=== PATIENT | female | born 1975 | race Caucasian/White ===

== ENCOUNTER 2017-08-07 09:35 | Observation (INO) | payer OTHER ==
[2017-08-07 09:42] VITALS: BP 164/111; PULSE 86; TEMP 98.9; BMI 31.3
--- NOTE | 2017-08-07 10:11 | PDOC ---
History of Present Illness - General History Source: Patient Exam Limitations: No Limitations <Michele Sigala - Last Filed: 08/07/17 11:16> - General History Source: Patient Exam Limitations: No Limitations <Micky Gastelum - Last Filed: 08/07/17 16:56> - General Chief Complaint: Chest Pain Stated Complaint: CHEST PAIN Time Seen by Provider: 08/07/17 09:51 - History of Present Illness Initial Comments: 08/07/17 11:16 The patient is a 41 year old female, with a significant past medical history of DM, HL and HTN, who presents to the emergency department with chest pain and right sided facial/arm/leg numbness. The patient notes she had some intermittent chest pain that was sharp lasting a few minutes since last night, she had anothe repisode morning. She also notes that this morning she woke up feeling 'funny' alittle lightheaded with tingling in her r face, arms/legs with some weakness, she came to the ED and the symptoms have largely improved but she still feels alittle numbness in her arm/face. She denies any recent trauma to her arm, face, or chest. She denies any recent travel. She denies recent fevers, chills, headache or dizziness. She denies recent nausea, vomit, diarrhea or constipation. She denies recent dysuria, frequency, urgency or hematuria. She denies radiation of her chest pain or back pain. No neck pain, palpitations, lighthededness, BERRIOS or worsening of pain with exertion. Allergies: NKA Past surgical history: None reported. Social history: Nonsmoker. Denies EtOH use and recreational drug use. Family hx of ACS (uncle) (JovonMichele) Past History <Michele Sigala - Last Filed: 08/07/17 11:16> - Past Medical History Diabetes: Yes (IDDM) HTN: Yes - Immunization History Immunization Up to Date: Yes - Suicide/Smoking/Psychosocial Hx Smoking History: Never smoked Have you smoked in the past 12 months: No Information on smoking cessation initiated: No Hx Alcohol Use: No Drug/Substance Use Hx: No Substance Use Type: None <iMcky Gastelum - Last Filed: 08/07/17 16:56> - Past Medical History Allergies/Adverse Reactions: Allergies Allergy/AdvReac Type Severity Reaction Status Date / Time Penicillins Allergy Verified 09/16/15 17:46 Home Medications: Ambulatory Orders Insulin Glargine,Hum.rec.anlog [Basaglar Kwikpen U-100] 25 unit SQ BID 08/07/17 Lisinopril [Prinivil] 10 mg PO DAILY 08/07/17 Metformin HCl [Glucophage -] 500 mg PO BID 08/07/17 Review of Systems - Review of Systems Able to Perform ROS?: Yes <Michele Sigala - Last Filed: 08/07/17 11:16> <Micky Gastelum - Last Filed: 08/07/17 16:56> - Review of Systems Comments:: 08/07/17 11:16 CONSTITUTIONAL: No reported: Fever, Chills, Diaphoresis, Generalized Weakness, Malaise, Loss of Appetite HEENT: No reported: Rhinorrhea, Nasal Congestion, Throat Pain, Throat Swelling, Difficulty Swallowing, Mouth Swelling, Ear Pain, Eye Pain, Visual Changes CARDIOVASCULAR: +chest pain. No reported: Syncope, Palpitations, Irregular Heart Rate, Lightheadedness, Peripheral Edema RESPIRATORY: No reported: Cough, Shortness of Breath, SOB with Exertion, Orthopnea, Wheezing , Stridor, Hemoptysis GASTROINTESTINAL: No reported: Abdominal pain, Abdominal Distension, Nausea, Vomiting, Diarrhea, Constipation, Melena, Hematochezia GENITOURINARY: No reported: Dysuria, Frequency, Urgency, Hesitancy, Flank Pain, Genital Pain MUSCULOSKELETAL: No reported: Myalgia, Arthralgia, Joint Swelling, Back pain, Neck Pain SKIN: No reported: Rash, Itching, Pallor HEMATOLOGIC/IMMUNOLOGIC: No reported: Easy Bleeding, Easy Bruising, Lymphadenopathy, Frequent infections ENDOCRINE: No reported: Unexplained Weight Gain, Unexplained Weight Loss, Heat Intolerance , Cold Intolerance NEUROLOGIC: +Facial/arm numbness. No reported: Headache, Lightheadedness, Unsteady Gait, Seizure, Mental Status Changes, Incontinence PSYCHIATRIC: No reported: Anxiety, Depression (Michele Sigala) *Physical Exam <Michele Sigala - Last Filed: 08/07/17 11:16> <Micky Gastelum - Last Filed: 08/07/17 16:56> - Vital Signs Last Vital Signs Temp Pulse Resp BP Pulse Ox 98.9 F 86 14 164/111 100 08/07/17 09:39 08/07/17 09:39 08/07/17 09:39 08/07/17 09:39 08/07/17 09:39 - Physical Exam Comments: 08/07/17 11:17 GENERAL: The patient is awake, alert, and fully oriented, Nontoxic - in no acute distress. HEAD: Normocephalic, atraumatic. EYES: extraocular movements intact, sclera anicteric, conjunctiva clear. ENT: Normal voice, Moist mucous membranes. NECK: Normal range of motion, supple LUNGS: Breath sounds equal, clear to auscultation bilaterally. No wheezes, no rhonchi, no rales. HEART: Regular rate and rhythm, normal S1 and S2 without murmur, rub or gallop. ABDOMEN: Soft, nontender, normoactive bowel sounds. No guarding, no rebound. . No CVA tenderness EXTREMITIES: Normal range of motion, no edema. No clubbing or cyanosis. No cords, erythema, or tenderness. NEUROLOGICAL: No facial assymetry, Normal speech, decreased senation in the face and arms, normal gait, normal finger to nose, rapid alternating movements, no drift. PSYCH: Normal mood, normal affect. SKIN: Warm, Dry, normal turgor, (Michele Sigala) Heart Score/ECG Review <Michele Sigala - Last Filed: 08/07/17 11:16> - History History: Slightly suspicious - Electrocardiogram EKG: Non specific repolarization disturbance - Age Age: </= 45 - Risk Factors Risk Factors Heart Score: Yes Hx Hypercholesterolemia, Yes Hx Diabetes, Yes Positive family hx of cardiac disease Based on the list above the patient has:: >/=3 risk factors or Hx atherosclerotic disease - Troponin Troponin: </= normal limit - Score Heart Score - Total: 3 <Micky Gastelum - Last Filed: 08/07/17 16:56> - ECG Impressions Comment:: Twelve-lead EKG was performed and reviewed by me. There is normal sinus rhythm with a normal rate. The axis is normal. The intervals are normal. There is normal R wave progression Q waves in lead [address] or T wave abnormalities. (Micky Gastelum) ED Treatment Course - LABORATORY CBC & Chemistry Diagram: 10/12/17 12:11 08/07/17 12:11 <Micky Gastelum - Last Filed: 08/07/17 16:56> - ADDITIONAL ORDERS Additional order review: Laboratory Results 08/07/17 08/07/17 08/07/17 16:25 12:11 11:50 Sodium 136 Potassium 4.5 Chloride 103 Carbon Dioxide 24 Anion Gap 9 BUN 25 H D Creatinine 1.1 H D Creat Clearance w eGFR 55.01 Random Glucose 172 H Calcium 9.0 Total Bilirubin 0.3 D AST 14 L D ALT 19 Alkaline Phosphatase 80 D Creatine Kinase 59 Troponin I 0.06 H Total Protein 6.5 Albumin 2.8 L Urine Color Straw Urine Appearance Clear Urine pH 5.0 Urine Protein 2+ H Urine Glucose (UA) 2+ H Urine Ketones Negative Urine Blood 1+ H Urine Nitrite Negative Urine Bilirubin Negative Urine Urobilinogen Negative Urine RBC 2 Urine WBC 3 Ur Epithelial Cells Rare Urine HCG, Qual Negative 08/07/17 12:11 RBC 4.29 MCV 79.8 L MCHC 34.1 RDW 14.2 MPV 9.2 Neutrophils % 63.2 Lymphocytes % 26.7 Monocytes % 6.9 Eosinophils % 2.5 D Basophils % 0.7 - RADIOLOGY Radiology Studies Ordered: Category Date Time Status HEAD CT WITHOUT CONTRAST [CT] Stat CT Scan 08/07/17 10:28 Taken CHEST PA & LAT [RAD] Stat Radiology 08/07/17 10:09 Completed Medical Decision Making <Michele Sigala - Last Filed: 08/07/17 11:16> <Micky Gastelum - Last Filed: 08/07/17 16:56> - Medical Decision Making 08/07/17 10:30 41y F hx of htn, dm, hl presents with complain of R sided chest pain last night that is intermittent, lasting for a few minutes at a time, this morning she felt tingling in her face, arms, legs and mild weakness when she woke up which has singificantly improved. on exam the pts neuro status was essentially negative beside mild subjective tingling. pt had no lateralizing neurollgic findings. differential for the pts sypmtoms include possible acs, consider cva/tia, metabolid dernagements, anemia - will obtain ekg, trops, will obtain ct head will give ASA if ct head negative not tpa candidate as sypmtoms started last night NIHSS is +1 for tingling/sensory changes anticipate observation, consider neuro consultation A portion of this note was documented by scribe services under my direction. I have reviewed the details of the note, within reason, and agree with the documentation with the following case summary and management plan written by me 08/07/17 16:09 pts labs negative neuro symptoms resolved will observe for r/o acs trop 0.06 - will trend pt given asa 08/07/17 16:26 case dw Juanita Mendoza agreed with observation Case discussed in detail with admitting physician including history, physical exam and ancillary studies. Admitting physician has assumed care for the patient, will follow all pending diagnostics and will complete the evaluation and treatment. (Micky Gastelum) *DC/Admit/Observation/Transfer <Michele Sigala - Last Filed: 08/07/17 11:16> - Discharge Dispostion Admit: Yes <Micky Gastelum - Last Filed: 08/07/17 16:56> Diagnosis at time of Disposition: Chest pain Qualifiers: Chest pain type: unspecified Qualified Code(s): R07.9 - Chest pain, unspecified - Discharge Dispostion Decision to Admit order Date/Time: Decision to Admit Order Category Date Time Status Decision to Admit to Hospital Routine Admission 08/07/17 16:27 Active - Attestations Scribe Attestion: 08/07/17 10:39 Documentation prepared by Michele Sigala, acting as medical physics professor for Micky Gastelum MD. (Michele Sigala) NIH Stroke Scale - Last Known Well Date/Time & Onset Date Last Known Well: 08/06/17 Time Last Known Well: 22:00 - Initial Evaluation Level of consciousness: Alert Ask patient the month and their age: Answers both correctly Ask patient to open & close eyes; make fist and let go: Obeys both correctly Best gaze (horizontal eye movement): Normal Visual field testing: No visual field loss Facial paresis (Show teeth/raise eyebrows/close eyes tight): Normal symmetrical movement Motor Function: Left Arm: Normal Motor Function: Right Arm: Normal (extends arm 90 (or 45) degrees for 10 seconds without drift Motor Function: Left Leg: Normal (extends leg 30 degrees for 5 seconds without drift) Motor Function: Right Leg: Normal (extends leg 30 degrees for 5 seconds without drift) Limb Ataxia: No ataxia Sensory(Use pinprick test arms,legs,trunk,face/side to side): Mild to moderate decrease in sensation Best language (Describe picture, name items, read sentences): No Aphasia Dysarthria (read several words): Normal articulation Extinction and Inattention: No abnormality - Total Score NIH Stroke Scale Score: 1 <Micky Gastelum - Last Filed: 08/07/17 16:56> tPA Exclusion Checklist 0-3hr - Time Elapsed Date last known well: 08/06/17 Time last known well: 22:00 Elaspsed time: Day(s) and 18 Hour(s) and 55 Minutes - Thrombolytic Therapy Candidate Is the patient eligible for Thrombolytic Therapy?: No - Ineligibility reason(s) Reasons No tPA given: Outside of window - delayed arrival <Micky Gastelum - Last Filed: 08/07/17 16:56>
--- NOTE | 2017-08-07 11:52 | EKG ---
Test Reason : Blood Pressure : / mmHG Vent. Rate : 082 BPM Atrial Rate : 082 BPM P-R Int : 150 ms QRS Dur : 092 ms QT Int : 376 ms P-R-T Axes : 015 033 058 degrees QTc Int : 439 ms NORMAL SINUS RHYTHM NORMAL ECG WHEN COMPARED WITH ECG OF 16-SEP-2015 18:43, NO SIGNIFICANT CHANGE WAS FOUND Confirmed by RD BERNABE MD ([id number]) on 08/07/2017 11:52:07 AM Referred By: Confirmed By:RD BERNABE MD
[2017-08-07 12:17] LABS: URINE APPEARANCE CLEAR; URINE BILIRUBIN NEGATIVE (NEGATIVE); URINE BLOOD 1+ (NEGATIVE); URINE COLOR STRAW; URINE GLUCOSE (UA) 2+ (NEGATIVE); URINE KETONE NEGATIVE (NEGATIVE); URINE NITRITE NEGATIVE (NEGATIVE); URINE UROBILINOGEN NEGATIVE mg/dL (0.2-1.0)
[2017-08-07 12:19] LABS: BASOPHIL 0.7 % (0-2.0); EOSINOPHIL 2.5 % (0-4.5); MCH 27.2 pg (25.7-33.7); MCHC 34.1 g/dl (32.0-36.0); MEAN CELL VOLUME 79.8 fl (80-96); MEAN PLT VOLUME 9.2 fl (7.5-11.1); NEUTROPHILS 63.2 % (42.8-82.8); PLATELET COUNT 194 K/MM3 (134-434); RDW 14.2 % (11.6-15.6); WHITE BLOOD COUNT 10.4 K/mm3 (4.0-10.0)
[2017-08-07 12:20] LABS: URINE PROTEIN 2+ (NEGATIVE)
[2017-08-07 12:27] LABS: URINE RBC 2 /hpf (0-3); URINE WBC 3 /hpf (3-5)
[2017-08-07 12:54] LABS: ALBUMIN 2.8 g/dl (3.4-5.0); ALK PHOS 80 U/L (45-117); ANION GAP 9 (8-16); BILIRUBIN,TOTAL 0.3 mg/dL (0.2-1.0); CO2 24 mmol/L (21-32); CREATININE 1.1 mg/dL (0.55-1.02); GLUCOSE,RANDOM 172 mg/dL (74-106); SGOT/AST 14 U/L (15-37); SGPT/ALT 19 U/L (12-78); TOT PROT 6.5 g/dl (6.4-8.2)
[2017-08-07] MEDS ORDERED: ASPIRIN 81 MG CHEWABLE TABLETS PO ONE (16:07)
[2017-08-07] MEDS ORDERED: ASPIRIN 81 MG CHEWABLE TABLETS ONE (16:34)
[2017-08-07 16:43] LABS: TROPONIN I 0.06 ng/ml (0.00-0.05)
[2017-08-07 16:58] LABS: URINE LEUK ESTERASE Negative (NEGATIVE)
--- NOTE | 2017-08-07 18:02 | HP ---
Patient advised ED staff she wished to sign out AMA. Met with patient. She stated she had to go home to take care of her 3 year-old. She has no family, friends, or neighbors who can care for the child. Advised the patient of our concern for her having a heart attack. I explained the concept of cardiac enzymes and told her that her first troponin was slightly elevated. I explained that we wanted her to stay for two more enzyme levels, telemetry monitoring, serial ECG exams, echocardiagram, and consultation by a drawing machine operator. I explained to her that she is at risk for a stroke. I also explained to her that her history of diabetes puts her at greater risk of a cardiac/cerebrovascular event. I used the terms "heart attack", "stroke" and "risk of " if she left the hospital. Patient was calm and expressed concern but stated she had to leave. Advised patient to call 911 immediately for any return of symptoms. I did not conduct a physical examination of the patient. Visit type - Emergency Visit Emergency Visit: Yes ED Registration Date: 08/07/17 Care time: The patient presented to the Emergency Department on the above date and was hospitalized for further evaluation of their emergent condition. - New Patient This patient is new to me today: Yes Date on this admission: 08/07/17 - Critical Care Critical Care patient: No
[2017-08-07] MEDS ORDERED: LISINOPRIL 10 MG TABLET (FP) PO ONE (18:28)
[2017-08-07] MEDS ORDERED: METOPROLOL TARTRATE 25 MG TABLET (FP) PO STA (18:51)
--- NOTE | 2017-08-07 19:52 | DS ---
Physical Exam: Patient advised ED staff she wished to sign out AMA. Met with patient. She stated she had to go home to take care of her 3 year-old. She has no family, friends, or neighbors who can care for the child. Advised the patient of our concern for her having a heart attack. I explained the concept of cardiac enzymes and told her that her first troponin was slightly elevated. I explained that we wanted her to stay for two more enzyme levels, telemetry monitoring, serial ECG exams, echocardiagram, and consultation by a ore washer. I explained to her that she is at risk for a stroke. I also explained to her that her history of diabetes puts her at greater risk of a cardiac/cerebrovascular event. I used the terms "heart attack", "stroke" and "risk of " if she left the hospital. Patient was calm and expressed concern but stated she had to leave. Advised patient to call 911 immediately for any return of symptoms. I did not conduct a physical examination of the patient. Minutes to complete discharge: 35 Discharge Summary Reason For Visit: CHEST PAIN Current Active Problems Chest pain (Acute) Condition: Guarded - Instructions Disposition: AGAINST MEDICAL ADVICE - Home Medications Comprehensive Discharge Medication List: Ambulatory Orders Insulin Glargine,Hum.rec.anlog [Basaglar Kwikpen U-100] 25 unit SQ BID 08/07/17 Lisinopril [Prinivil] 10 mg PO DAILY 08/07/17 Metformin HCl [Glucophage -] 500 mg PO BID 08/07/17 This patient is new to me today: Yes Date on this admission: 08/07/17 Emergency Visit: Yes ED Registration Date: 08/07/17 Care time: The patient presented to the Emergency Department on the above date and was hospitalized for further evaluation of their emergent condition. Critical Care patient: No - Discharge Referral Referred to [facility] No
[2017-08-07] MEDS ORDERED: ATORVASTATIN CA 40 MG TABLET (FP) PO SCH (22:00)
[2017-08-08] MEDS ORDERED: LISINOPRIL 10 MG TABLET (FP) PO SCH (10:00)
== END 2017-08-07 19:48 | disposition left against medical advice (07) ==
LOC: JER 09:35 → JERBED 16:27
PROVIDERS: ADMIT Internal Medicine; ATTEND Nurse Practitioner Acute Care
DX: R07.9 Chest pain, unspecified (principal); I10 Essential (primary) hypertension; E78.5 Hyperlipidemia, unspecified; E11.9 Type 2 diabetes mellitus without complications; Z88.0 Allergy status to penicillin; Z79.4 Long term (current) use of insulin; Z79.84 Long term (current) use of oral hypoglycemic drugs
CPT/HCPCS: 36415; 70450-TC; 71020-TC; 80053; 81003; 81015; 82550; 84484; 84703; 85025; 93005; 93010; 99284-25; G0378

== ENCOUNTER 2017-11-22 12:00 | Emergency (ER) | payer OTHER ==
[2017-11-22 12:14] VITALS: TEMP 98.8; BMI 29.7
--- NOTE | 2017-11-22 12:37 | PDOC ---
History of Present Illness - General History Source: Patient Exam Limitations: No Limitations - History of Present Illness Initial Comments: 11/22/17 13:10 The patient is a 42 year old female with a significant PMH of diabetes, HTN, and hyperlipidemia who presents to the emergency department with nausea beginning yesterday morning and left sided abdominal pain and fever beginning last night. The patient notes her last meal was at about 8AM yesterday morning as she has been nauseous and had decreased appetite since then. She reports developing her left sided abdominal pain at about 8PM last night with radiation to her left back and left leg, which she states is 10/10 in severity. She also reports a fever with T. max 101F last night. She notes taking an Advil at about 10PM to some relief. She denies any recent sick contacts. The patient reports no chance of as she has a tubal ligation. The patient denies chest pain, shortness of breath, headache and dizziness. Denies chills, vomit, diarrhea and constipation. Denies dysuria, frequency, urgency and hematuria. Allergies: NKA Past surgical history: Tubal ligation. Toe amputation. Social history: No reported cigarette, alcohol, or drug use. PCP: None reported. <Bret Luo - Last Filed: 11/22/17 13:55> <Joyce Gar - Last Filed: 11/22/17 17:24> - General Chief Complaint: Back Pain Stated Complaint: ABD/ BACK PAIN Time Seen by Provider: 11/22/17 12:37 Past History <Bret Luo - Last Filed: 11/22/17 13:55> - Past Medical History COPD: No Diabetes: Yes HTN: Yes Hypercholesterolemia: Yes - Immunization History Immunization Up to Date: Yes - Suicide/Smoking/Psychosocial Hx Smoking History: Never smoked Have you smoked in the past 12 months: No Hx Alcohol Use: No Drug/Substance Use Hx: No Substance Use Type: None <Joyce Gar - Last Filed: 11/22/17 17:24> - Past Medical History Allergies/Adverse Reactions: Allergies Allergy/AdvReac Type Severity Reaction Status Date / Time Penicillins Allergy Verified 11/22/17 12:14 Home Medications: Ambulatory Orders Insulin Glargine,Hum.rec.anlog [Eran White U-100] 25 unit SQ BID 08/07/17 Lisinopril [Prinivil] 10 mg PO DAILY 08/07/17 Metformin HCl [Glucophage -] 500 mg PO BID 08/07/17 Methocarbamol [Robaxin -] 500 mg PO TID #21 tablet 11/22/17 Methocarbamol [Robaxin -] 500 mg PO TID PRN #21 tablet 11/22/17 Naproxen [Naprosyn -] 500 mg PO BID PRN #14 tablet 11/22/17 Naproxen [Naprosyn -] 500 mg PO BID PRN #14 tablet 11/22/17 Review of Systems - Review of Systems Able to Perform ROS?: Yes Comments:: 11/22/17 13:10 Constitutional - (+) Fever (T. max 101F). (+) Decreased appetite. Pt denies Chills, weakness, HEENT: denies vision changes, sore throat Respiratory: Denies cough, sob, hemoptysis Cardiac: denies chest pain, palpitations, lightheadedness, leg swelling Abd/GI: (+) Nausea. (+) Left side abdominal pain with radiation to left back and left leg. denies vomiting, blood per rectum, melena, diarrhea : denies dysuria, frequency, discharge Musculoskeletal - denies back pain, joint swelling Skin - denies bruising, erythema, rash Neurological: denies headache, numbness, focal weakness, tingling, ataxia, weakness Hematologic: denies anemia, easy bruising, easy bleeding <Bret Luo - Last Filed: 11/22/17 13:55> *Physical Exam - Vital Signs Last Vital Signs Temp Pulse Resp BP Pulse Ox 98.8 F 95 H 18 147/85 98 11/22/17 12:10 11/22/17 12:10 11/22/17 12:10 11/22/17 12:10 11/22/17 12:10 - Physical Exam Comments: 11/22/17 13:10 GENERAL: The patient is awake, alert, and fully oriented, Nontoxic - in no acute distress. HEAD: Normocephalic, atraumatic. EYES: extraocular movements intact, sclera anicteric, conjunctiva clear. ENT: (+) Dry mucosa. Normal voice. NECK: Normal range of motion, supple without lymphadenopathy, JVD, or masses. LUNGS: Breath sounds equal, clear to auscultation bilaterally. No wheezes, no crackles, no rales. HEART: Regular rate and rhythm, normal S1 and S2 without murmur, rub or gallop. ABDOMEN: Soft, nontender, normoactive bowel sounds. No guarding, no rebound. No masses. EXTREMITIES: Normal range of motion, no edema. No clubbing or cyanosis. No cords , erythema, or tenderness. NEUROLOGICAL: Fully Oriented, Alert, Normal Mood/Affect, Motor Strength 5/5. No facial asymmetry, Normal speech SKIN: Warm, Dry, normal turgor, no rashes or lesions noted. <Bret Luo - Last Filed: 11/22/17 13:55> - Vital Signs Last Vital Signs Temp Pulse Resp BP Pulse Ox 98.8 F 95 H 18 147/85 98 11/22/17 12:10 11/22/17 12:10 11/22/17 12:10 11/22/17 12:10 11/22/17 12:10 <Joyce Gar - Last Filed: 11/22/17 17:24> ED Treatment Course - LABORATORY CBC & Chemistry Diagram: 11/22/17 12:45 11/22/17 12:45 - Medications Given in the ED: ED Medications Discontinued Medications Generic Name Dose Route Start Last Admin Trade Name Rachael PRN Reason Stop Dose Admin Ketorolac Tromethamine 30 mg 11/22/17 12:47 11/22/17 13:00 Toradol Injection - IVPUSH 11/22/17 12:48 30 mg ONCE ONE Administration Ondansetron HCl 4 mg 11/22/17 12:40 11/22/17 12:58 Zofran Injection IVPUSH 11/22/17 12:41 4 mg ONCE ONE Administration <Bret Luo - Last Filed: 11/22/17 13:55> - LABORATORY CBC & Chemistry Diagram: 11/22/17 12:45 11/22/17 12:45 <Joyce Gar - Last Filed: 11/22/17 17:24> Medical Decision Making - Medical Decision Making 11/22/17 17:09 I, Dr. Joyce Gar, attest that the scribes documentation that appears above has been prepared under my direction and personally reviewed by me. I confirmed that the note above accurately reflects all work, treatment, procedures, and medical decision-making performed by me. PT seen and examined at bedside with no flank pain, no nausea and vomiting here in ED, Pt's labs and urine noted, pt feeling better after fluid and toradol, Ct done to evaluate for any kidney stones, no stones noted, pt symptoms suggestive of sciatica. Will dc home with naprosyn and robaxin, pt to f/u with pcp in next 48-72 hrs. PT to return to ed for fever, inc back pain, nausea and vomiting,or as needed. PT was given opportunity to ask and have all questions answered before dc home. 11/22/17 17:23 <Joyce Gar - Last Filed: 11/22/17 17:24> *DC/Admit/Observation/Transfer - Attestations Scribe Attestion: 11/22/17 13:10 Documentation prepared by Bret Luo, acting as medical device assembler for Joyce Gar MD. <Bret Luo - Last Filed: 11/22/17 13:55> - Discharge Dispostion Admit: No <Joyce Gar - Last Filed: 11/22/17 17:24> Diagnosis at time of Disposition: Sciatica, Back pain - Discharge Dispostion Disposition: HOME Condition at time of disposition: Stable - Prescriptions Prescriptions: Methocarbamol [Robaxin -] 500 mg PO TID PRN #21 tablet PRN Reason: Back Pain Methocarbamol [Robaxin -] 500 mg PO TID #21 tablet Naproxen [Naprosyn -] 500 mg PO BID PRN #14 tablet PRN Reason: Pain Naproxen [Naprosyn -] 500 mg PO BID PRN #14 tablet PRN Reason: Pain - Patient Instructions Printed Discharge Instructions: DI for Back Pain With Sciatica Additional Instructions: return to ed for increased pain in back, nausea and vomiting,abdominal pain or as needed. Pt to f/u with pcp in next 48-72hrs
[2017-11-22] MEDS ORDERED: ONDANSETRON 4 MG/2 ML VIAL IVPUSH ONE (12:40)
[2017-11-22] MEDS ORDERED: SODIUM CHLORIDE 1,000 ML IV SCH (12:45)
[2017-11-22] MEDS ORDERED: KETOROLAC TROMETHAMINE 30 MG/1 ML VIAL IVPUSH ONE (12:47)
[2017-11-22] MEDS ORDERED: ONDANSETRON 4 MG/2 ML VIAL ONE (12:49)
[2017-11-22] MEDS ORDERED: KETOROLAC TROMETHAMINE 30 MG/1 ML VIAL ONE (12:58)
[2017-11-22 13:05] LABS: BASO % 0.7 % (0-2.0); EOS % 2.4 % (0-4.5); HEMATOCRIT 36.1 % (32.4-45.2); MCH 26.4 pg (25.7-33.7); MCHC 33.3 g/dl (32.0-36.0); MEAN CELL VOLUME 79.1 fl (80-96); MONO % 6.9 % (3.8-10.2); PLATELET COUNT 207 K/MM3 (134-434); RBC 4.57 M/mm3 (3.60-5.2); WHITE BLOOD COUNT 10.6 K/mm3 (4.0-10.0)
[2017-11-22 13:16] LABS: URINE APPEARANCE CLEAR; URINE BILIRUBIN NEGATIVE (NEGATIVE); URINE BLOOD 1+ (NEGATIVE); URINE COLOR LTYELLOW; URINE GLUCOSE (UA) 1+ (NEGATIVE); URINE KETONE NEGATIVE (NEGATIVE); URINE LEUK ESTERASE NEGATIVE (NEGATIVE); URINE NITRITE NEGATIVE (NEGATIVE); URINE UROBILINOGEN NEGATIVE mg/dL (0.2-1.0)
[2017-11-22 13:25] LABS: URINE PROTEIN 3+ (NEGATIVE)
[2017-11-22 13:26] LABS: EPI CELLS RARE /HPF (FEW); URINE HYALINE CAST 2 /lpf; URINE MUCUS RARE
[2017-11-22 13:46] LABS: ALBUMIN 2.8 g/dl (3.4-5.0); ANION GAP 7 (8-16); BILIRUBIN,TOTAL 0.4 mg/dL (0.2-1.0); BLOOD UREA NITROGEN 13 mg/dL (7-18); CALCIUM 8.8 mg/dL (8.5-10.1); CHLORIDE 102 mmol/L (98-107); CO2 27 mmol/L (21-32); CREATININE 1.2 mg/dL (0.55-1.02); GLUCOSE,RANDOM 173 mg/dL (74-106); POTASSIUM 4.5 mmol/L (3.5-5.1); SGOT/AST 16 U/L (15-37); SGPT/ALT 21 U/L (12-78); SODIUM 136 mmol/L (136-145); TOT PROT 6.8 g/dl (6.4-8.2)
[2017-11-22 13:47] LABS: ALK PHOS 86 U/L (45-117)
[2017-11-22 16:41] VITALS: BP 144/84; PULSE 80
== END 2017-11-22 17:13 | disposition home or self-care (01) ==
LOC: JER 12:00
PROC: 3E0337Z Introduction of Electrolytic and Water Balance Substance into Peripheral Vein, Percutaneous Approach (ICD-10-PCS; principal; 2017-11-22)
PROC: 3E0333Z Introduction of Anti-inflammatory into Peripheral Vein, Percutaneous Approach (ICD-10-PCS; 2017-11-22)
PROC: 3E033GC Introduction of Other Therapeutic Substance into Peripheral Vein, Percutaneous Approach (ICD-10-PCS; 2017-11-22)
DX: M54.42 Lumbago with sciatica, left side (principal); I10 Essential (primary) hypertension; E11.9 Type 2 diabetes mellitus without complications; Z79.4 Long term (current) use of insulin; Z79.84 Long term (current) use of oral hypoglycemic drugs; E78.00 Pure hypercholesterolemia, unspecified
CPT/HCPCS: 36415; 74176; 80053; 81003; 81015; 84703; 85025; 96361; 96374; 96375; 99282-25

== ENCOUNTER 2018-07-29 09:24 | Day surgery (SDC) | payer OTHER ==
[2018-07-28 12:04] VITALS: BMI 34.4
[~2018-07-29 09:24] MED LIST: ACETAMINOPHEN 325 MG TABLET (FP) PO PRN
[2018-07-29] MEDS ORDERED: TROPICAMIDE 1% OPHTH SOLN 15 ML BOTTLE ONE (09:55)
[2018-07-29] MEDS ORDERED: PHENYLEPHRINE 2.5% OPHTH SOLN 15 ML BOTTLE ONE (09:55)
[2018-07-29] MEDS ORDERED: CYCLOPENTOLATE HCL 1% OPHTH SOLN 2 ML BOTTLE ONE (09:55)
[2018-07-29] MEDS ORDERED: OFLOXACIN 0.3% OPHTHALMIC SOLUTION 5 ML BOTTLE ONE (09:55)
[2018-07-29] MEDS: CYCLOPENTOLATE HCL 1% OPHTH SOLN 2 ML BOTTLE OP SCH ×3 (10:25→10:40)
[2018-07-29] MEDS: PHENYLEPHRINE 2.5% OPHTH SOLN 15 ML BOTTLE OP SCH ×3 (10:25→10:40)
[2018-07-29] MEDS: TROPICAMIDE 1% OPHTH SOLN 15 ML BOTTLE OP SCH ×3 (10:25→10:40)
[2018-07-29] MEDS: OFLOXACIN 0.3% OPHTHALMIC SOLUTION 5 ML BOTTLE OP SCH ×3 (10:25→10:40)
[2018-07-29] MEDS: KETOROLAC TROMETHAMINE 0.5% EYE DROP 1 DROP DROPS OP SCH ×3 (10:25→10:40)
[2018-07-29] MEDS ORDERED: PROPOFOL 20 ML ONE (11:15)
[2018-07-29] MEDS ORDERED: MIDAZOLAM HCL 2 MG/2 ML SINGLE DOSE VIAL ONE (11:15)
[2018-07-29] MEDS ORDERED: BUPIVACAINE HCL/PF 0.75% 10 ML VIAL NR ONE (11:54)
[2018-07-29] MEDS ORDERED: LIDOCAINE HCL/PF 2% SDV 5ML VIAL INF ONE (11:54)
[2018-07-29] MEDS ORDERED: POVIDONE-IODINE 5% OPHTHALMIC PREP 30 ML SOLUTION OD ONE (11:55)
[2018-07-29] MEDS ORDERED: LIDOCAINE HCL 1% PRESERVATIVE FREE - 30ML VIAL IO ONE (12:03)
[2018-07-29] MEDS ORDERED: CHONDROITIN SU A/HYALUR SOD 1 KIT IO ONE (12:03)
[2018-07-29] MEDS ORDERED: BSS (NA/CA/MG/K) BALANCED SALT SOLUTION OPHTH SOLN 15 ML BOTTLE OD ONE (12:03)
[2018-07-29] MEDS ORDERED: HYALURONATE SODIUM 14 MG/ML DISP.SYRIN IO ONE (12:03)
[2018-07-29] MEDS ORDERED: TRYPAN BLUE 0.5 ML DISP.SYRIN IO ONE (12:03)
[2018-07-29] MEDS ORDERED: EPINEPHrine/PF 1 MG/1 ML (1:1,000) AMPULE SQ ONE (12:12)
[2018-07-29 13:04] VITALS: PULSE 80
--- NOTE | 2018-07-29 14:33 | SPEC ---
DATE OF OPERATION: DATE OF DICTATION: 07/29/2018 PREOPERATIVE DIAGNOSIS: Cataract, right eye. ASSOCIATED DIAGNOSIS: Posterior synechiae. PROCEDURE: Phacoemulsification of right cataract with capsule staining with Trypan blue, posterior synechiolysis and posterior chamber intraocular lens implantation, the lens used [id number], 20.5-diopter power, serial number [id number]. ANESTHESIA: Peribulbar/modified Van Lint/MAC. COMPLICATIONS: None. PROCEDURE: The patient was brought into the operating room and correctly identified along with the operative site and a correct intraocular lens hillman. She was then given a peribulbar block under sedation with 5 mL of a 1:1 mixture of 2% lidocaine and 0.75% bupivacaine. Two mL of the same mixture was given as a modified Van Lint block. The eye was then prepped and draped in the usual sterile fashion including 5% Betadine solution in the conjunctival sac and an eyelid drape. An eyelid speculum was then placed into the right eye. The eye was inspected and a small area of posterior synechiae was noted. A paracentesis port was created. Preservative-free lidocaine 1% was injected intracamerally, approximately 0.5 mL. An air bubble in the capsule was then stained with Trypan blue and viscoelastic was then injected to inflate the anterior chamber. The viscoelastic cannula was used to break the synechiae which was not noted to be very significant. A temporal clear corneal wound was created. A continuous circular capsulorrhexis was performed. The nucleus was then gently hydrodissected but largely hydrodelineated given the history of having a posterior polar cataract. The cataract was then removed using phacoemulsification energy. Care was made to keep the bottle height low and to avoid excessive manipulation. The central nuclear sclerosis cataract was first removed and the remaining epinuclear material was then gently irrigated and aspirated. Upon withdrawing the phacoemulsification tip Provisc was placed to prevent the capsular bag from collapsing. A 2nd paracentesis port was created and bimanual irrigation and aspiration was then performed of the remaining cortical material. Care was made to address the posterior polar cataract last. The peripheral cortical material was fully removed, but the central posterior polar cataract remained. Once again prior to removing the irrigation Provisc was injected to inflate the capsular bag to prevent the anterior chamber and capsular bag from collapsing. The lens was then injected into the capsular bag. Viscoelastic was then removed with bimanual irrigation and aspiration. At the end of the procedure the intraocular lens was noted to be well centered and the optioc completely covered the anterior capsular border. The posterior polar cataract was still noted to be present; however, there was no posterior capsular rupture. All wounds were checked and found to be watertight. No suture was placed. Topical vancomycin placed, the eye patched and shielded and the patient discharged from the operating room in a stable condition. MAXX HYATT M.D. [id number] MTDD
[2018-07-29 14:39] VITALS: BP 136/70; TEMP 98.6
== END 2018-07-29 13:45 | disposition home or self-care (01) ==
LOC: JASU-SURG 09:24
PROVIDERS: ATTEND Ophthalmology
PROC: 08RJ3JZ Replacement of Right Lens with Synthetic Substitute, Percutaneous Approach (ICD-10-PCS; principal; 2018-07-29 11:00)
DX: H26.9 Unspecified cataract (principal); H21.541 Posterior synechiae (iris), right eye
CPT/HCPCS: 82962; 84703

== ENCOUNTER 2018-08-04 20:23 | Inpatient (IN) | payer OTHER ==
--- NOTE | 2018-08-04 21:16 | PDOC ---
Rapid Medical Evaluation Time Seen by Provider: 08/04/18 21:15 Medical Evaluation: Allergies Allergy/AdvReac Type Severity Reaction Status Date / Time Penicillins Allergy Severe Difficulty Verified 07/28/18 12:07 Breathing 08/04/18 21:16 The patient presents with a chief complaint of: abscess abdomen I have performed a brief in-person evaluation of this patient. Pertinent physical exam findings: vss, I have ordered the following: labs, sepsis screening The patient will proceed to the ED for further evaluation.
[2018-08-04] MEDS ORDERED: IBUPROFEN 600 MG TABLET (FP) PO ONE ×2 (21:19→22:02)
[2018-08-04 22:05] LABS: VENOUS PC02 42.2 mmHg (38-52); VENOUS PH 7.36 (7.32-7.42); VENOUS PO2 27.4 mmHg (28-48)
[2018-08-04 22:17] LABS: URINE APPEARANCE TURBID; URINE BILIRUBIN NEGATIVE (<2.0 mg/dL); URINE COLOR YELLOW; URINE GLUCOSE (UA) 3+ (NEGATIVE); URINE KETONE NEGATIVE (NEGATIVE); URINE LEUK ESTERASE 3+ (NEGATIVE); URINE NITRITE NEGATIVE (NEGATIVE); URINE PROTEIN 3+ (NEGATIVE); URINE UROBILINOGEN NEGATIVE mg/dL (0.2-1.0)
[2018-08-04 22:19] LABS: BASO % 0.6 % (0-2.0); EOS % 1.8 % (0-4.5); HEMATOCRIT 29.4 % (32.4-45.2); HEMOGLOBIN 9.9 GM/dL (10.7-15.3); LYMPH % 16.4 % (8-40); MCH 26.1 pg (25.7-33.7); MCHC 33.6 g/dl (32.0-36.0); MEAN CELL VOLUME 77.7 fl (80-96); MEAN PLT VOLUME 9.7 fl (7.5-11.1); MONO % 7.2 % (3.8-10.2); PLATELET COUNT 265 K/MM3 (134-434); RBC 3.78 M/mm3 (3.60-5.2); RDW 14.6 % (11.6-15.6); WHITE BLOOD COUNT 14.2 K/mm3 (4.0-10.0)
[2018-08-04 22:22] LABS: EPI CELLS RARE /HPF (FEW); URINE BACTERIA RARE /hpf (NONE SEEN)
[2018-08-04 22:25] LABS: ALBUMIN 2.9 g/dl (3.4-5.0); ALK PHOS 97 U/L (45-117); ANION GAP 8 MMOL/L (8-16); BILIRUBIN,TOTAL 0.3 mg/dL (0.2-1); BLOOD UREA NITROGEN 23 mg/dL (7-18); CALCIUM 8.4 mg/dL (8.5-10.1); CHLORIDE 103 mmol/L (98-107); CO2 22 mmol/L (21-32); CREATININE 1.9 mg/dL (0.55-1.3); GLUCOSE,RANDOM 238 mg/dL (74-106); POTASSIUM 4.5 mmol/L (3.5-5.1); SGOT/AST 12 U/L (15-37); SGPT/ALT 21 U/L (13-61); SODIUM 133 mmol/L (136-145); TOT PROT 6.9 g/dl (6.4-8.2)
[2018-08-04 22:26] LABS: INR 1.05 (0.83-1.09); PROTHROMBIN TIME (PATIENT) 12.4 SEC (9.7-13.0)
[2018-08-04 22:28] LABS: ACTIVATED PTT 26.1 SECONDS (25.2-36.5)
[2018-08-04] MEDS ORDERED: SODIUM CHLORIDE 1,000 ML IV STA (22:41)
--- NOTE | 2018-08-04 22:47 | PDOC ---
History of Present Illness - General Chief Complaint: Wound Stated Complaint: ABCESS Time Seen by Provider: 08/04/18 21:15 History Source: Patient - History of Present Illness Initial Comments: 08/05/18 00:21 42 year old IDDM with lower abdominal pain with cellulitis and abscess with pus drainage x 2 days. reports that she has a pustule to pannus which started to spread with increased redness and tenderness, patient reports that she was started on an antibiotics starting with a "C" and does not recall the name of it. patient is reporting fever/ chills. Past History - Past Medical History Allergies/Adverse Reactions: Allergies Allergy/AdvReac Type Severity Reaction Status Date / Time Penicillins Allergy Severe Difficulty Verified 08/04/18 22:09 Breathing Home Medications: Ambulatory Orders Insulin Glargine,Hum.rec.anlog [Basaglar Kwikpen U-100] 40 unit SQ HS 08/07/17 metFORMIN HCL [Glucophage -] 1,000 mg PO BID 08/07/17 Aspirin [Aspirin EC] 81 mg PO DAILY 06/09/18 Atorvastatin Ca [Lipitor] 40 mg PO HS 06/09/18 Gabapentin 600 mg PO BID 06/09/18 Glipizide [Glipizide ER] 10 mg PO DAILY 06/09/18 Losartan Potassium 25 mg PO DAILY 06/09/18 Montelukast Sodium [Singulair] 10 mg PO DAILY 06/09/18 Walker [Ultra-Light Rollator] 1 each MC DAILY #1 each 08/07/18 Doxycycline Hyclate 100 mg PO BID #20 capsule 08/10/18 Anemia: No Asthma: Yes Cancer: No Cardiac Disorders: No CVA: No COPD: No CHF: No Dementia: No Diabetes: Yes GI Disorders: No Disorders: No HTN: Yes Hypercholesterolemia: Yes Liver Disease: No Seizures: No Thyroid Disease: No - Immunization History Immunization Up to Date: Yes - Suicide/Smoking/Psychosocial Hx Smoking History: Never smoked Have you smoked in the past 12 months: No Information on smoking cessation initiated: No Hx Alcohol Use: No Drug/Substance Use Hx: No Substance Use Type: None Review of Systems - Review of Systems Able to Perform ROS?: Yes Is the patient limited Romansh proficient: No Constitutional: Yes: Chills, Fever Integumentary: Yes: Erythema *Physical Exam - Vital Signs Last Vital Signs Temp Pulse Resp BP Pulse Ox 100.2 F H 102 H 18 154/82 98 08/04/18 21:17 08/04/18 21:17 08/04/18 21:17 08/04/18 21:17 08/04/18 21:17 ED Treatment Course - LABORATORY CBC & Chemistry Diagram: 08/07/18 06:23 08/10/18 06:00 - ADDITIONAL ORDERS Additional order review: Laboratory Results 08/04/18 08/04/18 08/04/18 21:49 21:43 21:43 PT with INR INR PTT (Actin FS) Sodium 133 L Potassium 4.5 Chloride 103 Carbon Dioxide 22 Anion Gap 8 BUN 23 H Creatinine 1.9 H Creat Clearance w eGFR 29.13 Random Glucose 238 H Lactic Acid 1.6 Calcium 8.4 L Total Bilirubin 0.3 AST 12 L ALT 21 Alkaline Phosphatase 97 Total Protein 6.9 Albumin 2.9 L Urine Color Yellow Urine Appearance Turbid Urine pH 5.0 Ur Specific [place] 1.008 L Urine Protein 3+ H Urine Glucose (UA) 3+ H D Urine Ketones Negative Urine Blood 2+ H Urine Nitrite Negative Urine Bilirubin Negative Urine Urobilinogen Negative Ur Leukocyte Esterase 3+ H Urine WBC (Auto) 1016 Urine RBC (Auto) 3 Ur Epithelial Cells Rare Urine Bacteria Rare 08/04/18 21:43 PT with INR 12.40 INR 1.05 PTT (Actin FS) 26.1 Sodium Potassium Chloride Carbon Dioxide Anion Gap BUN Creatinine Creat Clearance w eGFR Random Glucose Lactic Acid Calcium Total Bilirubin AST ALT Alkaline Phosphatase Total Protein Albumin Urine Color Urine Appearance Urine pH Ur Specific [place] Urine Protein Urine Glucose (UA) Urine Ketones Urine Blood Urine Nitrite Urine Bilirubin Urine Urobilinogen Ur Leukocyte Esterase Urine WBC (Auto) Urine RBC (Auto) Ur Epithelial Cells Urine Bacteria 08/04/18 21:43 RBC 3.78 MCV 77.7 L MCHC 33.6 RDW 14.6 MPV 9.7 Neutrophils % 74.0 Lymphocytes % 16.4 D Monocytes % 7.2 Eosinophils % 1.8 Basophils % 0.6 - Medications Given in the ED: ED Medications Discontinued Medications Generic Name Dose Route Start Last Admin Trade Name Freq PRN Reason Stop Dose Admin Ibuprofen 600 mg 08/04/18 21:19 08/04/18 22:05 Motrin - PO 08/04/18 21:20 600 mg ONCE ONE Administration Progress Note - Progress Note Progress Note: A: cellulitis and abscess P: labs blood culture urine culture wound culture IV antibiotics and admit Medical Decision Making - Medical Decision Making Patient signed out to Dr. Vitale and for further management of care. *DC/Admit/Observation/Transfer Diagnosis at time of Disposition: Cellulitis of abdominal wall - Discharge Dispostion Disposition: HOME Condition at time of disposition: Stable Decision to Admit order: Yes - Prescriptions - Referrals - Patient Instructions - Post Discharge Activity
[2018-08-04] MEDS ORDERED: DOXYCYCLINE INJECTION 100 MG in DEXTROSE 5%-WATER - 100 ML IVPB ONE (22:50)
[2018-08-04] MEDS ORDERED: DOXYCYCLINE HYCLATE 100 MG VIAL ONE (23:07)
--- NOTE | 2018-08-05 01:09 | PN ---
Teaching Attending Note Name of Resident: Celina Stephenson ATTENDING PHYSICIAN STATEMENT I saw and evaluated the patient. I reviewed the resident's note and discussed the case with the resident. I agree with the resident's findings and plan as documented. SUBJECTIVE: Patient is a 42 year old woman with PMH of insulin-treated DM, left retinal surgery, asthma, penicillin-allergy, HLD and HTN with lower abdominal pain with cellulitis and abscess with pus drainage for 2 days. She had a pustule to pannus which started to spread with increased redness and tenderness. Patient reports that she was started on Clindamycin. She reports fever/ chills. Also has right leg pain with ambulation. OBJECTIVE: Alert Vital Signs Period Temp Pulse Resp BP Sys/Cohen Pulse Ox Last 24 Hr 100.2 F 102 18 154/82 98 HEENT: No Jaundice, eye redness or discharge, PERRLA, EOMI. Normocephalic, atraumatic. External ears are normal and hearing is grossly intact. No nasal discharge. Neck: Supple, nontender. No palpable adenopathy or thyromegaly. No JVD Chest: Good effort. Clear to auscultation and percussion. Heart: Regular. No S3, rub or murmur Abdomen: Abdominal wall abscess with surrounding erythema which is warm and tender; abdomen not distended, soft and no HSM. No rebound or guarding. Normoactive bowel sounds. Ext: Peripheral pulses intact. No leg edema. 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 Skin: Warm and dry. No petechiae, rash or ecchymosis. Neuro: Alert. Oriented x3. CN 2-12 grossly intact. Sensation grossly intact in all four extremities and DTR are symmetric. Home Medications Medication Instructions Recorded Insulin Glargine,Hum.rec.anlog 40 unit SQ HS 08/07/17 [Basaglar Kwikpen U-100] metFORMIN HCL [Glucophage -] 1,000 mg PO BID 08/07/17 Aspirin [Aspirin EC] 81 mg PO DAILY 06/09/18 Atorvastatin Ca [Lipitor] 40 mg PO HS 06/09/18 Gabapentin 600 mg PO BID 06/09/18 Glipizide [Glipizide ER] 10 mg PO DAILY 06/09/18 Losartan Potassium 25 mg PO DAILY 06/09/18 Montelukast Sodium [Singulair] 10 mg PO DAILY 06/09/18 Abnormal Lab Results 08/04/18 08/04/18 08/04/18 21:43 21:43 21:43 WBC 14.2 H Hgb 9.9 L Hct 29.4 L D MCV 77.7 L Absolute Neuts (auto) 10.5 H POC VBG pO2 27.4 L Sodium 133 L BUN 23 H Creatinine 1.9 H Random Glucose 238 H Calcium 8.4 L AST 12 L Albumin 2.9 L Ur Specific [place] Urine Protein Urine Glucose (UA) Urine Blood Ur Leukocyte Esterase 08/04/18 21:49 WBC Hgb Hct MCV Absolute Neuts (auto) POC VBG pO2 Sodium BUN Creatinine Random Glucose Calcium AST Albumin Ur Specific [place] 1.008 L Urine Protein 3+ H Urine Glucose (UA) 3+ H D Urine Blood 2+ H Ur Leukocyte Esterase 3+ H ASSESSMENT AND PLAN: 1. Sepsis due to abdominal wall abscess/UTI - Will get abdominal CT to ascertain the extent of the abscess to prepare for possible I&D. Get culture. Treat with IV Vancomycin and Cipro pending abscess and urine culture reports. Restart home BP medications. Get arterial duplex of right leg, consult General surgery, vascular surgery and ID. Refer to clinical field specialist to search for other risk factors for recurrent abscesses besides DM. 2. Hypoalbuminemia - Possibly due to combined effects of proteinuria, malnutrition and inflammation associated with comorbid chronic conditions. Will ensure adequate dietary protein intake and also consult arranging funeral director. 3. DM - For now, we will hold the home diabetes drugs and implement sliding scale insulin regimen. Provide comprehensive diabetes care with patient teaching and counseling about the importance of euglycemia, eye care and foot care. Will benefit from VNS referral upon discharge as well as guidance from a diabetes nurse specialist. 4. CKD - Has risk factors for CKD and has proteinuria. Likely also dehydrated. Will get kidney sonogram and hydrate her. Avoid nephrotoxic agents such as NSAIDS, aminoglycosides, contrast dyes and certain Alternative medicine products. Consult nephrology. 5. Low MCV Anemia - Likely partly due to CKD. Will do basic anemia work up including serial stool guaiacs, reticulocyte count and iron studies. Would benefit from Procrit therapy once iron replete. 6. Obesity - Will provide patient all the necessary assistance, counseling and positive reinforcement to facilitate weight loss. Consult arranging funeral director. 7. DVT prophylaxis - Heparin 5000u sq tid. 8. Advance directives - Full code
[2018-08-05] MEDS ORDERED: VANCOMYCIN 1,500 MG in DEXTROSE 5%-WATER - 500 ML IVPB ONE (02:18)
[2018-08-05] MEDS ORDERED: CIPROFLOXACIN 400 MG/D5W 400 MG/200 ML IVPB IVPB ONE ×2 (02:23→15:00)
--- NOTE | 2018-08-05 02:42 | HP ---
CHIEF COMPLAINT: abdominal abscess PCP: Dr. Cannon HISTORY OF PRESENT ILLNESS: 42F w/ pmhx of DM, HTN, HLD, PAD presented to the ED w/ a non-healing abscess on her abdomen that worsened over the past few days. She admits to fever/chills , nausea, decreased appetite. Additionally she admits to tenderness in her RLQ of her abdomen that is "deep inside." Of note, she has had 4 episodes of cellulitis over the past month where she was treated at [facility]. These lesions were located on the buttocks and bilateral thighs, all of which she states have been resolving. She does not remember the name of the antibiotic she was given, but she admits to using leftover antibiotic for her current abdominal abscess. Additionally, she states she started to have difficulty walking 3-4 years ago due to pain in her R leg behind her calf. She denies trauma to the area, urinary/bowel symptoms, blood in urine or stool. Pt reports she follows up with her eye doctor regularly; also last saw a hyperion essbase developer 4 months ago. 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 Bypass graft in L leg Retinal surgery in L eye Cataract surgery in R eye Social History: Smoking: Denies Alcohol: Denies Drugs: Denies Family History: Mother: DM, Lung cancer Father: [place], at age 58 Allergies Penicillins Allergy (Severe, Verified 08/04/18 22:09) Difficulty Breathing TURNED BLUE HOME MEDICATIONS: Home Medications Medication Instructions Recorded Insulin Glargine,Hum.rec.anlog 40 unit SQ HS 08/07/17 [Basaglar Kwikpen U-100] metFORMIN HCL [Glucophage -] 1,000 mg PO BID 08/07/17 Aspirin [Aspirin EC] 81 mg PO DAILY 06/09/18 Atorvastatin Ca [Lipitor] 40 mg PO HS 06/09/18 Gabapentin 600 mg PO BID 06/09/18 Glipizide [Glipizide ER] 10 mg PO DAILY 06/09/18 Losartan Potassium 25 mg PO DAILY 06/09/18 Montelukast Sodium [Singulair] 10 mg PO DAILY 06/09/18 REVIEW OF SYSTEMS CONSTITUTIONAL: fever, chills Absent: diaphoresis, malaise, loss of appetite HEENT: Absent: rhinorrhea, nasal congestion, eye pain, visual changes CARDIOVASCULAR: Absent: chest pain, syncope, palpitations, irregular heart rate, peripheral edema RESPIRATORY: Absent: cough, shortness of breath, wheezing GASTROINTESTINAL: nausea Absent: abdominal pain, abdominal distension, vomiting, diarrhea, constipation GENITOURINARY: Absent: dysuria, frequency, urgency, hesitancy, hematuria MUSCULOSKELETAL: bilateral leg weakness Absent: myalgia, arthralgia, joint swelling, back pain, neck pain SKIN: Absent: rash, itching, pallor HEMATOLOGIC/IMMUNOLOGIC: Absent: easy bleeding, easy bruising, lymphadenopathy, frequent infections ENDOCRINE: Absent: unexplained weight gain, heat intolerance, cold intolerance NEUROLOGIC: Absent: headache, focal weakness or paresthesias, dizziness, seizure, bladder or bowel incontinence PSYCHIATRIC: Absent: anxiety, depression, suicidal or homicidal ideation, hallucinations. PHYSICAL EXAMINATION Vital Signs - 24 hr 08/04/18 08/05/18 21:17 01:22 Temperature 100.2 F H Pulse Rate 102 H Pulse Rate [ 86 Right Radial] Respiratory 18 18 Rate Blood Pressure 154/82 Blood Pressure 147/82 [Right Arm] O2 Sat by Pulse 98 Oximetry (%) GENERAL: AAOx3. NAD. Resting comfortably. HEENT: AT/NC. EOMI. SAIGE. Moist mucus membranes. Black spot noted in R eye during fundoscopic exam. NECK: Supple, no LAD/JVD. LUNGS: CTA B/L. No w/r/r noted. Symmetric chest rise. No accessory muscle use. HEART: RRR. Normal S1, S2. No murmurs noted. ABDOMEN: Obese. Soft, ND. 10 cm lesion on lower abdomen, red, indurated, but not fluctuant surrounded by erythema; extremely tender to palpation. +BS in all 4 Q's. No masses or bruits noted. MUSCULOSKELETAL: No pedal edema. 5/5 muscle strength in b/l u/l extremities. No CVA tenderness. NEUROLOGICAL: Normal speech. CN II-XII intact. PSYCHIATRIC: Cooperative. Good eye contact. Appropriate mood and affect. SKIN: Warm, dry, normal turgor. Sluggish capillary refill on R big toe, normal on L foot. Laboratory Results - last 24 hr 08/04/18 08/04/18 08/04/18 21:43 21:43 21:43 WBC 14.2 H RBC 3.78 Hgb 9.9 L Hct 29.4 L D MCV 77.7 L MCH 26.1 MCHC 33.6 RDW 14.6 Plt Count 265 D MPV 9.7 Absolute Neuts (auto) 10.5 H Neutrophils % 74.0 Lymphocytes % 16.4 D Monocytes % 7.2 Eosinophils % 1.8 Basophils % 0.6 Nucleated RBC % 0 PT with INR 12.40 INR 1.05 PTT (Actin FS) 26.1 VBG pH 7.36 POC VBG pCO2 42.2 POC VBG pO2 27.4 L Mixed VBG HCO3 23.4 Sodium Potassium Chloride Carbon Dioxide Anion Gap BUN Creatinine Creat Clearance w eGFR Random Glucose Lactic Acid Calcium Total Bilirubin AST ALT Alkaline Phosphatase Total Protein Albumin Urine Color Urine Appearance Urine pH Ur Specific [place] Urine Protein Urine Glucose (UA) Urine Ketones Urine Blood Urine Nitrite Urine Bilirubin Urine Urobilinogen Ur Leukocyte Esterase Urine WBC (Auto) Urine RBC (Auto) Ur Epithelial Cells Urine Bacteria HIV 1&2 Antibody Screen HIV P24 Antigen 08/04/18 08/04/18 08/04/18 21:43 21:43 21:49 WBC RBC Hgb Hct MCV MCH MCHC RDW Plt Count MPV Absolute Neuts (auto) Neutrophils % Lymphocytes % Monocytes % Eosinophils % Basophils % Nucleated RBC % PT with INR INR PTT (Actin FS) VBG pH POC VBG pCO2 POC VBG pO2 Mixed VBG HCO3 Sodium 133 L Potassium 4.5 Chloride 103 Carbon Dioxide 22 Anion Gap 8 BUN 23 H Creatinine 1.9 H Creat Clearance w eGFR 29.13 Random Glucose 238 H Lactic Acid 1.6 Calcium 8.4 L Total Bilirubin 0.3 AST 12 L ALT 21 Alkaline Phosphatase 97 Total Protein 6.9 Albumin 2.9 L Urine Color Yellow Urine Appearance Turbid Urine pH 5.0 Ur Specific [place] 1.008 L Urine Protein 3+ H Urine Glucose (UA) 3+ H D Urine Ketones Negative Urine Blood 2+ H Urine Nitrite Negative Urine Bilirubin Negative Urine Urobilinogen Negative Ur Leukocyte Esterase 3+ H Urine WBC (Auto) 1016 Urine RBC (Auto) 3 Ur Epithelial Cells Rare Urine Bacteria Rare HIV 1&2 Antibody Screen HIV P24 Antigen 08/04/18 21:52 WBC RBC Hgb Hct MCV MCH MCHC RDW Plt Count MPV Absolute Neuts (auto) Neutrophils % Lymphocytes % Monocytes % Eosinophils % Basophils % Nucleated RBC % PT with INR INR PTT (Actin FS) VBG pH POC VBG pCO2 POC VBG pO2 Mixed VBG HCO3 Sodium Potassium Chloride Carbon Dioxide Anion Gap BUN Creatinine Creat Clearance w eGFR Random Glucose Lactic Acid Calcium Total Bilirubin AST ALT Alkaline Phosphatase Total Protein Albumin Urine Color Urine Appearance Urine pH Ur Specific [place] Urine Protein Urine Glucose (UA) Urine Ketones Urine Blood Urine Nitrite Urine Bilirubin Urine Urobilinogen Ur Leukocyte Esterase Urine WBC (Auto) Urine RBC (Auto) Ur Epithelial Cells Urine Bacteria HIV 1&2 Antibody Screen Negative HIV P24 Antigen Negative ASSESSMENT/PLAN: 42F w/ pmhx of DM, HTN, HLD, PAD admitted to the hospital for sepsis 2/2 abdominal abscess. #Sepsis 2/2 abdominal abscess -Vancomycin 1,250 mg IVPB QDm, renally dosed -Ciprofloxacin 400 mg IVPB Q12H -ID consult ordered (Dr. Reddy) -Abd CT w/o contrast ordered -blood/urine/wound cultures ordered #UTI; U/A showed 3+ LE, WBC 1016; likely indication for UTI, although patient is asymptomatic. -Antibiotic coverage for abdominal abscess will likely cover UTI organisms. #Anemia; Pt is currently menstruating. She admits to menstrual bleeding every 2 weeks regularly, and denies heavy menses each time. -Iron studies -Retic count -FOBT #PVD; Pt reports a hx of bypass graft in R leg. She complains of L leg symptoms , also concerning for PVD. -RLE Arterial doppler ordered -Vascular consult ordered -PT consult #CKD -NS @ 100cc -encourage PO fluid intake -Kidney U/S ordered -Consider nephro consult #DM -Hold home meds -BGMs ACHS -ISS Resume home med: -Gabapentin 600 mg PO BID for diabetic peripheral neuropathy #HTN; BP now 131/68 -Pt states she is currently taking Lisinopril for HTN, but does not remember dose. Needs med rec. #HLD Resume home med: -Atorvastatin 40 mg PO HS #Obesity; BMI 32.9. -Solar Tech consult ordered #DVT Ppx -Heparin 5000U SQ TID #FEN -NS @ 100cc -recheck lytes in AM -Diabetic diet dispo -admit to med-surg Visit type - Emergency Visit Emergency Visit: Yes ED Registration Date: 08/05/18 Care time: The patient presented to the Emergency Department on the above date and was hospitalized for further evaluation of their emergent condition. - New Patient This patient is new to me today: Yes Date on this admission: 08/05/18 - Critical Care Critical Care patient: No
[2018-08-05] MEDS ORDERED: VANCOMYCIN 1,250 MG in DEXTROSE 5%-WATER - 500 ML IVPB ONE (04:13)
[2018-08-05] MEDS: SODIUM CHLORIDE 1,000 ML IV SCH ×2 (05:00→22:05)
[2018-08-05] MEDS: VANCOMYCIN 1,250 MG in DEXTROSE 5%-WATER - 250 ML IVPB ONE (05:15)
[2018-08-05] MEDS ORDERED: HEPARIN NA (PORCINE) 5,000 UNITS/ML 1ML VIAL ONE (06:43)
[2018-08-05] MEDS: HEPARIN NA (PORCINE) 5,000 UNITS/ML 1ML VIAL SQ SCH ×3 (06:54→22:01)
[2018-08-05] MEDS ORDERED: INSULIN (NOVOLOG) ASPART 100 UNITS/ML 10ML VIAL ONE ×4 (07:10→21:51)
[2018-08-05] MEDS: INSULIN SLIDING SCALE (NOVOLOG) 1 VIAL SQ SCH ×4 (07:14→22:09)
[2018-08-05 07:43] LABS: BASO % 0.4 % (0-2.0); EOS % 2.5 % (0-4.5); HEMATOCRIT 27.8 % (32.4-45.2); HEMOGLOBIN 9.3 GM/dL (10.7-15.3); LYMPH % 13.6 % (8-40); MCH 26.1 pg (25.7-33.7); MCHC 33.3 g/dl (32.0-36.0); MEAN CELL VOLUME 78.2 fl (80-96); MEAN PLT VOLUME 9.4 fl (7.5-11.1); MONO % 8.5 % (3.8-10.2); PLATELET COUNT 228 K/MM3 (134-434); RBC 3.56 M/mm3 (3.60-5.2); RDW 14.6 % (11.6-15.6); WHITE BLOOD COUNT 12.5 K/mm3 (4.0-10.0)
[2018-08-05 08:19] LABS: ALBUMIN 2.4 g/dl (3.4-5.0); ALK PHOS 89 U/L (45-117); ANION GAP 8 MMOL/L (8-16); BILIRUBIN,TOTAL 0.4 mg/dL (0.2-1); BLOOD UREA NITROGEN 27 mg/dL (7-18); CHLORIDE 103 mmol/L (98-107); CO2 23 mmol/L (21-32); CREATININE 2.3 mg/dL (0.55-1.3); GLUCOSE,RANDOM 299 mg/dL (74-106); POTASSIUM 4.6 mmol/L (3.5-5.1); SGOT/AST 14 U/L (15-37); SGPT/ALT 19 U/L (13-61); SODIUM 134 mmol/L (136-145); TOT PROT 6.4 g/dl (6.4-8.2)
[2018-08-05] MEDS ORDERED: CLINDAMYCIN 600MG PREMIX IVPB 600 MG/50 ML BAG IVPB SCH (10:00)
[2018-08-05] MEDS ORDERED: AMPICILLIN NA/SULBACTAM NA 3 GM in SODIUM CHLORIDE 100 ML IVPB SCH (10:00)
[2018-08-05] MEDS ORDERED: LOSARTAN POTASSIUM 25 MG TABLET PO SCH (10:00)
--- NOTE | 2018-08-05 10:06 | CONSULT ---
- Consultation REQUESTING PROVIDER: CONSULT REQUEST: We have been asked to surgically evaluate this patient for B/L leg pain in the setting of PAD history. PCP:Magali Mendoza HISTORY OF PRESENT ILLNESS: 42 year old woman with PMH of IDDM, left retinal surgery, asthma, penicillin-allergy, HLD and HTN admitted for Abdominal abscess fever and chills that began 3 days. She states she has a history of DM neuoropathy, with intermittent claudication and states she experiences pain and is forced to stop after walking 1/2 mile. She denies any injury to the area or recent travel outside of the country. PMHx: IDDM, Asthma, Penicillin-allergy, HLD HTN PVD DM neuropathy PSHx: left retinal surgery aortogram, sfa atherectomy, with left sfa DCB angioplasty 09/2015 Tubal ligation Home Medications Medication Instructions Recorded Insulin Glargine,Hum.rec.anlog 40 unit SQ HS 08/07/17 [Basaglar Kwikpen U-100] metFORMIN HCL [Glucophage -] 1,000 mg PO BID 08/07/17 Aspirin [Aspirin EC] 81 mg PO DAILY 06/09/18 Atorvastatin Ca [Lipitor] 40 mg PO HS 06/09/18 Gabapentin 600 mg PO BID 06/09/18 Glipizide [Glipizide ER] 10 mg PO DAILY 06/09/18 Losartan Potassium 25 mg PO DAILY 06/09/18 Montelukast Sodium [Singulair] 10 mg PO DAILY 06/09/18 Allergies Allergy/AdvReac Type Severity Reaction Status Date / Time Penicillins Allergy Severe Difficulty Verified 08/04/18 22:09 Breathing REVIEW OF SYSTEMS: CONSTITUTIONAL: fever, chills Absent: diaphoresis, malaise, loss of appetite HEENT: Absent: rhinorrhea, nasal congestion, eye pain, visual changes CARDIOVASCULAR: Absent: chest pain, syncope, peripheral edema RESPIRATORY: Absent: cough, shortness of breath, wheezing Absent: abdominal pain, abdominal distension, vomiting, diarrhea, constipation GENITOURINARY: Absent: dysuria, frequency, urgency, hesitancy, MUSCULOSKELETAL: bilateral leg weakness Absent: myalgia, arthralgia, joint swelling, SKIN: Absent: rash, itching, pallor HEMATOLOGIC/IMMUNOLOGIC: Absent: easy bleeding, easy bruising, ENDOCRINE: Absent: unexplained weight gain, heat intolerance, cold intolerance NEUROLOGIC: Absent: headache, focal weakness or paresthesias, dizziness, seizure, bladder or bowel incontinence PSYCHIATRIC: Absent: anxiety, depression, suicidal or homicidal ideation, hallucinations. PHYSICAL EXAM: GENERAL: Awake, alert, and fully oriented, in no acute distress. HEAD: Normal with no signs of trauma. EYES: sclera anicteric, conjunctiva clear. LUNGS: Unlabored resp on RA. No audible wheezes, No accessory muscle use. UPPER EXTREMITIES: warm, well-perfused. No cyanosis. LOWER EXTREMITIES: Compartments soft, supple and non-tender to palpation, no evidence of chronic skin changes or lesions. 2+ palpable DP pulse and dopplerable PT pulse, feet warm, well-perfused. Left foot with 2nd toe amp well healed. No peripheral edema. NEUROLOGICAL: Normal speech, gait not observed. PSYCH: Cooperative. Good eye contact. Appropriate mood and affect. SKIN: Warm, dry, normal turgor, no rashes or lesions noted. Vital Signs Temperature 99.5 F 08/05/18 08:21 Pulse Rate 87 08/05/18 08:21 Respiratory Rate 18 08/05/18 08:21 Blood Pressure 134/73 08/05/18 08:21 O2 Sat by Pulse Oximetry (%) 99 08/05/18 08:21 Lab Results WBC 12.5 K/mm3 (4.0-10.0) H 08/05/18 06:30 RBC 3.56 M/mm3 (3.60-5.2) L 08/05/18 06:30 Hgb 9.3 GM/dL (10.7-15.3) L 08/05/18 06:30 Hct 27.8 % (32.4-45.2) L 08/05/18 06:30 MCV 78.2 fl (80-96) L 08/05/18 06:30 MCHC 33.3 g/dl (32.0-36.0) 08/05/18 06:30 RDW 14.6 % (11.6-15.6) 08/05/18 06:30 Plt Count 228 K/MM3 (134-434) 08/05/18 06:30 Sodium 134 mmol/L (136-145) L 08/05/18 06:30 Potassium 4.6 mmol/L (3.5-5.1) 08/05/18 06:30 Chloride 103 mmol/L (98-107) 08/05/18 06:30 Carbon Dioxide 23 mmol/L (21-32) 08/05/18 06:30 Anion Gap 8 MMOL/L (8-16) 08/05/18 06:30 BUN 27 mg/dL (7-18) H 08/05/18 06:30 Creatinine 2.3 mg/dL (0.55-1.3) H 08/05/18 06:30 Random Glucose 299 mg/dL (74-106) H 08/05/18 06:30 Calcium 8.0 mg/dL (8.5-10.1) L 08/05/18 06:30 INR 1.05 (0.83-1.09) 08/04/18 21:43 Problem List - Problems (1) PAD (peripheral artery disease) Assessment/Plan: 42 yo female with history of PAD and likely intermittent claudication. No indication for vascular intervention on this admission. 1) Plan for outpatient work up for claudicaiton 2) OOB as tolerated 3) Re-consult vascular surgery PRN Evaluation and plan discussed with Dr Hui. Code(s): I73.9 - PERIPHERAL VASCULAR DISEASE, UNSPECIFIED
[2018-08-05] MEDS ORDERED: ASPIRIN COATED 81 MG TABLET.EC ONE (10:17)
[2018-08-05] MEDS: ASPIRIN COATED 81 MG TABLET.EC PO SCH (10:19)
[2018-08-05] MEDS: GABAPENTIN 300 MG CAPSULE (FP) PO SCH ×2 (10:19→22:01)
--- NOTE | 2018-08-05 12:09 | PN ---
Physical Exam: SUBJECTIVE: Patient seen and examined, reports pain to abdomen, denies any tactile fevers. OBJECTIVE: Patient is a 42 y/o obese female with a pmh of DM, HTN, HLD, PAD. Patient was admitted from the emergency department for a non-healing abscess on her abdomen and recurrent cellulites. Vital Signs Period Temp Pulse Resp BP Sys/Cohen Pulse Ox Last 24 Hr 99.5 F-100.2 F 82-102 18-18 132-154/73-82 98-99 GENERAL: The patient is awake, alert, and fully oriented, in no acute distress. HEAD: Normal with no signs of trauma. EYES: PERRL, extraocular movements intact, sclera anicteric, conjunctiva clear. No ptosis. ENT: Ears normal, nares patent, oropharynx clear without exudates, moist mucous membranes. NECK: Trachea midline, full range of motion, supple. LUNGS: Breath sounds equal, clear to auscultation bilaterally, no wheezes, no crackles, no accessory muscle use. HEART: Regular rate and rhythm, S1, S2 without murmur, rub or gallop. ABDOMEN: obese, abdominal wall abscess approximate 5x 5cm induration with dry drainage in center with surronding erythema, with significant tenderness upon palpation, nondistended, normoactive bowel sounds, no guarding, no rebound, no hepatosplenomegaly, no masses. EXTREMITIES: 2+ pulses, warm, well-perfused, no edema. NEUROLOGICAL: Cranial nerves II through XII grossly intact. Normal speech, gait not observed. PSYCH: Normal mood, normal affect. SKIN: Warm, dry, normal turgor, no rashes or lesions noted Laboratory Results - last 24 hr 08/04/18 08/04/18 08/05/18 21:49 21:52 06:30 WBC 12.5 H RBC 3.56 L Hgb 9.3 L Hct 27.8 L MCV 78.2 L MCH 26.1 MCHC 33.3 RDW 14.6 Plt Count 228 MPV 9.4 Absolute Neuts (auto) 9.4 H Neutrophils % 75.0 Lymphocytes % 13.6 Monocytes % 8.5 Eosinophils % 2.5 Basophils % 0.4 Nucleated RBC % 0 Retic Count PT with INR INR PTT (Actin FS) VBG pH POC VBG pCO2 POC VBG pO2 Mixed VBG HCO3 Sodium Potassium Chloride Carbon Dioxide Anion Gap BUN Creatinine Creat Clearance w eGFR POC Glucometer Random Glucose Hemoglobin A1c % Lactic Acid Calcium Ferritin Total Bilirubin AST ALT Alkaline Phosphatase Total Protein Albumin Serum , Qual Urine Color Yellow Urine Appearance Turbid Urine pH 5.0 Ur Specific [place] 1.008 L Urine Protein 3+ H Urine Glucose (UA) 3+ H D Urine Ketones Negative Urine Blood 2+ H Urine Nitrite Negative Urine Bilirubin Negative Urine Urobilinogen Negative Ur Leukocyte Esterase 3+ H Urine WBC (Auto) 1016 Urine RBC (Auto) 3 Ur Epithelial Cells Rare Urine Bacteria Rare HIV 1&2 Antibody Screen Negative HIV P24 Antigen Negative 08/05/18 08/05/18 08/05/18 06:30 06:30 06:30 WBC RBC Hgb Hct MCV MCH MCHC RDW Plt Count MPV Absolute Neuts (auto) Neutrophils % Lymphocytes % Monocytes % Eosinophils % Basophils % Nucleated RBC % Retic Count 1.84 H PT with INR INR PTT (Actin FS) VBG pH POC VBG pCO2 POC VBG pO2 Mixed VBG HCO3 Sodium 134 L Potassium 4.6 Chloride 103 Carbon Dioxide 23 Anion Gap 8 BUN 27 H Creatinine 2.3 H Creat Clearance w eGFR 23.37 POC Glucometer Random Glucose 299 H Hemoglobin A1c % 9.6 H Lactic Acid Calcium 8.0 L Ferritin Total Bilirubin 0.4 AST 14 L ALT 19 Alkaline Phosphatase 89 Total Protein 6.4 Albumin 2.4 L Serum , Qual Urine Color Urine Appearance Urine pH Ur Specific [place] Urine Protein Urine Glucose (UA) Urine Ketones Urine Blood Urine Nitrite Urine Bilirubin Urine Urobilinogen Ur Leukocyte Esterase Urine WBC (Auto) Urine RBC (Auto) Ur Epithelial Cells Urine Bacteria HIV 1&2 Antibody Screen HIV P24 Antigen 08/05/18 08/05/18 06:30 07:05 WBC RBC Hgb Hct MCV MCH MCHC RDW Plt Count MPV Absolute Neuts (auto) Neutrophils % Lymphocytes % Monocytes % Eosinophils % Basophils % Nucleated RBC % Retic Count PT with INR INR PTT (Actin FS) VBG pH POC VBG pCO2 POC VBG pO2 Mixed VBG HCO3 Sodium Potassium Chloride Carbon Dioxide Anion Gap BUN Creatinine Creat Clearance w eGFR POC Glucometer [phone] Random Glucose Hemoglobin A1c % Lactic Acid Calcium Ferritin 80.8 Total Bilirubin AST ALT Alkaline Phosphatase Total Protein Albumin Serum , Qual Urine Color Urine Appearance Urine pH Ur Specific [place] Urine Protein Urine Glucose (UA) Urine Ketones Urine Blood Urine Nitrite Urine Bilirubin Urine Urobilinogen Ur Leukocyte Esterase Urine WBC (Auto) Urine RBC (Auto) Ur Epithelial Cells Urine Bacteria HIV 1&2 Antibody Screen HIV P24 Antigen Active Medications Generic Name Dose Route Start Last Admin Trade Name Rachael PRN Reason Stop Dose Admin Aspirin 81 mg 08/05/18 10:00 08/05/18 10:19 Ecotrin - PO 81 mg DAILY ÁLVARO Administration Atorvastatin Calcium 40 mg 08/05/18 22:00 Lipitor - PO HS [facility] Gabapentin 600 mg 08/05/18 10:00 08/05/18 10:19 Neurontin - PO 600 mg BID ÁLVARO Administration Heparin Sodium (Porcine) 5,000 unit 08/05/18 06:00 08/05/18 06:54 Heparin - SQ 5,000 unit TID ÁLVARO Administration Sodium Chloride 1,000 mls @ 100 mls/hr 08/05/18 04:15 08/05/18 05:00 Normal Saline - IV 100 mls/hr ASDIR ÁLVARO Administration Ciprofloxacin/Dextrose 400 mg in 200 mls @ 200 mls/hr 08/06/18 03:00 Cipro 400 Mg Premix Ivpb (Restricted To Id) IVPB Q12H ÁLVARO Ciprofloxacin/Dextrose 400 mg in 200 mls @ 200 mls/hr 08/05/18 15:00 Cipro 400 Mg Premix Ivpb (Restricted To Id) IVPB 08/05/18 15:59 ONCE ONE Insulin Aspart 1 vial 08/05/18 07:00 08/05/18 07:14 Novolog Vial Sliding Scale - SQ 8 unit ACHS ÁLVARO Administration Protocol Insulin Detemir 40 units 08/05/18 22:00 Levemir Vial SQ HS [facility] Losartan Potassium 25 mg 08/05/18 10:00 08/05/18 09:49 Cozaar - PO 25 mg DAILY ÁLVARO Administration Montelukast Sodium 10 mg 08/05/18 22:00 Singulair - PO HS [facility] IMAGING us duplex arterial bilateral: mild atherosclerotic disease us kidney/renal: morphology normal kidneys ASSESSMENT/PLAN: 1) Sepsis - secondary to abdominal abscess and UTI, will continue vanc (renal dose) and cipro, pending urine, blood and wound cultures - wbc trending downward, monitor fever curve - appreciate ID input for abx clearance 2) endo DM (uncontrolled) - hgb a1c 9.6, continue levermir 40u (home dose) and fingerstick achs with regular insulin sliding scale 3) cardiovascular PAD hx r LE bypass graft - ultrasound reviewed, vascular consulted, pt will require outpatient follow up hypertension - will hold cozar secondary to YOHAN, strict b/p monitoring HLD -Atorvastatin 40 mg PO HS 4) nephrology YOHAN - ultrasound of renal/pelvis reviewed, creatine 2.3 baseline 1.1 - repeat creatine in AM, appreciate nephrology input 5) UTI - +3 leukocytes, continue cipro until urine culture is resulted #FEN -NS @ 100cc -recheck lytes in AM -Diabetic diet dispo -admit to med-surg Visit type - Emergency Visit Emergency Visit: Yes ED Registration Date: 08/05/18 Care time: The patient presented to the Emergency Department on the above date and was hospitalized for further evaluation of their emergent condition. - New Patient This patient is new to me today: Yes Date on this admission: 08/05/18 - Critical Care Critical Care patient: No - Discharge Referral Referred to [facility] Med P.C.: No
[2018-08-05] MEDS ORDERED: ACETAMINOPHEN 1000 MG/100 ML VIAL (NON FORMULARY) IVPB ONE (12:20)
--- NOTE | 2018-08-05 14:24 | CONSULT ---
Consult Consult Specialty:: General Surgery Reason for Consultation:: cellulitis - History of Present Illness Chief Complaint: abdominal pain History of Present Illness: 42 yo female PMH DM, HTN, HLD, PAD presented to the ED w/ a non-healing abscess on her abdomen that worsened over the past few days. She admits to fever/chills , nausea, decreased appetite. Additionally she admits to tenderness in her RLQ of her abdomen that is "deep inside." Of note, she has had 4 episodes of cellulitis over the past month where she was treated at [facility]. These lesions were located on the buttocks and bilateral thighs, all of which she states have been resolving. She does not remember the name of the antibiotic she was given, but she admits to using leftover antibiotic for her current abdominal abscess. Additionally, she states she started to have difficulty walking 3-4 years ago due to pain in her R leg behind her calf. we were asked to assess. - History Source History Provided By: Patient, Medical Record Limitations to Obtaining History: No Limitations - Past Medical History Cardio/Vascular: Yes: HTN ...LMP: 07/27/18 Endocrine: Yes: Diabetes Mellitus - Past Surgical History Past Surgical History: Yes: None - Alcohol/Substance Use Hx Alcohol Use: No - Smoking History Smoking history: Never smoked Have you smoked in the past 12 months: No - Social History Occupation: unemployed Home Medications - Allergies Allergies/Adverse Reactions: Allergies Allergy/AdvReac Type Severity Reaction Status Date / Time Penicillins Allergy Severe Difficulty Verified 08/04/18 22:09 Breathing - Home Medications Home Medications: Ambulatory Orders Insulin Glargine,Hum.rec.anlog [Luis Fernandoagllala White U-100] 40 unit SQ HS 08/07/17 metFORMIN HCL [Glucophage -] 1,000 mg PO BID 08/07/17 Aspirin [Aspirin EC] 81 mg PO DAILY 06/09/18 Atorvastatin Ca [Lipitor] 40 mg PO HS 06/09/18 Gabapentin 600 mg PO BID 06/09/18 Glipizide [Glipizide ER] 10 mg PO DAILY 06/09/18 Losartan Potassium 25 mg PO DAILY 06/09/18 Montelukast Sodium [Singulair] 10 mg PO DAILY 06/09/18 Family Disease History - Family Disease History Family Disease History: Diabetes: Mother (lung cancer), Heart Disease: Father ( , [place] at 58), CA: Mother, Other: Brother (healthy and living), Sister ( healthy and living) Review of Systems - Review of Systems Constitutional: denies: Chills, Fever, Loss of Appetite Eyes: denies: Recent Change in Vision HENT: denies: Difficult Swallowing, Throat Pain Neck: denies: Lumps, Pain on Movement, Swollen Glands, Tenderness Cardiovascular: denies: Chest Pain, Palpitations Respiratory: denies: Cough, SOB Gastrointestinal: denies: Abdominal Pain, Constipation, Diarrhea Genitourinary: denies: Burning, Incontinence Breasts: reports: No Symptoms Reported. denies: Pain Musculoskeletal: denies: Back Pain, Muscle Weakness Integumentary: reports: Erythema, Rash. denies: Lesions Neurological: denies: Confusion, Seizure, Syncope Endocrine: denies: Unexplained Weight Gain, Unexplained Weight Loss Hematology/Lymphatic: denies: Easily Bruised, Excessive Bleeding Psychiatric: denies: Anxiety, Depression Physical Exam Vital Signs: Vital Signs Temperature 99.5 F 08/05/18 08:21 Pulse Rate 87 08/05/18 08:21 Respiratory Rate 18 08/05/18 08:21 Blood Pressure 134/73 08/05/18 08:21 O2 Sat by Pulse Oximetry (%) 99 08/05/18 08:21 Constitutional: Yes: Well Nourished, No Distress, Calm Eyes: Yes: Conjunctiva Clear, EOM Intact HENT: Yes: Atraumatic, Normocephalic Neck: Yes: Supple, Trachea Midline Cardiovascular: Yes: Regular Rate and Rhythm, S1, S2 Respiratory: Yes: Regular, CTA Bilaterally Gastrointestinal: Yes: Normal Bowel Sounds, Soft, Abdomen, Obese, Tenderness ( infraumbilical 6cm round carbuncle draining pus.). No: Distention ...Rectal Exam: Yes: Deferred Renal/: No: CVA Tenderness - Left, CVA Tenderness - Right Musculoskeletal: No: Muscle Pain, Muscle Weakness Extremities: No: Cool, Cyanosis Edema: No Peripheral Pulses WNL: Yes Integumentary: No: Erythema, Rash Wound/Incision: Yes: Draining, Reddened, Unapproximated Neurological: Yes: Alert, Oriented Psychiatric: Yes: Alert, Oriented Labs: CBC, BMP 08/05/18 06:30 08/05/18 06:30 Imaging - Results Cat Scan: Report Reviewed, Image Reviewed Problem List - Problems (1) Carbuncle and furuncle of trunk Assessment/Plan: 42yo female MMP type 2 DM with Abdominal Carbuncle NPO and IVF hydration IV antibiotics Treat UTI ID evaluation Discussed with patient risks, benefits and alternatives of surgical debridemnt of abdominal carbuncle, including but not limited to bleeding, infection, disfiguring scar, need for further procedures, ; alternatives include antibiotics, delayed or no surgery - risks of this include failure of nonoperative therapy, sepsis, recurrence, . Patient desires to proceed with operation - will take to OR for above. Informed consent signed for same. Thank you for the opportunity to participate in the care of this patient. Code(s): L02.229 - FURUNCLE OF TRUNK, UNSPECIFIED (2) Cellulitis of abdominal wall Code(s): L03.311 - CELLULITIS OF ABDOMINAL WALL (3) HTN (hypertension) Code(s): I10 - ESSENTIAL (PRIMARY) HYPERTENSION (4) PAD (peripheral artery disease) Code(s): I73.9 - PERIPHERAL VASCULAR DISEASE, UNSPECIFIED (5) Sciatica Code(s): M54.30 - SCIATICA, UNSPECIFIED SIDE (6) UTI (urinary tract infection) Code(s): N39.0 - URINARY TRACT INFECTION, SITE NOT SPECIFIED Qualifiers: Encounter type: initial encounter (7) Uncontrolled diabetes mellitus Code(s): E11.65 - TYPE 2 DIABETES MELLITUS WITH HYPERGLYCEMIA Qualifiers: Diabetes mellitus type: type 2 Glycemic state: with hyperglycemia Qualified Code(s): E11.65 - Type 2 diabetes mellitus with hyperglycemia
[2018-08-05] MEDS ORDERED: ACETAMINOPHEN INJECTION 100 ML IVPB ONE (14:49)
--- NOTE | 2018-08-05 15:16 | CONSULT ---
Consult - text type - Consultation Consultation Note: Renal consult for YOHAN This is a 42 year old woman with history of DM, Hypertension, PVD s/p toe amputation who presented with abd boil that turned cellulilitic that did not improve with oral antibiotics and YOHAN. Home Medications Medication Instructions Recorded Insulin Glargine,Hum.rec.anlog 40 unit SQ HS 08/07/17 [Basaglar Kwikpen U-100] metFORMIN HCL [Glucophage -] 1,000 mg PO BID 08/07/17 Aspirin [Aspirin EC] 81 mg PO DAILY 06/09/18 Atorvastatin Ca [Lipitor] 40 mg PO HS 06/09/18 Gabapentin 600 mg PO BID 06/09/18 Glipizide [Glipizide ER] 10 mg PO DAILY 06/09/18 Losartan Potassium 25 mg PO DAILY 06/09/18 Montelukast Sodium [Singulair] 10 mg PO DAILY 06/09/18 Vital Signs Temperature 99.5 F 08/05/18 08:21 Pulse Rate 87 08/05/18 08:21 Respiratory Rate 18 08/05/18 08:21 Blood Pressure 134/73 08/05/18 08:21 O2 Sat by Pulse Oximetry (%) 99 08/05/18 08:21 Intake & Output 08/02/18 08/03/18 08/04/18 08/05/18 23:59 23:59 23:59 23:59 Weight 95.254 kg CBC, BMP 08/05/18 06:30 08/05/18 06:30 Current Medications Aspirin (Ecotrin -) 81 mg PO DAILY [facility] Last Admin: 08/05/18 10:19 Dose: 81 mg Atorvastatin Calcium (Lipitor -) 40 mg PO HS [facility] Gabapentin (Neurontin -) 600 mg PO BID [facility] Last Admin: 08/05/18 10:19 Dose: 600 mg Heparin Sodium (Porcine) (Heparin -) 5,000 unit SQ TID [facility] Last Admin: 08/05/18 14:32 Dose: 5,000 unit Sodium Chloride (Normal Saline -) 1,000 mls @ 100 mls/hr IV ASDIR [facility] Last Admin: 08/05/18 05:00 Dose: 100 mls/hr Ciprofloxacin/Dextrose (Cipro 400 Mg Premix Ivpb (Restricted To Id)) 400 mg in 200 mls @ 200 mls/hr IVPB Q12H [facility] Ciprofloxacin/Dextrose (Cipro 400 Mg Premix Ivpb (Restricted To Id)) 400 mg in 200 mls @ 200 mls/hr IVPB ONCE ONE Stop: 08/05/18 15:59 Insulin Aspart (Novolog Vial Sliding Scale -) 1 vial SQ ACHS ÁLVARO; Protocol Last Admin: 08/05/18 14:31 Dose: 6 unit Insulin Detemir (Levemir Vial) 40 units SQ HS ÁLVARO Montelukast Sodium (Singulair -) 10 mg PO HS ÁLVARO #YOHAN likely secondary to intravascular volume depletion in setting of sepsis/ infection + ARB but need to r/o obstruction and GN and AIN (given Abx use) # cellulitis of Abd wall #Hypertension #DM Type 2 Would check urine for FeNa and UPCR many WBC seen in urine, likely UTI f/u cultures but need to check urine eosinophils to r/o AIN Check US of the kidney to access for obstruction Continue Abx as per ID pain control w/o NSIADs trend renal function and electrolytes keep map > 65 hold ARB for now insulin sliding scale Thank you, full consult to follow Will follow Victor M Kinsey DO
--- NOTE | 2018-08-05 16:17 | CON.ID ---
Consult Consult Specialty:: infectious diseases Reason for Consultation:: abd abscess,bacteremia - History of Present Illness Chief Complaint: abd pain History of Present Illness: 42F w/ pmhx of DM, HTN, HLD, PAD presented to the ED w/ a non-healing abscess on her abdomen that worsened over the past few days. She admits to fever/chills , nausea, decreased appetite. Additionally she admits to tenderness in her RLQ of her abdomen that is "deep inside." Of note, she has had 4 episodes of cellulitis over the past month where she was treated at [facility]. These lesions were located on the buttocks and bilateral thighs, all of which she states have been resolving. She does not remember the name of the antibiotic she was given, but she admits to using leftover antibiotic for her current abdominal abscess. Additionally, she states she started to have difficulty walking 3-4 years ago due to pain in her R leg behind her calf. - Past Medical History Cardio/Vascular: Yes: HTN ...LMP: 07/27/18 Endocrine: Yes: Diabetes Mellitus - Past Surgical History Past Surgical History: Yes: None - Alcohol/Substance Use Hx Alcohol Use: No - Smoking History Smoking history: Never smoked Have you smoked in the past 12 months: No - Social History Occupation: unemployed Home Medications - Allergies Allergies/Adverse Reactions: Allergies Allergy/AdvReac Type Severity Reaction Status Date / Time Penicillins Allergy Severe Difficulty Verified 08/04/18 22:09 Breathing - Home Medications Home Medications: Ambulatory Orders Insulin Glargine,Hum.rec.anlog [Basaglar Kwikpen U-100] 40 unit SQ HS 08/07/17 metFORMIN HCL [Glucophage -] 1,000 mg PO BID 08/07/17 Aspirin [Aspirin EC] 81 mg PO DAILY 06/09/18 Atorvastatin Ca [Lipitor] 40 mg PO HS 06/09/18 Gabapentin 600 mg PO BID 06/09/18 Glipizide [Glipizide ER] 10 mg PO DAILY 06/09/18 Losartan Potassium 25 mg PO DAILY 06/09/18 Montelukast Sodium [Singulair] 10 mg PO DAILY 06/09/18 Walker [Ultra-Light Rollator] 1 each [facility] DAILY #1 each 08/07/18 Family Disease History - Family Disease History Family Disease History: Diabetes: Mother (lung cancer), Heart Disease: Father ( , [place] at 58), CA: Mother, Other: Brother (healthy and living), Sister ( healthy and living) Physical Exam Vital Signs: Vital Signs Temperature 97.8 F 08/05/18 14:59 Pulse Rate 92 H 08/05/18 14:59 Respiratory Rate 17 08/05/18 14:59 Blood Pressure 142/76 08/05/18 14:59 O2 Sat by Pulse Oximetry (%) 98 08/05/18 14:59 Labs: CBC, BMP 08/05/18 06:30 08/05/18 06:30
[2018-08-05] MEDS: VANCOMYCIN 1,250 MG in DEXTROSE 5%-WATER - 250 ML IVPB SCH (18:00)
[2018-08-05] MEDS ORDERED: MONTELUKAST NA 10 MG TABLET PO SCH (22:00)
[2018-08-05] MEDS ORDERED: ATORVASTATIN CA 40 MG TABLET (FP) PO SCH (22:00)
[2018-08-05] MEDS ORDERED: INSULIN (LEVEMIR) 100 UNITS/ML UNITS SQ SCH (22:00)
[2018-08-05] MEDS: ACETAMINOPHEN 500 MG TABLET (FP) PO PRN (22:00)
[2018-08-06] MEDS ORDERED: CIPROFLOXACIN 400 MG/D5W 400 MG/200 ML IVPB IVPB SCH (03:00)
[2018-08-06] MEDS ORDERED: PT OWN MED DRAWER 7, Y5N ONE ×2 (03:54→06:20)
[2018-08-06] MEDS: VANCOMYCIN 1,250 MG in DEXTROSE 5%-WATER - 250 ML IVPB SCH (04:02)
[2018-08-06 06:06] LABS: SERUM IRON SATURATION 7 % (15-55); TOTAL IRON BINDING CAPACITY 205 ug/dL (250-450); UIBC 191 ug/dL (131-425)
[2018-08-06] MEDS: INSULIN SLIDING SCALE (NOVOLOG) 1 VIAL SQ SCH ×4 (06:13→21:53)
[2018-08-06] MEDS: HEPARIN NA (PORCINE) 5,000 UNITS/ML 1ML VIAL SQ SCH ×3 (06:13→21:54)
[2018-08-06] MEDS: ACETAMINOPHEN 500 MG TABLET (FP) PO PRN ×2 (06:30→12:35)
[2018-08-06 06:56] LABS: BASO % 0.6 % (0-2.0); EOS % 2.5 % (0-4.5); HEMATOCRIT 26.2 % (32.4-45.2); HEMOGLOBIN 8.7 GM/dL (10.7-15.3); LYMPH % 17.8 % (8-40); MCH 25.8 pg (25.7-33.7); MCHC 33.3 g/dl (32.0-36.0); MEAN CELL VOLUME 77.5 fl (80-96); MONO % 8.8 % (3.8-10.2); NEUT % 70.3 % (42.8-82.8); PLATELET COUNT 215 K/MM3 (134-434); RBC 3.38 M/mm3 (3.60-5.2); RDW 14.2 % (11.6-15.6); WHITE BLOOD COUNT 11.8 K/mm3 (4.0-10.0)
[2018-08-06 07:27] LABS: ALBUMIN 2.2 g/dl (3.4-5.0); ALK PHOS 81 U/L (45-117); ANION GAP 5 MMOL/L (8-16); BILIRUBIN,TOTAL 0.4 mg/dL (0.2-1); BLOOD UREA NITROGEN 25 mg/dL (7-18); CALCIUM 8.3 mg/dL (8.5-10.1); CHLORIDE 111 mmol/L (98-107); CO2 23 mmol/L (21-32); CREATININE 1.9 mg/dL (0.55-1.3); GLUCOSE,RANDOM 277 mg/dL (74-106); MAGNESIUM 1.6 mg/dL (1.8-2.4); PHOSPHOROUS 2.6 mg/dL (2.5-4.9); POTASSIUM 4.4 mmol/L (3.5-5.1); SGOT/AST 8 U/L (15-37); SGPT/ALT 15 U/L (13-61); SODIUM 140 mmol/L (136-145); TOT PROT 5.8 g/dl (6.4-8.2)
[2018-08-06] MEDS: ASPIRIN COATED 81 MG TABLET.EC PO SCH (10:04)
[2018-08-06] MEDS: GABAPENTIN 300 MG CAPSULE (FP) PO SCH ×2 (10:04→21:54)
[2018-08-06] MEDS ORDERED: MAGNESIUM SULF 50% (8.12 MEQ/2 ML-1 GM VIAL) IVPB ONE (10:30)
[2018-08-06] MEDS ORDERED: INSULIN (NOVOLOG) ASPART 100 UNITS/ML 10ML VIAL ONE ×2 (11:17→16:38)
[2018-08-06] MEDS: SODIUM CHLORIDE 1,000 ML IV SCH ×2 (12:36→19:59)
--- NOTE | 2018-08-06 15:20 | PN ---
Progress Note, Physician History of Present Illness: patint starting to feel better cx results noted - Current Medication List Current Medications: Active Medications Acetaminophen (Tylenol -) 1,000 mg PO Q6H PRN PRN Reason: PAIN Last Admin: 08/06/18 12:35 Dose: 1,000 mg Aspirin (Ecotrin -) 81 mg PO DAILY [facility] Last Admin: 08/06/18 10:04 Dose: 81 mg Atorvastatin Calcium (Lipitor -) 40 mg PO HS [facility] Last Admin: 08/05/18 22:00 Dose: 40 mg Gabapentin (Neurontin -) 600 mg PO BID [facility] Last Admin: 08/06/18 10:04 Dose: 600 mg Heparin Sodium (Porcine) (Heparin -) 5,000 unit SQ TID [facility] Last Admin: 08/06/18 06:13 Dose: 5,000 unit Sodium Chloride (Normal Saline -) 1,000 mls @ 100 mls/hr IV ASDIR [facility] Last Admin: 08/06/18 12:36 Dose: 100 mls/hr Cefazolin Sodium (Ancef 1 Gm Premixed Ivpb -) 1 gm in 50 mls @ 100 mls/hr IVPB Q8H-IV ÁLVARO Insulin Aspart (Novolog Vial Sliding Scale -) 1 vial SQ [facility]; Protocol Last Admin: 08/06/18 11:19 Dose: 8 unit Insulin Detemir (Levemir Vial) 40 units SQ [facility] Last Admin: 08/05/18 22:08 Dose: 40 units Montelukast Sodium (Singulair -) 10 mg PO [facility] Last Admin: 08/05/18 22:01 Dose: 10 mg - Objective Vital Signs: Vital Signs Temperature 99.0 F 08/06/18 14:24 Pulse Rate 93 H 08/06/18 14:24 Respiratory Rate 20 08/06/18 05:40 Blood Pressure 145/75 08/06/18 14:24 O2 Sat by Pulse Oximetry (%) 99 08/05/18 21:00 Constitutional: Yes: No Distress, Calm, Obese Cardiovascular: Yes: Regular Rate and Rhythm Respiratory: Yes: Regular, CTA Bilaterally Gastrointestinal: Yes: Normal Bowel Sounds, Soft Musculoskeletal: Yes: WNL Extremities: Yes: WNL Wound/Incision: Yes: Clean/Dry, Open to air Neurological: Yes: Alert, Oriented Labs: CBC, BMP 08/06/18 06:30 08/06/18 06:30 INR, PTT INR 1.05 (0.83-1.09) 08/04/18 21:43 Assessment/Plan - Problems (1) Cellulitis of abdominal wall Thank you for the opportunity to participate in the care of this patient. Code(s): L03.311 - CELLULITIS OF ABDOMINAL WALL (2) HTN (hypertension) Code(s): I10 - ESSENTIAL (PRIMARY) HYPERTENSION (3) PAD (peripheral artery disease) Code(s): I73.9 - PERIPHERAL VASCULAR DISEASE, UNSPECIFIED (4) Sciatica Code(s): M54.30 - SCIATICA, UNSPECIFIED SIDE (5) UTI (urinary tract infection) Code(s): N39.0 - URINARY TRACT INFECTION, SITE NOT SPECIFIED Qualifiers: Encounter type: initial encounter (6) Uncontrolled diabetes mellitus Code(s): E11.65 - TYPE 2 DIABETES MELLITUS WITH HYPERGLYCEMIA Qualifiers: Diabetes mellitus type: type 2 Glycemic state: with hyperglycemia Qualified Code(s): E11.65 - Type 2 diabetes mellitus with hyperglycemia all cx reports noted await for urine cx report plan will switch abx to anceff await for urine cx await for sensitivities once we ahve all will switch to oral will repeat blood cx as i think the cx in blood is false positive
--- NOTE | 2018-08-06 17:02 | PN ---
Progress Note (short form) - Note Progress Note: Renal follow up for YOHAN Pt seen and examined at the [facility] no acute complaints no sob, cp, abd pain, fever, chills Vital Signs Temperature 99.0 F 08/06/18 14:24 Pulse Rate 93 H 08/06/18 14:24 Respiratory Rate 20 08/06/18 05:40 Blood Pressure 145/75 08/06/18 14:24 O2 Sat by Pulse Oximetry (%) 100 08/06/18 09:00 Intake & Output 08/03/18 08/04/18 08/05/18 08/06/18 23:59 23:59 23:59 23:59 Intake Total 750 2200 Output Total 650 Balance 750 1550 Weight 95.254 kg 103.447 kg NAD RRR CTA No LE edema CBC, BMP 08/06/18 06:30 08/06/18 06:30 Current Medications Acetaminophen (Tylenol -) 1,000 mg PO Q6H PRN PRN Reason: PAIN Last Admin: 08/06/18 12:35 Dose: 1,000 mg Aspirin (Ecotrin -) 81 mg PO DAILY [facility] Last Admin: 08/06/18 10:04 Dose: 81 mg Atorvastatin Calcium (Lipitor -) 40 mg PO HS [facility] Last Admin: 08/05/18 22:00 Dose: 40 mg Gabapentin (Neurontin -) 600 mg PO BID [facility] Last Admin: 08/06/18 10:04 Dose: 600 mg Heparin Sodium (Porcine) (Heparin -) 5,000 unit SQ TID [facility] Last Admin: 08/06/18 15:39 Dose: 5,000 unit Sodium Chloride (Normal Saline -) 1,000 mls @ 100 mls/hr IV ASDIR [facility] Last Admin: 08/06/18 12:36 Dose: 100 mls/hr Insulin Aspart (Novolog Vial Sliding Scale -) 1 vial SQ ACHS [facility]; Protocol Last Admin: 08/06/18 16:41 Dose: 8 unit Insulin Detemir (Levemir Vial) 40 units SQ HS [facility] Last Admin: 08/05/18 22:08 Dose: 40 units Montelukast Sodium (Singulair -) 10 mg PO HS [facility] Last Admin: 08/05/18 22:01 Dose: 10 mg #YOHAN likely secondary to intravascular volume depletion in setting of sepsis/ infection + ARB but need to r/o obstruction and GN and AIN (given Abx use) # cellulitis of Abd wall #Hypertension #DM Type 2 Renal function with mild improvement US of kidney w/o any pathology Continue IVF Abx as per ID repeat blood cultures Victor M Kinsey DO
--- NOTE | 2018-08-06 17:42 | OP ---
Operative Note - Note: Operative Date: 08/06/18 Pre-Operative Diagnosis: Abdominal carbuncle Operation: sharp surgical debridement of infraumbilcal abdominal wall carbuncle Findings: 8cm carbuncle infraumbilcal position, culture sent. Post-Operative Diagnosis: Same as Pre-op Surgeon: Pato Mcnair Anesthesiologist/[employer]: Thomas Matos Anesthesia: General, Local Specimens Removed: abdominal wall carbuncle Estimated Blood Loss (mls): 15 Instrument used (Debridements only): cautery, scalpel Fluid Volume Replaced (mls): 200 Operative Report Dictated: Yes
[2018-08-06] MEDS ORDERED: ONDANSETRON 4 MG/2 ML VIAL IVPUSH PRN (17:44)
[2018-08-06] MEDS ORDERED: LACTATED RINGERS SOLUTION 1,000 ML IV SCH (17:45)
--- NOTE | 2018-08-06 17:45 | PN ---
Physical Exam: SUBJECTIVE: Patient seen and examined at bedside. OBJECTIVE: Vital Signs Period Temp Pulse Resp BP Sys/Cohen Pulse Ox Last 24 Hr 99 F-100.3 F 88-98 19-20 121-145/58-75 99-100 GENERAL: The patient is awake, alert, and fully oriented, in no acute distress. LUNGS: Breath sounds equal, clear to auscultation bilaterally, no wheezes, no crackles, no accessory muscle use. HEART: Regular rate and rhythm, S1, S2 ABDOMEN: Soft, nondistended; 10cm lesion lower abdomen, dressing removed, no pus , no exudate, no fistula, ++tender EXTREMITIES: 2+ pulses, warm, well-perfused, no edema. NEUROLOGICAL: Cranial nerves II through XII grossly intact. Normal speech, gait not observed. Laboratory Results - last 24 hr 08/05/18 08/05/18 08/06/18 06:30 22:08 06:12 WBC RBC Hgb Hct MCV MCH MCHC RDW Plt Count MPV Absolute Neuts (auto) Neutrophils % Lymphocytes % Monocytes % Eosinophils % Basophils % Nucleated RBC % Sodium Potassium Chloride Carbon Dioxide Anion Gap BUN Creatinine Creat Clearance w eGFR POC Glucometer 291 295 Random Glucose Calcium Phosphorus Magnesium Iron 14 L TIBC 205 L Iron Saturation 7 L Transferrin 165 L Total Bilirubin AST ALT Alkaline Phosphatase Total Protein Albumin 08/06/18 08/06/18 08/06/18 06:30 06:30 11:14 WBC 11.8 H RBC 3.38 L Hgb 8.7 L Hct 26.2 L MCV 77.5 L MCH 25.8 MCHC 33.3 RDW 14.2 Plt Count 215 MPV 9.0 Absolute Neuts (auto) 8.3 H Neutrophils % 70.3 Lymphocytes % 17.8 D Monocytes % 8.8 Eosinophils % 2.5 Basophils % 0.6 Nucleated RBC % 0 Sodium 140 Potassium 4.4 Chloride 111 H Carbon Dioxide 23 Anion Gap 5 L BUN 25 H Creatinine 1.9 H Creat Clearance w eGFR 29.13 POC Glucometer 355 Random Glucose 277 H Calcium 8.3 L Phosphorus 2.6 Magnesium 1.6 L Iron TIBC Iron Saturation Transferrin Total Bilirubin 0.4 AST 8 L ALT 15 Alkaline Phosphatase 81 Total Protein 5.8 L Albumin 2.2 L 08/06/18 16:35 WBC RBC Hgb Hct MCV MCH MCHC RDW Plt Count MPV Absolute Neuts (auto) Neutrophils % Lymphocytes % Monocytes % Eosinophils % Basophils % Nucleated RBC % Sodium Potassium Chloride Carbon Dioxide Anion Gap BUN Creatinine Creat Clearance w eGFR POC Glucometer 308 Random Glucose Calcium Phosphorus Magnesium Iron TIBC Iron Saturation Transferrin Total Bilirubin AST ALT Alkaline Phosphatase Total Protein Albumin Current Medications Generic Name Dose Route Start Last Admin Trade Name Freq PRN Reason Stop Dose Admin Acetaminophen 1,000 mg 08/05/18 20:25 08/06/18 12:35 Tylenol - PO 1,000 mg Q6H PRN Administration PAIN Aspirin 81 mg 08/05/18 10:00 08/06/18 10:04 Ecotrin - PO 81 mg DAILY Á[facility]O Administration Atorvastatin Calcium 40 mg 08/05/18 22:00 08/05/18 22:00 Lipitor - PO 40 mg HS ÁLVARO Administration Fentanyl 50 mcg 08/06/18 17:44 Sublimaze Injection - IVPUSH [id number] PRN PAIN-PACU ORDER X 4 DOSES ONLY Gabapentin 600 mg 08/05/18 10:00 08/06/18 10:04 Neurontin - PO 600 mg BID ÁLVARO Administration Heparin Sodium (Porcine) 5,000 unit 08/05/18 06:00 08/06/18 15:39 Heparin - SQ 5,000 unit TID ÁLVARO Administration Sodium Chloride 1,000 mls @ 100 mls/hr 08/05/18 04:15 08/06/18 12:36 Normal Saline - IV 100 mls/hr ASDIR ÁLVARO Administration Lactated Ringer's 1,000 mls @ 75 mls/hr 08/06/18 17:45 Lactated Ringers Solution IV ASDIR ÁLVARO Cefazolin Sodium 1 gm/ 50 mls @ 100 mls/hr 08/07/18 02:00 Dextrose IVPB Q8H-IV ÁLVARO Insulin Aspart 1 vial 08/05/18 07:00 08/06/18 16:41 Novolog Vial Sliding Scale - SQ 8 unit ACHS ÁLVARO Administration Protocol Insulin Detemir 40 units 08/05/18 22:00 08/05/18 22:08 Levemir Vial SQ 40 units HS ÁLVARO Administration Montelukast Sodium 10 mg 08/05/18 22:00 08/05/18 22:01 Singulair - PO 10 mg HS ÁLVARO Administration Ondansetron HCl 4 mg 08/06/18 17:44 Zofran Injection IVPUSH Q6H PRN NAUSEA AND/OR VOMITING ASSESSMENT/PLAN 42 year-old female with a PMH significant for HTN, HLD, IDDM, PAD s/p multiple left toe amputations, left leg bypass, and recurrent abscesses (axilla) and lower extremity cellulitis. MSSA abdominal carbuncle/cellulitis --pen allergic, continue vanc, discuss with ID; vanc trough in am --surgery plan to I&D later today Pyuria --WBC 1016 --culture pending Hypertension --BP stable --not on anti-hypertensives Hyperlipidemia --continue Lipitor IDDM --Levemir 40U --Novolog sliding scale --continue Gabapentin PAD --continue ASA FEN Fluids: PO intake adequate Electrolytes: replete as indicated Nutrition: diabetic/low sodium DVT prophylaxis: subq heparin Dispo: continues to require inpatient care. Full code. Visit type - Emergency Visit Emergency Visit: Yes ED Registration Date: 08/05/18 Care time: The patient presented to the Emergency Department on the above date and was hospitalized for further evaluation of their emergent condition. - New Patient This patient is new to me today: Yes Date on this admission: 08/06/18 - Critical Care Critical Care patient: No
[2018-08-06] MEDS ORDERED: MIDAZOLAM HCL 2 MG/2 ML SINGLE DOSE VIAL ONE (17:57)
[2018-08-06] MEDS ORDERED: SUCCINYLCHOLINE CHLORIDE 200 MG/10 ML VIAL ONE (17:59)
[2018-08-06] MEDS ORDERED: PROPOFOL 20 ML ONE ×2 (18:00→18:32)
[2018-08-06] MEDS ORDERED: LIDOCAINE HCL/PF 2% SDV 5ML VIAL ONE (18:00)
[2018-08-06] MEDS ORDERED: CEFAZOLIN 1 GM/D5W 1 GM/50 ML BAG IVPB SCH (18:00)
[2018-08-06] MEDS ORDERED: BUPIVACAINE HCL/PF 0.5% (5MG/ML) 10 ML VIAL ONE (18:11)
[2018-08-06] MEDS ORDERED: ceFAZolin SODIUM 1 GM VIAL IVPB ONE (18:24)
[2018-08-06] MEDS ORDERED: ceFAZolin SODIUM 1 GM VIAL ONE (18:29)
[2018-08-06] MEDS ORDERED: SODIUM CHLORIDE 0.9% P/F 10 ML VIAL IJ ONE (18:29)
[2018-08-06] MEDS ORDERED: KETOROLAC TROMETHAMINE 30 MG/1 ML VIAL ONE (18:36)
[2018-08-06] MEDS ORDERED: BUPIVACAINE HCL/PF 0.5% (5MG/ML) 10 ML VIAL IJ ONE (18:40)
--- NOTE | 2018-08-06 19:42 | OP ---
DATE OF OPERATION: 08/06/2018 PREOPERATIVE DIAGNOSIS: Abdominal wall carbuncle. POSTOPERATIVE DIAGNOSIS: Abdominal wall carbuncle. PROCEDURE: Sharp surgical debridement abdominal wound. ATTENDING SURGEON: Pato Mcnair MD [employer] ENGRAVER HAND: No one ANESTHESIA: Thomas Matos MD ANESTHESIA TYPE: Local and MAC. Local consisted of 0.5% Marcaine a total of 20 mL given in area block fashion. ESTIMATED BLOOD LOSS: 50 mL. IV FLUID: 200 mL crystalloid. SPECIMEN: Abdominal wall carbuncle. Cultures sent for sensitivity and Gram stain. INDICATION: The patient is a 42-year-old female presenting with a history of an abdominal wall carbuncle over 4 days. She is diabetic. She was counseled regarding the risks, benefits, and alternatives of sharp surgical debridement. She signed informed consent and was taken to the procedure. DESCRIPTION OF PROCEDURE: The patient was brought to the operating room and was placed in supine position with the arms extended at 90 degrees perpendicular to the body's midline axis. The anterior abdominal wall was prepped and draped in a standard surgical field. The patient had SCDs placed to compression. The patient was given supplemental oxygen induced with MAC deep sedation at which time I proceeded with a formal time-out identifying the operative site and procedure. After all parties were in agreement, a circumferential rose was scribed around the abdominal wall carbuncle into normal tissue. A cutting current of the cautery was used to incise the skin, and it was deepened and widened through the blood fat pannus at the infraumbilical position. A margin of 1/2 cm of normal tissue was left. This was then debrided with cauterizing current and scalpel to its deepest aspect. Hemostasis was then obtained using Bovie cautery. The specimen was sent for final pathologic diagnosis, and the culture was sent from the wound. There was approximately 4-5 mL of cheesy, white discharge pus resembling MRSA. This was cleaned from the wound. The wound was then irrigated, and the base was controlled with Surgicel and packed with iodoform packing 1 inch absorptive. Dressing was applied. The patient was awoken from anesthesia having tolerated procedure well. We will plan for VAC placement tomorrow. MD ELVA Paige/[id number]
[2018-08-06] MEDS ORDERED: ACETAMINOPHEN 500 MG TABLET (FP) PO PRN (19:52)
[2018-08-06] MEDS: INSULIN (LEVEMIR) 100 UNITS/ML UNITS SQ SCH (21:53)
[2018-08-06] MEDS: MONTELUKAST NA 10 MG TABLET PO SCH (21:54)
[2018-08-06] MEDS: ATORVASTATIN CA 40 MG TABLET (FP) PO SCH (21:54)
[2018-08-06] MEDS ORDERED: VANCOMYCIN 1,500 MG in DEXTROSE 5%-WATER - 250 ML IVPB ONE (22:00)
[2018-08-06] MEDS ORDERED: VANCOMYCIN 1,500 MG in DEXTROSE 5%-WATER - 250 ML IVPB SCH (22:00)
[2018-08-07] MEDS ORDERED: CEFAZOLIN 1 GM in DEXTROSE 5%-WATER - 50 ML IVPB SCH (02:00)
[2018-08-07] MEDS: HEPARIN NA (PORCINE) 5,000 UNITS/ML 1ML VIAL SQ SCH ×3 (06:05→21:56)
[2018-08-07] MEDS: INSULIN SLIDING SCALE (NOVOLOG) 1 VIAL SQ SCH ×4 (06:05→21:55)
[2018-08-07 07:05] LABS: BASO % 0.8 % (0-2.0); EOS % 4.7 % (0-4.5); HEMATOCRIT 24.3 % (32.4-45.2); HEMOGLOBIN 8.3 GM/dL (10.7-15.3); LYMPH % 23.9 % (8-40); MCH 26.1 pg (25.7-33.7); MEAN CELL VOLUME 76.9 fl (80-96); MONO % 8.1 % (3.8-10.2); NEUT % 62.5 % (42.8-82.8); PLATELET COUNT 209 K/MM3 (134-434); RBC 3.17 M/mm3 (3.60-5.2); RDW 14.1 % (11.6-15.6); WHITE BLOOD COUNT 8.6 K/mm3 (4.0-10.0)
[2018-08-07] MEDS ORDERED: PT OWN MED DRAWER 7, Y5N ONE ×3 (07:33→21:24)
[2018-08-07 07:46] LABS: ALBUMIN 2.1 g/dl (3.4-5.0); ALK PHOS 76 U/L (45-117); ANION GAP 8 MMOL/L (8-16); BILIRUBIN,TOTAL 0.3 mg/dL (0.2-1); BLOOD UREA NITROGEN 23 mg/dL (7-18); CALCIUM 7.9 mg/dL (8.5-10.1); CHLORIDE 106 mmol/L (98-107); CO2 23 mmol/L (21-32); CREATININE 1.7 mg/dL (0.55-1.3); GLUCOSE,RANDOM 182 mg/dL (74-106); MAGNESIUM 2.1 mg/dL (1.8-2.4); PHOSPHOROUS 3.2 mg/dL (2.5-4.9); SGOT/AST 10 U/L (15-37); SGPT/ALT 14 U/L (13-61); SODIUM 137 mmol/L (136-145); TOT PROT 5.6 g/dl (6.4-8.2)
--- NOTE | 2018-08-07 10:14 | PN ---
Physical Exam: SUBJECTIVE: Patient seen and examined at bedside. OBJECTIVE: Vital Signs Period Temp Pulse Resp BP Sys/Cohen Pulse Ox Last 24 Hr 97.9 F-99.0 F 77-93 16-18 112-148/61-93 95-100 GENERAL: The patient is awake, alert, and fully oriented, in no acute distress. LUNGS: Breath sounds equal, clear to auscultation bilaterally, no wheezes, no crackles, no accessory muscle use. HEART: Regular rate and rhythm, S1, S2 ABDOMEN: Dressing c/d/i; surrounding area without erythema, fluctuance EXTREMITIES: 2+ pulses, warm, well-perfused, no edema. NEUROLOGICAL: Cranial nerves II through XII grossly intact. Normal speech, gait not observed. Laboratory Results - last 24 hr 08/06/18 08/06/18 08/06/18 11:14 16:35 21:52 WBC RBC Hgb Hct MCV MCH MCHC RDW Plt Count MPV Absolute Neuts (auto) Neutrophils % Lymphocytes % Monocytes % Eosinophils % Basophils % Nucleated RBC % Sodium Potassium Chloride Carbon Dioxide Anion Gap BUN Creatinine Creat Clearance w eGFR POC Glucometer 355 308 305 Random Glucose Calcium Phosphorus Magnesium Total Bilirubin AST ALT Alkaline Phosphatase Total Protein Albumin 08/07/18 08/07/18 08/07/18 06:04 06:23 06:23 WBC 8.6 RBC 3.17 L Hgb 8.3 L Hct 24.3 L MCV 76.9 L MCH 26.1 MCHC 34.0 RDW 14.1 Plt Count 209 MPV 9.0 Absolute Neuts (auto) 5.4 Neutrophils % 62.5 Lymphocytes % 23.9 D Monocytes % 8.1 Eosinophils % 4.7 H D Basophils % 0.8 Nucleated RBC % 0 Sodium 137 Potassium 4.0 Chloride 106 Carbon Dioxide 23 Anion Gap 8 BUN 23 H Creatinine 1.7 H Creat Clearance w eGFR 33.12 POC Glucometer 231 Random Glucose 182 H Calcium 7.9 L Phosphorus 3.2 Magnesium 2.1 Total Bilirubin 0.3 AST 10 L ALT 14 Alkaline Phosphatase 76 Total Protein 5.6 L Albumin 2.1 L Active Medications Generic Name Dose Route Start Last Admin Trade Name Freq PRN Reason Stop Dose Admin Acetaminophen 1,000 mg 08/06/18 19:52 08/06/18 22:21 Tylenol - PO 1,000 mg Q6H PRN Administration PAIN Aspirin 81 mg 08/07/18 10:00 Ecotrin - PO DAILY ÁLVARO Atorvastatin Calcium 40 mg 08/06/18 22:00 08/06/18 21:54 Lipitor - PO 40 mg HS ÁLVARO Administration Gabapentin 600 mg 08/06/18 22:00 08/06/18 21:54 Neurontin - PO 600 mg BID ÁLVARO Administration Heparin Sodium (Porcine) 5,000 unit 08/06/18 22:00 08/07/18 06:05 Heparin - SQ 5,000 unit TID ÁLVARO Administration Sodium Chloride 1,000 mls @ 100 mls/hr 08/06/18 19:52 08/06/18 19:59 Normal Saline - IV 0 mls ASDIR ÁLVARO Administration Vancomycin HCl 1,500 mg/ 250 mls @ 166.667 mls/hr 08/06/18 22:00 Dextrose IVPB Q12H ÁLVARO Protocol Insulin Aspart 1 vial 08/06/18 22:00 08/07/18 06:05 Novolog Vial Sliding Scale - SQ 4 units ACHS ÁLVARO Administration Protocol Insulin Detemir 40 units 08/06/18 22:00 08/06/18 21:53 Levemir Vial SQ 40 units HS ÁLVARO Administration Montelukast Sodium 10 mg 08/06/18 22:00 08/06/18 21:54 Singulair - PO 10 mg HS ÁLVARO Administration ASSESSMENT/PLAN: 42 year-old female with a PMH significant for HTN, HLD, IDDM, PAD s/p multiple left toe amputations, left leg bypass, and recurrent abscesses (axilla) and lower extremity cellulitis. MSSA abdominal carbuncle/cellulitis s/p surgical debridement on 08/06/18 --continue Vanc, per ID add aztreonam --surgery following --ID following Pyuria --WBC 1016 --culture pending YOHAN --Cr 1.9 on admission, baseline 1.1 --improving --continue IV fluids --renal following Hypertension --BP stable --not on anti-hypertensives Hyperlipidemia --continue Lipitor IDDM --Levemir 40U --Novolog sliding scale --continue Gabapentin for neuropathy PAD --continue ASA FEN Fluids: PO intake adequate Electrolytes: replete as indicated Nutrition: diabetic/low sodium DVT prophylaxis: subq heparin Dispo: continues to require inpatient care. Full code. Visit type - Emergency Visit Emergency Visit: Yes ED Registration Date: 08/05/18 Care time: The patient presented to the Emergency Department on the above date and was hospitalized for further evaluation of their emergent condition. - New Patient This patient is new to me today: No - Critical Care Critical Care patient: No
[2018-08-07] MEDS ORDERED: oxyCODONE HCL 5 MG TABLET PO PRN (11:11)
[2018-08-07] MEDS: ASPIRIN COATED 81 MG TABLET.EC PO SCH (11:13)
[2018-08-07] MEDS: GABAPENTIN 300 MG CAPSULE (FP) PO SCH ×2 (11:14→21:56)
[2018-08-07] MEDS: oxyCODONE HCL 5 MG TABLET PO PRN ×2 (11:24→21:55)
[2018-08-07] MEDS ORDERED: ONDANSETRON 4 MG/2 ML VIAL IVPUSH STA (13:06)
--- NOTE | 2018-08-07 13:06 | PN ---
Progress Note, Physician Chief Complaint: s/p I&D of abdominal wound under MAC anesthesia History of Present Illness: post op day one - Current Medication List Current Medications: Active Medications Acetaminophen (Tylenol -) 1,000 mg PO Q6H PRN PRN Reason: PAIN Last Admin: 08/06/18 22:21 Dose: 1,000 mg Aspirin (Ecotrin -) 81 mg PO DAILY [facility] Last Admin: 08/07/18 11:13 Dose: 81 mg Atorvastatin Calcium (Lipitor -) 40 mg PO HS [facility] Last Admin: 08/06/18 21:54 Dose: 40 mg Gabapentin (Neurontin -) 600 mg PO BID [facility] Last Admin: 08/07/18 11:14 Dose: 600 mg Heparin Sodium (Porcine) (Heparin -) 5,000 unit SQ TID [facility] Last Admin: 08/07/18 06:05 Dose: 5,000 unit Sodium Chloride (Normal Saline -) 1,000 mls @ 100 mls/hr IV ASDIR [facility] Last Admin: 08/06/18 19:59 Dose: 0 mls Vancomycin HCl 1,500 mg/ (Dextrose) 250 mls @ 166.667 mls/hr IVPB Q12H [facility]; Protocol Insulin Aspart (Novolog Vial Sliding Scale -) [address] [facility]; Protocol Last Admin: 08/07/18 11:35 Dose: 4 units Insulin Detemir (Levemir Vial) 40 units SQ [facility] Last Admin: 08/06/18 21:53 Dose: 40 units Montelukast Sodium (Singulair -) 10 mg PO [facility] Last Admin: 08/06/18 21:54 Dose: 10 mg Oxycodone HCl (Roxicodone -) 5 mg PO Q4H PRN PRN Reason: PAIN LEVEL 1-5 Oxycodone HCl (Roxicodone -) 10 mg PO Q4H PRN PRN Reason: PAIN LEVEL 6-10 Last Admin: 08/07/18 11:24 Dose: 10 mg - Objective Vital Signs: Vital Signs Temperature 98.7 F 08/07/18 06:00 Pulse Rate 78 08/07/18 06:00 Respiratory Rate 18 08/07/18 06:00 Blood Pressure 124/64 08/07/18 06:00 O2 Sat by Pulse Oximetry (%) 95 08/06/18 21:00 Constitutional: Yes: Well Nourished Cardiovascular: Yes: WNL Respiratory: Yes: WNL Gastrointestinal: Yes: WNL Labs: CBC, BMP 08/07/18 06:23 08/07/18 06:23 INR, PTT INR 1.05 (0.83-1.09) 08/04/18 21:43 Assessment/Plan No anesthetic complications, patient in pain this AM, ordered oxycodone for pain , no nausea or vomiting. dept of anesthesia will sign off care at this time
--- NOTE | 2018-08-07 13:53 | PN ---
Progress Note, Physician History of Present Illness: patient stable i and d one pain better uti present - Current Medication List Current Medications: Active Medications Acetaminophen (Tylenol -) 1,000 mg PO Q6H PRN PRN Reason: PAIN Last Admin: 08/06/18 22:21 Dose: 1,000 mg Aspirin (Ecotrin -) 81 mg PO DAILY [facility] Last Admin: 08/07/18 11:13 Dose: 81 mg Atorvastatin Calcium (Lipitor -) 40 mg PO HS [facility] Last Admin: 08/06/18 21:54 Dose: 40 mg Gabapentin (Neurontin -) 600 mg PO BID [facility] Last Admin: 08/07/18 11:14 Dose: 600 mg Heparin Sodium (Porcine) (Heparin -) 5,000 unit SQ TID [facility] Last Admin: 08/07/18 06:05 Dose: 5,000 unit Sodium Chloride (Normal Saline -) 1,000 mls @ 100 mls/hr IV ASDIR [facility] Last Admin: 08/06/18 19:59 Dose: 0 mls Vancomycin HCl 1,500 mg/ (Dextrose) 250 mls @ 166.667 mls/hr IVPB Q12H [facility]; Protocol Vancomycin HCl 1,500 mg/ (Dextrose) 500 mls @ 250 mls/hr IVPB Q24H [facility]; Protocol Insulin Aspart (Novolog Vial Sliding Scale -) 1 vial SQ [facility]; Protocol Last Admin: 08/07/18 11:35 Dose: 4 units Insulin Detemir (Levemir Vial) 40 units SQ [facility] Last Admin: 08/06/18 21:53 Dose: 40 units Montelukast Sodium (Singulair -) 10 mg PO HS [facility] Last Admin: 08/06/18 21:54 Dose: 10 mg Oxycodone HCl (Roxicodone -) 5 mg PO Q4H PRN PRN Reason: PAIN LEVEL 1-5 Oxycodone HCl (Roxicodone -) 10 mg PO Q4H PRN PRN Reason: PAIN LEVEL 6-10 Last Admin: 08/07/18 11:24 Dose: 10 mg - Objective Vital Signs: Vital Signs Temperature 98.7 F 08/07/18 06:00 Pulse Rate 78 08/07/18 06:00 Respiratory Rate 18 08/07/18 06:00 Blood Pressure 124/64 08/07/18 06:00 O2 Sat by Pulse Oximetry (%) 95 08/06/18 21:00 Constitutional: Yes: Calm, Mild Distress Cardiovascular: Yes: Regular Rate and Rhythm Respiratory: Yes: Regular, CTA Bilaterally Gastrointestinal: Yes: Soft, Other Musculoskeletal: Yes: WNL Extremities: Yes: WNL Neurological: Yes: Alert, Oriented Psychiatric: Yes: Alert, Oriented Labs: CBC, BMP 08/07/18 06:23 08/07/18 06:23 INR, PTT INR 1.05 (0.83-1.09) 08/04/18 21:43 Assessment/Plan - Problems (1) Cellulitis of abdominal wall Thank you for the opportunity to participate in the care of this patient. Code(s): L03.311 - CELLULITIS OF ABDOMINAL WALL (2) HTN (hypertension) Code(s): I10 - ESSENTIAL (PRIMARY) HYPERTENSION (3) PAD (peripheral artery disease) Code(s): I73.9 - PERIPHERAL VASCULAR DISEASE, UNSPECIFIED (4) Sciatica Code(s): M54.30 - SCIATICA, UNSPECIFIED SIDE (5) UTI (urinary tract infection) Code(s): N39.0 - URINARY TRACT INFECTION, SITE NOT SPECIFIED Qualifiers: Encounter type: initial encounter (6) Uncontrolled diabetes mellitus Code(s): E11.65 - TYPE 2 DIABETES MELLITUS WITH HYPERGLYCEMIA Qualifiers: Diabetes mellitus type: type 2 Glycemic state: with hyperglycemia Qualified Code(s): E11.65 - Type 2 diabetes mellitus with hyperglycemia all cx reports noted plan will continue vanco will add aztreonam rest as per the team wound care
[2018-08-07] MEDS: AZTREONAM 1 GM in DEXTROSE 5%-WATER - 50 ML IVPB SCH ×2 (14:00→16:42)
--- NOTE | 2018-08-07 14:41 | PN ---
Progress Note, Physician Chief Complaint: abdominal panus infection History of Present Illness: 42 yo female PMH DM, HTN, HLD, PAD presented to the ED w/ a non-healing abscess on her abdomen that worsened over the past few days. stable since surgery, no complaints. - Current Medication List Current Medications: Active Medications Acetaminophen (Tylenol -) 1,000 mg PO Q6H PRN PRN Reason: PAIN Last Admin: 08/06/18 22:21 Dose: 1,000 mg Aspirin (Ecotrin -) 81 mg PO DAILY [facility] Last Admin: 08/07/18 11:13 Dose: 81 mg Atorvastatin Calcium (Lipitor -) 40 mg PO HS [facility] Last Admin: 08/06/18 21:54 Dose: 40 mg Gabapentin (Neurontin -) 600 mg PO BID [facility] Last Admin: 08/07/18 11:14 Dose: 600 mg Heparin Sodium (Porcine) (Heparin -) 5,000 unit SQ TID [facility] Last Admin: 08/07/18 06:05 Dose: 5,000 unit Sodium Chloride (Normal Saline -) 1,000 mls @ 100 mls/hr IV ASDIR [facility] Last Admin: 08/06/18 19:59 Dose: 0 mls Vancomycin HCl 1,500 mg/ (Dextrose) 500 mls @ 250 mls/hr IVPB Q24H [facility]; Protocol Aztreonam 1 gm/ Dextrose 50 mls @ 100 mls/hr IVPB Q8H-IV [facility]; Protocol Insulin Aspart (Novolog Vial Sliding Scale -) 1 vial SQ ACHS [facility]; Protocol Last Admin: 08/07/18 11:35 Dose: 4 units Insulin Detemir (Levemir Vial) 40 units SQ [facility] Last Admin: 08/06/18 21:53 Dose: 40 units Montelukast Sodium (Singulair -) 10 mg PO HS [facility] Last Admin: 08/06/18 21:54 Dose: 10 mg Oxycodone HCl (Roxicodone -) 5 mg PO Q4H PRN PRN Reason: PAIN LEVEL 1-5 Oxycodone HCl (Roxicodone -) 10 mg PO Q4H PRN PRN Reason: PAIN LEVEL 6-10 Last Admin: 08/07/18 11:24 Dose: 10 mg - Objective Vital Signs: Vital Signs Temperature 98.7 F 08/07/18 06:00 Pulse Rate 78 08/07/18 06:00 Respiratory Rate 18 08/07/18 06:00 Blood Pressure 124/64 08/07/18 06:00 O2 Sat by Pulse Oximetry (%) 95 08/06/18 21:00 Vital Signs Period Temp Pulse Resp BP Sys/Cohen Pulse Ox Last 24 Hr 97.9 F-98.7 F 77-88 16-18 112-148/61-93 95-100 Constitutional: Yes: Well Nourished, No Distress, Calm, Obese Eyes: Yes: Conjunctiva Clear, EOM Intact HENT: Yes: Atraumatic, Normocephalic Neck: Yes: Supple, Trachea Midline Cardiovascular: Yes: Regular Rate and Rhythm, S1, S2 Respiratory: Yes: Regular, CTA Bilaterally Gastrointestinal: Yes: Normal Bowel Sounds, Soft. No: Tenderness, Tenderness, Epigastrium, Tenderness, Rebound ...Rectal Exam: Yes: Deferred Genitourinary: No: CVA Tenderness - Left, CVA Tenderness - Right Musculoskeletal: No: Muscle Pain, Muscle Weakness Extremities: No: Cool, Cyanosis Edema: No Peripheral Pulses WNL: Yes Peripheral Pulses: Left Radial: 2+, Right Radial: 2+, Left Doralis Pedis: 2+, Right Dorsalis Pedis: 2+ Wound/Incision: Yes: Clean/Dry, Dressing Dry and Intact, Dressing Removed, Reddened, Unapproximated ([id number] infraumbilical wound, clean base.) Neurological: Yes: Alert, Oriented Psychiatric: Yes: Alert, Oriented Labs: CBC, BMP 08/07/18 06:23 08/07/18 06:23 INR, PTT INR 1.05 (0.83-1.09) 08/04/18 21:43 Problem List - Problems (1) Carbuncle and furuncle of trunk Assessment/Plan: 42yo female MMP type 2 DM with Abdominal Carbuncle, POD#1 s/p sharp surgical debridement. Abdominal wound, [id number] infraumbilical wound, clean base, afebrile now. May be discharged +/-VNS Antibiotics per ID Wet to dry dressing daily f/u 2 weeks after discharge Code(s): L02.229 - FURUNCLE OF TRUNK, UNSPECIFIED (2) Cellulitis of abdominal wall Code(s): L03.311 - CELLULITIS OF ABDOMINAL WALL (3) HTN (hypertension) Code(s): I10 - ESSENTIAL (PRIMARY) HYPERTENSION Qualifiers: Hypertension type: essential hypertension Qualified Code(s): I10 - Essential (primary) hypertension (4) PAD (peripheral artery disease) Code(s): I73.9 - PERIPHERAL VASCULAR DISEASE, UNSPECIFIED (5) Sciatica Code(s): M54.30 - SCIATICA, UNSPECIFIED SIDE (6) UTI (urinary tract infection) Code(s): N39.0 - URINARY TRACT INFECTION, SITE NOT SPECIFIED Qualifiers: Encounter type: initial encounter (7) Uncontrolled diabetes mellitus Code(s): E11.65 - TYPE 2 DIABETES MELLITUS WITH HYPERGLYCEMIA Qualifiers: Diabetes mellitus type: type 2 Glycemic state: with hyperglycemia Qualified Code(s): E11.65 - Type 2 diabetes mellitus with hyperglycemia
--- NOTE | 2018-08-07 16:11 | PN ---
Progress Note (short form) - Note Progress Note: Renal follow up for YOHAN Pt seen and examined at the bedside s/p surgical debridement of abd infection denies any sob, cp, abd pain tolerating oral diet no sob, cp, abd pain, fever or chills Vital Signs Temperature 98.7 F 08/07/18 15:13 Pulse Rate 84 08/07/18 15:13 Respiratory Rate 18 08/07/18 15:13 Blood Pressure 148/69 08/07/18 15:13 O2 Sat by Pulse Oximetry (%) 95 08/06/18 21:00 Intake & Output 08/04/18 08/05/18 08/06/18 08/07/18 23:59 23:59 23:59 23:59 Intake Total 750 2600 4650 Output Total 665 1300 Balance 750 1935 3350 Weight 95.254 kg 103.447 kg NAD RRR CTA No LE edema CBC, BMP 08/07/18 06:23 08/07/18 06:23 Current Medications Acetaminophen (Tylenol -) 1,000 mg PO Q6H PRN PRN Reason: PAIN Last Admin: 08/06/18 22:21 Dose: 1,000 mg Aspirin (Ecotrin -) 81 mg PO DAILY [facility] Last Admin: 08/07/18 11:13 Dose: 81 mg Atorvastatin Calcium (Lipitor -) 40 mg PO HS [facility] Last Admin: 08/06/18 21:54 Dose: 40 mg Gabapentin (Neurontin -) 600 mg PO BID [facility] Last Admin: 08/07/18 11:14 Dose: 600 mg Heparin Sodium (Porcine) (Heparin -) 5,000 unit SQ TID [facility] Last Admin: 08/07/18 14:40 Dose: 5,000 unit Sodium Chloride (Normal Saline -) 1,000 mls @ 100 mls/hr IV ASDIR [facility] Last Admin: 08/06/18 19:59 Dose: 0 mls Vancomycin HCl 1,500 mg/ (Dextrose) 500 mls @ 250 mls/hr IVPB Q24H [facility]; Protocol Aztreonam 1 gm/ Dextrose 50 mls @ 100 mls/hr IVPB Q8H-IV [facility]; Protocol Last Admin: 08/07/18 14:00 Dose: Not Given Insulin Aspart (Novolog Vial Sliding Scale -) 1 vial SQ ACHS [facility]; Protocol Last Admin: 08/07/18 11:35 Dose: 4 units Insulin Detemir (Levemir Vial) 40 units SQ HS [facility] Last Admin: 08/06/18 21:53 Dose: 40 units Montelukast Sodium (Singulair -) 10 mg PO HS [facility] Last Admin: 08/06/18 21:54 Dose: 10 mg Oxycodone HCl (Roxicodone -) 5 mg PO Q4H PRN PRN Reason: PAIN LEVEL 1-5 Oxycodone HCl (Roxicodone -) 10 mg PO Q4H PRN PRN Reason: PAIN LEVEL 6-10 Last Admin: 08/07/18 11:24 Dose: 10 mg #YOHAN likely secondary to intravascular volume depletion in setting of sepsis/ infection + ARB but need to r/o obstruction and GN and AIN (given Abx use) # cellulitis of Abd wall #Hypertension #DM Type 2 Renal function with mild improvement, not yet at baseline continue IVF but will decrease rate oral intake as tolerated pain management Abx as per JAIRON Kinsey DO
[2018-08-07 17:44] VITALS: BMI 35.6
[2018-08-07] MEDS ORDERED: INSULIN (NOVOLOG) ASPART 100 UNITS/ML 10ML VIAL ONE (21:25)
[2018-08-07] MEDS: INSULIN (LEVEMIR) 100 UNITS/ML UNITS SQ SCH (21:55)
[2018-08-07] MEDS: VANCOMYCIN 1,500 MG in DEXTROSE 5%-WATER - 500 ML IVPB SCH (21:56)
[2018-08-07] MEDS: ATORVASTATIN CA 40 MG TABLET (FP) PO SCH (21:56)
[2018-08-07] MEDS: MONTELUKAST NA 10 MG TABLET PO SCH (21:56)
[2018-08-08] MEDS ORDERED: PT OWN MED DRAWER 7, Y5N ONE ×4 (01:41→21:17)
[2018-08-08] MEDS: AZTREONAM 1 GM in DEXTROSE 5%-WATER - 50 ML IVPB SCH ×3 (02:20→17:27)
[2018-08-08] MEDS: HEPARIN NA (PORCINE) 5,000 UNITS/ML 1ML VIAL SQ SCH ×3 (06:25→22:42)
[2018-08-08] MEDS: oxyCODONE HCL 5 MG TABLET PO PRN ×2 (06:26→22:43)
[2018-08-08] MEDS: INSULIN SLIDING SCALE (NOVOLOG) 1 VIAL SQ SCH ×4 (06:26→22:42)
[2018-08-08] MEDS: SODIUM CHLORIDE 1,000 ML IV SCH ×3 (06:30→18:34)
[2018-08-08 08:50] LABS: ANION GAP 6 MMOL/L (8-16); BLOOD UREA NITROGEN 24 mg/dL (7-18); CALCIUM 7.8 mg/dL (8.5-10.1); CHLORIDE 102 mmol/L (98-107); CO2 26 mmol/L (21-32); CREATININE 1.9 mg/dL (0.55-1.3); MAGNESIUM 1.7 mg/dL (1.8-2.4); PHOSPHOROUS 2.8 mg/dL (2.5-4.9); POTASSIUM 4.7 mmol/L (3.5-5.1); SODIUM 135 mmol/L (136-145)
[2018-08-08] MEDS ORDERED: ONDANSETRON 4 MG/2 ML VIAL IVPUSH PRN (08:51)
[2018-08-08 09:23] LABS: GLUCOSE,RANDOM 324 mg/dL (74-106)
[2018-08-08] MEDS: ASPIRIN COATED 81 MG TABLET.EC PO SCH (09:28)
[2018-08-08] MEDS: GABAPENTIN 300 MG CAPSULE (FP) PO SCH ×2 (09:28→22:41)
--- NOTE | 2018-08-08 11:31 | PN ---
Progress Note (short form) - Note Progress Note: Renal follow up for YOHAN Pt seen and examined at the bedside has mild abd pain has been off IVF making urine no sob, cp, abd pain, N/V/D Vital Signs Temperature 98.6 F 08/08/18 08:27 Pulse Rate 86 08/08/18 08:27 Respiratory Rate 18 08/08/18 08:27 Blood Pressure 150/90 08/08/18 08:27 O2 Sat by Pulse Oximetry (%) 97 08/07/18 21:00 Intake & Output 08/05/18 08/06/18 08/07/18 08/08/18 23:59 23:59 23:59 23:59 Intake Total 750 2600 5200 600 Output Total 665 1300 Balance 750 1935 3900 600 Weight 103.447 kg 103.419 kg NAD RRR CTA No LE edema CBC, BMP 08/07/18 06:23 08/08/18 07:20 Current Medications Acetaminophen (Tylenol -) 1,000 mg PO Q6H PRN PRN Reason: PAIN Last Admin: 08/06/18 22:21 Dose: 1,000 mg Aspirin (Ecotrin -) 81 mg PO DAILY [facility] Last Admin: 08/08/18 09:28 Dose: 81 mg Atorvastatin Calcium (Lipitor -) 40 mg PO HS [facility] Last Admin: 08/07/18 21:56 Dose: 40 mg Gabapentin (Neurontin -) 600 mg PO BID [facility] Last Admin: 08/08/18 09:28 Dose: 600 mg Heparin Sodium (Porcine) (Heparin -) 5,000 unit SQ TID [facility] Last Admin: 08/08/18 06:25 Dose: 5,000 unit Sodium Chloride (Normal Saline -) 1,000 mls @ 100 mls/hr IV ASDIR [facility] Last Admin: 08/08/18 10:26 Dose: 100 mls/hr Vancomycin HCl 1,500 mg/ (Dextrose) 500 mls @ 250 mls/hr IVPB Q24H [facility]; Protocol Last Admin: 08/07/18 21:56 Dose: 250 mls/hr Aztreonam 1 gm/ Dextrose 50 mls @ 100 mls/hr IVPB Q8H-IV [facility]; Protocol Last Admin: 08/08/18 09:28 Dose: 100 mls/hr Insulin Aspart (Novolog Vial Sliding Scale -) 1 vial SQ ACHS [facility]; Protocol Last Admin: 08/08/18 06:26 Dose: 10 units Insulin Detemir (Levemir Vial) 40 units SQ HS [facility] Last Admin: 08/07/18 21:55 Dose: 40 units Montelukast Sodium (Singulair -) 10 mg PO HS [facility] Last Admin: 08/07/18 21:56 Dose: 10 mg Ondansetron HCl (Zofran Injection) 4 mg IVPUSH Q6H PRN PRN Reason: NAUSEA Last Admin: 08/08/18 09:28 Dose: 4 mg Oxycodone HCl (Roxicodone -) 5 mg PO Q4H PRN PRN Reason: PAIN LEVEL 1-5 Oxycodone HCl (Roxicodone -) 10 mg PO Q4H PRN PRN Reason: PAIN LEVEL 6-10 Last Admin: 08/08/18 06:26 Dose: 10 mg #YOHAN likely secondary to intravascular volume depletion in setting of sepsis/ infection + ARB but need to r/o obstruction and GN and AIN (given Abx use) # cellulitis of Abd wall #Hypertension #DM Type 2 Renal function overall improved but Cr rachid in the last 24 hours resume NS at 100cc per hour avoid nephrotoxinsand IV contrast no conchis/arb for now Trend renal function and electrolytes daily Victor M Kinsey DO
[2018-08-08] MEDS: POLYETHYLENE GLYCOL 3350 255 GM BTL PO PRN (16:29)
--- NOTE | 2018-08-08 17:12 | PN ---
Progress Note, Physician History of Present Illness: Pt is alert, without distress. Has minimal pain. No new complaints. - Current Medication List Current Medications: Active Medications Acetaminophen (Tylenol -) 1,000 mg PO Q6H PRN PRN Reason: PAIN Last Admin: 08/06/18 22:21 Dose: 1,000 mg Aspirin (Ecotrin -) 81 mg PO DAILY [facility] Last Admin: 08/08/18 09:28 Dose: 81 mg Atorvastatin Calcium (Lipitor -) 40 mg PO HS [facility] Last Admin: 08/07/18 21:56 Dose: 40 mg Docusate Sodium (Colace -) 300 mg PO HS [facility] Gabapentin (Neurontin -) 600 mg PO BID [facility] Last Admin: 08/08/18 09:28 Dose: 600 mg Heparin Sodium (Porcine) (Heparin -) 5,000 unit SQ TID [facility] Last Admin: 08/08/18 14:05 Dose: 5,000 unit Sodium Chloride (Normal Saline -) 1,000 mls @ 100 mls/hr IV ASDIR [facility] Last Admin: 08/08/18 10:26 Dose: 100 mls/hr Vancomycin HCl 1,500 mg/ (Dextrose) 500 mls @ 250 mls/hr IVPB Q24H [facility]; Protocol Last Admin: 08/07/18 21:56 Dose: 250 mls/hr Aztreonam 1 gm/ Dextrose 50 mls @ 100 mls/hr IVPB Q8H-IV [facility]; Protocol Last Admin: 08/08/18 09:28 Dose: 100 mls/hr Insulin Aspart (Novolog Vial Sliding Scale -) 1 vial SQ ACHS [facility]; Protocol Last Admin: 08/08/18 16:24 Dose: 12 units Insulin Detemir (Levemir Vial) 40 units SQ HS [facility] Last Admin: 08/07/18 21:55 Dose: 40 units Montelukast Sodium (Singulair -) 10 mg PO HS [facility] Last Admin: 08/07/18 21:56 Dose: 10 mg Ondansetron HCl (Zofran Injection) 4 mg IVPUSH Q6H PRN PRN Reason: NAUSEA Last Admin: 08/08/18 09:28 Dose: 4 mg Oxycodone HCl (Roxicodone -) 5 mg PO Q4H PRN PRN Reason: PAIN LEVEL 1-5 Oxycodone HCl (Roxicodone -) 10 mg PO Q4H PRN PRN Reason: PAIN LEVEL 6-10 Last Admin: 08/08/18 06:26 Dose: 10 mg Polyethylene Glycol (Miralax (For Bowel Prep) -) 17 gm PO BID PRN PRN Reason: CONSTIPATION Last Admin: 08/08/18 16:29 Dose: 17 gm - Objective Vital Signs: Vital Signs Temperature 98.6 F 08/08/18 08:27 Pulse Rate 86 08/08/18 08:27 Respiratory Rate 18 08/08/18 08:27 Blood Pressure 150/90 08/08/18 08:27 O2 Sat by Pulse Oximetry (%) 98 08/08/18 09:00 Constitutional: Yes: No Distress Cardiovascular: Yes: Regular Rate and Rhythm Respiratory: Yes: Regular Gastrointestinal: Yes: Normal Bowel Sounds, Soft, Abdomen, Obese, Tenderness ( minimal lower abd with palpation) Wound/Incision: Yes: Other (dressing intact) Labs: CBC, BMP 08/07/18 06:23 08/08/18 07:20 INR, PTT INR 1.05 (0.83-1.09) 08/04/18 21:43 Microbiology 08/06/18 19:00 Abdomen Gram Stain - Final 08/06/18 19:00 Abdomen Wound Culture - Preliminary Staphylococcus Latex Coag Pos 08/04/18 21:45 Blood - Peripheral Venous Blood Culture - Final Staphylococcus Warneri 08/04/18 21:43 Blood - Peripheral Venous Blood Culture - Preliminary NO GROWTH OBTAINED AFTER 72 HOURS, INCUBATION TO CONTINUE FOR 2 DAYS. 08/06/18 17:20 Blood - Peripheral Venous Blood Culture - Preliminary NO GROWTH OBTAINED AFTER 24 HOURS, INCUBATION TO CONTINUE FOR 4 DAYS. 08/06/18 17:00 Blood - Peripheral Venous Blood Culture - Preliminary NO GROWTH OBTAINED AFTER 24 HOURS, INCUBATION TO CONTINUE FOR 4 DAYS. 08/04/18 23:01 Abscess Gram Stain - Final 08/04/18 23:01 Abscess Wound Culture - Final Staphylococcus Aureus 08/04/18 21:49 Urine - Urine Clean Catch Urine Culture - Final Escherichia Coli Problem List - Problems (1) Cellulitis of abdominal wall Code(s): L03.311 - CELLULITIS OF ABDOMINAL WALL (2) HTN (hypertension) Code(s): I10 - ESSENTIAL (PRIMARY) HYPERTENSION Qualifiers: Hypertension type: essential hypertension Qualified Code(s): I10 - Essential (primary) hypertension (3) UTI (urinary tract infection) Code(s): N39.0 - URINARY TRACT INFECTION, SITE NOT SPECIFIED Qualifiers: Encounter type: initial encounter (4) Uncontrolled diabetes mellitus Code(s): E11.65 - TYPE 2 DIABETES MELLITUS WITH HYPERGLYCEMIA Qualifiers: Diabetes mellitus type: type 2 Glycemic state: with hyperglycemia Qualified Code(s): E11.65 - Type 2 diabetes mellitus with hyperglycemia Assessment/Plan E. coli UTI Abdominal wall abscess s/p I+D Staphylococcus bacteremia Uncontrolled DM -- culture results noted, final OR culture results pending - preliminary +staph -- cont. aztreonam, vancomycin --latest Blood cultures no growth 24h monitor renal function
--- NOTE | 2018-08-08 22:03 | PN ---
Physical Exam: SUBJECTIVE: Patient seen and examined OBJECTIVE: Vital Signs Period Temp Pulse Resp BP Sys/Cohen Pulse Ox Last 24 Hr 98.4 F-98.6 F 84-86 18-20 140-152/66-90 98 GENERAL: The patient is awake, alert, and fully oriented, in no acute distress. LUNGS: Breath sounds equal, clear to auscultation bilaterally, no wheezes, no crackles, no accessory muscle use. HEART: Regular rate and rhythm, S1, S2 ABDOMEN: Bulky dressing c/d/i; surrounding area without erythema, fluctuance EXTREMITIES: 2+ pulses, warm, well-perfused, no edema. NEUROLOGICAL: Cranial nerves II through XII grossly intact. Normal speech, gait not observed. Laboratory Results - last 24 hr 08/07/18 08/08/18 08/08/18 21:54 06:24 07:20 Sodium 135 L Potassium 4.7 Chloride 102 Carbon Dioxide 26 Anion Gap 6 L BUN 24 H Creatinine 1.9 H Creat Clearance w eGFR 29.13 POC Glucometer 393 381 Random Glucose 324 H* Calcium 7.8 L Phosphorus 2.8 Magnesium 1.7 L 08/08/18 08/08/18 11:32 16:45 Sodium Potassium Chloride Carbon Dioxide Anion Gap BUN Creatinine Creat Clearance w eGFR POC Glucometer 280 Random Glucose 395 H* Calcium Phosphorus Magnesium Active Medications Generic Name Dose Route Start Last Admin Trade Name Freq PRN Reason Stop Dose Admin Acetaminophen 1,000 mg 08/06/18 19:52 08/06/18 22:21 Tylenol - PO 1,000 mg Q6H PRN Administration PAIN Aspirin 81 mg 08/07/18 10:00 08/08/18 09:28 Ecotrin - PO 81 mg DAILY [facility] Administration Atorvastatin Calcium 40 mg 08/06/18 22:00 08/07/18 21:56 Lipitor - PO 40 mg HS [facility] Administration Docusate Sodium 300 mg 08/08/18 22:00 Colace - PO HS [facility] Gabapentin 600 mg 08/06/18 22:00 08/08/18 09:28 Neurontin - PO 600 mg BID [facility] Administration Heparin Sodium (Porcine) 5,000 unit 08/06/18 22:00 08/08/18 14:05 Heparin - SQ 5,000 unit TID [facility] Administration Vancomycin HCl 1,500 mg/ 500 mls @ 250 mls/hr 08/07/18 22:00 08/07/18 21:56 Dextrose IVPB 250 mls/hr Q24H [facility] Administration Protocol Aztreonam 1 gm/ Dextrose 50 mls @ 100 mls/hr 08/07/18 14:00 08/08/18 17:27 IVPB 100 mls/hr Q8H-IV [facility] Administration Protocol Sodium Chloride 1,000 mls @ 100 mls/hr 08/08/18 18:30 08/08/18 18:34 Normal Saline - IV Not Given ASDIR [facility] Insulin Aspart 1 vial 08/06/18 22:00 08/08/18 16:24 Novolog Vial Sliding Scale - SQ 12 units ACHS [facility] Administration Protocol Insulin Detemir 40 units 08/06/18 22:00 08/07/18 21:55 Levemir Vial SQ 40 units HS [facility] Administration Montelukast Sodium 10 mg 08/06/18 22:00 08/07/18 21:56 Singulair - PO 10 mg HS [facility] Administration Ondansetron HCl 4 mg 08/08/18 08:51 08/08/18 09:28 Zofran Injection IVPUSH 4 mg Q6H PRN Administration NAUSEA Oxycodone HCl 5 mg 08/07/18 11:11 Roxicodone - PO Q4H PRN PAIN LEVEL 1-5 Oxycodone HCl 10 mg 08/07/18 11:11 08/08/18 06:26 Roxicodone - PO 10 mg Q4H PRN Administration PAIN LEVEL 6-10 Polyethylene Glycol 17 gm 08/08/18 14:47 08/08/18 16:29 Miralax (For Bowel Prep) - PO 17 gm BID PRN Administration CONSTIPATION ASSESSMENT/PLAN: 42 year-old female with a PMH significant for HTN, HLD, IDDM, PAD s/p multiple left toe amputations, left leg bypass, and recurrent abscesses (axilla) and lower extremity cellulitis. MSSA abdominal carbuncle/cellulitis s/p surgical debridement on 08/06/18 --continue Vanc, aztreonam E. coli UTI --antibiotics as above YOHAN --Cr 1.9 on admission, 1.9 again today, baseline 1.1 --continue IV fluids --renal following Hypertension --BP stable --not on anti-hypertensives Hyperlipidemia --continue Lipitor IDDM --Levemir 40U --Novolog sliding scale --continue Gabapentin for neuropathy PAD --continue ASA FEN Fluids: PO intake adequate Electrolytes: replete as indicated Nutrition: diabetic/low sodium DVT prophylaxis: subq heparin Dispo: continues to require inpatient care. Full code. Visit type - Emergency Visit Emergency Visit: Yes ED Registration Date: 08/05/18 Care time: The patient presented to the Emergency Department on the above date and was hospitalized for further evaluation of their emergent condition. - New Patient This patient is new to me today: No - Critical Care Critical Care patient: No
[2018-08-08] MEDS: ATORVASTATIN CA 40 MG TABLET (FP) PO SCH (22:41)
[2018-08-08] MEDS: MONTELUKAST NA 10 MG TABLET PO SCH (22:41)
[2018-08-08] MEDS: VANCOMYCIN 1,500 MG in DEXTROSE 5%-WATER - 500 ML IVPB SCH (22:42)
[2018-08-08] MEDS: INSULIN (LEVEMIR) 100 UNITS/ML UNITS SQ SCH (22:43)
[2018-08-08] MEDS: DOCUSATE SODIUM 100 MG CAPSULE (FP) PO SCH (22:43)
[2018-08-09] MEDS: AZTREONAM 1 GM in DEXTROSE 5%-WATER - 50 ML IVPB SCH ×3 (02:24→16:59)
[2018-08-09] MEDS: HEPARIN NA (PORCINE) 5,000 UNITS/ML 1ML VIAL SQ SCH ×3 (06:21→21:11)
[2018-08-09] MEDS: INSULIN SLIDING SCALE (NOVOLOG) 1 VIAL SQ SCH ×4 (06:23→21:10)
[2018-08-09] MEDS ORDERED: PT OWN MED DRAWER 7, Y5N ONE ×2 (10:25→16:00)
[2018-08-09] MEDS: ASPIRIN COATED 81 MG TABLET.EC PO SCH (10:27)
[2018-08-09] MEDS: GABAPENTIN 300 MG CAPSULE (FP) PO SCH ×2 (10:27→21:11)
[2018-08-09 11:12] LABS: ANION GAP 7 MMOL/L (8-16); BLOOD UREA NITROGEN 22 mg/dL (7-18); CALCIUM 7.8 mg/dL (8.5-10.1); CHLORIDE 105 mmol/L (98-107); CO2 25 mmol/L (21-32); CREATININE 1.4 mg/dL (0.55-1.3); GLUCOSE,RANDOM 287 mg/dL (74-106); POTASSIUM 4.8 mmol/L (3.5-5.1); SODIUM 136 mmol/L (136-145)
[2018-08-09] MEDS: SODIUM CHLORIDE 1,000 ML IV SCH (11:22)
[2018-08-09] MEDS: POLYETHYLENE GLYCOL 3350 255 GM BTL PO PRN (11:57)
[2018-08-09] MEDS: oxyCODONE HCL 5 MG TABLET PO PRN ×2 (13:21→22:49)
--- NOTE | 2018-08-09 17:19 | PN ---
Progress Note, Physician History of Present Illness: Pt feels well. Tolerating diet. Currently afebrile, having BMs. Pain controlled. - Current Medication List Current Medications: Active Medications Acetaminophen (Tylenol -) 1,000 mg PO Q6H PRN PRN Reason: PAIN Last Admin: 08/06/18 22:21 Dose: 1,000 mg Aspirin (Ecotrin -) 81 mg PO DAILY [facility] Last Admin: 08/09/18 10:27 Dose: 81 mg Atorvastatin Calcium (Lipitor -) 40 mg PO HS [facility] Last Admin: 08/08/18 22:41 Dose: 40 mg Docusate Sodium (Colace -) 300 mg PO HS [facility] Last Admin: 08/08/18 22:43 Dose: 300 mg Gabapentin (Neurontin -) 600 mg PO BID [facility] Last Admin: 08/09/18 10:27 Dose: 600 mg Heparin Sodium (Porcine) (Heparin -) 5,000 unit SQ TID [facility] Last Admin: 08/09/18 13:08 Dose: 5,000 unit Vancomycin HCl 1,500 mg/ (Dextrose) 500 mls @ 250 mls/hr IVPB Q24H [facility]; Protocol Last Admin: 08/08/18 22:42 Dose: 250 mls/hr Aztreonam 1 gm/ Dextrose 50 mls @ 100 mls/hr IVPB Q8H-IV [facility]; Protocol Last Admin: 08/09/18 16:59 Dose: 100 mls/hr Sodium Chloride (Normal Saline -) 1,000 mls @ 100 mls/hr IV ASDIR [facility] Last Admin: 08/09/18 11:22 Dose: 100 mls/hr Insulin Aspart (Novolog Vial Sliding Scale -) 1 vial SQ ACHS [facility]; Protocol Last Admin: 08/09/18 16:18 Dose: 10 units Insulin Detemir (Levemir Vial) 40 units SQ HS [facility] Last Admin: 08/08/18 22:43 Dose: 40 units Montelukast Sodium (Singulair -) 10 mg PO HS [facility] Last Admin: 08/08/18 22:41 Dose: 10 mg Ondansetron HCl (Zofran Injection) 4 mg IVPUSH Q6H PRN PRN Reason: NAUSEA Last Admin: 08/08/18 09:28 Dose: 4 mg Oxycodone HCl (Roxicodone -) 5 mg PO Q4H PRN PRN Reason: PAIN LEVEL 1-5 Oxycodone HCl (Roxicodone -) 10 mg PO Q4H PRN PRN Reason: PAIN LEVEL 6-10 Last Admin: 08/09/18 13:21 Dose: 10 mg Polyethylene Glycol (Miralax (For Bowel Prep) -) 17 gm PO BID PRN PRN Reason: CONSTIPATION Last Admin: 08/09/18 11:57 Dose: 17 gm - Objective Vital Signs: Vital Signs Temperature 98.7 F 08/09/18 14:44 Pulse Rate 88 08/09/18 14:44 Respiratory Rate 18 08/09/18 14:44 Blood Pressure 149/78 08/09/18 14:44 O2 Sat by Pulse Oximetry (%) 98 08/09/18 09:00 Constitutional: Yes: No Distress, Calm Cardiovascular: Yes: Regular Rate and Rhythm Respiratory: Yes: Regular Gastrointestinal: Yes: Normal Bowel Sounds, Soft, Tenderness (around surgical site/lower abd) Genitourinary: Yes: WNL Extremities: Yes: WNL Wound/Incision: Yes: Dressing Dry and Intact Labs: CBC, BMP 08/07/18 06:23 08/09/18 09:50 INR, PTT INR 1.05 (0.83-1.09) 08/04/18 21:43 Microbiology 08/06/18 19:00 Abdomen Gram Stain - Final 08/06/18 19:00 Abdomen Wound Culture - Final Staphylococcus Aureus 08/04/18 21:43 Blood - Peripheral Venous Blood Culture - Preliminary NO GROWTH OBTAINED AFTER 96 HOURS, INCUBATION TO CONTINUE FOR 1 DAYS. 08/06/18 17:20 Blood - Peripheral Venous Blood Culture - Preliminary NO GROWTH OBTAINED AFTER 48 HOURS, INCUBATION TO CONTINUE FOR 3 DAYS. 08/06/18 17:00 Blood - Peripheral Venous Blood Culture - Preliminary NO GROWTH OBTAINED AFTER 48 HOURS, INCUBATION TO CONTINUE FOR 3 DAYS. 08/04/18 21:45 Blood - Peripheral Venous Blood Culture - Final Staphylococcus Warneri 08/04/18 23:01 Abscess Gram Stain - Final 08/04/18 23:01 Abscess Wound Culture - Final Staphylococcus Aureus 08/04/18 21:49 Urine - Urine Clean Catch Urine Culture - Final Escherichia Coli Problem List - Problems (1) Cellulitis of abdominal wall Code(s): L03.311 - CELLULITIS OF ABDOMINAL WALL (2) HTN (hypertension) Code(s): I10 - ESSENTIAL (PRIMARY) HYPERTENSION Qualifiers: Hypertension type: essential hypertension Qualified Code(s): I10 - Essential (primary) hypertension (3) UTI (urinary tract infection) Code(s): N39.0 - URINARY TRACT INFECTION, SITE NOT SPECIFIED Qualifiers: Encounter type: initial encounter (4) Uncontrolled diabetes mellitus Code(s): E11.65 - TYPE 2 DIABETES MELLITUS WITH HYPERGLYCEMIA Qualifiers: Diabetes mellitus type: type 2 Glycemic state: with hyperglycemia Qualified Code(s): E11.65 - Type 2 diabetes mellitus with hyperglycemia Assessment/Plan E. coli UTI Abdominal wall abscess s/p I+D Staphylococcus bacteremia Uncontrolled DM Penicillin allergic -- cont. aztreonam, vancomycin, repeat Vancomycin trough, monitor renal function --latest Blood cultures no growth thus far, OR wound Cx +MSSA -- needs glycemic control
[2018-08-09] MEDS ORDERED: INSULIN (NOVOLOG) ASPART 100 UNITS/ML 10ML VIAL ONE (21:02)
--- NOTE | 2018-08-09 21:09 | PN ---
Physical Exam: SUBJECTIVE: Patient seen and examined at bedside. Voices no complaints. OBJECTIVE: Vital Signs Period Temp Pulse Resp BP Sys/Cohen Pulse Ox Last 24 Hr 98.4 F-99.5 F 20-88 17-20 145-152/70-87 98 GENERAL: The patient is awake, alert, and fully oriented, in no acute distress. LUNGS: Breath sounds equal, clear to auscultation bilaterally, no wheezes, no crackles, no accessory muscle use. HEART: Regular rate and rhythm, S1, S2 ABDOMEN: Bulky dressing c/d/i; surrounding area without erythema, fluctuance EXTREMITIES: 2+ pulses, warm, well-perfused, no edema. NEUROLOGICAL: Cranial nerves II through XII grossly intact. Normal speech, gait not observed. Laboratory Results - last 24 hr 08/08/18 08/09/18 08/09/18 22:38 06:22 09:50 Sodium 136 Potassium 4.8 Chloride 105 Carbon Dioxide 25 Anion Gap 7 L BUN 22 H Creatinine 1.4 H Creat Clearance w eGFR 41.44 POC Glucometer 379 299 Random Glucose 287 H Calcium 7.8 L 08/09/18 08/09/18 11:25 16:18 Sodium Potassium Chloride Carbon Dioxide Anion Gap BUN Creatinine Creat Clearance w eGFR POC Glucometer 347 363 Random Glucose Calcium Active Medications Generic Name Dose Route Start Last Admin Trade Name Freq PRN Reason Stop Dose Admin Acetaminophen 1,000 mg 08/06/18 19:52 08/06/18 22:21 Tylenol - PO 1,000 mg Q6H PRN Administration PAIN Aspirin 81 mg 08/07/18 10:00 08/09/18 10:27 Ecotrin - PO 81 mg DAILY ÁLVARO Administration Atorvastatin Calcium 40 mg 08/06/18 22:00 08/08/18 22:41 Lipitor - PO 40 mg HS ÁLVARO Administration Docusate Sodium 300 mg 08/08/18 22:00 08/08/18 22:43 Colace - PO 300 mg HS ÁLVARO Administration Gabapentin 600 mg 08/06/18 22:00 08/09/18 10:27 Neurontin - PO 600 mg BID ÁLVARO Administration Heparin Sodium (Porcine) 5,000 unit 08/06/18 22:00 08/09/18 13:08 Heparin - SQ 5,000 unit TID ÁLVARO Administration Vancomycin HCl 1,500 mg/ 500 mls @ 250 mls/hr 08/07/18 22:00 08/08/18 22:42 Dextrose IVPB 250 mls/hr Q24H ÁLVARO Administration Protocol Aztreonam 1 gm/ Dextrose 50 mls @ 100 mls/hr 08/07/18 14:00 08/09/18 16:59 IVPB 100 mls/hr Q8H-IV ÁLVARO Administration Protocol Sodium Chloride 1,000 mls @ 100 mls/hr 08/08/18 18:30 08/09/18 11:22 Normal Saline - IV 100 mls/hr ASDIR ÁLVARO Administration Insulin Aspart 1 vial 08/06/18 22:00 08/09/18 16:18 Novolog Vial Sliding Scale - SQ 10 units ACHS ÁLVARO Administration Protocol Insulin Detemir 40 units 08/06/18 22:00 08/08/18 22:43 Levemir Vial SQ 40 units HS ÁLVARO Administration Montelukast Sodium 10 mg 08/06/18 22:00 08/08/18 22:41 Singulair - PO 10 mg HS ÁLVARO Administration Ondansetron HCl 4 mg 08/08/18 08:51 08/08/18 09:28 Zofran Injection IVPUSH 4 mg Q6H PRN Administration NAUSEA Oxycodone HCl 5 mg 08/07/18 11:11 Roxicodone - PO Q4H PRN PAIN LEVEL 1-5 Oxycodone HCl 10 mg 08/07/18 11:11 08/09/18 13:21 Roxicodone - PO 10 mg Q4H PRN Administration PAIN LEVEL 6-10 Polyethylene Glycol 17 gm 08/08/18 14:47 08/09/18 11:57 Miralax (For Bowel Prep) - PO 17 gm BID PRN Administration CONSTIPATION ASSESSMENT/PLAN: 42 year-old female with a PMH significant for HTN, HLD, IDDM, PAD s/p multiple left toe amputations, left leg bypass, and recurrent abscesses (axilla) and lower extremity cellulitis. MSSA abdominal carbuncle/cellulitis s/p surgical debridement on 08/06/18 --continue Vanc, aztreonam E. coli UTI --antibiotics as above YOHAN --Cr 1.9 on admission, 1.4 today, baseline 1.1 --continue IV fluids --renal following Hypertension --BP stable --not on anti-hypertensives Hyperlipidemia --continue Lipitor IDDM --Levemir 40U --Novolog sliding scale --continue Gabapentin for neuropathy PAD --continue ASA FEN Fluids: PO intake adequate Electrolytes: replete as indicated Nutrition: diabetic/low sodium DVT prophylaxis: subq heparin Dispo: continues to require inpatient care. Full code. Visit type - Emergency Visit Emergency Visit: Yes ED Registration Date: 08/05/18 Care time: The patient presented to the Emergency Department on the above date and was hospitalized for further evaluation of their emergent condition. - New Patient This patient is new to me today: No - Critical Care Critical Care patient: No
[2018-08-09] MEDS: DOCUSATE SODIUM 100 MG CAPSULE (FP) PO SCH (21:10)
[2018-08-09] MEDS: INSULIN (LEVEMIR) 100 UNITS/ML UNITS SQ SCH (21:10)
[2018-08-09] MEDS: ATORVASTATIN CA 40 MG TABLET (FP) PO SCH (21:10)
[2018-08-09] MEDS: MONTELUKAST NA 10 MG TABLET PO SCH (21:11)
[2018-08-09] MEDS: VANCOMYCIN 1,500 MG in DEXTROSE 5%-WATER - 500 ML IVPB SCH (21:14)
[2018-08-10] MEDS: AZTREONAM 1 GM in DEXTROSE 5%-WATER - 50 ML IVPB SCH ×2 (02:40→10:00)
[2018-08-10] MEDS: HEPARIN NA (PORCINE) 5,000 UNITS/ML 1ML VIAL SQ SCH ×2 (06:03→14:38)
[2018-08-10] MEDS: INSULIN SLIDING SCALE (NOVOLOG) 1 VIAL SQ SCH ×3 (06:03→17:02)
[2018-08-10] MEDS ORDERED: INSULIN (NOVOLOG) ASPART 100 UNITS/ML 10ML VIAL ONE ×2 (06:53→11:52)
[2018-08-10 07:53] LABS: ANION GAP 7 MMOL/L (8-16); BLOOD UREA NITROGEN 23 mg/dL (7-18); CALCIUM 8.1 mg/dL (8.5-10.1); CHLORIDE 105 mmol/L (98-107); CO2 22 mmol/L (21-32); CREATININE 1.4 mg/dL (0.55-1.3); POTASSIUM 4.4 mmol/L (3.5-5.1); SODIUM 134 mmol/L (136-145)
[2018-08-10 07:56] LABS: GLUCOSE,RANDOM 326 mg/dL (74-106)
[2018-08-10] MEDS ORDERED: PT OWN MED DRAWER 7, Y5N ONE (09:57)
[2018-08-10] MEDS: ASPIRIN COATED 81 MG TABLET.EC PO SCH (10:00)
[2018-08-10] MEDS: GABAPENTIN 300 MG CAPSULE (FP) PO SCH (10:00)
[2018-08-10] MEDS: SODIUM CHLORIDE 1,000 ML IV SCH (10:01)
--- NOTE | 2018-08-10 11:20 | PN ---
Progress Note, Physician Chief Complaint: abdominal panus infection History of Present Illness: 42 yo female PMH DM, HTN, HLD, PAD presented to the ED w/ a non-healing abscess on her abdomen that worsened over the past few days. stable since surgery, no complaints. - Current Medication List Current Medications: Active Medications Acetaminophen (Tylenol -) 1,000 mg PO Q6H PRN PRN Reason: PAIN Last Admin: 08/06/18 22:21 Dose: 1,000 mg Aspirin (Ecotrin -) 81 mg PO DAILY [facility] Last Admin: 08/10/18 10:00 Dose: 81 mg Atorvastatin Calcium (Lipitor -) 40 mg PO HS ÁLVARO Last Admin: 08/09/18 21:10 Dose: 40 mg Docusate Sodium (Colace -) 300 mg PO HS [facility] Last Admin: 08/09/18 21:10 Dose: 300 mg Gabapentin (Neurontin -) 600 mg PO BID ÁLVARO Last Admin: 08/10/18 10:00 Dose: 600 mg Heparin Sodium (Porcine) (Heparin -) 5,000 unit SQ TID [facility] Last Admin: 08/10/18 06:03 Dose: 5,000 unit Vancomycin HCl 1,500 mg/ (Dextrose) 500 mls @ 250 mls/hr IVPB Q24H ÁLVARO; Protocol Last Admin: 08/09/18 21:14 Dose: 250 mls/hr Aztreonam 1 gm/ Dextrose 50 mls @ 100 mls/hr IVPB Q8H-IV ÁLVARO; Protocol Last Admin: 08/10/18 10:00 Dose: 100 mls/hr Sodium Chloride (Normal Saline -) 1,000 mls @ 100 mls/hr IV ASDIR [facility] Last Admin: 08/10/18 10:01 Dose: 100 mls/hr Insulin Aspart (Novolog Vial Sliding Scale -) 1 vial SQ ACHS [facility]; Protocol Last Admin: 08/10/18 06:03 Dose: 10 units Insulin Detemir (Levemir Vial) 40 units SQ HS [facility] Last Admin: 08/09/18 21:10 Dose: 40 units Montelukast Sodium (Singulair -) 10 mg PO HS [facility] Last Admin: 08/09/18 21:11 Dose: 10 mg Ondansetron HCl (Zofran Injection) 4 mg IVPUSH Q6H PRN PRN Reason: NAUSEA Last Admin: 08/08/18 09:28 Dose: 4 mg Polyethylene Glycol (Miralax (For Bowel Prep) -) 17 gm PO BID PRN PRN Reason: CONSTIPATION Last Admin: 08/09/18 11:57 Dose: 17 gm - Objective Vital Signs: Vital Signs Temperature 98.8 F 08/10/18 10:00 Pulse Rate 88 08/10/18 10:00 Respiratory Rate 18 08/10/18 10:00 Blood Pressure 155/86 08/10/18 10:00 O2 Sat by Pulse Oximetry (%) 98 08/09/18 21:00 Constitutional: Yes: No Distress, Calm, Obese Eyes: Yes: Conjunctiva Clear, EOM Intact HENT: Yes: Atraumatic, Normocephalic Neck: Yes: Supple, Trachea Midline Cardiovascular: Yes: Regular Rate and Rhythm, S1, S2 Respiratory: Yes: Regular, CTA Bilaterally Gastrointestinal: Yes: Normal Bowel Sounds, Soft, Abdomen, Obese. No: Tenderness ...Rectal Exam: Yes: Deferred Genitourinary: No: CVA Tenderness - Left, CVA Tenderness - Right Musculoskeletal: No: Muscle Pain, Muscle Weakness Extremities: No: Cool, Cyanosis Edema: No Peripheral Pulses WNL: Yes Peripheral Pulses: Left Radial: 2+, Right Radial: 2+, Left Doralis Pedis: 2+, Right Dorsalis Pedis: 2+ Integumentary: No: Jaundice, Pressure Ulcer, Rash Wound/Incision: Yes: Clean/Dry, Unapproximated. No: Reddened, Bleeding, Excoriated Neurological: Yes: Alert, Oriented Psychiatric: Yes: Alert, Oriented Labs: CBC, BMP 08/07/18 06:23 08/10/18 06:00 INR, PTT INR 1.05 (0.83-1.09) 08/04/18 21:43 Microbiology 08/04/18 21:43 Blood - Peripheral Venous Blood Culture - Final NO GROWTH AFTER 5 DAYS INCUBATION 08/06/18 17:20 Blood - Peripheral Venous Blood Culture - Preliminary NO GROWTH OBTAINED AFTER 72 HOURS, INCUBATION TO CONTINUE FOR 2 DAYS. 08/06/18 17:00 Blood - Peripheral Venous Blood Culture - Preliminary NO GROWTH OBTAINED AFTER 72 HOURS, INCUBATION TO CONTINUE FOR 2 DAYS. 08/06/18 19:00 Abdomen Gram Stain - Final 08/06/18 19:00 Abdomen Wound Culture - Final Staphylococcus Aureus 08/04/18 21:45 Blood - Peripheral Venous Blood Culture - Final Staphylococcus Warneri 08/04/18 23:01 Abscess Gram Stain - Final 08/04/18 23:01 Abscess Wound Culture - Final Staphylococcus Aureus 08/04/18 21:49 Urine - Urine Clean Catch Urine Culture - Final Escherichia Coli Problem List - Problems (1) Carbuncle and furuncle of trunk Assessment/Plan: 42yo female MMP type 2 DM with Abdominal Carbuncle, POD#4 s/p sharp surgical debridement. Abdominal wound, [id number] infraumbilical wound, clean base, afebrile now. May be discharged +/-VNS Antibiotics per ID Wet to dry dressing daily f/u 2 weeks after discharge Code(s): L02.229 - FURUNCLE OF TRUNK, UNSPECIFIED (2) Cellulitis of abdominal wall Code(s): L03.311 - CELLULITIS OF ABDOMINAL WALL (3) HTN (hypertension) Code(s): I10 - ESSENTIAL (PRIMARY) HYPERTENSION Qualifiers: Hypertension type: essential hypertension Qualified Code(s): I10 - Essential (primary) hypertension (4) PAD (peripheral artery disease) Code(s): I73.9 - PERIPHERAL VASCULAR DISEASE, UNSPECIFIED (5) Sciatica Code(s): M54.30 - SCIATICA, UNSPECIFIED SIDE (6) UTI (urinary tract infection) Code(s): N39.0 - URINARY TRACT INFECTION, SITE NOT SPECIFIED Qualifiers: Encounter type: initial encounter (7) Uncontrolled diabetes mellitus Code(s): E11.65 - TYPE 2 DIABETES MELLITUS WITH HYPERGLYCEMIA Qualifiers: Diabetes mellitus type: type 2 Glycemic state: with hyperglycemia Qualified Code(s): E11.65 - Type 2 diabetes mellitus with hyperglycemia
--- NOTE | 2018-08-10 11:33 | PN ---
Physical Exam: SUBJECTIVE: Patient seen and examined OBJECTIVE: Vital Signs Period Temp Pulse Resp BP Sys/Cohen Pulse Ox Last 24 Hr 98.0 F-98.8 F 80-88 18-20 126-155/63-86 98 GENERAL: The patient is awake, alert, and fully oriented, in no acute distress. HEAD: Normal with no signs of trauma. EYES: PERRL, extraocular movements intact, sclera anicteric, conjunctiva clear. No ptosis. ENT: Ears normal, nares patent, oropharynx clear without exudates, moist mucous membranes. NECK: Trachea midline, full range of motion, supple. LUNGS: Breath sounds equal, clear to auscultation bilaterally, no wheezes, no crackles, no accessory muscle use. HEART: Regular rate and rhythm, S1, S2 without murmur, rub or gallop. ABDOMEN: Soft, nontender, nondistended, normoactive bowel sounds, no guarding, no rebound, no hepatosplenomegaly, no masses. EXTREMITIES: 2+ pulses, warm, well-perfused, no edema. NEUROLOGICAL: Cranial nerves II through XII grossly intact. Normal speech, gait not observed. PSYCH: Normal mood, normal affect. SKIN: Warm, dry, normal turgor, no rashes or lesions noted Laboratory Results - last 24 hr 08/08/18 08/09/18 08/09/18 16:23 11:25 16:18 Sodium Potassium Chloride Carbon Dioxide Anion Gap BUN Creatinine Creat Clearance w eGFR POC Glucometer 421 347 363 Random Glucose Calcium 08/09/18 08/10/18 08/10/18 21:09 06:00 06:02 Sodium 134 L Potassium 4.4 Chloride 105 Carbon Dioxide 22 Anion Gap 7 L BUN 23 H Creatinine 1.4 H Creat Clearance w eGFR 41.44 POC Glucometer 367 350 Random Glucose 326 H* Calcium 8.1 L Active Medications Generic Name Dose Route Start Last Admin Trade Name Freq PRN Reason Stop Dose Admin Acetaminophen 1,000 mg 08/06/18 19:52 08/06/18 22:21 Tylenol - PO 1,000 mg Q6H PRN Administration PAIN Aspirin 81 mg 08/07/18 10:00 08/10/18 10:00 Ecotrin - PO 81 mg DAILY ÁLVARO Administration Atorvastatin Calcium 40 mg 08/06/18 22:00 08/09/18 21:10 Lipitor - PO 40 mg HS ÁLVARO Administration Docusate Sodium 300 mg 08/08/18 22:00 08/09/18 21:10 Colace - PO 300 mg HS ÁLVARO Administration Gabapentin 600 mg 08/06/18 22:00 08/10/18 10:00 Neurontin - PO 600 mg BID ÁLVARO Administration Heparin Sodium (Porcine) 5,000 unit 08/06/18 22:00 08/10/18 06:03 Heparin - SQ 5,000 unit TID ÁLVARO Administration Vancomycin HCl 1,500 mg/ 500 mls @ 250 mls/hr 08/07/18 22:00 08/09/18 21:14 Dextrose IVPB 250 mls/hr Q24H ÁLVARO Administration Protocol Aztreonam 1 gm/ Dextrose 50 mls @ 100 mls/hr 08/07/18 14:00 08/10/18 10:00 IVPB 100 mls/hr Q8H-IV ÁLVARO Administration Protocol Sodium Chloride 1,000 mls @ 100 mls/hr 08/08/18 18:30 08/10/18 10:01 Normal Saline - IV 100 mls/hr ASDIR ÁLVARO Administration Insulin Aspart 1 vial 08/06/18 22:00 08/10/18 06:03 Novolog Vial Sliding Scale - SQ 10 units ACHS ÁLVARO Administration Protocol Insulin Detemir 40 units 08/06/18 22:00 08/09/18 21:10 Levemir Vial SQ 40 units HS ÁLVARO Administration Montelukast Sodium 10 mg 08/06/18 22:00 08/09/18 21:11 Singulair - PO 10 mg HS ÁLVARO Administration Ondansetron HCl 4 mg 08/08/18 08:51 08/08/18 09:28 Zofran Injection IVPUSH 4 mg Q6H PRN Administration NAUSEA Polyethylene Glycol 17 gm 08/08/18 14:47 08/09/18 11:57 Miralax (For Bowel Prep) - PO 17 gm BID PRN Administration CONSTIPATION ASSESSMENT/PLAN:
[2018-08-10] MEDS ORDERED: PANTOPRAZOLE 40 MG TABLET (FP) PO SCH (12:45)
[2018-08-10 14:13] VITALS: BP 159/93; PULSE 90; TEMP 98.3
--- NOTE | 2018-08-10 14:34 | PN ---
Progress Note, Physician History of Present Illness: patient stable doing well no complaints - Current Medication List Current Medications: Active Medications Acetaminophen (Tylenol -) 1,000 mg PO Q6H PRN PRN Reason: PAIN Last Admin: 08/06/18 22:21 Dose: 1,000 mg Aspirin (Ecotrin -) 81 mg PO DAILY [facility] Last Admin: 08/10/18 10:00 Dose: 81 mg Atorvastatin Calcium (Lipitor -) 40 mg PO HS [facility] Last Admin: 08/09/18 21:10 Dose: 40 mg Docusate Sodium (Colace -) 300 mg PO [facility] Last Admin: 08/09/18 21:10 Dose: 300 mg Gabapentin (Neurontin -) 600 mg PO BID [facility] Last Admin: 08/10/18 10:00 Dose: 600 mg Heparin Sodium (Porcine) (Heparin -) 5,000 unit SQ TID [facility] Last Admin: 08/10/18 06:03 Dose: 5,000 unit Vancomycin HCl 1,500 mg/ (Dextrose) 500 mls @ 250 mls/hr IVPB Q24H [facility]; Protocol Last Admin: 08/09/18 21:14 Dose: 250 mls/hr Aztreonam 1 gm/ Dextrose 50 mls @ 100 mls/hr IVPB Q8H-IV Á[facility]O; Protocol Last Admin: 08/10/18 10:00 Dose: 100 mls/hr Sodium Chloride (Normal Saline -) 1,000 mls @ 100 mls/hr IV ASDIR [facility] Last Admin: 08/10/18 10:01 Dose: 100 mls/hr Insulin Aspart (Novolog Vial Sliding Scale -) 1 vial SQ [facility]; Protocol Last Admin: 08/10/18 11:56 Dose: 10 units Insulin Detemir (Levemir Vial) 40 units SQ [facility] Last Admin: 08/09/18 21:10 Dose: 40 units Montelukast Sodium (Singulair -) 10 mg PO [facility] Last Admin: 08/09/18 21:11 Dose: 10 mg Ondansetron HCl (Zofran Injection) 4 mg IVPUSH Q6H PRN PRN Reason: NAUSEA Last Admin: 08/08/18 09:28 Dose: 4 mg Pantoprazole Sodium (Protonix -) 40 mg PO DAILY [facility] Polyethylene Glycol (Miralax (For Bowel Prep) -) 17 gm PO BID PRN PRN Reason: CONSTIPATION Last Admin: 08/09/18 11:57 Dose: 17 gm - Objective Vital Signs: Vital Signs Temperature 98.3 F 08/10/18 14:00 Pulse Rate 90 08/10/18 14:00 Respiratory Rate 20 08/10/18 14:00 Blood Pressure 159/93 08/10/18 14:00 O2 Sat by Pulse Oximetry (%) 98 08/09/18 21:00 Constitutional: Yes: No Distress, Calm, Obese Cardiovascular: Yes: Regular Rate and Rhythm Respiratory: Yes: Regular, CTA Bilaterally Gastrointestinal: Yes: Normal Bowel Sounds, Soft Musculoskeletal: Yes: WNL Extremities: Yes: WNL Wound/Incision: Yes: Other Neurological: Yes: Alert, Oriented Psychiatric: Yes: Alert, Oriented Labs: CBC, BMP 08/07/18 06:23 08/10/18 06:00 INR, PTT INR 1.05 (0.83-1.09) 08/04/18 21:43 Assessment/Plan - Problems (1) Cellulitis of abdominal wall Thank you for the opportunity to participate in the care of this patient. Code(s): L03.311 - CELLULITIS OF ABDOMINAL WALL (2) HTN (hypertension) Code(s): I10 - ESSENTIAL (PRIMARY) HYPERTENSION (3) PAD (peripheral artery disease) Code(s): I73.9 - PERIPHERAL VASCULAR DISEASE, UNSPECIFIED (4) Sciatica Code(s): M54.30 - SCIATICA, UNSPECIFIED SIDE (5) UTI (urinary tract infection) Code(s): N39.0 - URINARY TRACT INFECTION, SITE NOT SPECIFIED Qualifiers: Encounter type: initial encounter (6) Uncontrolled diabetes mellitus Code(s): E11.65 - TYPE 2 DIABETES MELLITUS WITH HYPERGLYCEMIA Qualifiers: Diabetes mellitus type: type 2 Glycemic state: with hyperglycemia Qualified Code(s): E11.65 - Type 2 diabetes mellitus with hyperglycemia all cx reports noted plan can change abx to doxy 100 mg bid we can give it for 10 days more wound care rest as per the team
--- NOTE | 2018-08-10 15:03 | DS ---
Physical Exam: SUBJECTIVE: Patient seen and examined. Has been given instructions on how to self-change packing and she is comfortable with doing it. Will have VNS 2-3 times per week at home to assist with dressing changes. OBJECTIVE: Vital Signs Period Temp Pulse Resp BP Sys/Cohen Pulse Ox Last 24 Hr 98.0 F-98.8 F 80-90 18-20 126-159/63-93 98 PHYSICAL EXAM GENERAL: The patient is awake, alert, and fully oriented, in no acute distress. LUNGS: Breath sounds equal, clear to auscultation bilaterally, no wheezes, no crackles, no accessory muscle use. HEART: Regular rate and rhythm, S1, S2 ABDOMEN: Bulky dressing c/d/i; surrounding area without erythema, fluctuance EXTREMITIES: 2+ pulses, warm, well-perfused, no edema. NEUROLOGICAL: Cranial nerves II through XII grossly intact. Normal speech, gait not observed. LABS Laboratory Results - last 24 hr 08/08/18 08/09/18 08/09/18 16:23 16:18 21:09 Sodium Potassium Chloride Carbon Dioxide Anion Gap BUN Creatinine Creat Clearance w eGFR POC Glucometer 421 363 367 Random Glucose Calcium 08/10/18 08/10/18 08/10/18 06:00 06:02 11:48 Sodium 134 L Potassium 4.4 Chloride 105 Carbon Dioxide 22 Anion Gap 7 L BUN 23 H Creatinine 1.4 H Creat Clearance w eGFR 41.44 POC Glucometer 350 389 Random Glucose 326 H* Calcium 8.1 L HOSPITAL COURSE: Date of Admission:08/05/18 Date of Discharge: 08/10/18 42 year-old female with a PMH significant for HTN, HLD, IDDM, PAD s/p multiple left toe amputations, left leg bypass, and recurrent abscesses (axilla) and lower extremity cellulitis. MSSA abdominal carbuncle/cellulitis s/p surgical debridement on 08/06/18 --treated with Vanc and aztreonam --discharged with prescription for an additional 10 days of treatment with doxycycline BID E. coli UTI --antibiotics as above YOHAN --Cr 1.9 on admission, 1.4 at time of discharge --improved with IV fluids Hypertension --BP stable --not on anti-hypertensives Hyperlipidemia --continued Lipitor IDDM --Levemir 40U --Novolog sliding scale --continued Gabapentin for neuropathy PAD --continued ASA FEN Fluids: PO intake adequate Electrolytes: replete as indicated Nutrition: diabetic/low sodium DVT prophylaxis: subq heparin Dispo: continues to require inpatient care. Full code. Minutes to complete discharge: 35 Discharge Summary Reason For Visit: CELLULITIS OF ABDOMINAL WALL,SEPSIS Current Active Problems Carbuncle and furuncle of trunk (Acute) Cellulitis of abdominal wall (Acute) HTN (hypertension) (Acute) PAD (peripheral artery disease) (Acute) UTI (urinary tract infection) (Acute) Condition: Stable - Instructions Diet, Activity, Other Instructions: Postoperative instructions: You had a debridement of abdominal carbuncle on 08/[address] Pato Mcnair of [facility]. Activity: Resume your usual activities gradually, but no heavy exertion or lifting more than 10-15 pounds for 4-6 weeks. Remove dressings 48 hours after surgery, if they are not already off. You may shower daily starting then, just pat the incision areas dry. No bath or swimming until skin incisions have healed. Marcos should not need to be recovered with any dressings, unless you have been told otherwise. Eat lightly at first, but advance to your usual diet as tolerated. Pain: For pain, you may use and alternate Tylenol (acetaminophen) 1-2 pills and/ or ibuprofen 200 mg (1-3 pills) every 6 hours each as needed; this means that you can take one OR the other at 3-hour intervals. If you are prescribed a Tylenol/narcotic combination for severe pain, use it instead of plain Tylenol as needed and switch back when your pain starts decreasing. Do not take more than 4000 mg of acetaminophen in a day. Take medications as prescribed or indicated on the labeling. Follow-up: Call Dr. Mcnair office at [phone] to make your postop appointment (Friday in approximately 2 weeks after surgery as advised). Clinic is held in the [facility] on the first floor of [facility]. Call the office if you have: * increasing pain not responsive to pain medication * fever of 101F or higher * vomiting * unusual or increasing bleeding or drainage from wounds * increasing redness or swelling at wound sites * inability to urinate Also, see your primary medical doctor within 1-2 weeks. [facility] will come to your home 2-3 times per week for wound dressing changes. You have been instructed how to change the dressing yourself on the days visiting nurse is not there. Be sure to make your appointment to see Dr. Gonzalez in 2 weeks. Referrals: Mehreen Cannon MD [Primary Care Provider] - Disposition: HOME - Home Medications Comprehensive Discharge Medication List: Ambulatory Orders Insulin Glargine,Hum.[email or web address].anlog [Basaglar Kwikpen U-100] 40 unit SQ HS 08/07/17 metFORMIN HCL [Glucophage -] 1,000 mg PO BID 08/07/17 Aspirin [Aspirin EC] 81 mg PO DAILY 06/09/18 Atorvastatin Ca [Lipitor] 40 mg PO HS 06/09/18 Gabapentin 600 mg PO BID 06/09/18 Glipizide [Glipizide ER] 10 mg PO DAILY 06/09/18 Losartan Potassium 25 mg PO DAILY 06/09/18 Montelukast Sodium [Singulair] 10 mg PO DAILY 06/09/18 Walker [Ultra-Light Rollator] 1 each [facility] DAILY #1 each 08/07/18 This patient is new to me today: No Emergency Visit: Yes ED Registration Date: 08/05/18 Care time: The patient presented to the Emergency Department on the above date and was hospitalized for further evaluation of their emergent condition. Critical Care patient: No - Discharge Referral Referred to [facility] Med [facility] No
--- NOTE | 2018-08-10 17:27 | PN ---
Progress Note (short form) - Note Progress Note: Renal follow up for YOHAN Pt seen and examined at the bedside no acute complaints no sob, cp, abd pain, fever or chills has been on IVF making urine Vital Signs Temperature 98.3 F 08/10/18 14:00 Pulse Rate 90 08/10/18 14:00 Respiratory Rate 20 08/10/18 14:00 Blood Pressure 159/93 08/10/18 14:00 O2 Sat by Pulse Oximetry (%) 96 08/10/18 09:00 NAD RRR CTA No LE edema CBC, BMP 08/07/18 06:23 08/10/18 06:00 Current Medications Acetaminophen (Tylenol -) 1,000 mg PO Q6H PRN PRN Reason: PAIN Last Admin: 08/06/18 22:21 Dose: 1,000 mg Aspirin (Ecotrin -) 81 mg PO DAILY [facility] Last Admin: 08/10/18 10:00 Dose: 81 mg Atorvastatin Calcium (Lipitor -) 40 mg PO HS [facility] Last Admin: 08/09/18 21:10 Dose: 40 mg Docusate Sodium (Colace -) 300 mg PO HS [facility] Last Admin: 08/09/18 21:10 Dose: 300 mg Gabapentin (Neurontin -) 600 mg PO BID [facility] Last Admin: 08/10/18 10:00 Dose: 600 mg Heparin Sodium (Porcine) (Heparin -) 5,000 unit SQ TID [facility] Last Admin: 08/10/18 14:38 Dose: 5,000 unit Vancomycin HCl 1,500 mg/ (Dextrose) 500 mls @ 250 mls/hr IVPB Q24H [facility]; Protocol Last Admin: 08/09/18 21:14 Dose: 250 mls/hr Aztreonam 1 gm/ Dextrose 50 mls @ 100 mls/hr IVPB Q8H-IV [facility]; Protocol Last Admin: 08/10/18 10:00 Dose: 100 mls/hr Sodium Chloride (Normal Saline -) 1,000 mls @ 100 mls/hr IV ASDIR [facility] Last Admin: 08/10/18 10:01 Dose: 100 mls/hr Insulin Aspart (Novolog Vial Sliding Scale -) 1 vial SQ ACHS [facility]; Protocol Last Admin: 08/10/18 17:02 Dose: 8 units Insulin Detemir (Levemir Vial) 40 units SQ HS [facility] Last Admin: 08/09/18 21:10 Dose: 40 units Montelukast Sodium (Singulair -) 10 mg PO HS [facility] Last Admin: 08/09/18 21:11 Dose: 10 mg Ondansetron HCl (Zofran Injection) 4 mg IVPUSH Q6H PRN PRN Reason: NAUSEA Last Admin: 08/08/18 09:28 Dose: 4 mg Pantoprazole Sodium (Protonix -) 40 mg PO DAILY [facility] Last Admin: 08/10/18 14:38 Dose: 40 mg Polyethylene Glycol (Miralax (For Bowel Prep) -) 17 gm PO BID PRN PRN Reason: CONSTIPATION Last Admin: 08/09/18 11:57 Dose: 17 gm #YOHAN likely secondary to intravascular volume depletion in setting of sepsis/ infection + ARB but need to r/o obstruction and GN and AIN (given Abx use) # cellulitis of Abd wall #Hypertension #DM Type 2 Renal function improving can d/c IVF advised to maintain good oral inake avoid nsaids contact information provide to schedule office follow up d/c planning as per primary Victor M Kinsey DO
--- NOTE | 2018-08-11 09:18 | PATH ---
Surgical Pathology Report Patient Name: CL PALACIO Med. Rec. #: [id number] /Age/Gender: 1975 (Age: 42) / F Account: [id number] Location: [address] [place] [address] Taken: 08/06/2018 Received: 08/07/2018 Reported: 08/11/2018 Physicians: Mary Paige ACNP Specimen(s) Received ABDOMINAL WALL Clinical History Abdominal wound abscess Final Diagnosis ABDOMINAL WALL CARBUNCLE, EXCISION: SEGMENT OF SKIN AND SUBCUTANEOUS TISSUE SHOWING ULCERATION, NECROSIS, SEVERE ACUTE AND CHRONIC INFLAMMATION WITH ABSCESS FORMATION. Electronically Signed Urban Michaud M.D. Gross Description Received in formalin labeled "abdominal wall carbuncle," is a 4.7 x 4.0 cm medina, unoriented, ovoid portion of skin excised to depth of 3.8 cm. The epidermal surface displays a 3.0 x 3.0 cm ulcerated, necrotic lesion. Sectioning reveals necrotic underlying soft tissue. A call center representative section is submitted in one cassette. /08/07/2018 located within [facility]08/07/2018
== END 2018-08-10 18:32 | disposition home or self-care (01) | DRG 383 ==
LOC: JER 20:23 → JERBED 08-05 00:32 → J6S 08-05 15:46
PROVIDERS: ADMIT Internal Medicine; ATTEND Nurse Practitioner Acute Care
PROC: 0JB80ZZ Excision of Abdomen Subcutaneous Tissue and Fascia, Open Approach (ICD-10-PCS; principal; 2018-08-06 18:30)
DX: L02.231 Carbuncle of abdominal wall (principal); E11.51 Type 2 diabetes mellitus with diabetic peripheral angiopathy without gangrene; L03.311 Cellulitis of abdominal wall; N17.9 Acute kidney failure, unspecified; E11.22 Type 2 diabetes mellitus with diabetic chronic kidney disease; E11.65 Type 2 diabetes mellitus with hyperglycemia; E11.40 Type 2 diabetes mellitus with diabetic neuropathy, unspecified; Z79.4 Long term (current) use of insulin; N39.0 Urinary tract infection, site not specified; J45.909 Unspecified asthma, uncomplicated; I12.9 Hypertensive chronic kidney disease with stage 1 through stage 4 chronic kidney disease, or unspecified chronic kidney disease; Z88.0 Allergy status to penicillin; N18.9 Chronic kidney disease, unspecified; E66.9 Obesity, unspecified; Z68.35 Body mass index [BMI] 35.0-35.9, adult; D64.9 Anemia, unspecified; E78.5 Hyperlipidemia, unspecified; M54.30 Sciatica, unspecified side; Z89.422 Acquired absence of other left toe(s); B95.61 Methicillin susceptible Staphylococcus aureus infection as the cause of diseases classified elsewhere; B96.20 Unspecified Escherichia coli [E. coli] as the cause of diseases classified elsewhere; R78.81 Bacteremia
CPT/HCPCS: 36415; 74150-TC; 76775-TC; 80048; 80053; 81003; 81015; 82728; 82803; 82947; 82962; 83036; 83540; 83550; 83605; 83735; 84100; 84466; 84703; 85025; 85044; 85610; 85730; 87040; 87070; 87086; 87186; 87205; 87389; 88304-TC; 93926-TC; 94760; 97116-GP; 97161-GP; 99283-25; G0480; J0131; J1644; J7030

== ENCOUNTER 2019-02-19 10:46 | Inpatient (IN) | payer OTHER ==
[2019-02-19] MEDS ORDERED: SODIUM CHLORIDE 1,000 ML IV SCH (11:00)
--- NOTE | 2019-02-19 11:07 | PDOC ---
History of Present Illness - History of Present Illness Initial Comments: 43yo F with PMH of DM, HTN, HLD, PAD presenting with stroke. Patient was in [facility] and was found to have a slurred speech and right-sided weakness. She was evaluated by physicians there. Family members were not satisfied with her care, signed out AMA, and came straight to the hospital upon landing in the [facility]. Patient presents with right-sided weakness, facial droop, and dysarthria vs. aphasia. Patient able to follow commands but unable to contribute to history. <Octavia Brunson - Last Filed: 02/19/19 14:16> <Hannah Hernandez - Last Filed: 02/19/19 16:41> - General Chief Complaint: CVA/TIA Stated Complaint: RULE OUT STROKE Time Seen by Provider: 02/19/19 11:07 Past History - Past Medical History Anemia: No Asthma: Yes Cancer: No Cardiac Disorders: No CVA: Yes COPD: No CHF: No Dementia: No Diabetes: Yes GI Disorders: No Disorders: No HTN: Yes Hypercholesterolemia: Yes Liver Disease: No Seizures: No Thyroid Disease: No - Immunization History Immunization Up to Date: Yes - Suicide/Smoking/Psychosocial Hx Smoking History: Never smoked Have you smoked in the past 12 months: No Information on smoking cessation initiated: No Hx Alcohol Use: No Drug/Substance Use Hx: No Substance Use Type: None <Octavia Brunson - Last Filed: 02/19/19 14:16> <Hannah Hernandez - Last Filed: 02/19/19 16:41> - Past Medical History Allergies/Adverse Reactions: Allergies Allergy/AdvReac Type Severity Reaction Status Date / Time Penicillins Allergy Severe Difficulty Verified 02/19/19 10:58 Breathing Home Medications: Ambulatory Orders Insulin Glargine,Hum.rec.anlog [Basaglar Kwikpen U-100] 40 unit SQ HS 08/07/17 metFORMIN HCL [Glucophage -] 1,000 mg PO BID 08/07/17 Aspirin [Aspirin EC] 81 mg PO DAILY 06/09/18 Gabapentin 600 mg PO BID 06/09/18 Glipizide [Glipizide ER] 10 mg PO DAILY 06/09/18 Montelukast Sodium [Singulair] 10 mg PO DAILY 06/09/18 Amlodipine Besylate [Norvasc -] 10 mg PO DAILY 02/19/19 Clopidogrel Bisulfate [Plavix] 75 mg PO DAILY 02/19/19 Hydrochlorothiazide [Hctz -] 25 mg PO DAILY 02/19/19 Simvastatin [Zocor] 10 mg PO HS 02/19/19 Review of Systems - Review of Systems Able to Perform ROS?: No (aphasia/dysarthria) <Octavia Brunson - Last Filed: 02/19/19 14:16> *Physical Exam - Vital Signs Last Vital Signs Temp Pulse Resp BP Pulse Ox 98.2 F 86 18 157/85 100 02/19/19 10:58 02/19/19 10:58 02/19/19 10:58 02/19/19 10:58 02/19/19 10:58 <Octavia Brunson - Last Filed: 02/19/19 14:16> - Vital Signs Last Vital Signs Temp Pulse Resp BP Pulse Ox 98.2 F 86 18 157/85 100 02/19/19 10:58 02/19/19 10:58 02/19/19 10:58 02/19/19 10:58 02/19/19 10:58 <Hannah Hernandez - Last Filed: 02/19/19 16:41> ED Treatment Course - LABORATORY CBC & Chemistry Diagram: 02/19/19 11:45 02/19/19 11:45 <Octavia Brunson - Last Filed: 02/19/19 14:16> - LABORATORY CBC & Chemistry Diagram: 02/19/19 11:45 02/19/19 11:45 - ADDITIONAL ORDERS Additional order review: Laboratory Results 02/19/19 11:45 PT with INR 12.30 INR 1.04 PTT (Actin FS) 31.2 - RADIOLOGY Radiology Studies Ordered: Category Date Time Status HEAD CT (STROKE) [CT] Stat CT Scan 02/19/19 11:45 Completed <Hannah Hernandez - Last Filed: 02/19/19 16:41> Medical Decision Making - Medical Decision Making Hyperglycemic Insulin novalog ordered 02/19/19 12:[address] Nation, neurologist, who recommends stroke workup for patient. Inpatient team messaged for admission 02/19/19 13:12 Dr. Corti accepted patient for admission under Dr. Collier 02/19/19 14:16 <Octavia Brunson - Last Filed: 02/19/19 14:16> *DC/Admit/Observation/Transfer - Discharge Dispostion Decision to Admit order: Yes <Octavia Brunson - Last Filed: 02/19/19 14:16> - Discharge Dispostion Decision to Admit order: Yes <Hannah Hernandez - Last Filed: 02/19/19 16:41> Diagnosis at time of Disposition: Acute ischemic left MCA stroke Cerebrovascular accident (CVA) Qualifiers: CVA mechanism: unspecified Qualified Code(s): I63.9 - Cerebral infarction, unspecified - Discharge Dispostion Condition at time of disposition: Guarded
[2019-02-19 11:12] VITALS: BMI 29.8
--- NOTE | 2019-02-19 11:48 | PDOC ---
Attending Attestation - Resident Resident Name: NannetteOctavia - ED Attending Attestation I have performed the following: I have examined & evaluated the patient, The case was reviewed & discussed with the resident, I agree w/resident's findings & plan - HPI HPI: 02/19/19 11:35 43 year-old female with a PMH significant for CVA x2, HTN, HLD, IDDM, PAD s/p multiple left toe amputations, left leg bypass, and recurrent abscesses (axilla ) and lower extremity cellulitis presenting with right sided weakness, facial droop and aphasia, which has been present x 10 days since diagnosis of stroke at outside facility. She was dxd and treated for ischemic CVA ~10 days ago at the [facility] , left AMAd and took the next flight out to return to the [facility]. Family felt she was not getting the proper care there, imaging and reports came with the patient and reviewed. ROS limited 2/2 severe aphasia and CVA sx. PMD Mehreen Cannon MD - Physicial Exam PE: 02/19/19 11:35 Agree with the resident's HPI and PE as documented in the electronic medical record. NAD, well appearing, PERRL, EOMI, nl conjunctiva, anicteric; neck supple. lungs clear, RRR, abdomen soft nontender. No peripheral edema. normal color for ethnicity, WWP. Alert, +aphasic. No carotid bruit, +right facial droop, CNVII palsy. 5/5 masseters, V1-3 intact. Sensation grossly intact to light touch. CHAVEZ x4. No cerebellar signs, no dysmetria, able to perform finger to nose on left . RUE flaccid, 0/5 RLE drift, 3/5 02/19/19 11:48 - Medical Decision Making 02/19/19 11:36 See HPI for details Vital signs reviewed, wnl. NOT TPA candidate, out of stroke window, with neuro sx as documented ~10 days Prior notes reviewed, including admissions, discharges and consultations. laboratory results and imaging reviewed, basic labs and lytes wnl, notable for + hyperglycemia of 443, poor control of DM, pseudo hyponatremia - given novolog fast acting insulin to correct, goal euglycemia Cardiac panel_neg lipid panel abnormal EKG normal sinus rhythm at 80 bpm, no interval abnormalities, narrow QRS, ST and T wave segments and morphology normal. inferior Q waves, similar to prior ED course - NPO, needs dysphagia screen - CTH with large subacute to acute MCA infarct on left, no e/o hemorrhage. - neuro cs with Dr Nation service - NIHSS 11, not tpa candidate, out of window > 6h as documented; not thrombectomy candidate with subacute course. Admit telemetry for CVA. Discussed results and management plan with pt and family member at bedside, agree with impression and plan admitting to hospitalist service, Dr Collier 02/19/19 13:00 02/19/19 13:59 Heart Score/ECG Review #1 ECG reviewed & interpreted by me at: 11:10 General ECG Interpretation: Sinus Rhythm, Normal Rate Compared to previous ECG there are: No significant change 02/19/19 12:14 EKG normal sinus rhythm at 80 bpm, no interval abnormalities, narrow QRS, ST and T wave segments and morphology normal. inferior Q waves, similar to prior NIH Stroke Scale - Last Known Well Date/Time & Onset Date Last Known Well: 02/09/19 Time Last Known Well: 00:00 - Initial Evaluation Level of consciousness: Alert Ask patient the month and their age: Answers both correctly Ask patient to open & close eyes; make fist and let go: Obeys both correctly Best gaze (horizontal eye movement): Normal Visual field testing: No visual field loss Facial paresis (Show teeth/raise eyebrows/close eyes tight): Partial paralysis ( total or near paralysis of lower face) Motor Function: Left Arm: Normal Motor Function: Right Arm: No movement Motor Function: Left Leg: Normal (extends leg 30 degrees for 5 seconds without drift) Motor Function: Right Leg: Some effort against gravity Limb Ataxia: No ataxia Sensory(Use pinprick test arms,legs,trunk,face/side to side): Normal Best language (Describe picture, name items, read sentences): Severe aphasia Dysarthria (read several words): Mild to moderate slurring of words (not tpa candidate, out of benefit window) Extinction and Inattention: No abnormality - Total Score NIH Stroke Scale Score: 11
[2019-02-19 11:56] LABS: EOS % 1.6 % (0-4.5); HEMATOCRIT 34.2 % (32.4-45.2); HEMOGLOBIN 11.6 GM/dL (10.7-15.3); LYMPH % 19.1 % (8-40); MCH 27.8 pg (25.7-33.7); MCHC 34.1 g/dl (32.0-36.0); MEAN CELL VOLUME 81.6 fl (80-96); MONO % 9.8 % (3.8-10.2); NEUT % 68.5 % (42.8-82.8); PLATELET COUNT 229 K/MM3 (134-434); RBC 4.19 M/mm3 (3.60-5.2); RDW 13.7 % (11.6-15.6); WHITE BLOOD COUNT 9.4 K/mm3 (4.0-10.0)
[2019-02-19 12:07] LABS: INR 1.04 (0.83-1.09); PROTHROMBIN TIME (PATIENT) 12.3 SEC (9.7-13.0)
[2019-02-19 12:10] LABS: ACTIVATED PTT 31.2 SECONDS (25.2-36.5)
[2019-02-19 12:25] LABS: ALBUMIN 2.5 g/dl (3.4-5.0); ALK PHOS 97 U/L (45-117); ANION GAP 9 MMOL/L (8-16); BILIRUBIN,TOTAL 0.7 mg/dL (0.2-1); BLOOD UREA NITROGEN 16 mg/dL (7-18); CALCIUM 8.4 mg/dL (8.5-10.1); CHLORIDE 94 mmol/L (98-107); CHOLESTEROL 197 mg/dL (50-200); CO2 24 mmol/L (21-32); CREATININE 2.3 mg/dL (0.55-1.3); HDL CHOLESTEROL 33 mg/dL (40-60); POTASSIUM 4.9 mmol/L (3.5-5.1); SGOT/AST 19 U/L (15-37); SGPT/ALT 20 U/L (13-61); SODIUM 128 mmol/L (136-145); TOT PROT 6.3 g/dl (6.4-8.2); TRIGLYCERIDES 417 mg/dL (0-150)
[2019-02-19 12:27] LABS: GLUCOSE,RANDOM 443 mg/dL (74-106)
[2019-02-19] MEDS ORDERED: INSULIN (NOVOLOG) ASPART 100 UNITS/ML 10ML VIAL SQ ONE (12:55)
--- NOTE | 2019-02-19 14:19 | CONSULT ---
Admitting History and Physical - Primary Care Physician PCP: Tai Collier - Admission History of Present Illness: 43 year-old female with a PMH significant for CVA x2, HTN, HLD, IDDM, PAD s/p multiple left toe amputations, left leg bypass, and recurrent abscesses (axilla ) and lower extremity cellulitis presenting with right sided weakness, facial droop and aphasia, which has been present x 10 days since diagnosis of stroke in the [place]. History Source: Medical Record Limitations to Obtaining History: Clinical Condition (Moderate to Severe Aphasia ) - Past Medical History Cardiovascular: Yes: HTN ...LMP: 07/27/18 Endocrine: Yes: Diabetes Mellitus - Past Surgical History Past Surgical History: Yes: None - Smoking History Smoking history: Never smoked Have you smoked in the past 12 months: No - Alcohol/Substance Use Hx Alcohol Use: No - Social History Occupation: unemployed History - Admission Reason For Visit: CVA - Diagnostics CT Scan: Report Reviewed (large subacute/acute Left MCA infarct) - General Mental Status: Awake and Alert Attention: Intact Ability to Follow Directions: Fair (simple 1 step, intermittent) Head/Neck Control: Fair - Hearing Hearing: Functional Speech Evaluation - Communication Primary Language: LITHUANIAN Communication: Yes: Dysarthria, Aphasia Oral Expression Ability: Yes: Moderate Impairment, Severe Impairment - Speech Production Apraxia: Yes Able to Make Needs Known: Yes: Moderately Impaired, Severely Impaired Intelligibility: Yes: Moderately Impaired, Severely Impaired - Speech Characteristics Voice Loudness: Normal Voice Pitch: Yes: Normal Voice Phonatory-based Quality: Yes: Normal Speech Pattern: Impaired Speech Clarity: < 25% Nasal Resonance: Normal Articulation: Yes: Imprecise - Language/Auditory Comprehension Follows: Yes: 1 Stage Simple Commands (simple, whole body) Observation: Able to respond to yes/no queries: Yes (intermittent,unreliable, Yes for most questions), Yes/No Confusion: Yes, Comprehends Conversational Speech: Yes (suspect she understand more than demonstrates on simple level.), Benefits from Slow Speech: Yes, Benefits from Repetiton: Yes, Benefits from Increased Volume of Speech: No - Language/Verbal Expression Aphasia: Yes: Nonfluent, Anomia, Impaired Repetition, Paraphrasic Errors, Neologisms, Apraxia, Sound Errors Able to Respond to Simple Queries: Yes: Moderately Impaired, Severely Impaired Able to Communicate Wants and Needs: Yes: Moderately Impaired, Severely Impaired Functional Communication Status: Yes: Moderately Impaired, Severely Impaired - Swallow Evaluation/Bedside Assessment Current Nutritional Intake: NPO Dentition: Yes: Adequate Facial Symmetry at Rest: Facial Droop Right Facial Symmetry on Retraction: Facial Droop Right Sensation: Reduced Right Jaw Position: Closed at Rest Pucker Lips: Droops Right Smile: Droops Right Lingual Movement: Symmetric Lingual Speed of Movement: Reduced Lingual Movement Strgth Against Opposition: Reduced Velopharyngeal Movement: Normal Laryngeal Movement: Labored,delay initiation Chewing: Impaired (Reduced rate but fair efficiency) Oral Prep Time: Increased A-P Transit: WFL Timing of Swallow: Delayed Coughing/Throat Clear: No Change in Voice: No Recommendations - Speech Evaluation, Impression/Plan Impression: Unfortunate 43 yo with large left MCA infarct with Mod to Severe Expressive/Receptive Aphasia. Perseverative, intermittently aware with inability to correct. Unable to repeat. Poor rercitation of automatic series ( eg numbers, in unison/upon repetition). Provided first name, Water, but perseverated on additional questions. Dysarthria with right facial. Mastication slow but fairly efficient. Overtly tolerated sips of water. - Disposition Discharge to: Rehabilitation Center - Dysphagia Impressions/Plan Swallowing Skills: Impaired Dysphagia Impressions: Mild Impairment, Risk of Aspiration *Silent aspiration: cannot be R/O at bedside Dysphagia Treatment Plan: Small Bites, Chin Tuck/Down, Trial Feedings, Safe Rate , 1/2 tsp. at a time, Elevate HOB during feed, Other (assist/supervision with meals) Recommendations: Modified Barium Swallow (if cough,congestion, fever) - Recommendations Diet Consistency: Dysphagia Whole (with ground meat) Medication Administration: Whole with water Liquids: Thin Liquids (single sips. If cough,congestion, fever, downgrade to [place] and order MBS.)
[2019-02-19] MEDS ORDERED: INSULIN (LEVEMIR) 100 UNITS/ML UNITS SQ ONE ×2 (14:27→19:23)
--- NOTE | 2019-02-19 14:28 | HP ---
CHIEF COMPLAINT: Facial droop, hemiparesis PCP: Dr. Cannon HISTORY OF PRESENT ILLNESS: 43yo F with h/o metabolic syndrome, PAD, and prior CVA's according to EMR who presents today with facial droop and R sided hemiparesis. Pt's history is slightly limited due to her clinical condition and questionable expressive aphasia. Most of history collected from ER interview of family members and previous records. 10 days prior pt was in when she started to experience a slight facial droop. Her symptoms progressed to severe facial droop, complete hemiparesis, and severe dysarthria. Pt was seen at a hospital in [facility] and was worked up. Unfortunately, her family believed she was not receiving the best care so they left the hospital AMA and returned [place] the [place] via plane to be seen here. Paperwork brought with her only reports on a hypertensive emergency crisis which evolved into an ischemic CVA picture. Currently pt remains with severe symptoms of facial droop and R-sided hemiparesis. Recent Travel: Recently returned from [facility] PAST MEDICAL HISTORY: DM HTN HLD PAD PAST SURGICAL HISTORY: tubal ligation (taken from previous records) 2nd and 3rd toe amputation of L foot Bypass graft in L leg Retinal surgery in L eye Cataract surgery in R eye Social History: Smoking: Denies Alcohol: Denies Drugs: Denies Family History: Mother: DM, Lung cancer Father: ND, at age 58 Allergies Penicillins Allergy (Severe, Verified 02/19/19 10:58) --Anaphylaxis; cyanosis HOME MEDICATIONS: Home Medications Medication Instructions Recorded Insulin Glargine,Hum.rec.anlog 40 unit SQ HS 08/07/17 [Eran White U-100] metFORMIN HCL [Glucophage -] 1,000 mg PO BID 08/07/17 Aspirin [Aspirin EC] 81 mg PO DAILY 06/09/18 Atorvastatin Ca [Lipitor] 40 mg PO HS 06/09/18 Gabapentin 600 mg PO BID 06/09/18 Glipizide [Glipizide ER] 10 mg PO DAILY 06/09/18 Losartan Potassium 25 mg PO DAILY 06/09/18 Montelukast Sodium [Singulair] 10 mg PO DAILY 06/09/18 Walker [Ultra-Light Rollator] 1 each MC DAILY #1 each 08/07/18 Doxycycline Hyclate 100 mg PO BID #20 capsule 08/10/18 REVIEW OF SYSTEMS As per HPI PHYSICAL EXAMINATION Vital Signs - 24 hr 02/19/19 10:58 Temperature 98.2 F Pulse Rate 86 Respiratory 18 Rate Blood Pressure 157/85 O2 Sat by Pulse 100 Oximetry (%) GENERAL: NAD, awake, alert, and fully oriented HEENT: NC/AT, EOMI, SABA, peripheral vision intact, resting R nasolabial fold softening, MMM NECK: No JVD, no carotid bruits LUNGS: CTA bilaterally. No wheezes, and no crackles. No accessory muscle use. HEART: RRR, normal S1 and S2 without murmur ABDOMEN: Soft, nondistended, nontender, normoactive bowel sounds, no guarding EXTREMITIES: 2+ distal pulses, warm, well-perfused. No calf tenderness. No peripheral edema. L 2nd and 3rd toe amputations NEUROLOGICAL: EOMI, SABA, no gaze palsy, Dysarthric, ? expressive aphasia however understands and listens to commands R facial droop and softening of nasolabial fold community assistant otherwise intact Strength 0/5 RUE, 5/5 LUE in all alves Strength 1/5 RLE, 5/5 in LLE in all field Sensation questionably intact Patellar and bicep reflexes 3/4 on R, 2/4 on L No dysdiadocokinesia, no dysmetria Babinski upgoing on R; downgoing on L Gait not assessed PSYCHIATRIC: Cooperative. Good eye contact. Appropriate mood and affect. SKIN: Warm, dry, no rashes or lesions noted Laboratory Results 02/19/19 02/19/19 02/19/19 11:31 11:45 11:45 WBC 9.4 RBC 4.19 Hgb 11.6 Hct 34.2 D MCV 81.6 MCH 27.8 MCHC 34.1 RDW 13.7 Plt Count 229 MPV 10.0 D Absolute Neuts (auto) 6.5 Neutrophils % 68.5 Lymphocytes % 19.1 D Monocytes % 9.8 Eosinophils % 1.6 Basophils % 1.0 Nucleated RBC % 0 PT with INR 12.30 INR 1.04 PTT (Actin FS) 31.2 Sodium Potassium Chloride Carbon Dioxide Anion Gap BUN Creatinine Creat Clearance w eGFR Random Glucose Calcium Total Bilirubin AST ALT Alkaline Phosphatase Creatine Kinase Troponin I Total Protein Albumin Triglycerides Cholesterol Total LDL Cholesterol HDL Cholesterol Serum , Qual Negative Blood Type Antibody Screen 02/19/19 02/19/19 11:45 11:45 WBC RBC Hgb Hct MCV MCH MCHC RDW Plt Count MPV Absolute Neuts (auto) Neutrophils % Lymphocytes % Monocytes % Eosinophils % Basophils % Nucleated RBC % PT with INR INR PTT (Actin FS) Sodium 128 L Potassium 4.9 Chloride 94 L Carbon Dioxide 24 Anion Gap 9 BUN 16 Creatinine 2.3 H Creat Clearance w eGFR 23.25 Random Glucose 443 H* Calcium 8.4 L Total Bilirubin 0.7 AST 19 ALT 20 Alkaline Phosphatase 97 Creatine Kinase 55 Troponin I < 0.02 Total Protein 6.3 L Albumin 2.5 L Triglycerides 417 H Cholesterol 197 Total LDL Cholesterol 110 H HDL Cholesterol 33 L Serum , Qual Blood Type A NEGATIVE Antibody Screen Negative ASSESSMENT/PLAN: Acute/Subacute L MCA CVA Hyperglycemia Acute on chronic kidney insufficiency HTN HLD IDDM PAD --NIHSS 11 --Dr. Nation spoken to in the ER; no acute interventions but will further optimize (outside of optimal window timing) --Echocardiogram ordered --Speech and swallow evaluation --Physical therapy ordered --Continue ASA 81mg qDaily --Continue Plavix 75mg qdaily due to prior CVA while on ASA --Crestor 20mg HS ordered for optimization of lipid profile in setting of CVA --Insulin 10U given in ED; f/u POC glucometer reading --ISS q6h ordered --Will start Levemir 10U now due to pt NPO and unknown response --A1c ordered for add-on --Continue fluid hydration NS@100cc/hr --Kidney/renal/bladder US for r/o post-obstructive reasons --Likely pre-renal due to hyperosmolar state, decreased PO intake in addition to ARB usage --Hold ARB --Hold HCTZ --Continue Norvasc 10mg qdaily --Added Lopressor 12.5mg BID PO FEN: Fluids: NS@100cc/hr Electrolyte abnormalities: Correct Na WNL Nutrition: NPO until S&S evaluation PPX: DVT - Heparin BID due to immobility POC: Brother (unknown name; left number with ED): [phone]. Dispo: Telemetry Case discussed with Dr. Amira Doshi, DO - IM PGY-2 Visit type - Emergency Visit Emergency Visit: Yes ED Registration Date: 02/19/19 Care time: The patient presented to the Emergency Department on the above date and was hospitalized for further evaluation of their emergent condition. - New Patient This patient is new to me today: Yes Date on this admission: 02/19/19 - Critical Care Critical Care patient: No
[2019-02-19] MEDS: amLODIPine BESYLATE 10 MG TABLET (FP) PO SCH (15:00)
--- NOTE | 2019-02-19 15:29 | PN ---
Teaching Attending Note Name of Resident: Arthur Doshi ATTENDING PHYSICIAN STATEMENT I saw and evaluated the patient. I reviewed the resident's note and discussed the case with the resident. I agree with the resident's findings and plan as documented with exceptions below. SUBJECTIVE: Patient with expressive aphasia, history obtained from ED and records. 43 yof with PMHx of HTN, HLD, IDDM, PAD s/p left 2nd/3rd toe amputations, LLE bypass, Prior abscesses (axiallary, Lower extremity, abdominal wall) was reported to have slurred speech and right sided weakness 10 days ago when was taken to a hospital in . Per records, family signed her out AMA there, and brought her to [facility] today right after getting off the flight. Currrently patient with expressive Aphasia, keeps saying "yes" to most questions. Looks comfortable but unable to assess for further ROS. OBJECTIVE: Vital Signs Period Temp Pulse Resp BP Sys/Cohen Pulse Ox Last 24 Hr 98.2 F 86 18 157/85 100 Intake & Output 02/16/19 02/17/19 02/18/19 02/19/19 23:59 23:59 23:59 23:59 Weight 185 lb GENERAL: Awake, responsive, no acute distress HEAD: Normal with no signs of trauma. EYES: Right eyelid droop, right cataract surgery, left with retinal surgery, limiting exam, EOMI EARS, NOSE, THROAT: Ears normal, nares patent, oropharynx clear without exudates. Moist mucous membranes. NECK:soft, supple, no JVD visualized LUNGS: Breath sounds equal, clear to auscultation bilaterally. No wheezes, and no crackles. No accessory muscle use. HEART: Regular rate and rhythm, normal S1 and S2 ABDOMEN: Soft, nontender, not distended, normoactive bowel sounds, no guarding, no rebound, no masses. no suprapubic or CVA tenderness MUSCULOSKELETAL: right hemiplegia limiting exam, no spinal tenderness, full ROM LUE/LLE UPPER EXTREMITIES: 2+ pulses, warm, well-perfused. No cyanosis. No clubbing. No peripheral edema. LOWER EXTREMITIES: palpable DP pulses RLE, faint palpable DP pulse LLE, well perfused with good refill, left 2nd/3rd toe amputations NEUROLOGICAL: AA, responds to name, follows simple commands, expressive aphasia , keeps repeating 'yes' to most questions, RUE 0/5, RLE 1/5, right facial droop , right eyelid droop, unable to do a sensory exam as keeps saying 'yes' as mentioned above, Gait not checked PSYCHIATRIC: Cooperative. Good eye contact. Appropriate mood and affect. SKIN: Warm, dry, normal turgor, no rashes or lesions noted, normal capillary refill. Home Medications Medication Instructions Recorded Insulin Glargine,Hum.rec.anlog 40 unit SQ HS 08/07/17 [Basaglar Kwikpen U-100] metFORMIN HCL [Glucophage -] 1,000 mg PO BID 08/07/17 Aspirin [Aspirin EC] 81 mg PO DAILY 06/09/18 Gabapentin 600 mg PO BID 06/09/18 Glipizide [Glipizide ER] 10 mg PO DAILY 06/09/18 Montelukast Sodium [Singulair] 10 mg PO DAILY 06/09/18 Amlodipine Besylate [Norvasc -] 10 mg PO DAILY 02/19/19 Clopidogrel Bisulfate [Plavix] 75 mg PO DAILY 02/19/19 Hydrochlorothiazide [Hctz -] 25 mg PO DAILY 02/19/19 Simvastatin [Zocor] 10 mg PO HS 02/19/19 Active Medications Amlodipine Besylate (Norvasc -) 10 mg PO DAILY [facility] Aspirin (Ecotrin -) 81 mg PO DAILY [facility] Clopidogrel Bisulfate (Plavix -) 75 mg PO DAILY [facility] Heparin Sodium (Porcine) (Heparin -) 5,000 unit SQ BID [facility] Sodium Chloride (Normal Saline -) 1,000 mls @ 100 mls/hr IV ASDIR [facility] Insulin Aspart (Novolog Vial Sliding Scale -) 1 vial SQ Q6HPO [facility]; Protocol Metoprolol Tartrate (Lopressor -) 12.5 mg PO BID [facility] Montelukast Sodium (Singulair -) 10 mg PO HS [facility] Rosuvastatin Calcium (Crestor -) 20 mg PO HS [facility] Laboratory Results - last 24 hr 02/19/19 02/19/19 02/19/19 11:31 11:45 11:45 WBC 9.4 RBC 4.19 Hgb 11.6 Hct 34.2 D MCV 81.6 MCH 27.8 MCHC 34.1 RDW 13.7 Plt Count 229 MPV 10.0 D Absolute Neuts (auto) 6.5 Neutrophils % 68.5 Lymphocytes % 19.1 D Monocytes % 9.8 Eosinophils % 1.6 Basophils % 1.0 Nucleated RBC % 0 PT with INR 12.30 INR 1.04 PTT (Actin FS) 31.2 Sodium Potassium Chloride Carbon Dioxide Anion Gap BUN Creatinine Creat Clearance w eGFR Random Glucose Calcium Total Bilirubin AST ALT Alkaline Phosphatase Creatine Kinase Troponin I Total Protein Albumin Triglycerides Cholesterol Total LDL Cholesterol HDL Cholesterol Serum , Qual Negative Blood Type Antibody Screen 02/19/19 02/19/19 11:45 11:45 WBC RBC Hgb Hct MCV MCH MCHC RDW Plt Count MPV Absolute Neuts (auto) Neutrophils % Lymphocytes % Monocytes % Eosinophils % Basophils % Nucleated RBC % PT with INR INR PTT (Actin FS) Sodium 128 L Potassium 4.9 Chloride 94 L Carbon Dioxide 24 Anion Gap 9 BUN 16 Creatinine 2.3 H Creat Clearance w eGFR 23.25 Random Glucose 443 H* Calcium 8.4 L Total Bilirubin 0.7 AST 19 ALT 20 Alkaline Phosphatase 97 Creatine Kinase 55 Troponin I < 0.02 Total Protein 6.3 L Albumin 2.5 L Triglycerides 417 H Cholesterol 197 Total LDL Cholesterol 110 H HDL Cholesterol 33 L Serum , Qual Blood Type A NEGATIVE Antibody Screen Negative CT brain results reviewed EKG: NSR, Q waves inferior leads ASSESSMENT AND PLAN: 43 yof with PMHx of HTN, HLD, IDDM, PAD s/p left 2nd/3rd toe amputations, LLE bypass, Prior abscesses (axiallary, Lower extremity, abdominal wall) admitted with acute/subacte R MCA CVA -Acute/subacute Right MCA CVA -YOHAN, suspect from hypovolumia from poor oral intake/osmotic diuresis from hyperglycemia/ARB, r/o obstruction/retention -Hyponatremia, suspect from hypovolumia/hyperglycemia -IDDM -HTN -PAD s/p LLE bypass/Left 2nd/3rd toe amputation -HLD -Prior abscessses (axillary/LE, abdominal wall) Plan: Out of tpa or intervention window Neurology consult. 2D echo/Carotid/MRI/MRA ASA/plavix/statin BP control. Continue amlodipine, hold ARB/HCTZ. Start metoprolol and titrate as tolerated. NS at 100, monitor renal function, bladder scan x 1. Renal/bladder US. Renal dosing of meds lantus 20 units daily, titrate up as tolerated, ISS SPeech/swallow input noted. chopped, aspiration precautions. DVTPPX heparin PT eval Anticipate acute rehab. CM consult. Admit to stroke tele. Plan discussed with Patient, care co-ordinated with ED total admit time spent 65 min.
--- NOTE | 2019-02-19 15:51 | ECHO ---
Name: CL PALACIO Exam:Adult Echocardiogram Study Date: 02/19/2019 03:13 PM Age: 43 yrs Reason For Study: Stroke Height: 66 in Weight: 185 lb BSA: 1.9 m2 MMode/2D Measurements & Calculations IVSd: 0.89 cm Ao root diam: 2.7 cm LVIDd: 4.7 cm LA dimension: 3.0 cm LVIDs: 2.9 cm LVPWd: 0.91 cm EDV(Teich): 103.6 ml LVOT diam: 2.0 cm ESV(Teich): 32.7 ml Doppler Measurements & Calculations MV E max kings: 72.1 cm/sec Ao V2 max: 157.1 cm/sec MV A max kings: 79.0 cm/sec Ao max P.9 mmHg MV E/A: 0.91 Ao V2 mean: 108.2 cm/sec Ao mean P.4 mmHg Ao V2 VTI: 27.8 cm Med Peak E' Kings: 3.8 cm/sec Med E/e': 18.8 Lat Peak E' Kings: 7.1 cm/sec Lat E/e': 10.1 Left Ventricle There is borderline concentric left ventricular hypertrophy. Left ventricular systolic function is no rmal. Ejection Fraction = 55-60%. Right Ventricle The right ventricle is normal in size and function. Atria Normal left and right atrial size and function. The interatrial septum is not well seen. Mitral Valve The mitral valve is normal in structure and function. There is no mitral valve stenosis. There is tra ce to mild mitral regurgitation. Tricuspid Valve The tricuspid valve is normal in structure and function. Aortic Valve The aortic valve opens well. No hemodynamically significant valvular aortic stenosis. No aortic regur gitation is present. Pulmonic Valve The pulmonic valve is not well seen, but is grossly normal. Great Vessels The aortic root is normal size. Pericardium/Pleura There is no pericardial effusion. Interpretation Summary There is borderline concentric left ventricular hypertrophy. Left ventricular systolic function is normal. Ejection Fraction = 55-60%. The right ventricle is normal in size and function. There is trace to mild mitral regurgitation. The interatrial septum is not well seen. There is no pericardial effusion. MD Guzman *Ronnie 02/19/2019 03:51 PM
[2019-02-19] MEDS: SODIUM CHLORIDE 1,000 ML IV SCH (17:45)
[2019-02-19] MEDS ORDERED: INSULIN SLIDING SCALE (NOVOLOG) 1 VIAL SQ SCH (18:00)
--- NOTE | 2019-02-19 18:30 | CON.NEURO ---
Consult Consult Specialty:: NEUROLOGY-[facility] Reason for Consultation:: right hemiparesis, aphasia - History of Present Illness History of Present Illness: Patient with expressive aphasia, history obtained from ED and records. 43 yof with PMHx of HTN, HLD, IDDM, PAD s/p left 2nd/3rd toe amputations, LLE bypass, Prior abscesses (axiallary, Lower extremity, abdominal wall) was reported to have slurred speech and right sided weakness 10 days ago when was taken to a hospital [place] Per records, family signed her out AMA there, and brought her to [facility] today right after getting off the flight. Currrently patient with expressive Aphasia, keeps saying "yes" to most questions. Looks comfortable but unable to assess for further ROS. As per ER staff she has had a prior stroke, was d/ivet from hosp.in on Plavix , not known what w/u she had there. - Past Medical History Cardio/Vascular: Yes: HTN ...LMP: 07/27/18 Endocrine: Yes: Diabetes Mellitus - Past Surgical History Past Surgical History: Yes: None - Alcohol/Substance Use Hx Alcohol Use: No - Smoking History Smoking history: Never smoked Have you smoked in the past 12 months: No - Social History Occupation: unemployed Home Medications - Allergies Allergies/Adverse Reactions: Allergies Allergy/AdvReac Type Severity Reaction Status Date / Time Penicillins Allergy Severe Difficulty Verified 02/19/19 10:58 Breathing - Home Medications Home Medications: Ambulatory Orders Insulin Glargine,Hum.rec.anlog [Basaglar Kwikpen U-100] 40 unit SQ HS 08/07/17 metFORMIN HCL [Glucophage -] 1,000 mg PO BID 08/07/17 Aspirin [Aspirin EC] 81 mg PO DAILY 06/09/18 Gabapentin 600 mg PO BID 06/09/18 Glipizide [Glipizide ER] 10 mg PO DAILY 06/09/18 Montelukast Sodium [Singulair] 10 mg PO DAILY 06/09/18 Amlodipine Besylate [Norvasc -] 10 mg PO DAILY 02/19/19 Clopidogrel Bisulfate [Plavix] 75 mg PO DAILY 02/19/19 Hydrochlorothiazide [Hctz -] 25 mg PO DAILY 02/19/19 Simvastatin [Zocor] 10 mg PO HS 02/19/19 Family Disease History - Family Disease History Family Disease History: Diabetes: Mother (lung cancer), Heart Disease: Father ( , [place] at 58), CA: Mother, Other: Brother (healthy and living), Sister ( healthy and living) Physical Exam-Neuro Vital Signs: Vital Signs Temperature 98.2 F 02/19/19 10:58 Pulse Rate 86 02/19/19 10:58 Respiratory Rate 18 02/19/19 10:58 Blood Pressure 157/85 02/19/19 10:58 O2 Sat by Pulse Oximetry (%) 100 02/19/19 10:58 Labs: CBC, BMP 02/19/19 11:45 02/19/19 11:45 INR, PTT INR 1.04 (0.83-1.09) 02/19/19 11:45 - Neuro Exam Level Of Consciousness: Yes: Alert Eyes: Yes: Right Hemianopsia Speech: Broca's Aphasia (Comprehensionj is intact.) Mini Mental Exam: Unable to test formaly, able to follow simple commands. Cranial Nerves II-XII Intact: No (right cent.facial) DTR's: 1+ Left Achilles, 1+ Right Achilles, 2+ Left Tricep, 2+ Right Tricep, 2+ Left Brachioradialis, 2+ Right Brachioradialis, 3+ Left Bicep, 3+ Right Bicep Babinski: Present (right) Response to light touch: Abnormal (diminished touch/pin sensation right face/arm /leg) Motor Strength: 2/5: Right Arm, Left Leg, 5/5: Left Arm, Left Leg Gait: Other (unable to stand) Imaging - Results Cat Scan: Report Reviewed (large left MCA territory infarct.) Assessment/Plan Pt. with subacute left MCA territorty infarct presenting with right hemiparesis , homonymous hemianopsia, motor aphasia, ?/ etiology embolic vs thrombotic. Not known what w/u she has had in [place].Suggest: MRA brain/neck, Echocardiogram, Prot C/s, antiphosopholipid abx, cont. Plavix 75 mg daily, cardiology consultation. Will follow. Thank you, Raz Nation MD
[2019-02-19] MEDS ORDERED: amLODIPine BESYLATE 5 MG TABLET (FP) ONE (19:01)
[2019-02-19] MEDS: INSULIN SLIDING SCALE (NOVOLOG) 1 VIAL SQ SCH ×2 (19:51→22:54)
[2019-02-19] MEDS ORDERED: METOPROLOL TARTRATE 25 MG TABLET (FP) ONE (22:28)
[2019-02-19] MEDS ORDERED: HEPARIN NA (PORCINE) 5,000 UNITS/ML 1ML VIAL ONE (22:29)
[2019-02-19] MEDS: HEPARIN NA (PORCINE) 5,000 UNITS/ML 1ML VIAL SQ SCH (22:40)
[2019-02-19] MEDS: METOPROLOL TARTRATE 25 MG TABLET (FP) PO SCH (22:40)
[2019-02-19] MEDS ORDERED: INSULIN (NOVOLOG) ASPART 100 UNITS/ML 10ML VIAL ONE (22:50)
[2019-02-19] MEDS: ROSUVASTATIN CA 20 MG TABLET (FP) PO SCH (22:54)
[2019-02-20] MEDS: INSULIN SLIDING SCALE (NOVOLOG) 1 VIAL SQ SCH ×4 (06:27→23:05)
[2019-02-20 08:10] LABS: ANION GAP 8 MMOL/L (8-16); BLOOD UREA NITROGEN 20 mg/dL (7-18); CALCIUM 8.4 mg/dL (8.5-10.1); CHLORIDE 101 mmol/L (98-107); CO2 25 mmol/L (21-32); CREATININE 1.9 mg/dL (0.55-1.3); GLUCOSE,RANDOM 165 mg/dL (74-106); POTASSIUM 3.9 mmol/L (3.5-5.1); SODIUM 134 mmol/L (136-145)
--- NOTE | 2019-02-20 10:27 | CON.CARD ---
Consult Consult Specialty:: Cardiology Referred by:: Dr. Collier Reason for Consultation:: Left MCA CVA - History of Present Illness Chief Complaint: Right sided weakness History of Present Illness: Patient cannot provide hx due to her acute CVA. The hx was obtained by review of ER and Neuro HPI: "43 yof with PMHx of HTN, HLD, IDDM, PAD s/p left 2nd/3rd toe amputations, LLE bypass, Prior abscesses (axiallary, Lower extremity, abdominal wall) was reported to have slurred speech and right sided weakness 10 days ago when was taken to a hospital in [place] Per records, family signed her out AMA there, and brought her to [facility] today right after getting off the flight. Currrently patient with expressive Aphasia, keeps saying "yes" to most questions. Looks comfortable but unable to assess for further ROS. As per ER staff she has had a prior stroke, was d[place]ivet [place] hosp[place] Plav[place] , not known what w/u she had there." CT here showed large acute/subacute LCMA infarct, MRI/A brain results pending. Carotid US moderate plaque without sig stenosis. Tele thus far unremarkable. - History Source History Provided By: Medical Record - Past Medical History Cardio/Vascular: Yes: HTN, Hyperlipdemia ...LMP: 07/27/18 Endocrine: Yes: Diabetes Mellitus - Alcohol/Substance Use Hx Alcohol Use: No - Smoking History Smoking history: Never smoked Have you smoked in the past 12 months: No - Social History Occupation: unemployed History of Recent Travel: Yes (From [facility]) Home Medications - Allergies Allergies/Adverse Reactions: Allergies Allergy/AdvReac Type Severity Reaction Status Date / Time Penicillins Allergy Severe Difficulty Verified 02/19/19 10:58 Breathing - Home Medications Home Medications: Ambulatory Orders Insulin Glargine,Hum.rec.anlog [Basaglar Kwikpen U-100] 40 unit SQ HS 08/07/17 metFORMIN HCL [Glucophage -] 1,000 mg PO BID 08/07/17 Aspirin [Aspirin EC] 81 mg PO DAILY 06/09/18 Gabapentin 600 mg PO BID 06/09/18 Glipizide [Glipizide ER] 10 mg PO DAILY 06/09/18 Montelukast Sodium [Singulair] 10 mg PO DAILY 06/09/18 Amlodipine Besylate [Norvasc -] 10 mg PO DAILY 02/19/19 Clopidogrel Bisulfate [Plavix] 75 mg PO DAILY 02/19/19 Hydrochlorothiazide [Hctz -] 25 mg PO DAILY 02/19/19 Simvastatin [Zocor] 10 mg PO HS 02/19/19 Family Disease History - Family Disease History Family Disease History: Diabetes: Mother (lung cancer), Heart Disease: Father ( , [place] at 58), CA: Mother, Other: Brother (healthy and living), Sister ( healthy and living) Review of Systems Unable to obtain ROS, reason: see HPI - Review of Systems Cardiovascular: denies: No Symptoms, Chest Pain, Edema, Palpitations, Shortness of Breath, Other Respiratory: denies: No Symptoms, Cough, Exercise Intolerance, Hemoptysis, Orthopnea, PND, Snoring, SOB, SOB on Exertion, Wheezing, Other Gastrointestinal: denies: No Symptoms, Abdominal Pain, Bloating, Constipation, Diarrhea, Dysphagia, Indigestion, Melena, Nausea, Rectal Bleeding, Vomiting, Vomiting Blood, Other Genitourinary: denies: No Symptoms, Burning, Discharge, Dysuria, Flank Pain, Frequency, Hematuria, Incontinence, Lesions, Menses, Pain, Testicular Mass, Testicular Pain, Testicular Swelling, Urgency, Vaginal Bleeding, Other Breasts: denies: No Symptoms Reported, See HPI, Breast Implants, Discharge from Nipple, Lumps, Pain, Skin Changes, Other Neurological: reports: Weakness Endocrine: denies: No Symptoms, Excessive Sweating, Flushing, Increased Hunger, Increased Thirst, Intolerance to Cold, Intolerance to Heat, Unexplained Weight Gain, Unexplained Weight Loss, Other Hematology/Lymphatic: denies: No Symptoms, Easily Bruised, Excessive Bleeding, Swollen Glands, Other Psychiatric: denies: No Symptoms, Altered Sleep Pattern, Anxiety, Depression, Hallucinations, Panic, Paranoia, Suicidal, Other - Risk Factors Known Risk Factors: Yes: Diabetes Mellitus, Hypertension Vital Signs: Vital Signs Temperature 98.8 F 02/20/19 10:00 Pulse Rate 86 02/20/19 10:00 Respiratory Rate 18 02/20/19 10:00 Blood Pressure 114/70 02/20/19 10:00 O2 Sat by Pulse Oximetry (%) 99 02/20/19 05:00 Constitutional: Yes: No Distress Eyes: Yes: Conjunctiva Clear Respiratory: Yes: Regular, CTA Bilaterally Gastrointestinal: Yes: Soft JVD: No Carotid Bruit: No PMI: Non-Displaced Heart Sounds: Yes: S1, S2 Murmur: Yes: Systolic Murmur Edema: No Peripheral Pulses WNL: Yes Neurological: Yes: Other (Aphasia; RUE paralysis; limited mobilty RLE) - Other Data Labs, Other Data: CBC, BMP 02/19/19 11:45 02/20/19 05:30 INR, PTT INR 1.04 (0.83-1.09) 02/19/19 11:45 Troponin, BNP 02/19/19 11:45 Troponin I < 0.02 Troponin, BNP 02/19/19 11:45 Troponin I < 0.02 Echo: Report Reviewed Ejection Fraction %: LVEF > or = 40 % Imaging - Results Cat Scan: Report Reviewed MRI: Pending EKG: Image Reviewed Problem List - Problems (1) Acute ischemic left MCA stroke Code(s): I63.512 - CEREB INFRC D/T UNSP OCCLS OR STENOS OF LEFT MID CEREB ART (2) Diabetes Code(s): E11.9 - TYPE 2 DIABETES MELLITUS WITHOUT COMPLICATIONS Qualifiers: Diabetes mellitus type: type 2 Diabetes mellitus 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 Acute/subacute L. MCA CVA 2. Chronic HTN 3. IDDM 4. Reported PAD 5. Renal insuffiency REC: 1. Continue tele to r/o occult AF 2. F/u MRI/A brain 3. Hypercoag w/u as per Neuro 4. If no clear source identified, NICANOR recommended. 5. Cont ASA/Plavix (defer to Neuro re. DAPT) 6. Continue statin for LDL goal 70mg /dl 7. BP parameters as per Neuro Thank you. Will follow.
[2019-02-20] MEDS: INSULIN (LEVEMIR) 100 UNITS/ML UNITS SQ SCH (10:34)
[2019-02-20] MEDS: HEPARIN NA (PORCINE) 5,000 UNITS/ML 1ML VIAL SQ SCH ×2 (10:35→23:05)
[2019-02-20] MEDS: ASPIRIN COATED 81 MG TABLET.EC PO SCH (10:35)
[2019-02-20] MEDS: amLODIPine BESYLATE 10 MG TABLET (FP) PO SCH (10:39)
[2019-02-20] MEDS: METOPROLOL TARTRATE 25 MG TABLET (FP) PO SCH ×2 (10:39→22:59)
[2019-02-20] MEDS: CLOPIDOGREL BISULFATE 75 MG TABLET (FP) PO SCH (10:40)
--- NOTE | 2019-02-20 10:50 | PN ---
Physical Exam: SUBJECTIVE: Patient seen and examined, no complaints. OBJECTIVE: Vital Signs Period Temp Pulse Resp BP Sys/Cohen Pulse Ox Last 24 Hr 98.0 F-99.2 F 78-86 18-18 114-157/65-85 97-100 Intake & Output 02/17/19 02/18/19 02/19/19 02/20/19 23:59 23:59 23:59 23:59 Intake Total 400 Balance 400 Weight 185 lb 185 lb General: sitting in bed, no acute distress Chest: poor effort, no rales or wheezing Abdomen;Soft, obese, NT, no CVA or suprapubic tenderness Extremities: no edema NEUROLOGICAL: AA, responds to name, follows simple commands, expressive aphasia ,RUE 0/5, RLE 1/5, right facial droop, right eyelid droop, unable to do a sensory exam as keeps saying 'yes' as mentioned above, Gait not checked Laboratory Results - last 24 hr 02/19/19 02/19/19 02/19/19 11:31 11:45 11:45 WBC 9.4 RBC 4.19 Hgb 11.6 Hct 34.2 D MCV 81.6 MCH 27.8 MCHC 34.1 RDW 13.7 Plt Count 229 MPV 10.0 D Absolute Neuts (auto) 6.5 Neutrophils % 68.5 Lymphocytes % 19.1 D Monocytes % 9.8 Eosinophils % 1.6 Basophils % 1.0 Nucleated RBC % 0 PT with INR 12.30 INR 1.04 PTT (Actin FS) 31.2 Sodium Potassium Chloride Carbon Dioxide Anion Gap BUN Creatinine Creat Clearance w eGFR POC Glucometer Random Glucose Calcium Total Bilirubin AST ALT Alkaline Phosphatase Creatine Kinase Troponin I Total Protein Albumin Triglycerides Cholesterol Total LDL Cholesterol HDL Cholesterol Serum , Qual Negative Blood Type Antibody Screen 02/19/19 02/19/19 02/19/19 11:45 11:45 19:07 WBC RBC Hgb Hct MCV MCH MCHC RDW Plt Count MPV Absolute Neuts (auto) Neutrophils % Lymphocytes % Monocytes % Eosinophils % Basophils % Nucleated RBC % PT with INR INR PTT (Actin FS) Sodium 128 L Potassium 4.9 Chloride 94 L Carbon Dioxide 24 Anion Gap 9 BUN 16 Creatinine 2.3 H Creat Clearance w eGFR 23.25 POC Glucometer 377 Random Glucose 443 H* Calcium 8.4 L Total Bilirubin 0.7 AST 19 ALT 20 Alkaline Phosphatase 97 Creatine Kinase 55 Troponin I < 0.02 Total Protein 6.3 L Albumin 2.5 L Triglycerides 417 H Cholesterol 197 Total LDL Cholesterol 110 H HDL Cholesterol 33 L Serum , Qual Blood Type A NEGATIVE Antibody Screen Negative 02/19/19 02/20/19 02/20/19 22:37 05:30 06:12 WBC RBC Hgb Hct MCV MCH MCHC RDW Plt Count MPV Absolute Neuts (auto) Neutrophils % Lymphocytes % Monocytes % Eosinophils % Basophils % Nucleated RBC % PT with INR INR PTT (Actin FS) Sodium 134 L Potassium 3.9 Chloride 101 Carbon Dioxide 25 Anion Gap 8 BUN 20 H Creatinine 1.9 H Creat Clearance w eGFR 28.99 POC Glucometer 298 165 Random Glucose 165 H Calcium 8.4 L Total Bilirubin AST ALT Alkaline Phosphatase Creatine Kinase Troponin I Total Protein Albumin Triglycerides Cholesterol Total LDL Cholesterol HDL Cholesterol Serum , Qual Blood Type Antibody Screen Active Medications Generic Name Dose Route Start Last Admin Trade Name Freq PRN Reason Stop Dose Admin Amlodipine Besylate 10 mg 02/19/19 15:15 02/20/19 10:39 Norvasc - PO 10 mg DAILY ÁLVARO Administration Aspirin 81 mg 02/20/19 10:00 02/20/19 10:35 Ecotrin - PO 81 mg DAILY ÁLVARO Administration Clopidogrel Bisulfate 75 mg 02/20/19 10:00 02/20/19 10:40 Plavix - PO 75 mg DAILY ÁLVARO Administration Heparin Sodium (Porcine) 5,000 unit 02/19/19 22:00 02/20/19 10:35 Heparin - SQ 5,000 unit BID ÁLVARO Administration Sodium Chloride 1,000 mls @ 100 mls/hr 02/19/19 14:30 02/19/19 17:45 Normal Saline - IV 100 mls/hr ASDIR ÁLVARO Administration Insulin Aspart 1 vial 02/19/19 16:30 02/20/19 06:27 Novolog Vial Sliding Scale - SQ 2 unit ACHS ÁLVARO Administration Protocol Insulin Detemir 20 units 02/20/19 07:00 02/20/19 10:34 Levemir Vial SQ 20 units DAILY@0700 ÁLVARO Administration Metoprolol Tartrate 12.5 mg 02/19/19 22:00 02/20/19 10:39 Lopressor - PO 12.5 mg BID ÁLVARO Administration Montelukast Sodium 10 mg 02/20/19 22:00 Singulair - PO HS ÁLVARO Rosuvastatin Calcium 20 mg 02/19/19 22:00 02/19/19 22:54 Crestor - PO 20 mg HS ÁLVARO Administration Carotid Duplex/2D echo results reviewed MRI/MRA results pending Telemetry: NSR with PACs Renal/bladder US results noted ASSESSMENT/PLAN: 43 yof with PMHx of HTN, HLD, IDDM, PAD s/p left 2nd/3rd toe amputations, LLE bypass, Prior abscesses (axiallary, Lower extremity, abdominal wall) admitted with acute/subacte R MCA CVA -Acute/subacute Right MCA CVA -YOHAN, suspect from hypovolumia from poor oral intake/osmotic diuresis from hyperglycemia/ARB, r/o obstruction/retention -Hyponatremia, suspect from hypovolumia/hyperglycemia -IDDM -HTN -PAD s/p LLE bypass/Left 2nd/3rd toe amputation -HLD -Prior abscessses (axillary/LE, abdominal wall) Plan: Neurology/cardiology input noted 2d Echo/carotid results noted. Possible NICANOR if w/u neg. Follow up MRI/MRA Continue ASA/plavix/statin. BP control with amlodipine/metoprolol. Hold ARB/HCTZ. Cr improved. Renal/bladder US results noted. Per RN, patient voiding, Bladder scan and dawson if ongoing retention. Continue IVF Speech/wallow input noted, po as tolerated with aspiration precautions. Lantus 20 units daily, titrate per blood sugars and PO Intake. ISS. DVTPPX heparin PT eval Anticipate acute rehab. CM consult. Visit type - Emergency Visit Emergency Visit: Yes ED Registration Date: 02/19/19 Care time: The patient presented to the Emergency Department on the above date and was hospitalized for further evaluation of their emergent condition. - New Patient This patient is new to me today: No - Critical Care Critical Care patient: No - Discharge Referral Referred to [facility] No
[2019-02-20 11:30] LABS: MAGNESIUM 1.7 mg/dL (1.8-2.4); PHOSPHOROUS 4.9 mg/dL (2.5-4.9)
[2019-02-20] MEDS ORDERED: MAGNESIUM SULF 50% (8.12 MEQ/2 ML-1 GM VIAL) IVPB ONE (12:16)
--- NOTE | 2019-02-20 15:15 | EKG ---
Test Reason : Blood Pressure : / mmHG Vent. Rate : 080 BPM Atrial Rate : 080 BPM P-R Int : 152 ms QRS Dur : 090 ms QT Int : 408 ms P-R-T Axes : 026 030 036 degrees QTc Int : 470 ms NORMAL SINUS RHYTHM MINIMAL VOLTAGE CRITERIA FOR LVH, MAY BE NORMAL VARIANT BORDERLINE ECG WHEN COMPARED WITH ECG OF 07-AUG-2017 09:53, NO SIGNIFICANT CHANGE WAS FOUND Confirmed by MACY VAUGHAN MD ([id number]) on 02/20/2019 3:14:43 PM Referred By: Confirmed By:MACY VAUGHAN MD
[2019-02-20] MEDS: SODIUM CHLORIDE 1,000 ML IV SCH ×2 (15:16→23:05)
[2019-02-20] MEDS: ROSUVASTATIN CA 20 MG TABLET (FP) PO SCH (22:59)
[2019-02-20] MEDS: MONTELUKAST NA 10 MG TABLET PO SCH (22:59)
[2019-02-20 23:01] LABS: EPI CELLS 5.5 /HPF (0-5/HPF); URINE APPEARANCE TURBID; URINE BACTERIA >9000 /hpf (NEGATIVE); URINE BILIRUBIN NEGATIVE (NEGATIVE); URINE CASTS 17 /lpf (0-8); URINE COLOR YELLOW; URINE GLUCOSE (UA) 3+ (NEGATIVE); URINE KETONE NEGATIVE (NEGATIVE); URINE LEUK ESTERASE 3+ (NEGATIVE); URINE NITRITE NEGATIVE (NEGATIVE); URINE PROTEIN 3+ (NEGATIVE); URINE UROBILINOGEN 0.2 mg/dL (0.2-1.0); URINE WBC 425 /hpf (0-5)
--- NOTE | 2019-02-20 23:15 | PN ---
Progress Note, Physician History of Present Illness: Patient with expressive aphasia, history obtained from ED and records. 43 yof with PMHx of HTN, HLD, IDDM, PAD s/p left 2nd/3rd toe amputations, LLE bypass, Prior abscesses (axiallary, Lower extremity, abdominal wall) was reported to have slurred speech and right sided weakness 10 days ago when was taken to a hospital [place] Per records, family signed her out AMA there, and brought her to [facility] today right after getting off the flight. Currrently patient with expressive Aphasia, keeps saying "yes" to most questions. Looks comfortable but unable to assess for further ROS. As per ER staff she has had a prior stroke, was d/ivet [place] hosp[place] on Plavix , not known what w/u she had there. MRI brain repoprted with "large left frontoparietal infarct, acute". To my review there is a small amount of mass effect on ledt lat. vent. Exam- awake, alert, foollows2 step commands with left side, aphasic, strength appears improved in right leg at 2/5, remains plegic in right arm A+P: Pt. with likely hemorrhagic conversion of recent subacute infarct(not new hemorrhagic infarction with small mass effect . Her exam is actually better somewhat than yesterday, has no signs of clinical herniation. Suggest: hold all antiplatelet agents for now, repeat CT head tomorrow. - Current Medication List Current Medications: Active Medications Amlodipine Besylate (Norvasc -) 10 mg PO DAILY [facility] Last Admin: 02/20/19 10:39 Dose: 10 mg Aspirin (Ecotrin -) 81 mg PO DAILY [facility] Last Admin: 02/20/19 10:35 Dose: 81 mg Clopidogrel Bisulfate (Plavix -) 75 mg PO DAILY [facility] Last Admin: 02/20/19 10:40 Dose: 75 mg Heparin Sodium (Porcine) (Heparin -) 5,000 unit SQ BID [facility] Last Admin: 02/20/19 23:05 Dose: 5,000 unit Sodium Chloride (Normal Saline -) 1,000 mls @ 100 mls/hr IV ASDIR [facility] Last Admin: 02/20/19 15:16 Dose: Not Given Insulin Aspart (Novolog Vial Sliding Scale -) 1 vial SQ ACHS [facility]; Protocol Last Admin: 02/20/19 23:05 Dose: 10 unit Insulin Detemir (Levemir Vial) 20 units SQ DAILY@0700 [facility] Last Admin: 02/20/19 10:34 Dose: 20 units Metoprolol Tartrate (Lopressor -) 12.5 mg PO BID [facility] Last Admin: 02/20/19 22:59 Dose: 12.5 mg Montelukast Sodium (Singulair -) 10 mg PO [facility] Last Admin: 02/20/19 22:59 Dose: 10 mg Rosuvastatin Calcium (Crestor -) 20 mg PO [facility] Last Admin: 02/20/19 22:59 Dose: 20 mg - Objective Vital Signs: Vital Signs Temperature 98 F 02/20/19 14:25 Pulse Rate 82 02/20/19 14:25 Respiratory Rate 18 02/20/19 14:25 Blood Pressure 130/53 L 02/20/19 14:25 O2 Sat by Pulse Oximetry (%) 98 02/20/19 09:00 Labs: CBC, BMP 02/19/19 11:45 02/20/19 05:30 INR, PTT INR 1.04 (0.83-1.09) 02/19/19 11:45
[2019-02-20 23:23] LABS: URINE RBC 28.6 /hpf (0-4); YEAST 4+ (NEGATIVE)
[2019-02-21] MEDS: INSULIN SLIDING SCALE (NOVOLOG) 1 VIAL SQ SCH ×4 (06:55→21:12)
[2019-02-21] MEDS: INSULIN (LEVEMIR) 100 UNITS/ML UNITS SQ SCH (06:55)
[2019-02-21 07:53] LABS: BASO % 0.7 % (0-2.0); EOS % 1.9 % (0-4.5); HEMATOCRIT 29.6 % (32.4-45.2); HEMOGLOBIN 10.4 GM/dL (10.7-15.3); LYMPH % 27.1 % (8-40); MCH 28.4 pg (25.7-33.7); MCHC 35.1 g/dl (32.0-36.0); MEAN CELL VOLUME 81.1 fl (80-96); MEAN PLT VOLUME 10.5 fl (7.5-11.1); MONO % 8.7 % (3.8-10.2); NEUT % 61.6 % (42.8-82.8); PLATELET COUNT 215 K/MM3 (134-434); RBC 3.65 M/mm3 (3.60-5.2); RDW 13.6 % (11.6-15.6); WHITE BLOOD COUNT 8.3 K/mm3 (4.0-10.0)
[2019-02-21 08:27] LABS: ANION GAP 10 MMOL/L (8-16); BLOOD UREA NITROGEN 21 mg/dL (7-18); CALCIUM 8.2 mg/dL (8.5-10.1); CHLORIDE 107 mmol/L (98-107); CO2 21 mmol/L (21-32); CREATININE 1.6 mg/dL (0.55-1.3); GLUCOSE,RANDOM 270 mg/dL (74-106); MAGNESIUM 2.3 mg/dL (1.8-2.4); PHOSPHOROUS 3.4 mg/dL (2.5-4.9); POTASSIUM 4.2 mmol/L (3.5-5.1); SODIUM 138 mmol/L (136-145)
[2019-02-21] MEDS: SODIUM CHLORIDE 1,000 ML IV SCH (10:06)
[2019-02-21] MEDS: HEPARIN NA (PORCINE) 5,000 UNITS/ML 1ML VIAL SQ SCH ×2 (10:08→21:10)
[2019-02-21] MEDS: METOPROLOL TARTRATE 25 MG TABLET (FP) PO SCH ×2 (10:08→21:11)
[2019-02-21] MEDS: amLODIPine BESYLATE 10 MG TABLET (FP) PO SCH (10:09)
--- NOTE | 2019-02-21 11:49 | PN ---
Progress Note, Physician Chief Complaint: MRI/A showed stenosis L MCA. Hemorrhagic conversion, antiplatelet agents held. History of Present Illness: TELE: NSR, no AF - Current Medication List Current Medications: Active Medications Amlodipine Besylate (Norvasc -) 10 mg PO DAILY [facility] Last Admin: 02/21/19 10:09 Dose: 10 mg Aspirin (Ecotrin -) 81 mg PO DAILY [facility] Last Admin: 02/20/19 10:35 Dose: 81 mg Clopidogrel Bisulfate (Plavix -) 75 mg PO DAILY [facility] Last Admin: 02/20/19 10:40 Dose: 75 mg Heparin Sodium (Porcine) (Heparin -) 5,000 unit SQ BID [facility] Last Admin: 02/21/19 10:08 Dose: 5,000 unit Sodium Chloride (Normal Saline -) 1,000 mls @ 100 mls/hr IV ASDIR [facility] Last Admin: 02/21/19 10:06 Dose: 100 mls/hr Insulin Aspart (Novolog Vial Sliding Scale -) 1 vial SQ [facility]; Protocol Last Admin: 02/21/19 11:47 Dose: 6 unit Insulin Detemir (Levemir Vial) 20 units SQ DAILY@0700 [facility] Last Admin: 02/21/19 06:55 Dose: 20 units Metoprolol Tartrate (Lopressor -) 12.5 mg PO BID [facility] Last Admin: 02/21/19 10:08 Dose: 12.5 mg Montelukast Sodium (Singulair -) 10 mg PO [facility] Last Admin: 02/20/19 22:59 Dose: 10 mg Rosuvastatin Calcium (Crestor -) 20 mg PO [facility] Last Admin: 02/20/19 22:59 Dose: 20 mg - Objective Vital Signs: Vital Signs Temperature 99.2 F 02/21/19 09:27 Pulse Rate 84 02/21/19 09:27 Respiratory Rate 20 02/21/19 09:27 Blood Pressure 152/78 02/21/19 09:27 O2 Sat by Pulse Oximetry (%) 98 02/21/19 09:00 Constitutional: Yes: Calm Cardiovascular: Yes: Regular Rate and Rhythm Respiratory: Yes: CTA Bilaterally Gastrointestinal: Yes: Soft Edema: No Neurological: Yes: Other (aphasia, RUE paralysis) Labs: CBC, BMP 02/21/19 06:30 02/21/19 06:30 INR, PTT INR 1.04 (0.83-1.09) 02/19/19 11:45 - ....Imaging EKG: Image Reviewed Problem List - Problems (1) Acute ischemic left MCA stroke Code(s): I63.512 - CEREB INFRC D/T UNSP OCCLS OR STENOS OF LEFT MID CEREB ART (2) Diabetes Code(s): E11.9 - TYPE 2 DIABETES MELLITUS WITHOUT COMPLICATIONS Qualifiers: Diabetes mellitus type: type 2 Diabetes mellitus assisted insulin use: with assisted use Diabetes mellitus complication status: with circulatory complication (3) HTN (hypertension) Code(s): I10 - ESSENTIAL (PRIMARY) HYPERTENSION Qualifiers: Hypertension type: essential hypertension Qualified Code(s): I10 - Essential (primary) hypertension (4) PAD (peripheral artery disease) Code(s): I73.9 - PERIPHERAL VASCULAR DISEASE, UNSPECIFIED Assessment/Plan IMP: 1. Acute/subacute L. MCA CVA with hemorrhagic conversion, L.MCA severe stenosis. 2. Chronic HTN 3. IDDM 4. Reported PAD 5. Renal insuffiency REC: 1. Continue tele to r/o occult AF 2. Hold antiplatelet agents. 3. Hypercoag w/u as per Neuro 4. If no clear source identified, NICANOR recommended. 5. Continue statin for LDL goal 70mg /dl 6. BP parameters as per Neuro
--- NOTE | 2019-02-21 14:29 | PN ---
Physical Exam: SUBJECTIVE: Patient seen and examined, no complaints. Keeps nodding to every question, difficult to assess ROS. OBJECTIVE: Vital Signs Period Temp Pulse Resp BP Sys/Cohen Pulse Ox Last 24 Hr 98 F-99.3 F 78-86 18-20 111-152/53-79 98-98 Intake & Output 02/18/19 02/19/19 02/20/19 02/21/19 23:59 23:59 23:59 23:59 Intake Total 1300 1100 Output Total 1300 Balance 1300 -200 Weight 185 lb 185 lb GENERAL: responds to name, no acute distress Neck: soft, supple, no JVD CVS:S1S2 regular Chest: decreased effort, limited exam, no rales or wheezing noted Abdomen:soft, obese, NT, no suprapubic or CVA tenderness Extremities: no edema Neuro: AA, responds to name, unable to check for orientation, Right facial droop , RUE 0/5, RLE 1/2 Laboratory Results - last 24 hr 02/19/19 02/19/19 02/20/19 11:45 22:50 17:58 WBC RBC Hgb Hct MCV MCH MCHC RDW Plt Count MPV Absolute Neuts (auto) Neutrophils % Lymphocytes % Monocytes % Eosinophils % Basophils % Nucleated RBC % Sodium Potassium Chloride Carbon Dioxide Anion Gap BUN Creatinine Creat Clearance w eGFR POC Glucometer 309 Random Glucose Hemoglobin A1c % 10.7 H Calcium Phosphorus Magnesium Urine Color Yellow Urine Appearance Turbid Urine pH 5.0 Ur Specific [place] 1.012 Urine Protein 3+ H Urine Glucose (UA) 3+ H Urine Ketones Negative Urine Blood 1+ H Urine Nitrite Negative Urine Bilirubin Negative Urine Urobilinogen 0.2 Ur Leukocyte Esterase 3+ H Urine WBC (Auto) 425 Urine RBC (Auto) 28.6 Urine Casts (Auto) 17 U Pathogenic Cast Auto None seen U Epithel Cells (Auto) 5.5 Urine Bacteria (Auto) >9000 Urine Yeast (Auto) 4+ 02/20/19 02/21/19 02/21/19 23:02 05:52 06:30 WBC 8.3 RBC 3.65 Hgb 10.4 L Hct 29.6 L MCV 81.1 MCH 28.4 MCHC 35.1 RDW 13.6 Plt Count 215 MPV 10.5 Absolute Neuts (auto) 5.1 Neutrophils % 61.6 Lymphocytes % 27.1 D Monocytes % 8.7 Eosinophils % 1.9 Basophils % 0.7 Nucleated RBC % 0 Sodium Potassium Chloride Carbon Dioxide Anion Gap BUN Creatinine Creat Clearance w eGFR POC Glucometer 384 283 Random Glucose Hemoglobin A1c % Calcium Phosphorus Magnesium Urine Color Urine Appearance Urine pH Ur Specific [place] Urine Protein Urine Glucose (UA) Urine Ketones Urine Blood Urine Nitrite Urine Bilirubin Urine Urobilinogen Ur Leukocyte Esterase Urine WBC (Auto) Urine RBC (Auto) Urine Casts (Auto) U Pathogenic Cast Auto U Epithel Cells (Auto) Urine Bacteria (Auto) Urine Yeast (Auto) 02/21/19 02/21/19 06:30 11:44 WBC RBC Hgb Hct MCV MCH MCHC RDW Plt Count MPV Absolute Neuts (auto) Neutrophils % Lymphocytes % Monocytes % Eosinophils % Basophils % Nucleated RBC % Sodium 138 Potassium 4.2 Chloride 107 Carbon Dioxide 21 Anion Gap 10 BUN 21 H Creatinine 1.6 H Creat Clearance w eGFR 35.35 POC Glucometer 293 Random Glucose 270 H Hemoglobin A1c % Calcium 8.2 L Phosphorus 3.4 Magnesium 2.3 Urine Color Urine Appearance Urine pH Ur Specific [place] Urine Protein Urine Glucose (UA) Urine Ketones Urine Blood Urine Nitrite Urine Bilirubin Urine Urobilinogen Ur Leukocyte Esterase Urine WBC (Auto) Urine RBC (Auto) Urine Casts (Auto) U Pathogenic Cast Auto U Epithel Cells (Auto) Urine Bacteria (Auto) Urine Yeast (Auto) Active Medications Home Medications Medication Instructions Recorded Insulin Glargine,Hum.rec.anlog 40 unit SQ HS 08/07/17 [Basaglar Kwikpen U-100] metFORMIN HCL [Glucophage -] 1,000 mg PO BID 08/07/17 Aspirin [Aspirin EC] 81 mg PO DAILY 06/09/18 Gabapentin 600 mg PO BID 06/09/18 Glipizide [Glipizide ER] 10 mg PO DAILY 06/09/18 Montelukast Sodium [Singulair] 10 mg PO DAILY 06/09/18 Amlodipine Besylate [Norvasc -] 10 mg PO DAILY 02/19/19 Clopidogrel Bisulfate [Plavix] 75 mg PO DAILY 02/19/19 Hydrochlorothiazide [Hctz -] 25 mg PO DAILY 02/19/19 Simvastatin [Zocor] 10 mg PO HS 02/19/19 Active Medications Amlodipine Besylate (Norvasc -) 10 mg PO DAILY [facility] Last Admin: 02/21/19 10:09 Dose: 10 mg Aspirin (Ecotrin -) 81 mg PO DAILY [facility] Last Admin: 02/20/19 10:35 Dose: 81 mg Clopidogrel Bisulfate (Plavix -) 75 mg PO DAILY [facility] Last Admin: 02/20/19 10:40 Dose: 75 mg Heparin Sodium (Porcine) (Heparin -) 5,000 unit SQ BID [facility] Last Admin: 02/21/19 10:08 Dose: 5,000 unit Sodium Chloride (Normal Saline -) 1,000 mls @ 100 mls/hr IV ASDIR [facility] Last Admin: 02/21/19 10:06 Dose: 100 mls/hr Insulin Aspart (Novolog Vial Sliding Scale -) 1 vial SQ ACHS [facility]; Protocol Last Admin: 02/21/19 11:47 Dose: 6 unit Insulin Detemir (Levemir Vial) 10 units SQ ONCE ONE Stop: 02/21/19 14:31 Insulin Detemir (Levemir Vial) 30 units SQ DAILY@0700 [facility] Metoprolol Tartrate (Lopressor -) 12.5 mg PO BID [facility] Last Admin: 02/21/19 10:08 Dose: 12.5 mg Montelukast Sodium (Singulair -) 10 mg PO HS [facility] Last Admin: 02/20/19 22:59 Dose: 10 mg Rosuvastatin Calcium (Crestor -) 20 mg PO HS [facility] Last Admin: 02/20/19 22:59 Dose: 20 mg ASSESSMENT/PLAN: 43 yof with PMHx of HTN, HLD, IDDM, PAD s/p left 2nd/3rd toe amputations, LLE bypass, Prior abscesses (axiallary, Lower extremity, abdominal wall) admitted with acute/subacte R MCA CVA -Acute/subacute Right MCA CVA -Right MCA stenosis -YOHAN, suspect from hypovolumia from poor oral intake/osmotic diuresis from hyperglycemia/ARB, +/- retention -Hyponatremia, suspect from hypovolumia/hyperglycemia -Urinary retention with complicated UTI -IDDM, poorly controlled -HTN -PAD s/p LLE bypass/Left 2nd/3rd toe amputation -HLD -Prior abscessses (axillary/LE, abdominal wall) Plan: Neurology/cardiology input noted MRI/MRA Noted, discussed with Dr. Nation, repeat Head today. Hold ASA/Plavix for now. Neuro checks. 2D Echo/carotid results noted. Possible NICANOR if w/u neg. Continue Statin. BP control with amlodipine/metoprolol. Increase metoprolol to 25 mg BID. Hold ARB/HCTZ. Lopez placed given retention. ua noted. start levaquin, follow up urine cultures. Voiding trial once working with PT. D/c IVF. Tolerating diet. Speech/wallow input noted, po as tolerated with aspiration precautions. Increase Levemir to 30 units daily, titrate per blood sugars and PO Intake. ISS. DVTPPX heparin PT eval Anticipate acute rehab. CM consult. Plan discussed with nursing, all questions answered. Visit type - Emergency Visit Emergency Visit: Yes ED Registration Date: 02/19/19 Care time: The patient presented to the Emergency Department on the above date and was hospitalized for further evaluation of their emergent condition. - New Patient This patient is new to me today: No - Critical Care Critical Care patient: No - Discharge Referral Referred to [facility] Med P.C.: No
[2019-02-21] MEDS ORDERED: INSULIN (LEVEMIR) 100 UNITS/ML UNITS SQ ONE (14:30)
--- NOTE | 2019-02-21 18:20 | PN ---
Progress Note (short form) - Note Progress Note: Pt.s neurologic examk remains unchanged from lat night. Repeat CT head today- there is NO hemorrhage/hemorrhagic conversion of infarction in left MCA territory. Would resume ASA/Plavix w/u in progress.
[2019-02-21] MEDS: ROSUVASTATIN CA 20 MG TABLET (FP) PO SCH (21:10)
[2019-02-21] MEDS: MONTELUKAST NA 10 MG TABLET PO SCH (21:10)
[2019-02-22] MEDS: INSULIN SLIDING SCALE (NOVOLOG) 1 VIAL SQ SCH ×4 (06:01→21:11)
[2019-02-22] MEDS ORDERED: INSULIN (LEVEMIR) 100 UNITS/ML UNITS SQ SCH (07:00)
[2019-02-22 07:05] LABS: INR 1.01 (0.83-1.09); PROTHROMBIN TIME (PATIENT) 11.9 SEC (9.7-13.0)
[2019-02-22 07:07] LABS: BASO % 0.7 % (0-2.0); EOS % 1.9 % (0-4.5); HEMATOCRIT 30.8 % (32.4-45.2); HEMOGLOBIN 10.8 GM/dL (10.7-15.3); MCH 28.5 pg (25.7-33.7); MEAN CELL VOLUME 81.5 fl (80-96); MEAN PLT VOLUME 10.2 fl (7.5-11.1); MONO % 7.9 % (3.8-10.2); NEUT % 59.5 % (42.8-82.8); PLATELET COUNT 236 K/MM3 (134-434); RBC 3.77 M/mm3 (3.60-5.2); WHITE BLOOD COUNT 8.4 K/mm3 (4.0-10.0)
[2019-02-22 07:21] LABS: ALBUMIN 2.1 g/dl (3.4-5.0); ALK PHOS 84 U/L (45-117); ANION GAP 6 MMOL/L (8-16); BILIRUBIN,TOTAL 0.3 mg/dL (0.2-1); BLOOD UREA NITROGEN 14 mg/dL (7-18); CALCIUM 8.5 mg/dL (8.5-10.1); CHLORIDE 106 mmol/L (98-107); CO2 23 mmol/L (21-32); CREATININE 1.4 mg/dL (0.55-1.3); GLUCOSE,RANDOM 265 mg/dL (74-106); POTASSIUM 4.5 mmol/L (3.5-5.1); SGOT/AST 14 U/L (15-37); SGPT/ALT 15 U/L (13-61); SODIUM 136 mmol/L (136-145); TOT PROT 5.8 g/dl (6.4-8.2)
[2019-02-22] MEDS: HEPARIN NA (PORCINE) 5,000 UNITS/ML 1ML VIAL SQ SCH ×2 (09:21→21:09)
[2019-02-22] MEDS: CLOPIDOGREL BISULFATE 75 MG TABLET (FP) PO SCH (09:21)
[2019-02-22] MEDS: amLODIPine BESYLATE 10 MG TABLET (FP) PO SCH (09:21)
[2019-02-22] MEDS: ASPIRIN COATED 81 MG TABLET.EC PO SCH (09:21)
[2019-02-22] MEDS: METOPROLOL TARTRATE 25 MG TABLET (FP) PO SCH ×2 (09:21→21:10)
--- NOTE | 2019-02-22 09:39 | PN ---
Progress Note, Physician Chief Complaint: seen and examined. TELE: No AF Neuro note and repeat head CT noted. No Hemorrhagic conversion. - Current Medication List Current Medications: Active Medications Amlodipine Besylate (Norvasc -) 10 mg PO DAILY [facility] Last Admin: 02/22/19 09:21 Dose: 10 mg Aspirin (Ecotrin -) 81 mg PO DAILY [facility] Last Admin: 02/22/19 09:21 Dose: 81 mg Clopidogrel Bisulfate (Plavix -) 75 mg PO DAILY [facility] Last Admin: 02/22/19 09:21 Dose: 75 mg Heparin Sodium (Porcine) (Heparin -) 5,000 unit SQ BID [facility] Last Admin: 02/22/19 09:21 Dose: 5,000 unit Insulin Aspart (Novolog Vial Sliding Scale -) 1 vial SQ [facility]; Protocol Last Admin: 02/22/19 06:01 Dose: 6 unit Insulin Detemir (Levemir Vial) 30 units SQ DAILY@0700 [facility] Last Admin: 02/22/19 07:13 Dose: 30 units Metoprolol Tartrate (Lopressor -) 25 mg PO BID [facility] Last Admin: 02/22/19 09:21 Dose: 25 mg Montelukast Sodium (Singulair -) 10 mg PO [facility] Last Admin: 02/21/19 21:10 Dose: 10 mg Rosuvastatin Calcium (Crestor -) 20 mg PO [facility] Last Admin: 02/21/19 21:10 Dose: 20 mg - Objective Vital Signs: Vital Signs Temperature 98.3 F 02/22/19 08:13 Pulse Rate 88 02/22/19 08:13 Respiratory Rate 20 02/22/19 08:13 Blood Pressure 147/71 02/22/19 08:13 O2 Sat by Pulse Oximetry (%) 100 02/22/19 08:05 Constitutional: Yes: Calm Cardiovascular: Yes: Regular Rate and Rhythm Respiratory: Yes: CTA Bilaterally Gastrointestinal: Yes: Soft Edema: No Neurological: Yes: Other (RUE paralysis, aphasia) Labs: CBC, BMP 02/22/19 05:30 02/22/19 05:30 INR, PTT INR 1.01 (0.83-1.09) 02/22/19 05:30 Laboratory Tests 02/19/19 02/20/19 02/22/19 11:45 05:30 05:30 WBC 8.4 Hgb 10.8 Hct 30.8 L Plt Count 236 Sodium 134 L Potassium 3.9 BUN 20 H Creatinine 1.9 H AST ALT Alkaline Phosphatase Triglycerides 417 H 02/22/19 05:30 WBC Hgb Hct Plt Count Sodium 136 Potassium 4.5 BUN 14 Creatinine 1.4 H AST 14 L ALT 15 Alkaline Phosphatase 84 Triglycerides - ....Imaging EKG: Image Reviewed Problem List - Problems (1) Acute ischemic left MCA stroke Code(s): I63.512 - CEREB INFRC D/T UNSP OCCLS OR STENOS OF LEFT MID CEREB ART (2) Diabetes Code(s): E11.9 - TYPE 2 DIABETES MELLITUS WITHOUT COMPLICATIONS Qualifiers: Diabetes mellitus type: type 2 Diabetes mellitus alf insulin use: with alf use Diabetes mellitus complication status: with circulatory complication (3) HTN (hypertension) Code(s): I10 - ESSENTIAL (PRIMARY) HYPERTENSION Qualifiers: Hypertension type: essential hypertension Qualified Code(s): I10 - Essential (primary) hypertension (4) PAD (peripheral artery disease) Code(s): I73.9 - PERIPHERAL VASCULAR DISEASE, UNSPECIFIED Assessment/Plan IMP: 1. Acute/subacute L. MCA CVA : L.MCA severe stenosis. 2. Chronic HTN 3. IDDM 4. Reported PAD 5. Renal insuffiency REC: 1. Continue tele to r/o occult AF 2. Antiplatelet as per Neuro 3. Hypercoag w/u as per Neuro 4. If no clear source identified, NICANOR recommended. 5. Continue statin for LDL goal 70mg /dl 6. BP parameters as per Neuro
--- NOTE | 2019-02-22 10:22 | PN ---
Physical Exam: SUBJECTIVE: Patient seen and examined, follows simple commands but keeps nodding 'yes' to all questions, limited ROS. OBJECTIVE: Vital Signs Period Temp Pulse Resp BP Sys/Cohen Pulse Ox Last 24 Hr 98.3 F-99.0 F 79-98 20-20 143-158/71-84 100-100 Intake & Output 02/19/19 02/20/19 02/21/19 02/22/19 23:59 23:59 23:59 23:59 Intake Total 1300 1520 220 Output Total 2500 Balance 1300 -980 220 Weight 185 lb 185 lb 185 lb GENERAL: The patient is awake, alert, and fully oriented, in no acute distress. HEAD: Normal with no signs of trauma. EYES: PERRL, extraocular movements intact, sclera anicteric, conjunctiva clear. No ptosis. ENT: Ears normal, nares patent, oropharynx clear without exudates, moist mucous membranes. NECK: Trachea midline, full range of motion, supple. LUNGS: Breath sounds equal, clear to auscultation bilaterally, no wheezes, no crackles, no accessory muscle use. HEART: Regular rate and rhythm, S1, S2 without murmur, rub or gallop. ABDOMEN: Soft, nontender, nondistended, normoactive bowel sounds, no guarding, no rebound, no hepatosplenomegaly, no masses. EXTREMITIES: 2+ pulses, warm, well-perfused, no edema. NEUROLOGICAL: Cranial nerves II through XII grossly intact. Normal speech, gait not observed. PSYCH: Normal mood, normal affect. SKIN: Warm, dry, normal turgor, no rashes or lesions noted Laboratory Results - last 24 hr 02/21/19 02/21/19 02/21/19 11:44 17:40 21:04 WBC RBC Hgb Hct MCV MCH MCHC RDW Plt Count MPV Absolute Neuts (auto) Neutrophils % Lymphocytes % Monocytes % Eosinophils % Basophils % Nucleated RBC % PT with INR INR Sodium Potassium Chloride Carbon Dioxide Anion Gap BUN Creatinine Creat Clearance w eGFR POC Glucometer 293 274 348 Random Glucose Calcium Total Bilirubin AST ALT Alkaline Phosphatase Total Protein Albumin 02/22/19 02/22/19 02/22/19 05:16 05:30 05:30 WBC 8.4 RBC 3.77 Hgb 10.8 Hct 30.8 L MCV 81.5 MCH 28.5 MCHC 35.0 RDW 14.0 Plt Count 236 MPV 10.2 Absolute Neuts (auto) 5.0 Neutrophils % 59.5 Lymphocytes % 30.0 Monocytes % 7.9 Eosinophils % 1.9 Basophils % 0.7 Nucleated RBC % 0 PT with INR 11.90 INR 1.01 Sodium Potassium Chloride Carbon Dioxide Anion Gap BUN Creatinine Creat Clearance w eGFR POC Glucometer 251 Random Glucose Calcium Total Bilirubin AST ALT Alkaline Phosphatase Total Protein Albumin 02/22/19 05:30 WBC RBC Hgb Hct MCV MCH MCHC RDW Plt Count MPV Absolute Neuts (auto) Neutrophils % Lymphocytes % Monocytes % Eosinophils % Basophils % Nucleated RBC % PT with INR INR Sodium 136 Potassium 4.5 Chloride 106 Carbon Dioxide 23 Anion Gap 6 L BUN 14 Creatinine 1.4 H Creat Clearance w eGFR 41.24 POC Glucometer Random Glucose 265 H Calcium 8.5 Total Bilirubin 0.3 AST 14 L ALT 15 Alkaline Phosphatase 84 Total Protein 5.8 L Albumin 2.1 L Active Medications Generic Name Dose Route Start Last Admin Trade Name Freq PRN Reason Stop Dose Admin Amlodipine Besylate 10 mg 02/19/19 15:15 02/22/19 09:21 Norvasc - PO 10 mg DAILY [facility] Administration Aspirin 81 mg 02/20/19 10:00 02/22/19 09:21 Ecotrin - PO 81 mg DAILY [facility] Administration Clopidogrel Bisulfate 75 mg 02/20/19 10:00 02/22/19 09:21 Plavix - PO 75 mg DAILY [facility] Administration Heparin Sodium (Porcine) 5,000 unit 02/19/19 22:00 02/22/19 09:21 Heparin - SQ 5,000 unit BID [facility] Administration Insulin Aspart 1 vial 02/19/19 16:30 02/22/19 06:01 Novolog Vial Sliding Scale - SQ 6 unit ACHS [facility] Administration Protocol Insulin Detemir 30 units 02/22/19 07:00 02/22/19 07:13 Levemir Vial SQ 30 units DAILY@0700 [facility] Administration Metoprolol Tartrate 25 mg 02/21/19 14:35 02/22/19 09:21 Lopressor - PO 25 mg BID [facility] Administration Montelukast Sodium 10 mg 02/20/19 22:00 02/21/19 21:10 Singulair - PO 10 mg HS [facility] Administration Rosuvastatin Calcium 20 mg 02/19/19 22:00 02/21/19 21:10 Crestor - PO 20 mg HS [facility] Administration CT brain 02/21 results reviewed Telemetry: sinus, no arrhythmia noted ASSESSMENT/PLAN: 43 yof with PMHx of HTN, HLD, IDDM, PAD s/p left 2nd/3rd toe amputations, LLE bypass, Prior abscesses (axiallary, Lower extremity, abdominal wall) admitted with acute/subacte R MCA CVA -Acute/subacute Right MCA CVA -Right MCA stenosis -YOHAN, suspect from hypovolumia from poor oral intake/osmotic diuresis from hyperglycemia/ARB, +/- retention -Hyponatremia, suspect from hypovolumia/hyperglycemia -Urinary retention with complicated UTI -IDDM, poorly controlled -HTN -PAD s/p LLE bypass/Left 2nd/3rd toe amputation -HLD -Prior abscessses (axillary/LE, abdominal wall) Plan: Neurology/cardiology input noted MRI/MRA Noted, discussed with Dr. Nation, repeat CT head no evidence of haemorrhage. Resume ASA/plavix per neurology recs. Exam overall unchanged except some improvement in RLE power. Neuro checks. 2D Echo/carotid results noted. NICANOR per cardiology. Continue Statin. BP control with amlodipine/metoprolol. Increased metoprolol to 25 mg BID. Hold ARB/HCTZ. Resume per renal function. Lopez placed given retention. ua noted. levaquin day 2, follow up urine cultures. Voiding trial once working with PT. Tolerating diet. Off IVF. Speech/wallow input noted, po as tolerated with aspiration precautions. Increase Levemir to 35 units daily, titrate per blood sugars and PO Intake. ISS. DVTPPX heparin PT eval Anticipate acute rehab. CM consult. Dispo to acute rehab in 24 hours if disposition arranged and no new events. Plan discussed with nursing, all questions answered. Visit type - Emergency Visit Emergency Visit: Yes ED Registration Date: 02/19/19 Care time: The patient presented to the Emergency Department on the above date and was hospitalized for further evaluation of their emergent condition. - New Patient This patient is new to me today: No - Critical Care Critical Care patient: No - Discharge Referral Referred to [facility] Med P.C.: No
--- NOTE | 2019-02-22 12:47 | PN ---
Progress Note (short form) - Note Progress Note: 43 yof with PMHx of HTN, HLD, IDDM, PAD s/p left 2nd/3rd toe amputations, LLE bypass, Prior abscesses (axiallary, Lower extremity, abdominal wall) was reported to have slurred speech and right sided weakness 10 days ago when was taken to a hospital in . Per records, family signed her out AMA there, and brought her to [facility] today right after getting off the flight. Currrently patient with expressive Aphasia, keeps saying "yes" to most questions. Looks comfortable but unable to assess for further ROS. As per ER staff she has had a prior stroke, was d/ivet from hosp.in DR on Plavix , not known what w/u she had there. Impression: Acute large hemorrhagic infarction in the territory of the left middle cerebral artery involving predominantly the posterior aspect of the left frontal lobe and left the parietal lobe with minimal mass effect on the left lateral ventricle without significant shift or hydrocephalus.. Scattered the periventricular old small vessel infarcts sequela of hypertension or small vessel atherosclerosis. Vital Signs Temperature 98.3 F 02/22/19 08:13 Pulse Rate 88 02/22/19 08:13 Respiratory Rate 20 02/22/19 08:13 Blood Pressure 147/71 02/22/19 08:13 O2 Sat by Pulse Oximetry (%) 100 02/22/19 08:05 CBCD WBC 8.4 K/mm3 (4.0-10.0) 02/22/19 05:30 RBC 3.77 M/mm3 (3.60-5.2) 02/22/19 05:30 Hgb 10.8 GM/dL (10.7-15.3) 02/22/19 05:30 Hct 30.8 % (32.4-45.2) L 02/22/19 05:30 MCV 81.5 fl (80-96) 02/22/19 05:30 MCHC 35.0 g/dl (32.0-36.0) 02/22/19 05:30 RDW 14.0 % (11.6-15.6) 02/22/19 05:30 Plt Count 236 K/MM3 (134-434) 02/22/19 05:30 MPV 10.2 fl (7.5-11.1) 02/22/19 05:30 CMP Sodium 136 mmol/L (136-145) 02/22/19 05:30 Potassium 4.5 mmol/L (3.5-5.1) 02/22/19 05:30 Chloride 106 mmol/L (98-107) 02/22/19 05:30 Carbon Dioxide 23 mmol/L (21-32) 02/22/19 05:30 Anion Gap 6 MMOL/L (8-16) L 02/22/19 05:30 BUN 14 mg/dL (7-18) 02/22/19 05:30 Creatinine 1.4 mg/dL (0.55-1.3) H 02/22/19 05:30 Creat Clearance w eGFR 41.24 (>60) 02/22/19 05:30 Calcium 8.5 mg/dL (8.5-10.1) 02/22/19 05:30 Total Bilirubin 0.3 mg/dL (0.2-1) 02/22/19 05:30 AST 14 U/L (15-37) L 02/22/19 05:30 ALT 15 U/L (13-61) 02/22/19 05:30 Alkaline Phosphatase 84 U/L (45-117) 02/22/19 05:30 Total Protein 5.8 g/dl (6.4-8.2) L 02/22/19 05:30 Albumin 2.1 g/dl (3.4-5.0) L 02/22/19 05:30 Exam- awake, alert, follows2 step commands with left side, aphasic, strength appears improved in right leg at 2/5, remains plegic in right arm A+P: L MCA stroke with severe L mCA stenosis , residual right hemiplegia and aphasia setting of poorly controlled DM Doppler-no Hemodynamic stenosis ASA, statin , DM control ECHO, NICANOR , snf holter -card consult + VASC RF though would also send hypercoag WALDEN -protein C, S, Anti DS DNA, Antiphospholipd AB, LUPUS AG, Antithrombin 111, Prothrombin gene mutation B12, TSH, A1c >10 -suggest endocrine consult for DM management should see NEUROVASCULAR as outpt, MARTÍN , DR CHRISTIANA DIALLO
--- NOTE | 2019-02-22 14:04 | PN ---
Progress Note, GARMENT LINER - Note Progress Note: Selected Entries 02/22/19 02/22/19 02/22/19 02:00 06:00 08:13 Breakfast Diet Tolerated Temperature 98.5 F 98.7 F 98.3 F 02/22/19 11:41 Breakfast 75% Diet Tolerated Well Temperature Laboratory Tests 02/22/19 05:30 WBC 8.4 Yes/No confusion persists with most responses still yes- Follows 1 step commands intermittently but nbot 2 step. Seems to comprehend more than she demonstrates. Oral/verbal/limb apraxia. Perseverates on "Water" Able to point accurately to 4 way discrim communication board that I constyructed with picture/single words 100% but not just single words and unable to use printed complex Comm board. Able to write name but single words. Unable to repeat/name on word level. Tolerating diet. IMP: Mod to Severe Expressive/receptive Aphasia/Apraxia with poor (+) functional communication. Excellent candidate for Intensive Acute rehab. placement. Trial soft reg diet/thin liquid
[2019-02-22] MEDS ORDERED: INSULIN (LEVEMIR) 100 UNITS/ML UNITS SQ ONE (17:14)
[2019-02-22] MEDS: ROSUVASTATIN CA 20 MG TABLET (FP) PO SCH (21:09)
[2019-02-22] MEDS: MONTELUKAST NA 10 MG TABLET PO SCH (21:10)
[2019-02-23] MEDS ORDERED: SODIUM CHLORIDE 1,000 ML IV SCH (00:01)
[2019-02-23] MEDS: INSULIN (LEVEMIR) 100 UNITS/ML UNITS SQ SCH ×2 (06:17→11:33)
[2019-02-23] MEDS: INSULIN SLIDING SCALE (NOVOLOG) 1 VIAL SQ SCH ×4 (06:17→21:31)
[2019-02-23 07:43] LABS: ANION GAP 9 MMOL/L (8-16); BLOOD UREA NITROGEN 13 mg/dL (7-18); CALCIUM 8.7 mg/dL (8.5-10.1); CHLORIDE 102 mmol/L (98-107); CO2 24 mmol/L (21-32); CREATININE 1.2 mg/dL (0.55-1.3); GLUCOSE,RANDOM 219 mg/dL (74-106); POTASSIUM 4.3 mmol/L (3.5-5.1); SODIUM 135 mmol/L (136-145)
[2019-02-23] MEDS: HEPARIN NA (PORCINE) 5,000 UNITS/ML 1ML VIAL SQ SCH ×2 (09:27→21:24)
[2019-02-23] MEDS: METOPROLOL TARTRATE 25 MG TABLET (FP) PO SCH ×2 (09:28→21:24)
[2019-02-23] MEDS: amLODIPine BESYLATE 10 MG TABLET (FP) PO SCH (09:28)
--- NOTE | 2019-02-23 10:58 | PN ---
Physical Exam: SUBJECTIVE: Patient seen and examined, better participation today, Initially nodding yes, but when specifically asked if its a yes or no, able to state no to pain or discomfort. OBJECTIVE: Vital Signs Period Temp Pulse Resp BP Sys/Cohen Pulse Ox Last 24 Hr 98.3 F-99.1 F 77-88 18-18 124-145/69-77 99-99 Intake & Output 02/20/19 02/21/19 02/22/19 02/23/19 23:59 23:59 23:59 23:59 Intake Total 1300 1520 1370 545 Output Total 2500 2000 1000 Balance 0780 -980 -630 -455 Weight 185 lb 185 lb GENERAL: responds to name, no acute distress Neck: soft, supple, no JVD CVS:S1S2 regular Chest: decreased effort, limited exam, no rales or wheezing noted Abdomen:soft, obese, NT, no suprapubic or CVA tenderness Extremities: no edema Neuro: AA, responds to name, unable to check for orientation, Right facial droop , RUE 0/5, RLE 3/2, RLE power improved Laboratory Results - last 24 hr 02/22/19 02/22/19 02/22/19 11:38 17:09 21:07 Sodium Potassium Chloride Carbon Dioxide Anion Gap BUN Creatinine Creat Clearance w eGFR POC Glucometer 371 406 277 Random Glucose Calcium 02/23/19 02/23/19 05:19 05:30 Sodium 135 L Potassium 4.3 Chloride 102 Carbon Dioxide 24 Anion Gap 9 BUN 13 Creatinine 1.2 Creat Clearance w eGFR 49.27 POC Glucometer 221 Random Glucose 219 H Calcium 8.7 Active Medications Generic Name Dose Route Start Last Admin Trade Name Rachael PRN Reason Stop Dose Admin Amlodipine Besylate 10 mg 02/19/19 15:15 02/23/19 09:28 Norvasc - PO 10 mg DAILY ÁLVARO Administration Aspirin 81 mg 02/20/19 10:00 02/22/19 09:21 Ecotrin - PO 81 mg DAILY ÁLVARO Administration Clopidogrel Bisulfate 75 mg 02/20/19 10:00 02/22/19 09:21 Plavix - PO 75 mg DAILY ÁLVARO Administration Heparin Sodium (Porcine) 5,000 unit 02/19/19 22:00 02/23/19 09:27 Heparin - SQ Not Given BID [facility] Sodium Chloride 1,000 mls @ 75 mls/hr 02/23/19 00:01 02/23/19 00:35 Normal Saline - IV 75 mls/hr ASDIR ÁLVARO Administration Insulin Aspart 1 vial 02/19/19 16:30 02/23/19 06:17 Novolog Vial Sliding Scale - SQ Not Given ACHS [facility] Protocol Insulin Detemir 35 units 02/23/19 07:00 02/23/19 06:17 Levemir Vial SQ Not Given DAILY@0700 [facility] Metoprolol Tartrate 25 mg 02/21/19 14:35 02/23/19 09:28 Lopressor - PO 25 mg BID ÁLVARO Administration Montelukast Sodium 10 mg 02/20/19 22:00 02/22/19 21:10 Singulair - PO 10 mg HS ÁLVARO Administration Rosuvastatin Calcium 20 mg 02/19/19 22:00 02/22/19 21:09 Crestor - PO 20 mg HS ÁLVARO Administration ASSESSMENT/PLAN: 43 yof with PMHx of HTN, HLD, IDDM, PAD s/p left 2nd/3rd toe amputations, LLE bypass, Prior abscesses (axiallary, Lower extremity, abdominal wall) admitted with acute/subacte R MCA CVA -Acute/subacute Right MCA CVA -Right MCA stenosis -YOHAN, suspect from hypovolumia from poor oral intake/osmotic diuresis from hyperglycemia/ARB, +/- retention -Hyponatremia, suspect from hypovolumia/hyperglycemia -Urinary retention with complicated UTI -IDDM, poorly controlled -HTN -PAD s/p LLE bypass/Left 2nd/3rd toe amputation -HLD -Prior abscessses (axillary/LE, abdominal wall) Plan: Neurology/cardiology input noted MRI/MRA Noted, discussed with Dr. Nation, repeat CT head no evidence of haemorrhage. Discussed with radiologist Dr. Orlando, MRI brain consistent with evolving infarct rather than hematoma or haemorrhagic CVA. Continue ASA/plavix/statin Hypercoagulable w/u sent. For NICANOR today. Telemetry with no concerns. Overall exam improved. BP control with amlodipine/metoprolol. Increased metoprolol to 25 mg BID. Hold ARB/HCTZ.YOHAN resolved. Lopez placed given retention. ua noted. levaquin day 3, follow up urine cultures. Voiding trial once working with PT. Tolerating diet. Off IVF. Speech/swallow input noted, po as tolerated with aspiration precautions. A1c noted, Endocrine input, continue levemir/ISS DVTPPX heparin PT eval Anticipate acute rehab. CM consult. Dispo to acute rehab in 24 hours after NICANOR if disposition arranged and no new events. Plan discussed with nursing, all questions answered. Visit type - Emergency Visit Emergency Visit: Yes ED Registration Date: 02/19/19 Care time: The patient presented to the Emergency Department on the above date and was hospitalized for further evaluation of their emergent condition. - New Patient This patient is new to me today: No - Critical Care Critical Care patient: No - Discharge Referral Referred to [facility] Med P.C.: No
--- NOTE | 2019-02-23 12:04 | PN ---
Progress Note, CORRESPONDENCE REVIEW CLERK - Note Progress Note: Selected Entries 02/22/19 02/22/19 02/22/19 02:00 06:00 08:13 Breakfast Diet Tolerated Lunch Temperature 98.5 F 98.7 F 98.3 F 02/22/19 02/22/19 02/22/19 11:41 15:00 15:51 Breakfast 75% Diet Tolerated Well Well Lunch 75% Temperature 98.3 F 02/22/19 02/22/19 02/22/19 17:03 18:58 22:00 Breakfast Diet Tolerated Lunch Temperature 98.3 F 98.5 F 99.0 F 02/23/19 02/23/19 02/23/19 02:00 06:00 08:01 Breakfast Diet Tolerated Lunch Temperature 99.1 F 98.9 F 98.8 F Laboratory Tests 02/22/19 05:30 WBC 8.4 Limited improvement in functional communication. Able to use simple 4 way discrim picture/single word comm board. Please offer and encourage use. NPO pending NICANOR. Excellent rehab candidate. Will need intensive PT/OT/Speech.
[2019-02-23] MEDS ORDERED: LIDOCAINE VISCOUS 2% ORAL/TOP 20 ML UNIT-DOSE CUP ONE (14:40)
--- NOTE | 2019-02-23 15:35 | PN ---
Progress Note (short form) - Note Progress Note: s: no cp sob palps dizzy TELE: sr Current Medications Generic Name Dose Route Start Last Admin Trade Name Rachael PRN Reason Stop Dose Admin Amlodipine Besylate 10 mg 02/19/19 15:15 02/23/19 09:28 Norvasc - PO 10 mg DAILY ÁLVARO Administration Aspirin 81 mg 02/20/19 10:00 02/22/19 09:21 Ecotrin - PO 81 mg DAILY ÁLVARO Administration Clopidogrel Bisulfate 75 mg 02/20/19 10:00 02/22/19 09:21 Plavix - PO 75 mg DAILY ÁLVARO Administration Heparin Sodium (Porcine) 5,000 unit 02/19/19 22:00 02/23/19 09:27 Heparin - SQ Not Given BID [facility] Sodium Chloride 1,000 mls @ 75 mls/hr 02/23/19 00:01 02/23/19 00:35 Normal Saline - IV 75 mls/hr ASDIR ÁLVARO Administration Insulin Aspart 1 vial 02/19/19 16:30 02/23/19 11:33 Novolog Vial Sliding Scale - SQ 12 unit ACHS [facility] Administration Protocol Insulin Detemir 35 units 02/23/19 07:00 02/23/19 11:33 Levemir Vial SQ 20 units DAILY@0700 ÁLVARO Administration Metoprolol Tartrate 25 mg 02/21/19 14:35 02/23/19 09:28 Lopressor - PO 25 mg BID ÁLVARO Administration Montelukast Sodium 10 mg 02/20/19 22:00 02/22/19 21:10 Singulair - PO 10 mg HS ÁLAVRO Administration Rosuvastatin Calcium 20 mg 02/19/19 22:00 02/22/19 21:09 Crestor - PO 20 mg HS ÁLVARO Administration - Objective Vital Signs: Vital Signs Period Temp Pulse Resp BP Sys/Cohen Pulse Ox Last 24 Hr 98 F-99.3 F 77-88 14-20 118-145/62-77 99-100 Constitutional: Yes: Calm Cardiovascular: Yes: Regular Rate and Rhythm Respiratory: Yes: CTA Bilaterally Gastrointestinal: Yes: Soft Edema: No Neurological: Yes: Other (RUE paralysis, aphasia) no jaundice diaphoresis alert, awake, oriented CBC, BMP 02/22/19 05:30 02/23/19 05:30 - ....Imaging EKG: Image Reviewed Problem List - Problems (1) Acute ischemic left MCA stroke Code(s): I63.512 - CEREB INFRC D/T UNSP OCCLS OR STENOS OF LEFT MID CEREB ART (2) Diabetes Code(s): E11.9 - TYPE 2 DIABETES MELLITUS WITHOUT COMPLICATIONS Qualifiers: Diabetes mellitus type: type 2 Diabetes mellitus mcc insulin use: with terminal block assembler use Diabetes mellitus complication status: with circulatory complication (3) HTN (hypertension) Code(s): I10 - ESSENTIAL (PRIMARY) HYPERTENSION Qualifiers: Hypertension type: essential hypertension Qualified Code(s): I10 - Essential (primary) hypertension (4) PAD (peripheral artery disease) Code(s): I73.9 - PERIPHERAL VASCULAR DISEASE, UNSPECIFIED Assessment/Plan IMP: 1. Acute/subacute L. MCA CVA : L.MCA severe stenosis. 2. Chronic HTN 3. IDDM 4. Reported PAD 5. Renal insuffiency REC: 1. tele benign. outpt event monitor to look for occult afib. 2. Antiplatelet as per Neuro 3. Hypercoag w/u as per Neuro 4. martin here shows no cardiac etiology of cva, normal bubble study 5. Continue statin 6. BP parameters as per Neuro
--- NOTE | 2019-02-23 15:38 | PROC ---
Transesophageal Echocardiogram - Pre-Procedure Indications: Evaluate for embolus Risks and Benefits Explained: Yes Consent on Chart: Yes - Procedure Procedure Done: in Endoscopy Suite Medication given: propofol Findings: unremarkable NICANOR, normal bubble study Remarks: pt tolerated procedure well, no complications
--- NOTE | 2019-02-23 17:04 | ECHO ---
Version: 1 Study ID: [id number] Institution Name Institution Address Institution Address Line #2 Telephone & email Name: [facility] Study Date: 02/23/2019, 2:45 PM : 1975 (MM/DD/YYYY) Gender: Female Height: 66 in Age: 43 Years Weight: 185 lb Reason For Study: r/o source of emboliBSA: 1.93 m Summary Statements The left ventricular size, thickness and function are normal The right ventricle is normal in size and function. There is trace mitral regurgitation. Procedure: A 2D transesophageal echocardiogram with Doppler and color flow Doppler was performed. Informed cons ent for Transesophageal Echocardiogram, and use of a contrast agent as needed, was obtained prior to the pro cedure. The patient was brought to the endoscopy suite in a fasting state. An intravenous line was placed. A topical anesthetic agent was used for oropharangeal anesthesia. A bite block was inserted. IV concious sedat ion was administered using propafol. A multifrequency, multiplane transesopheageal echocardiographic endosco pe was inserted and manipulated in the standard fashion to achieve multiplane views. The transesophageal pr obe was passed without difficulty. The usual views were obtained; basal, mid-esophageal, transgastric and ao rtic views. The patient's vital signs, including blood pressure, heart rate, pulse oximetry and cardiac r hythm were monitored throughout the procedure and remained stable. The patient tolerated the procedure wel l without evidence of orophangeal or esophageal trauma. Contrast injection with agitated saline was performed. There were no complications. Left Ventricle The left ventricular size, thickness and function are normal. Right Ventricle The right ventricle is normal in size and function. Atria Normal left and right atrial size and function. No thrombus is detected in the left atrial appendage . The interatrial septum is intact with no evidence for an atrial septal defect. Injection of contrast doc umented no interatrial shunt. Mitral Valve There is trace mitral regurgitation. Tricuspid Valve No tricuspid regurgitation. Aortic Valve The aortic valve is trileaflet. No hemodynamically significant valvular aortic stenosis. No aortic regurgitation is present. Pulmonic Valve There is no pulmonic valvular regurgitation. Great Vessels Normal aortic arch, descending and ascending aorta. Pericardium/Pluera There is no pericardial effusion. MMode / 2D Measurements BMI: 29.9 kilograms/m BSA(Haycock): 2.00 m Height (metric): 167.6 cm Weight (metric): 83.9 kg Other Measurements & Calculations BSA: 1.93 m MD Joey Cota 02/23/2019, 4:04 PM Ordering Physician: Thomas Trujillo Performed By: Mariajose Zepeda
[2019-02-23] MEDS: CLOPIDOGREL BISULFATE 75 MG TABLET (FP) PO SCH (17:42)
[2019-02-23] MEDS: ASPIRIN COATED 81 MG TABLET.EC PO SCH (17:43)
[2019-02-23] MEDS: ROSUVASTATIN CA 20 MG TABLET (FP) PO SCH (21:24)
[2019-02-23] MEDS: MONTELUKAST NA 10 MG TABLET PO SCH (21:24)
[2019-02-24] MEDS: INSULIN (LEVEMIR) 100 UNITS/ML UNITS SQ SCH (06:08)
[2019-02-24] MEDS: INSULIN SLIDING SCALE (NOVOLOG) 1 VIAL SQ SCH ×2 (06:08→12:47)
[2019-02-24] MEDS ORDERED: PT OWN MED DRAWER 7, Y5N ONE (06:15)
[2019-02-24 07:59] LABS: ANION GAP 7 MMOL/L (8-16); BLOOD UREA NITROGEN 12 mg/dL (7-18); CALCIUM 8.2 mg/dL (8.5-10.1); CHLORIDE 106 mmol/L (98-107); CO2 23 mmol/L (21-32); CREATININE 1.2 mg/dL (0.55-1.3); GLUCOSE,RANDOM 168 mg/dL (74-106); SODIUM 136 mmol/L (136-145)
--- NOTE | 2019-02-24 09:11 | PN ---
Progress Note (short form) - Note Progress Note: 43 yof with PMHx of HTN, HLD, IDDM, PAD s/p left 2nd/3rd toe amputations, LLE bypass, Prior abscesses (axiallary, Lower extremity, abdominal wall) was reported to have slurred speech and right sided weakness 10 days ago when was taken to a hospital in . Per records, family signed her out AMA there, and brought her to [facility] today right after getting off the flight. Currrently patient with expressive Aphasia, keeps saying "yes" to most questions. Looks comfortable but unable to assess for further ROS. As per ER staff she has had a prior stroke, was d/ivet from hosp.in DR on Plavix , not known what w/u she had there. Impression: Acute large hemorrhagic infarction in the territory of the left middle cerebral artery involving predominantly the posterior aspect of the left frontal lobe and left the parietal lobe with minimal mass effect on the left lateral ventricle without significant shift or hydrocephalus.. Scattered the periventricular old small vessel infarcts sequela of hypertension or small vessel atherosclerosis. FU : NICANOR (-) no new issues Vital Signs Temperature 98.4 F 02/24/19 01:31 Pulse Rate 80 02/24/19 01:31 Respiratory Rate 20 02/24/19 01:31 Blood Pressure 124/72 02/24/19 01:31 O2 Sat by Pulse Oximetry (%) 98 02/23/19 15:54 WBC 8.4 K/mm3 (4.0-10.0) 02/22/19 05:30 RBC 3.77 M/mm3 (3.60-5.2) 02/22/19 05:30 Hgb 10.8 GM/dL (10.7-15.3) 02/22/19 05:30 Hct 30.8 % (32.4-45.2) L 02/22/19 05:30 MCV 81.5 fl (80-96) 02/22/19 05:30 MCHC 35.0 g/dl (32.0-36.0) 02/22/19 05:30 RDW 14.0 % (11.6-15.6) 02/22/19 05:30 Plt Count 236 K/MM3 (134-434) 02/22/19 05:30 MPV 10.2 fl (7.5-11.1) 02/22/19 05:30 CMP Sodium 136 mmol/L (136-145) 02/22/19 05:30 Potassium 4.5 mmol/L (3.5-5.1) 02/22/19 05:30 Chloride 106 mmol/L (98-107) 02/22/19 05:30 Carbon Dioxide 23 mmol/L (21-32) 02/22/19 05:30 Anion Gap 6 MMOL/L (8-16) L 02/22/19 05:30 BUN 14 mg/dL (7-18) 02/22/19 05:30 Creatinine 1.4 mg/dL (0.55-1.3) H 02/22/19 05:30 Creat Clearance w eGFR 41.24 (>60) 02/22/19 05:30 Calcium 8.5 mg/dL (8.5-10.1) 02/22/19 05:30 Total Bilirubin 0.3 mg/dL (0.2-1) 02/22/19 05:30 AST 14 U/L (15-37) L 02/22/19 05:30 ALT 15 U/L (13-61) 02/22/19 05:30 Alkaline Phosphatase 84 U/L (45-117) 02/22/19 05:30 Total Protein 5.8 g/dl (6.4-8.2) L 02/22/19 05:30 Albumin 2.1 g/dl (3.4-5.0) L 02/22/19 05:30 Exam- awake, alert, follows2 step commands with left side, aphasic, strength appears improved in right leg at 2/5, remains plegic in right arm A+P: L MCA stroke with severe L mCA stenosis , residual right hemiplegia and aphasia setting of poorly controlled DM Doppler-no Hemodynamic stenosis ASA, statin , DM control ECHO, NICANOR (-) , residential holter -recommended + VASC RF though would also send hypercoag [place] -protein C, S, Anti DS DNA, Antiphospholipd AB, LUPUS AG, Antithrombin 111, Prothrombin gene mutation B12, TSH, --can FU tehse as outpt A1c >10 -suggest endocrine consult for DM management should see NEUROVASCULAR as outpt, DR CHRISTIANA RESENDIZ pt requires and can tolerate 3 hours rehab /day -stable for rehab from neuro standpoint DR DIALLO
--- NOTE | 2019-02-24 09:41 | PN ---
Progress Note (short form) - Note Progress Note: Patient ideal candidate for acute rehab and patient would be able to tolerate 3 hours of rehab per day based on current clinical condition. Visit type - Emergency Visit Emergency Visit: Yes ED Registration Date: 02/19/19 Care time: The patient presented to the Emergency Department on the above date and was hospitalized for further evaluation of their emergent condition. - New Patient This patient is new to me today: No - Critical Care Critical Care patient: No - Discharge Referral Referred to [facility] Med P.C.: No
[2019-02-24] MEDS: amLODIPine BESYLATE 10 MG TABLET (FP) PO SCH (10:14)
[2019-02-24] MEDS: HEPARIN NA (PORCINE) 5,000 UNITS/ML 1ML VIAL SQ SCH (10:14)
[2019-02-24] MEDS: METOPROLOL TARTRATE 25 MG TABLET (FP) PO SCH (10:14)
[2019-02-24] MEDS: CLOPIDOGREL BISULFATE 75 MG TABLET (FP) PO SCH (10:14)
[2019-02-24] MEDS: ASPIRIN COATED 81 MG TABLET.EC PO SCH (10:14)
--- NOTE | 2019-02-24 11:16 | PN ---
Progress Note (short form) - Note Progress Note: s: no cp sob palps dizzy TELE: sr Current Medications Amlodipine Besylate (Norvasc -) 10 mg PO DAILY [facility] Last Admin: 02/24/19 10:14 Dose: 10 mg Aspirin (Ecotrin -) 81 mg PO DAILY [facility] Last Admin: 02/24/19 10:14 Dose: 81 mg Clopidogrel Bisulfate (Plavix -) 75 mg PO DAILY [facility] Last Admin: 02/24/19 10:14 Dose: 75 mg Heparin Sodium (Porcine) (Heparin -) 5,000 unit SQ BID [facility] Last Admin: 02/24/19 10:14 Dose: 5,000 unit Sodium Chloride (Normal Saline -) 1,000 mls @ 75 mls/hr IV ASDIR [facility] Last Admin: 02/23/19 00:35 Dose: 75 mls/hr Insulin Aspart (Novolog Vial Sliding Scale -) 1 vial SQ [facility]; Protocol Last Admin: 02/24/19 06:08 Dose: 3 unit Insulin Detemir (Levemir Vial) 35 units SQ DAILY@0700 [facility] Last Admin: 02/24/19 06:08 Dose: 35 units Metoprolol Tartrate (Lopressor -) 25 mg PO BID [facility] Last Admin: 02/24/19 10:14 Dose: 25 mg Montelukast Sodium (Singulair -) 10 mg PO [facility] Last Admin: 02/23/19 21:24 Dose: 10 mg Rosuvastatin Calcium (Crestor -) 20 mg PO HS [facility] Last Admin: 02/23/19 21:24 Dose: 20 mg Vital Signs Period Temp Pulse Resp BP Sys/Cohen Pulse Ox Last 24 Hr 97.6 F-99.3 F 77-89 14-20 118-136/62-86 97-100 Constitutional: Yes: Calm Cardiovascular: Yes: Regular Rate and Rhythm Respiratory: Yes: CTA Bilaterally Gastrointestinal: Yes: Soft Edema: No Neurological: Yes: Other (RUE paralysis, aphasia) no jaundice diaphoresis alert, awake, oriented EKG: Image Reviewed Problem List - Problems (1) Acute ischemic left MCA stroke Code(s): I63.512 - CEREB INFRC D/T UNSP OCCLS OR STENOS OF LEFT MID CEREB ART (2) Diabetes Code(s): E11.9 - TYPE 2 DIABETES MELLITUS WITHOUT COMPLICATIONS Qualifiers: Diabetes mellitus type: type 2 Diabetes mellitus assisted insulin use: with assisted use Diabetes mellitus complication status: with circulatory complication (3) HTN (hypertension) Code(s): I10 - ESSENTIAL (PRIMARY) HYPERTENSION Qualifiers: Hypertension type: essential hypertension Qualified Code(s): I10 - Essential (primary) hypertension (4) PAD (peripheral artery disease) Code(s): I73.9 - PERIPHERAL VASCULAR DISEASE, UNSPECIFIED Assessment/Plan IMP: 1. Acute/subacute L. MCA CVA : L.MCA severe stenosis. 2. Chronic HTN 3. IDDM 4. Reported PAD 5. Renal insuffiency REC: 1. tele benign. outpt event monitor to look for occult afib. 2. Antiplatelet as per Neuro 3. Hypercoag w/u as per Neuro 4. martin here shows no cardiac etiology of cva, normal bubble study 5. Continue statin 6. BP parameters as per Neuro
--- NOTE | 2019-02-24 11:27 | DS ---
Physical Exam: SUBJECTIVE: Patient seen and examined, denies any complaints, though most questions answered as 'yes'. OBJECTIVE: Vital Signs Period Temp Pulse Resp BP Sys/Cohen Pulse Ox Last 24 Hr 97.6 F-99.3 F 77-89 14-20 118-136/62-86 97-100 Intake & Output 02/21/19 02/22/19 02/23/19 02/24/19 23:59 23:59 23:59 23:59 Intake Total 1520 1370 1915 945 Output Total 2500 2000 2200 200 Balance -980 -630 -285 745 Weight 185 lb PHYSICAL EXAM GENERAL: responds to name, no acute distress,keeps saying 'yes' to most questions Neck: soft, supple, no JVD CVS:S1S2 regular Chest: decreased effort, limited exam, no rales or wheezing noted Abdomen:soft, obese, NT, no suprapubic or CVA tenderness Extremities: no edema Neuro: AA, responds to name, unable to check for orientation, Right facial droop , RUE 0/5, RLE 3/2, RLE power improved . LABS Laboratory Results - last 24 hr 02/23/19 02/23/19 02/23/19 12:54 16:47 21:30 Sodium Potassium Chloride Carbon Dioxide Anion Gap BUN Creatinine Creat Clearance w eGFR POC Glucometer 285 190 266 Random Glucose Calcium 02/24/19 02/24/19 05:48 06:02 Sodium 136 Potassium 4.0 Chloride 106 Carbon Dioxide 23 Anion Gap 7 L BUN 12 Creatinine 1.2 Creat Clearance w eGFR 49.27 POC Glucometer 180 Random Glucose 168 H Calcium 8.2 L Microbiology 02/20/19 22:30 Urine - Urine Dawson Urine Culture - Preliminary Group D Strep Or Entero Coccus Beta Hemolytic Strep Yeast Like Organism CT head (stroke)(02/19/2019) : There is a large area of decreased attenuation the left frontal lobe, perisylvian region that appears to be involving the left caudate head and left basal ganglia as well as extending superiorly to the level of the centrum semiovale and high convexity suggestive of an acute infarct. No discrete mass lesion or gross acute intracranial hemorrhage are identified. There is no shift of the midline structures. The craniocervical junction appears unremarkable. Calvarium is intact Visualized paranasal sinuses and mastoid air cells are well aerated IMPRESSION: Large acute/subacute infarct in the left middle cerebral artery territory involving the left frontal lobe, perisylvian region, the bennett radiata and centrum semiovale as well as involving the left caudate head and basal ganglia. No discrete mass lesion or gross acute intracranial hemorrhage are identified. Case discussed with Dr. Hernandez, emergency room caring attending physician. MRI brain: Acute large hemorrhagic infarction in the territory of the left middle cerebral artery involving predominantly the posterior aspect of the left frontal lobe and left the parietal lobe with minimal mass effect on the left lateral ventricle without significant shift or hydrocephalus.. Scattered the periventricular old small vessel infarcts sequela of hypertension or small vessel atherosclerosis. ADDENDUM: History of recent stroke in the vascular territory of the branches of the left MCA without visible acute hematoma on CT of the brain February 19, 2019 at 11:50 AM, follow-up CT February 21, 2019 at 15:14. MRI of the brain February 19, 2019 at 19:35. On T2 gradient heme sensitive images, scattered microhemorrhage transformation is seen within the left MCA infarct without visible acute hyperdense hematoma on 2 CT of the brain C-. MRA brain: Impression: Severe stenotic lesion of the origin of the left middle cerebral artery with multiple missing branches . This finding is very significant and contributing to the large hemorrhagic infarcts in the left frontoparietal lobes. Carotid US: Moderate atherosclerotic disease with no evidence of hemodynamically significant stenoses. CT head 02/21/19: Since a prior study of 02/19/2019, a large area of infarction within the left parietal lobe is reidentified with little significant change. Mild mass effect is associated with the infarct is also unchanged. There is no evidence of acute intracranial hemorrhage or additional areas of acute infarction. IMPRESSION: Left parietal infarct without significant change since 02/19/2019. Renal/Bladder US: No hydronephrosis is seen. The kidneys demonstrate no definite sonographic abnormality. The urinary bladder volume is approximately 540 mL. The patient was unable to void at the time of examination. Diffuse hepatic steatosis. 2D echo: Borderline LVH, LV systolic function normal, EF 55-60%, trace to mild mitral regurgitation NICANOR: unremarkable, Normal Bubble study HOSPITAL COURSE: Date of Admission:02/19/19 Date of Discharge: 02/24/19 Minutes to complete discharge: 40 Discharge Summary Reason For Visit: CVA Current Active Problems Acute ischemic left MCA stroke (Acute) Cerebrovascular accident (CVA) (Acute) Diabetes (Acute) Hospital Course: 43 yof with PMHx of HTN, HLD, IDDM, PAD s/p left 2nd/3rd toe amputations, LLE bypass, Prior abscesses (axiallary, Lower extremity, abdominal wall) was reported to have slurred speech and right sided weakness 10 days prior to admission when was taken to a hospital in [facility]. Per records, family signed her out AMA there, and brought her to [facility] today right after getting off the flight. She received CT head at [facility] showing large left MCA stroke. She was noted with right hemiparesis, homonymous hemianopsia, motor aphasia. She had MRI/MRA brain with results as above. She was recommended Aspirin, plavix, high intensity statin, hypercoagulable work up, cardiology input and outpatient follow up with neurovascular surgeon Dr. Denise. She was seen by cardiology, telemetry with no events. 2D echo as above. NICANOR unremarkable with normal bubble study. Her hyperacoaguable work up was sent, results are currently pending and she will need outpatient holter monitoring. She was also noted with YOHAN, urinary retention. Her HCTZ was held. Her renal function normalized with hydration and dawson placement. She will need voiding trial at rehab once more ambulatory. She was seen by speech/swallow therapist and cleared for regular diet with thin liquids. Her A1c was >10 and will need outpatient endocrine follow up. She was continued on levemir. She will be discharged to acute rehab in stable condition. Condition: Stable - Instructions Diet, Activity, Other Instructions: You were admitted with stroke, that was confirmed on MRI. You were seen by neurologist and will continue ASA and plavix. Your blood work to check for clotting disorder has been sent and is currently pending. You are advised to follow up with Neurovascular surgeon at [facility] to discuss further plan. You were seen by driver license reviewing officer and had NICANOR (transesophageal echocardiogram) that was negative for concerns. You will need follow up to discuss Holter monitor and additional testing You also were noted with abnormal kidney function that resolved with hydration and placing a urinary catheter. MEDICATIONS: Your Hydrochlorothiazide has been discontinued for now. Continue other medications as before. Discuss with your doctor about further BP medications based on kidney function. INSTRUCTIONS: Your blood work to check for clotting disorder has been sent by neurologist and results are pending, please follow up with them in 1 week to discuss You are also advised to follow up with a neurovascular surgeon at [facility] to discuss further plan for narrowing of your brain blood vessels, information is provided below. You will need driver license reviewing officer follow up as well. Dawson catheter in place, voiding trial at the rehab once you start walking with the therapist. If further urinary retention concerns are noted, you will need to see a urologist. Your blood sugars were high and you will benefit from follow up with whistle punk, please discuss with your doctor. Aggessive speech/swallow therapy/PT/OT at the rehab FOLLOW UP: With Neurologist Dr. Nation in 1 week (discuss pending blood clotting test results) With Neurovascular surgeon Dr. Gutierrez at [facility] in 1-2 weeks, info below: Dr. Anthony Gutierrez [facility] With driver license reviewing officer Dr. Trujillo in 1-2 weeks, (discuss holter monitoring and further testing) With House Detective follow up at the rehab If you notice any new fevers, chills, changes in mental status, new weakness/ speech disturbances or any new concerns, please call 911 or come to the ED. Referrals: Radha Nation MD [Staff Physician] - Mehreen Cannon MD [Nurse Practitioner] - Disposition: [facility] - Home Medications Comprehensive Discharge Medication List: Ambulatory Orders Insulin Glargine,Hum.rec.anlog [Basaglar Kwikpen U-100] 40 unit SQ HS 08/07/17 metFORMIN HCL [Glucophage -] 1,000 mg PO BID 08/07/17 Aspirin [Aspirin EC] 81 mg PO DAILY 06/09/18 Gabapentin 600 mg PO BID 06/09/18 Glipizide [Glipizide ER] 10 mg PO DAILY 06/09/18 Montelukast Sodium [Singulair] 10 mg PO DAILY 06/09/18 Amlodipine Besylate [Norvasc -] 10 mg PO DAILY 02/19/19 Clopidogrel Bisulfate [Plavix] 75 mg PO DAILY 02/19/19 Insulin Sliding Scale [Novolog Vial Sliding Scale -] 1 vial SQ ACHS units 02/24 Metoprolol Tartrate [Lopressor -] 25 mg PO BID tablet 02/24/19 Rosuvastatin [Crestor -] 20 mg PO HS tablet 02/24/19 This patient is new to me today: No Emergency Visit: Yes ED Registration Date: 02/19/19 Care time: The patient presented to the Emergency Department on the above date and was hospitalized for further evaluation of their emergent condition. Critical Care patient: No - Discharge Referral Referred to [facility] No
[2019-02-24 15:06] VITALS: BP 106/62; PULSE 85; TEMP 98.4
[2019-02-24 17:13] LABS: HOMOCYSTINE-PLASMA OR SERUM 14.7 umol/L (0.0-15.0)
--- NOTE | 2019-02-25 00:43 | CONSULT ---
Consult Consult Specialty:: endocrine Referred by:: dr.shukla robins Reason for Consultation:: diabetes mellitus - History of Present Illness Chief Complaint: cva History of Present Illness: 43yo F with h/o DM2, PAD, and prior CVA's according to EMR who presented with facial droop and R sided hemiparesis. Pt's unable to provide ros due to her expressive aphasia. Most of history collected from medical staff and previous records. 10 days prior pt was in [facility], when she started to experience a slight facial droop. Her symptoms progressed to severe facial droop , complete hemiparesis, and severe dysarthria. Pt was seen at a hospital in [facility] and was worked up. Unfortunately, her family believed she was not receiving the best care so they left the hospital AMA,upon presentation to ED for evaluation,since admission found to have large left mca infarct,she has required anticoagulation, and nutrition assesment, started po and given limited nutrtion intake regular soft food diet thicken liquids,as per swallowing evalution. - Past Medical History Cardio/Vascular: Yes: HTN, Hyperlipdemia ...LMP: 07/27/18 Endocrine: Yes: Diabetes Mellitus - Past Surgical History Past Surgical History: Yes: None - Alcohol/Substance Use Hx Alcohol Use: No - Smoking History Smoking history: Never smoked Have you smoked in the past 12 months: No - Social History Occupation: unemployed History of Recent Travel: Yes (From [facility]) Home Medications - Allergies Allergies/Adverse Reactions: Allergies Allergy/AdvReac Type Severity Reaction Status Date / Time Penicillins Allergy Severe Difficulty Verified 02/19/19 10:58 Breathing - Home Medications Home Medications: Ambulatory Orders Insulin Glargine,Hum.rec.anlog [Basaglar Dannielleikpen U-100] 40 unit SQ HS 08/07/17 metFORMIN HCL [Glucophage -] 1,000 mg PO BID 08/07/17 Aspirin [Aspirin EC] 81 mg PO DAILY 06/09/18 Gabapentin 600 mg PO BID 06/09/18 Glipizide [Glipizide ER] 10 mg PO DAILY 06/09/18 Montelukast Sodium [Singulair] 10 mg PO DAILY 06/09/18 Amlodipine Besylate [Norvasc -] 10 mg PO DAILY 02/19/19 Clopidogrel Bisulfate [Plavix] 75 mg PO DAILY 02/19/19 Insulin Sliding Scale [Novolog Vial Sliding Scale -] 1 vial SQ ACHS units 02/24 Metoprolol Tartrate [Lopressor -] 25 mg PO BID tablet 02/24/19 Rosuvastatin [Crestor -] 20 mg PO HS tablet 02/24/19 Family Disease History - Family Disease History Family Disease History: Diabetes: Mother (lung cancer), Heart Disease: Father ( , CA at 58), CA: Mother, Other: Brother (healthy and living), Sister ( healthy and living) Physical Exam Vital Signs: Vital Signs Temperature 98.4 F 02/24/19 14:00 Pulse Rate 85 02/24/19 14:00 Respiratory Rate 20 02/24/19 10:00 Blood Pressure 106/62 02/24/19 14:00 O2 Sat by Pulse Oximetry (%) 98 02/24/19 09:00 Constitutional: Yes: Calm Eyes: Yes: EOM Intact HENT: Yes: Normocephalic Neck: Yes: Trachea Midline Cardiovascular: Yes: Regular Rate and Rhythm Respiratory: Yes: CTA Bilaterally Gastrointestinal: Yes: Normal Bowel Sounds ...Rectal Exam: Yes: Deferred Renal/: Yes: WNL Musculoskeletal: Yes: WNL Extremities: Yes: WNL Edema: No Integumentary: Yes: WNL Neurological: Yes: Alert, Facial Droop, Lethargy, Weakness Labs: CBC, BMP 02/22/19 05:30 02/24/19 05:48 Problem List - Problems (1) Acute ischemic left MCA stroke Code(s): I63.512 - CEREB INFRC D/T UNSP OCCLS OR STENOS OF LEFT MID CEREB ART (2) Back pain Code(s): M54.9 - DORSALGIA, UNSPECIFIED (3) Carbuncle and furuncle of trunk Code(s): L02.229 - FURUNCLE OF TRUNK, UNSPECIFIED (4) Cellulitis of abdominal wall Code(s): L03.311 - CELLULITIS OF ABDOMINAL WALL (5) Cellulitis of foot, left Code(s): L03.116 - CELLULITIS OF LEFT LOWER LIMB (6) Cerebrovascular accident (CVA) Code(s): I63.9 - CEREBRAL INFARCTION, UNSPECIFIED Qualifiers: CVA mechanism: unspecified Qualified Code(s): I63.9 - Cerebral infarction, unspecified (7) Diabetes Code(s): E11.9 - TYPE 2 DIABETES MELLITUS WITHOUT COMPLICATIONS Qualifiers: Diabetes mellitus type: type 2 Diabetes mellitus factory superintendent insulin use: with factory superintendent use Diabetes mellitus complication status: with circulatory complication Assessment/Plan dm2,cva nuropathy cva hemiparesis htn ashd hld hypercoagulable state Abnormal Lab Results 02/23/19 02/24/19 05:30 05:48 Anion Gap 7 L Random Glucose 168 H Calcium 8.2 L Anti-Cardiolipin IgM Ab 13 H Laboratory Results - last 24 hr 02/23/19 02/24/19 02/24/19 05:30 05:48 06:02 Sodium 136 Potassium 4.0 Chloride 106 Carbon Dioxide 23 Anion Gap 7 L BUN 12 Creatinine 1.2 Creat Clearance w eGFR 49.27 POC Glucometer 180 Random Glucose 168 H Calcium 8.2 L Homocysteine 14.7 Anti-Cardiolipin IgG Ab <9 Anti-Cardiolipin IgA Ab <9 Anti-Cardiolipin IgM Ab 13 H 02/24/19 12:44 Sodium Potassium Chloride Carbon Dioxide Anion Gap BUN Creatinine Creat Clearance w eGFR POC Glucometer 213 Random Glucose Calcium Homocysteine Anti-Cardiolipin IgG Ab Anti-Cardiolipin IgA Ab Anti-Cardiolipin IgM Ab plan continue bgm novolog scale nutrition ballance and adjustment of insulin needs at [facility] physical therapy levemir 35 units am
[2019-02-25 12:16] LABS: ACTIVATED PROTEIN C-RESISTANCE 2.8 ratio (2.2-3.5); PROTEIN S, FREE 138 % (57-157)
== END 2019-02-24 16:26 | DRG 45 ==
LOC: JER 10:46 → JERBED 13:48 → OBSVTOIN 14:20 → J4W 02-20 03:33
PROVIDERS: ADMIT Hospitalist; ATTEND Hospitalist
PROC: 0T9B70Z Drainage of Bladder with Drainage Device, Via Natural or Artificial Opening (ICD-10-PCS; principal; 2019-02-17)
PROC: B246ZZ4 Ultrasonography of Right and Left Heart, Transesophageal (ICD-10-PCS; 2019-02-23)
DX: I63.512 Cerebral infarction due to unspecified occlusion or stenosis of left middle cerebral artery (principal); I61.9 Nontraumatic intracerebral hemorrhage, unspecified; N17.9 Acute kidney failure, unspecified; E11.65 Type 2 diabetes mellitus with hyperglycemia; E87.1 Hypo-osmolality and hyponatremia; B37.49 Other urogenital candidiasis; R47.01 Aphasia; G81.91 Hemiplegia, unspecified affecting right dominant side; R33.9 Retention of urine, unspecified; Z79.4 Long term (current) use of insulin; I10 Essential (primary) hypertension; R29.810 Facial weakness; E78.5 Hyperlipidemia, unspecified; I73.9 Peripheral vascular disease, unspecified; Z89.422 Acquired absence of other left toe(s); B95.2 Enterococcus as the cause of diseases classified elsewhere; B96.89 Other specified bacterial agents as the cause of diseases classified elsewhere
CPT/HCPCS: 36415; 70450-TC; 70544-TC; 70551-TC; 71045-TC-FY; 76775-TC; 76856-TC; 80048; 80053; 81003; 81240; 82465; 82550; 82962; 83036; 83090; 83718; 83721; 83735; 84100; 84478; 84484; 84703; 85025; 85300; 85305; 85306; 85307; 85610; 85730; 86850; 86900; 86901; 87077; 87086; 87186; 93005; 93010; 93306-TC; 93312; 93325; 93880-TC; 97116-GP; 97162-GP; 99285-25; G0378; J1644; J7030

== ENCOUNTER 2019-06-25 21:23 | Inpatient (IN) | payer OTHER ==
--- NOTE | 2019-06-25 21:36 | PDOC ---
Rapid Medical Evaluation Time Seen by Provider: 06/25/19 21:35 Medical Evaluation: Allergies Allergy/AdvReac Type Severity Reaction Status Date / Time Penicillins Allergy Severe Difficulty Verified 02/19/19 10:58 Breathing 06/25/19 21:35 I have performed a brief in-person evaluation of this patient. The patient presents with a chief complaint of: Abd pain. H/o HLD, HTN, PAD, DM , s/p R toe amputation, recurrent abd wall abscesses/cellulitis, s/p multiple CVAs and residual R sided paralysis/aphasia from prior CVA Pertinent physical exam findings:stable, defer rest of exam to ED provider I have ordered the following:labs The patient will proceed to the ED for further evaluation. Discharge Disposition - Diagnosis Abdominal pain Qualifiers: Abdominal location: unspecified location Qualified Code(s): R10.9 - Unspecified abdominal pain - Referrals - Patient Instructions - Post Discharge Activity
--- NOTE | 2019-06-25 23:39 | PDOC ---
*Physical Exam - Vital Signs Last Vital Signs Temp Pulse Resp BP Pulse Ox 97.6 F 76 18 139/79 100 06/25/19 21:37 06/25/19 21:37 06/25/19 21:37 06/25/19 21:37 06/25/19 21:37 - Physical Exam Comments: 06/25/19 23:36 Received sign out from Dr. Busby 43 yo F with hx of 2x CVA (january 2019 recent), HLD, DM, and removal of tumor from abdomen presents to the emergency department with abdominal pain. 10 pain. Normal BM today without hematochezia. Denies chest pain. Pain is located in the fabiana-umbilical without radiation. Physical exam was notable for normal BS and tenderness in the periumbilical region and RLQ. Residual weakness on the right side (deficits in the right arm and right leg) with intact CN 2-12. ED Treatment Course - LABORATORY CBC & Chemistry Diagram: 06/29/19 05:35 06/29/19 05:35 Medical Decision Making - Medical Decision Making Patient's CT abdomen and pelvis reveals septations in right adnexal mas approximately 6.5 cm x 5 cm. Patient has persistent pain with a new YOHAN. OBGYN was consulted and the patient was accepted for admission for possible intervention of the adnexal mass and YOHAN. *DC/Admit/Observation/Transfer Diagnosis at time of Disposition: Adnexal mass, Renal insufficiency Abdominal pain Qualifiers: Abdominal location: unspecified location Qualified Code(s): R10.9 - Unspecified abdominal pain - Discharge Dispostion Disposition: VNS/HOME HEALTH CARE Condition at time of disposition: Guarded - Referrals - Patient Instructions - Post Discharge Activity
--- NOTE | 2019-06-25 23:55 | PDOC ---
History of Present Illness - General Chief Complaint: Pain Stated Complaint: ABD PAIN Time Seen by Provider: 06/25/19 21:35 History Source: Patient - History of Present Illness Initial Comments: 43 y/o/f with PMHx of CVAx2, HTN, HLD, DM, left toe amputation, abdominal tumor removal here for abd pain that started yesterday after she ate food. She does not recall what food she was eating at the time. She denies any fall or trauma. She states the pain is worst in her periumbilical area and describes it as sharp but non-radiating. She had a bowel movement today that was normal for her. She denies any hematuria or dysuria. She denies any chest pain, SOB, fever , cough, dizziness, vaginal discharge, N/V/D, or other symptoms. She has residual weakness from her 2 CVAs, last CVA was January of this year. 06/25/19 23:47 06/25/19 23:55 Past History - Past Medical History Allergies/Adverse Reactions: Allergies Allergy/AdvReac Type Severity Reaction Status Date / Time Penicillins Allergy Severe Difficulty Verified 06/25/19 23:15 Breathing Home Medications: Ambulatory Orders Insulin Glargine,Hum.rec.anlog [Basaglar Kwikpen U-100] 40 unit SQ HS 08/07/17 metFORMIN HCL [Glucophage -] 1,000 mg PO BID 08/07/17 Aspirin [Aspirin EC] 81 mg PO DAILY 06/09/18 Gabapentin 600 mg PO BID 06/09/18 Glipizide [Glipizide ER] 10 mg PO DAILY 06/09/18 Montelukast Sodium [Singulair] 10 mg PO DAILY 06/09/18 Amlodipine Besylate [Norvasc -] 10 mg PO DAILY 02/19/19 Clopidogrel Bisulfate [Plavix] 75 mg PO DAILY 02/19/19 Insulin Sliding Scale [Novolog Vial Sliding Scale -] 1 vial SQ ACHS units 02/24 Metoprolol Tartrate [Lopressor -] 25 mg PO BID tablet 02/24/19 Rosuvastatin [Crestor -] 20 mg PO HS tablet 02/24/19 Anemia: No Asthma: Yes Cancer: No Cardiac Disorders: No CVA: Yes (x 2) COPD: No CHF: No Dementia: No Diabetes: Yes GI Disorders: No Disorders: No HTN: Yes Hypercholesterolemia: Yes Liver Disease: No Seizures: No Thyroid Disease: No Other medical history: Paralysis - Surgical History Abdominal Surgery: No Appendectomy: No Cardiac Surgery: No Cholecystectomy: No Lung Surgery: No Neurologic Surgery: No Orthopedic Surgery: No - Immunization History Immunization Up to Date: Yes - Suicide/Smoking/Psychosocial Hx Smoking History: Never smoked Have you smoked in the past 12 months: No Information on smoking cessation initiated: No Hx Alcohol Use: No Drug/Substance Use Hx: No Substance Use Type: None Hx Substance Use Treatment: No Review of Systems - Review of Systems Able to Perform ROS?: Yes Constitutional: Yes: Weakness. No: Chills, Fever HEENTM: No: Nose Congestion Respiratory: No: Cough, Shortness of Breath Cardiac (ROS): No: Chest Pain, Lightheadedness ABD/GI: Yes: Abdominal Distended. No: Constipated, Diarrhea, Nausea, Vomiting : No: Dysuria, Flank Pain, Hematuria Musculoskeletal: Yes: Muscle Weakness Integumentary: No: Rash Neurological: Yes: Headache, Numbness *Physical Exam - Vital Signs Last Vital Signs Temp Pulse Resp BP Pulse Ox 97.6 F 76 18 139/79 100 06/25/19 21:37 06/25/19 21:37 06/25/19 21:37 06/25/19 21:37 06/25/19 21:37 - Physical Exam General Appearance: Yes: Obese HEENT: positive: EOMI. negative: Pale Conjunctivae Neck: positive: Supple. negative: Lymphadenopathy (R), Lymphadenopathy (L) Respiratory/Chest: positive: Lungs Clear, Normal Breath Sounds. negative: Respiratory Distress, Accessory Muscle Use, Decreased Breath Sounds, Crackles, Rales, Rhonchi Cardiovascular: positive: Regular Rhythm, Regular Rate, S1, S2 Gastrointestinal/Abdominal: positive: Normal Bowel Sounds, Tender ( periumbilical and RLQ tenderness), Soft Lymphatic: negative: Adenopathy Musculoskeletal: positive: Other (residual CVA right sided weakness in upper and lower extremity ) Extremity: positive: Normal Capillary Refill Integumentary: positive: Dry Neurologic: positive: industrial maintenance repairer helper II-XII NML intact, Alert, Numbness (right sided decrease in sensation), Other (motor strength 5/5 on left upper and lower extremities. 0/5 muscle strength on right upper and lower extremities. ) Medical Decision Making - Medical Decision Making 43 y/o/f with PMHx of CVAx2, HTN, HLD, DM, left toe amputation, abdominal tumor removal here for abd pain that started yesterday after she ate food. Pain worst in the periumbilical and RLQ on palpation of abdomen. CBC, CMP, lipase, trops, UA, CT abd and pelvis w/contrast ordered. 06/26/19 00:03 *DC/Admit/Observation/Transfer Diagnosis at time of Disposition: Abdominal pain Qualifiers: Abdominal location: unspecified location Qualified Code(s): R10.9 - Unspecified abdominal pain - Referrals - Patient Instructions - Post Discharge Activity
[2019-06-26 00:24] LABS: BASO % 0.8 % (0-2.0); HEMATOCRIT 30.1 % (32.4-45.2); HEMOGLOBIN 10.3 GM/dL (10.7-15.3); LYMPH % 32.5 % (8-40); MCH 28.4 pg (25.7-33.7); MEAN CELL VOLUME 83.4 fl (80-96); MONO % 7.1 % (3.8-10.2); NEUT % 57.6 % (42.8-82.8); PLATELET COUNT 266 K/MM3 (134-434); RBC 3.61 M/mm3 (3.60-5.2)
[2019-06-26 00:47] LABS: LIPASE 191 U/L (73-393)
[2019-06-26 00:49] LABS: ALBUMIN 2.7 g/dl (3.4-5.0); BILIRUBIN,TOTAL 0.3 mg/dL (0.2-1); BLOOD UREA NITROGEN 29.7 mg/dL (7-18); CALCIUM 8.5 mg/dL (8.5-10.1); CREATININE 2.2 mg/dL (0.55-1.3); POTASSIUM 4.3 mmol/L (3.5-5.1); TOT PROT 6.1 g/dl (6.4-8.2)
[2019-06-26] MEDS ORDERED: SODIUM CHLORIDE 1,000 ML IV STA (00:53)
--- NOTE | 2019-06-26 01:01 | PDOC ---
Documentation entered by Valeria Quintero SCRIBE, acting as scribe for Hannah Hernandez MD. Hannah Hernandez MD: This documentation has been prepared by the Ingrid banerjee Xhesika, SCRIBE, under my direction and personally reviewed by me in its entirety. I confirm that the documentation accurately reflects all work, treatment, procedures, and medical decision making performed by me. 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 The patient describes her pain as non-radiating, 10/10, sharp now radiating to RLQ The patient states she had a normal BM today. Patient denies taking pain medication. The patient denies any trauma or falls. Denies fever, chills, chest pain, SOB, palpitations, dizziness, weakness, N, V, D, bladder and bowel problems, leg swelling, No sick contacts or travel. No new changes in medications. Allergies: Penicillins Social history: Lives with family. No tobacco, ETOH or drug use. Surgical history: tumor removal from abdomen (2 years ago) Meds: as documented in EMR 06/26/19 01:00 - Physicial Exam PE: 06/25/19 23:47 Agree with the resident's HPI and PE as documented in the electronic medical record. NAD, well appearing, EOMI, PERRL, MMM, nl conjunctiva, anicteric; neck supple. lungs clear, RRR, abdomen soft obese, RLQ and periumbilical TTP. no CVAT. Back nontender. CHAVEZ x4, no focal neuro deficits. No peripheral edema. normal color for ethnicity, WWP. 06/26/19 01:00 - Medical Decision Making 06/26/19 01:00 See HPI for details. Prior notes reviewed, including admissions, discharges and consultations. Vital signs reviewed, wnl. Vital Signs Temp Pulse Resp BP Pulse Ox 97.6 F 76 18 139/79 100 06/25/19 21:37 06/25/19 21:37 06/25/19 21:37 06/25/19 21:37 06/25/19 21:37 DDx abdominal pain: Renal colic, biliary colic, metabolic/electrolyte derangements. GERD, PUD, esophageal spasm, pancreatitis, hepatitis, constipation , colitis, gastroenteritis, cholecystitis, UTI, pyelonephritis, ileus, SBO, medication side effect, hernia, appendicitis, diverticulitis, mesenteric ischemia. msk strain, mesenteric adenitis, psoas abscess. laboratory results and imaging reviewed, basic labs and lytes wnl, notable for new YOHAN, Cr 2.2, prior normal LFTs/lipase_normal ED course -interventions: analgesia, IVF, reassess CT a/p po contrast only given borderline GFR, r/o appy. s/o overnight team pending imaging. 06/26/19 01:31 06/26/19 01:31
--- NOTE | 2019-06-26 04:11 | PDOC ---
*Physical Exam - Vital Signs Last Vital Signs Temp Pulse Resp BP Pulse Ox 97.6 F 76 18 139/79 100 06/25/19 21:37 06/25/19 21:37 06/25/19 21:37 06/25/19 21:37 06/25/19 21:37 ED Treatment Course - LABORATORY CBC & Chemistry Diagram: 06/26/19 00:10 06/26/19 00:10 - ADDITIONAL ORDERS Additional order review: Laboratory Results 06/26/19 06/26/19 06/26/19 02:51 00:10 00:10 Sodium 136 Potassium 4.3 Chloride 103 Carbon Dioxide 25 Anion Gap 8 BUN 29.7 H Creatinine 2.2 H Est GFR (CKD-EPI)AfAm 31.02 Est GFR (CKD-EPI)NonAf 26.77 Random Glucose 206 H Calcium 8.5 Total Bilirubin 0.3 AST 12 L ALT 13 Alkaline Phosphatase 81 Total Protein 6.1 L Albumin 2.7 L Lipase 191 Serum , Qual Negative 06/26/19 00:10 RBC 3.61 MCV 83.4 MCHC 34.0 RDW 13.0 MPV 9.0 D Neutrophils % 57.6 Lymphocytes % 32.5 Monocytes % 7.1 Eosinophils % 2.0 Basophils % 0.8 - Medications Given in the ED: ED Medications Discontinued Medications Generic Name Dose Route Start Last Admin Trade Name Freq PRN Reason Stop Dose Admin Sodium Chloride 1,000 mls @ 1,000 mls/hr 06/26/19 00:53 06/26/19 01:20 Normal Saline - IV 06/26/19 01:52 1,000 mls/hr ASDIR STA Administration Medical Decision Making - Medical Decision Making 06/26/19 04:10 Patient Name: CL PALACIO THIS IS A 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 FINDINGS: No gallstones Normal appendix No evidence of nephrolithiasis, ureterolithiasis, or obstructive uropathy 6.5 cm x 4.8 cm septated cyst within the right adnexa. Sonographic correlation is advised. No evidence of intestinal obstruction, perforation, colitis, pancreatitis, acute diverticular disease, or an intra-abdominal or pelvic abscess Distended bladder 06/26/19 05:13 Pt will be admitted for renal insufficiency as well as for adnexal mass; pt will get a sonogram to r/o ovarian torsion. *DC/Admit/Observation/Transfer Diagnosis at time of Disposition: Adnexal mass, Renal insufficiency Abdominal pain Qualifiers: Abdominal location: unspecified location Qualified Code(s): R10.9 - Unspecified abdominal pain - Discharge Dispostion Condition at time of disposition: Guarded Decision to Admit order: Yes - Referrals - Patient Instructions - Post Discharge Activity
--- NOTE | 2019-06-26 05:22 | PN ---
Teaching Attending Note Name of Resident: Ivanna Sosa ATTENDING PHYSICIAN STATEMENT I saw and evaluated the patient. I reviewed the resident's note and discussed the case with the resident. I agree with the resident's findings and plan as documented. SUBJECTIVE: Patient is a 43 year old woman with a PMH of HLD, HTN, PAD, DM, Penicillin allergy, Right toe amputation, Adrenal tumor (surgically removed), Recurrent abdominal wall abscesses, Cellulitis, s/p CVA x2 (most recent 02/12, with residual right sided paralysis/aphasia) who presents to the ER with periumbilical abdominal pain since yesterday after eating. The patient describes her pain as non-radiating, 10/10, sharp now radiating to RLQ The patient states she had a normal BM today. Patient denies taking pain medication. The patient denies any trauma or falls. Reports a 30 lbs unintended weight loss. Denies fever, chills, chest pain, SOB, palpitations, dizziness, weakness, nausea, vomiting, diarrhea, bladder and bowel problems, leg swelling, No sick contacts or travel. No new changes in medications. Says her menses are regular but does not remember date of LMP. Not sexually active and not on OCP. Uses a walker. Mum had lung cancer OBJECTIVE: Alert Vital Signs Period Temp Pulse Resp BP Sys/Cohen Pulse Ox Last 24 Hr 97.6 F 76 18 139/79 100 HEENT: No Jaundice, eye redness or discharge, PERRLA, EOMI. facial asymmetry, Normocephalic, atraumatic. External ears are normal and hearing is grossly intact. No nasal discharge. Neck: Supple, nontender. No palpable adenopathy or thyromegaly. No JVD Chest: Good effort. Clear to auscultation and percussion. Heart: Regular. No S3, rub or murmur Abdomen: Not distended, soft, RLQ tenderness and no HSM. No rebound or guarding. Normal bowel sounds. Ext: Peripheral pulses intact. No leg edema. Skin: Warm and dry. No petechiae, rash or ecchymosis. Neuro: Alert. Oriented x3. Dysathria, CN 2-12 grossly intact. Sensation grossly intact in all four extremities; right hemiparesis. Psych: Appropriate mood and affect. Good insight. Home Medications Medication Instructions Recorded Insulin Glargine,Hum.rec.anlog 40 unit SQ HS 08/07/17 [Basagllala Francispen U-100] metFORMIN HCL [Glucophage -] 1,000 mg PO BID 08/07/17 Aspirin [Aspirin EC] 81 mg PO DAILY 06/09/18 Gabapentin 600 mg PO BID 06/09/18 Glipizide [Glipizide ER] 10 mg PO DAILY 06/09/18 Montelukast Sodium [Singulair] 10 mg PO DAILY 06/09/18 Amlodipine Besylate [Norvasc -] 10 mg PO DAILY 02/19/19 Clopidogrel Bisulfate [Plavix] 75 mg PO DAILY 02/19/19 Insulin Sliding Scale [Novolog 1 vial SQ ACHS units 02/24/19 Vial Sliding Scale -] Metoprolol Tartrate [Lopressor -] 25 mg PO BID tablet 02/24/19 Rosuvastatin [Crestor -] 20 mg PO HS tablet 02/24/19 Abnormal Lab Results 06/26/19 06/26/19 00:10 00:10 Hgb 10.3 L Hct 30.1 L BUN 29.7 H Creatinine 2.2 H Random Glucose 206 H AST 12 L Total Protein 6.1 L Albumin 2.7 L ASSESSMENT AND PLAN: 1. Abdominal pain - Etiology unclear. Noncontrast CT scan of abdomen/pelvis showed a 6.5 cm x 4.8 cm septated cyst within the right adnexa - a sonogram is recommended. Urinalysis, EKG and CXR pending. Will get ovarian tumor markers and consult PROPERTY TECHNICIAN and also Oncology in view of recent weight loss. Results of transvaginal sonogram will guide further workup. 2. Hypoalbuminemia - Possibly due to combined effects of malnutrition and inflammation associated with comorbid chronic conditions. Will get urinalysis to rule out proteinuria. Will ensure adequate dietary protein intake and also consult maritime officer. 3. Uncontrolled DM For now, we will hold the home diabetes drugs and implement sliding scale insulin regimen. Provide comprehensive diabetes care with patient teaching and counseling about the importance of adherence to prescribed diabetes regimen, euglycemia, eye care and foot care. 4. CKD/YOHAN? - Has risk factors for CKD. Will get PTH, phosphate, urine protein/ creatinine ratio, hydrate gently and monitor urine output. Will consult nephrology and avoid nephrotoxic agents such as NSAIDS, aminoglycosides, contrast dyes and certain Alternative medicine products. 5. Anemia - Likely multifactorial including renal anemia. Will do basic anemia work up including serial stool guaiacs, reticulocyte count and iron studies. Would benefit from Procrit therapy once iron replete. 6. Hypertension - Restart suitable outpatient antihypertensive drugs when clinically appropriate. Revise regimen to ensure [id number] excellent BP control and career and guidance counselor patient on the injurious effects of uncontrolled hypertension. Nonpharmacologic measures to control hypertension like weight loss , salt restriction and exercise discussed. Importance of adherence to treatment regimen and attainment of normotension emphasized. 7. DVT prophylaxis - Heparin 5000u sq tid. 8. Advance directives - Full code
[2019-06-26 05:41] LABS: BLOOD UREA NITROGEN 26.6 mg/dL (7-18); CALCIUM 8.7 mg/dL (8.5-10.1); CREATININE 1.8 mg/dL (0.55-1.3); POTASSIUM 4.2 mmol/L (3.5-5.1)
[2019-06-26] MEDS ORDERED: DEXTROSE 5%-NORMAL SALINE 1,000 ML IV SCH (06:00)
--- NOTE | 2019-06-26 06:12 | HP ---
CHIEF COMPLAINT:RLQ pain PCP: HISTORY OF PRESENT ILLNESS: 43 y/o female with PMH of CVA x2 (last one being this past January with Left MCA infarct), HTN, HLD, DM presents to the ED with complaints of RLQ_ she states that the pain started yesterday out of no where, it is not associated with any radiation she describes it as a sharp blue 7/10 at its worst. she denies any nausea/vomiting/fevers or chills- she also endorses a 30-40 weight pound loss unclear time frame. she denies any recent travel or any sick contacts. she has never had this pain before she denies any change in appetite, no sweats/chills/ no urinary symptoms ER course was notable for: (1)vitals wnl (2)labs Cr 2.2, Hgb 10.3 (3)ab/pelvis CT showed 6.5 x4.2 septated cyst within the right adnexa Recent Travel: denies PAST MEDICAL HISTORY: see above PAST SURGICAL HISTORY: adrenal tumor removal Social History: Smoking:denies Alcohol:social alcohol use Drugs: denies unsure of when last menstrual cycle was; thinks she is suppposed to get it next month? not currently sexually active, has never had and STD, not on any form of contraception; hasn't seen a FRUIT OR NUT PICKER in over a year Family History: mother has lung ca (smoking history) Allergies Penicillins Allergy (Severe, Verified 06/25/19 23:15) Difficulty Breathing TURNED BLUE HOME MEDICATIONS: Home Medications Medication Instructions Recorded Insulin Glargine,Hum.rec.anlog 40 unit SQ HS 08/07/17 [Eran White U-100] metFORMIN HCL [Glucophage -] 1,000 mg PO BID 08/07/17 Aspirin [Aspirin EC] 81 mg PO DAILY 06/09/18 Gabapentin 600 mg PO BID 06/09/18 Glipizide [Glipizide ER] 10 mg PO DAILY 06/09/18 Montelukast Sodium [Singulair] 10 mg PO DAILY 06/09/18 Amlodipine Besylate [Norvasc -] 10 mg PO DAILY 02/19/19 Clopidogrel Bisulfate [Plavix] 75 mg PO DAILY 02/19/19 Insulin Sliding Scale [Novolog 1 vial SQ ACHS units 02/24/19 Vial Sliding Scale -] Metoprolol Tartrate [Lopressor -] 25 mg PO BID tablet 02/24/19 Rosuvastatin [Crestor -] 20 mg PO HS tablet 02/24/19 REVIEW OF SYSTEMS CONSTITUTIONAL: Present: weight change Absent: fever, chills, diaphoresis, generalized weakness , malaise, loss of appetite HEENT: Absent: rhinorrhea, nasal congestion, throat pain, throat swelling, difficulty swallowing, mouth swelling, ear pain, eye pain, visual changes CARDIOVASCULAR: Absent: chest pain, syncope, palpitations, irregular heart rate, lightheadedness , peripheral edema RESPIRATORY: Absent: cough, shortness of breath, dyspnea with exertion, orthopnea, wheezing, stridor, hemoptysis GASTROINTESTINAL: Present: abdominal pain Absent: abdominal distension, nausea, vomiting, diarrhea , constipation, melena, hematochezia GENITOURINARY: Absent: dysuria, frequency, urgency, hesitancy, hematuria, flank pain, genital pain MUSCULOSKELETAL: Absent: myalgia, arthralgia, joint swelling, back pain, neck pain SKIN: Absent: rash, itching, pallor HEMATOLOGIC/IMMUNOLOGIC: Absent: easy bleeding, easy bruising, lymphadenopathy, frequent infections ENDOCRINE: Absent: unexplained weight gain, unexplained weight loss, heat intolerance, cold intolerance NEUROLOGIC: Absent: headache, focal weakness or paresthesias, dizziness, unsteady gait, seizure, mental status changes, bladder or bowel incontinence PSYCHIATRIC: Absent: anxiety, depression, suicidal or homicidal ideation, hallucinations. PHYSICAL EXAMINATION Vital Signs - 24 hr 06/25/19 06/26/19 21:37 05:59 Temperature 97.6 F 98.1 F Pulse Rate 76 Pulse Rate [ 74 Left Radial] Respiratory 18 20 Rate Blood Pressure 139/79 Blood Pressure 148/74 [Left Arm] O2 Sat by Pulse 100 100 Oximetry (%) GENERAL: Awake, alert, and fully oriented, in no acute distress. EYES:PEERLA; EOMI: no scleral icterus NECK: no JVD; no lymphadenopathy LUNGS: CTA B/L; no rales, rhonchi or wheezing HEART: Regular rate and rhythm, normal S1 and S2 without murmur, rub or gallop. ABDOMEN: Soft, + RLQ tenderness; negative McBurneys sign; no rebound/guarding + BS in all 4 quadrants MUSCULOSKELETAL: Normal range of motion at all joints. No bony deformities or tenderness. No CVA tenderness. EXTREMITIES: warm; well-perfused no clubbing/cyanosis or edema NEUROLOGICAL: Cranial nerves II-XII intact. aphasia (baseline residual deficit from stroke). 5/5 strength B.L UE and LE sensation intact throuhgout SKIN: Warm, dry, normal turgor, no rashes or lesions noted, normal capillary refill. Laboratory Results - last 24 hr 06/26/19 06/26/19 06/26/19 00:10 00:10 00:10 WBC 8.0 RBC 3.61 Hgb 10.3 L Hct 30.1 L MCV 83.4 MCH 28.4 MCHC 34.0 RDW 13.0 Plt Count 266 MPV 9.0 D Absolute Neuts (auto) 4.6 Neutrophils % 57.6 Lymphocytes % 32.5 Monocytes % 7.1 Eosinophils % 2.0 Basophils % 0.8 Nucleated RBC % 0 Sodium 136 Potassium 4.3 Chloride 103 Carbon Dioxide 25 Anion Gap 8 BUN 29.7 H Creatinine 2.2 H Est GFR (CKD-EPI)AfAm 31.02 Est GFR (CKD-EPI)NonAf 26.77 Random Glucose 206 H Calcium 8.5 Total Bilirubin 0.3 AST 12 L ALT 13 Alkaline Phosphatase 81 Total Protein 6.1 L Albumin 2.7 L Lipase 191 Serum , Qual 06/26/19 06/26/19 02:51 04:53 WBC RBC Hgb Hct MCV MCH MCHC RDW Plt Count MPV Absolute Neuts (auto) Neutrophils % Lymphocytes % Monocytes % Eosinophils % Basophils % Nucleated RBC % Sodium 137 Potassium 4.2 Chloride 105 Carbon Dioxide 26 Anion Gap 6 L BUN 26.6 H Creatinine 1.8 H Est GFR (CKD-EPI)AfAm 39.54 Est GFR (CKD-EPI)NonAf 34.11 Random Glucose 157 H Calcium 8.7 Total Bilirubin AST ALT Alkaline Phosphatase Total Protein Albumin Lipase Serum , Qual Negative ASSESSMENT/PLAN: 43 y/o female with PMH of CVA x2 (last one being this past January with Left MCA infarct), HTN, HLD, DM presents to the ED with complaints of RLQ that started yesterday found to have a septated cyst within the R adnexa #Adnexal Cyst prelim ab/plevis CT showing 6.5X4.8cm septated cyst within in the R adnexa -will await final read to further evaluate -FRUIT OR NUT PICKER on board -given history of weight loss and previous tumor removal in adrenals will consult heme-onc as wel -will also do an ultrasound to further evaluate the cyst #YOHAN patients Cr was 2.2 on arrival; baseline around 1.2 -nephro consulted -NS @75mls/hr -avoid nephrotoxic drugs -monitor urine output -UA pending #Anemia patients Hgb was 10.3 on arrival; last time was 10.8 -iron studies pending -monitor CBC #HTN -c/w norvasc and and metoprolol #DM holding all home oral hypoglycemics -BGMS ACHS -ISS ACHS #CVA --c/w ASA and Plavix #HLD c/w Crestor F/E/N NS @75mls/hr monitor electrolytes diabetic-sodium controlled diet dvt ppx: lovenox Problem List - Problem (1) Abdominal pain Code(s): R10.9 - UNSPECIFIED ABDOMINAL PAIN Qualifiers: Abdominal location: unspecified location Qualified Code(s): R10.9 - Unspecified abdominal pain (2) Adnexal mass Code(s): N94.89 - OTH COND ASSOC W FEMALE GENITAL ORGANS AND MENSTRUAL CYCLE (3) Renal insufficiency Code(s): N28.9 - DISORDER OF KIDNEY AND URETER, UNSPECIFIED Visit type - Emergency Visit Emergency Visit: Yes Care time: The patient presented to the Emergency Department on the above date and was hospitalized for further evaluation of their emergent condition. - New Patient This patient is new to me today: Yes Date on this admission: 06/26/19 - Critical Care Critical Care patient: No ATTENDING PHYSICIAN STATEMENT I saw and evaluated the patient. I reviewed the resident's note and discussed the case with the resident. I agree with the resident's findings and plan as documented. SUBJECTIVE: OBJECTIVE: ASSESSMENT AND PLAN:
[2019-06-26] MEDS: SODIUM CHLORIDE 1,000 ML IV SCH (08:04)
[2019-06-26] MEDS: INSULIN SLIDING SCALE (NOVOLOG) 1 VIAL SQ SCH ×4 (08:05→21:54)
[2019-06-26] MEDS ORDERED: INSULIN (NOVOLOG) ASPART 100 UNITS/ML 10ML VIAL ONE (08:06)
--- NOTE | 2019-06-26 09:59 | PN ---
Physical Exam: SUBJECTIVE: Patient seen and examined, c/o vague fabiana-umbilcal abdominal pain. Expressive aphasia, unable to provide further details, denies any fevers, chills , nausea, vomiting. OBJECTIVE: Vital Signs Period Temp Pulse Resp BP Sys/Cohen Pulse Ox Last 24 Hr 97.6 F-98.1 F 72-76 16-20 139-1555/74-92 96-100 Intake & Output 06/23/19 06/24/19 06/25/19 06/26/19 23:59 23:59 23:59 23:59 Weight 180 lb GENERAL:sitting in bed in no acute distress Neck: soft, supple CVS:S1S2 regular Chest: CTAb, no rales or wheezing Abdomen;Soft, right and left periumbilical tenderness, no RUQ or RLQ tenderness , neg Monsivais's sign, pos bowel sounds, no voluntary or involuntary guarding or rigidity Extremities: no edema Neuro: AA, expressive aphasia, right hemiplegia, RUE 0/5, RLE 2-3/5 Laboratory Results - last 24 hr 06/26/19 06/26/19 06/26/19 00:10 00:10 00:10 WBC 8.0 RBC 3.61 Hgb 10.3 L Hct 30.1 L MCV 83.4 MCH 28.4 MCHC 34.0 RDW 13.0 Plt Count 266 MPV 9.0 D Absolute Neuts (auto) 4.6 Neutrophils % 57.6 Lymphocytes % 32.5 Monocytes % 7.1 Eosinophils % 2.0 Basophils % 0.8 Nucleated RBC % 0 Sodium 136 Potassium 4.3 Chloride 103 Carbon Dioxide 25 Anion Gap 8 BUN 29.7 H Creatinine 2.2 H Est GFR (CKD-EPI)AfAm 31.02 Est GFR (CKD-EPI)NonAf 26.77 POC Glucometer Random Glucose 206 H Calcium 8.5 Total Bilirubin 0.3 AST 12 L ALT 13 Alkaline Phosphatase 81 Creatine Kinase 60 Troponin I < 0.02 Total Protein 6.1 L Albumin 2.7 L Lipase 191 Serum , Qual 06/26/19 06/26/19 06/26/19 02:51 04:53 06:23 WBC RBC Hgb Hct MCV MCH MCHC RDW Plt Count MPV Absolute Neuts (auto) Neutrophils % Lymphocytes % Monocytes % Eosinophils % Basophils % Nucleated RBC % Sodium 137 Potassium 4.2 Chloride 105 Carbon Dioxide 26 Anion Gap 6 L BUN 26.6 H Creatinine 1.8 H Est GFR (CKD-EPI)AfAm 39.54 Est GFR (CKD-EPI)NonAf 34.11 POC Glucometer 173 Random Glucose 157 H Calcium 8.7 Total Bilirubin AST ALT Alkaline Phosphatase Creatine Kinase Troponin I Total Protein Albumin Lipase Serum , Qual Negative 06/26/19 07:58 WBC RBC Hgb Hct MCV MCH MCHC RDW Plt Count MPV Absolute Neuts (auto) Neutrophils % Lymphocytes % Monocytes % Eosinophils % Basophils % Nucleated RBC % Sodium Potassium Chloride Carbon Dioxide Anion Gap BUN Creatinine Est GFR (CKD-EPI)AfAm Est GFR (CKD-EPI)NonAf POC Glucometer 278 Random Glucose Calcium Total Bilirubin AST ALT Alkaline Phosphatase Creatine Kinase Troponin I Total Protein Albumin Lipase Serum , Qual Active Medications Generic Name Dose Route Start Last Admin Trade Name Freq PRN Reason Stop Dose Admin Amlodipine Besylate 10 mg 06/26/19 10:00 Norvasc - PO DAILY [facility] Aspirin 81 mg 06/26/19 10:00 Ecotrin - PO DAILY [facility] Clopidogrel Bisulfate 75 mg 06/26/19 10:00 Plavix - PO DAILY [facility] Gabapentin 600 mg 06/26/19 10:00 Neurontin - PO BID [facility] Heparin Sodium (Porcine) 5,000 unit 06/26/19 10:00 Heparin - SQ Q8H-IV [facility] Sodium Chloride 1,000 mls @ 75 mls/hr 06/26/19 06:30 06/26/19 08:04 Normal Saline - IV 75 mls/hr ASDIR ÁLVARO Administration Insulin Aspart 1 vial 06/26/19 07:00 06/26/19 08:05 Novolog Vial Sliding Scale - SQ 6 unit ACHS [facility] Administration Protocol Insulin Detemir 10 units 06/26/19 22:00 Levemir Vial SQ HS [facility] Metoprolol Tartrate 25 mg 06/26/19 10:00 Lopressor - PO BID ÁLVARO Rosuvastatin Calcium 20 mg 06/26/19 22:00 Crestor - PO HS [facility] Home Medications Medication Instructions Recorded Insulin Glargine,Hum.rec.anlog 40 unit SQ HS 08/07/17 [Basaglar Kwikpen U-100] metFORMIN HCL [Glucophage -] 1,000 mg PO BID 08/07/17 Aspirin [Aspirin EC] 81 mg PO DAILY 06/09/18 Gabapentin 600 mg PO BID 06/09/18 Glipizide [Glipizide ER] 10 mg PO DAILY 06/09/18 Montelukast Sodium [Singulair] 10 mg PO DAILY 06/09/18 Amlodipine Besylate [Norvasc -] 10 mg PO DAILY 02/19/19 Clopidogrel Bisulfate [Plavix] 75 mg PO DAILY 02/19/19 Insulin Sliding Scale [Novolog 1 vial SQ ACHS units 02/24/19 Vial Sliding Scale -] Metoprolol Tartrate [Lopressor -] 25 mg PO BID tablet 02/24/19 Rosuvastatin [Crestor -] 20 mg PO HS tablet 02/24/19 CT A/P prelim results reviewed, right adnexal cyst, no acute process, follow up official read. ASSESSMENT/PLAN: 43 yof with PMHx of HTN, HLD, IDDM, PAD s/p left 2nd/3rd toe amputations, LLE bypass, Prior abscesses (axillary, Lower extremity, abdominal wall) , 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 -Abdominal pain, ?from adnexal cyst, r/o GI etiology -YOHAN, ?hypovolumia, r/o obstruction -Large Left MCA CVA with right hemiplegia/expressive aphasia -IDDM, poorly controlled -HTN -HLD -PAD s/p left 2nd/3rd toe amputations/LLE bypass -Prior abscesses (Axillary, lower extremity, abdominal wall) Plan: Wardrobe Stylist/GI input. Transvaginal/Pelvic US. Follow up official CT A/P read. Renal function improved. Continue IVF Known h/o retention on prior admit, unable to void early today. Bladder scan. No obstructive concerns on CT A/P. Urine electrolytes. Avoid nephrotoxins. Continue ASA/plavix/statin/amlodipine/metoprolol. Hold oral hypoglycemics, start levemir at 10 units hs, and titrate as needed. ISS, diabetic diet. DVTPPX heparin Dispo pending clinical improvement. PT eval and CM consult for d/c planning. Visit type - Emergency Visit Emergency Visit: Yes ED Registration Date: 06/26/19 Care time: The patient presented to the Emergency Department on the above date and was hospitalized for further evaluation of their emergent condition. - New Patient This patient is new to me today: Yes Date on this admission: 06/26/19 - Critical Care Critical Care patient: No - Discharge Referral Referred to [facility] Med [facility] No
[2019-06-26] MEDS ORDERED: PATIENT'S OWN MEDICATION (NON-FORMULARY) (Gabapentin [Gabapentin] 600 MG) PO SCH (10:00)
[2019-06-26 10:08] LABS: IRON SERUM 40 ug/dL (50-175); TOTAL IRON BINDING CAPACITY 278 ug/dL (250-450)
--- NOTE | 2019-06-26 10:37 | CON.OBG ---
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 no vomiting or nausea or bM problems. 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 Menstural History : irregular periods 3-4 months x4 days , no pain during period . Not sexually active denies h/o STD Contraception none , h/o BTL .No h/o harmonal contraceptives . Past Ob HX , 2c/sections . 2 vag del , pt had care in [facility], was unable to verbalize which hosp . LD 4 ys ago h/o HTN ? 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 last pregn h/o htn / diabetes) Heme/Onc: Yes: Anemia Infectious Disease: Yes: Other (declines ) Psych: Yes: Other (declines mental health issues ) Endocrine: Yes: Diabetes Mellitus Dermatology: Yes: Cellulitis, Other (Multiple abdominal wall abscess ) - Past Surgical History Past Surgical History: Yes: None, Cataract Removal, (2 c/s , last 4 yrs ago ) Additional Surgical History: h/o Rt Toe amputation ? 3 yrs ago. h/o surgery in sub umblical area , pt could not verbalise the type of surgery - Alcohol/Substance Use Hx Alcohol Use: No History of Substance Use: reports: None - Smoking History Smoking history: Never smoked Have you smoked in the past 12 months: No - Social History Occupation: unemployed History of Recent Travel: Yes (From [facility]) Home Medications - Allergies Allergies/Adverse Reactions: Allergies Allergy/AdvReac Type Severity Reaction Status Date / Time Penicillins Allergy Severe Difficulty Verified 06/25/19 23:15 Breathing - Home Medications Home Medications: Ambulatory Orders Insulin Glargine,Hum.rec.anlog [Basaglar Kwikpen U-100] 40 unit SQ HS 08/07/17 metFORMIN HCL [Glucophage -] 1,000 mg PO BID 08/07/17 Aspirin [Aspirin EC] 81 mg PO DAILY 06/09/18 Gabapentin 600 mg PO BID 06/09/18 Glipizide [Glipizide ER] 10 mg PO DAILY 06/09/18 Montelukast Sodium [Singulair] 10 mg PO DAILY 06/09/18 Amlodipine Besylate [Norvasc -] 10 mg PO DAILY 02/19/19 Clopidogrel Bisulfate [Plavix] 75 mg PO DAILY 02/19/19 Insulin Sliding Scale [Novolog Vial Sliding Scale -] 1 vial SQ ACHS units 02/24 Metoprolol Tartrate [Lopressor -] 25 mg PO BID tablet 02/24/19 Rosuvastatin [Crestor -] 20 mg PO HS tablet 02/24/19 Family Disease History - Family Disease History Family Disease History: Diabetes: Mother (lung cancer), Heart Disease: Father ( , [place] at 58), [place]: Mother, Other: Brother (healthy and living), Sister ( healthy and living) 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 No: Tenderness, Rebound ...Rectal Exam: Yes: Deferred Renal/: No: CVA Tenderness - Left, CVA Tenderness - Right Pelvis: Yes: Tenderness (lower abdomen, no guarding) External Genitalia: Yes: Normal Internal Exam Deferred: Yes Vaginal Exam: Yes: Normal Cervix: Yes: Normal. No: Cerv Motion Tenderness Uterus: Yes: Enlarged (possible) Adnexa: Tender: Bilateral, Enlarged: Left (lt adnexa , ? mass palpable unable to determine due to obesity ) Breast(s): Yes: WNL. No: Mass Musculoskeletal: Yes: WNL Extremities: Yes: WNL. No: Calf Tenderness Edema: No Integumentary: Yes: Incision (subumblical 2cm midline vertical keloid type scar . pfannensteil scar) Neurological: Yes: Alert, Oriented, Aphasia (while speaking she is incoherent unable to verbalize everything she wnts to tell), Other (rt sided hemiparalysis complete neurological exam not performed) Psychiatric: Yes: Alert, Oriented Labs: CBC, BMP 06/26/19 00:10 06/26/19 04:53 Problem List - Problems (1) Abdominal pain Code(s): R10.9 - UNSPECIFIED ABDOMINAL PAIN Qualifiers: Abdominal location: unspecified location Qualified Code(s): R10.9 - Unspecified abdominal pain (2) Right ovarian cyst Code(s): N83.201 - UNSPECIFIED OVARIAN CYST, RIGHT SIDE Assessment/Plan 43 Yrs , s/p 4c/s, s/p cva with hemiperalysis, DM, HTN, PAD , lower abd pain , non specific ct scan report not available , as per resident , verbal report 6.5x4.2 cm septate cyst recommend pelvic & TV ultra sound Tumor markers for varian cancer
[2019-06-26] MEDS: METOPROLOL TARTRATE 25 MG TABLET (FP) PO SCH ×2 (11:39→21:53)
[2019-06-26] MEDS: CLOPIDOGREL BISULFATE 75 MG TABLET (FP) PO SCH (11:39)
[2019-06-26] MEDS: amLODIPine BESYLATE 10 MG TABLET (FP) PO SCH (11:39)
[2019-06-26] MEDS: GABAPENTIN 300 MG CAPSULE (FP) PO SCH ×2 (11:39→21:52)
[2019-06-26] MEDS: HEPARIN NA (PORCINE) 5,000 UNITS/ML 1ML VIAL SQ SCH ×2 (11:39→18:15)
[2019-06-26] MEDS: ASPIRIN COATED 81 MG TABLET.EC PO SCH (11:40)
--- NOTE | 2019-06-26 18:07 | CONSULT ---
Consult Consult Specialty:: Medical Oncology Reason for Consultation:: Adnexal Cyst - History of Present Illness Chief Complaint: Abdominal Pain History of Present Illness: 43 y/o lady with PMH of CVA x2 (last one being this past January with Left MCA infarct), HTN, HLD, DM presented to the ED with complaints of RLQ_ she stated to the ER team that the pain started the day prior and it was described 05/05 at its worst. she denied any nausea/vomiting/fevers or chills- she told to the ER team had a 30-40 weight pound loss unclear time frame.She has never had this pain before. During my visit, she mentioned abdominal pain during examination but was not intense as previously described. 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: CVA (as per record x2 last 01/2019, with residual Rt sided Hemiparalysis & aphasia ) Cardio/Vascular: Yes: HTN (for 4 years , since last pregn ), Hyperlipdemia Pulmonary: Yes: Other (not known ) Gastrointestinal: Yes: Other (not known ) Hepatobiliary: Yes: Other (not known ) Renal/: Yes: Other (abnormal renal functions ) ...LMP: 07/27/18 (pt states she had LMP in month of May, has irregular periods 3-4 months ) Infectious Disease: Yes: Other (declines ) Psych: Yes: Other (declines mental health issues ) Endocrine: Yes: Diabetes Mellitus Dermatology: Yes: Cellulitis, Other (Multiple abdominal wall abscess ) - Past Surgical History Past Surgical History: Yes: None, Cataract Removal, (four c/s , last 4 yrs ago ) Additional Surgical History: h/o Rt Toe amputation ? 3 yrs ago. h/o surgery in sub umblical area , pt could not verbalise the type of surgery - Alcohol/Substance Use Hx Alcohol Use: No History of Substance Use: reports: None - Smoking History Smoking history: Never smoked Have you smoked in the past 12 months: No - Social History Occupation: unemployed History of Recent Travel: Yes (From [facility]) Home Medications - Allergies Allergies/Adverse Reactions: Allergies Allergy/AdvReac Type Severity Reaction Status Date / Time Penicillins Allergy Severe Difficulty Verified 06/25/19 23:15 Breathing - Home Medications Home Medications: Ambulatory Orders Insulin Glargine,Hum.rec.anlog [Basaglar Kwikpen U-100] 40 unit SQ HS 08/07/17 metFORMIN HCL [Glucophage -] 1,000 mg PO BID 08/07/17 Aspirin [Aspirin EC] 81 mg PO DAILY 06/09/18 Gabapentin 600 mg PO BID 06/09/18 Glipizide [Glipizide ER] 10 mg PO DAILY 06/09/18 Montelukast Sodium [Singulair] 10 mg PO DAILY 06/09/18 Amlodipine Besylate [Norvasc -] 10 mg PO DAILY 02/19/19 Clopidogrel Bisulfate [Plavix] 75 mg PO DAILY 02/19/19 Insulin Sliding Scale [Novolog Vial Sliding Scale -] 1 vial SQ ACHS units 02/24 Metoprolol Tartrate [Lopressor -] 25 mg PO BID tablet 02/24/19 Rosuvastatin [Crestor -] 20 mg PO HS tablet 02/24/19 Family Disease History - Family Disease History Family Disease History: Diabetes: Mother (lung cancer), Heart Disease: Father ( , [place] at 58), CA: Mother, Other: Brother (healthy and living), Sister ( healthy and living) Review of Systems - Review of Systems Constitutional: reports: No Symptoms Eyes: reports: No Symptoms HENT: reports: No Symptoms Neck: reports: No Symptoms Cardiovascular: reports: No Symptoms Respiratory: reports: No Symptoms Gastrointestinal: reports: Abdominal Pain Genitourinary: reports: No Symptoms Musculoskeletal: reports: No Symptoms Integumentary: reports: No Symptoms Neurological: reports: No Symptoms Endocrine: reports: No Symptoms Hematology/Lymphatic: reports: No Symptoms Psychiatric: reports: No Symptoms Physical Exam Vital Signs: Vital Signs Temperature 98.1 F 06/26/19 09:22 Pulse Rate 72 06/26/19 09:22 Respiratory Rate 16 06/26/19 12:00 Blood Pressure 1555/92 H 06/26/19 09:22 O2 Sat by Pulse Oximetry (%) 96 06/26/19 12:00 Constitutional: Yes: Well Nourished, No Distress, Calm Eyes: Yes: WNL, Conjunctiva Clear, EOM Intact HENT: Yes: WNL, Atraumatic, Normocephalic Neck: Yes: WNL, Supple, Trachea Midline Cardiovascular: Yes: WNL, Regular Rate and Rhythm Respiratory: Yes: WNL, Regular, CTA Bilaterally Gastrointestinal: Yes: WNL, Normal Bowel Sounds, Tenderness (Tenderness in ~ RLQ to RMQ), Tenderness, Epigastrium ...Rectal Exam: Yes: Deferred Renal/: Yes: WNL Musculoskeletal: Yes: WNL Extremities: Yes: WNL Labs: CBC, BMP 06/26/19 00:10 06/26/19 04:53 Assessment/Plan 43 y/o lady with PMH of CVA x2 (last one being this past January with Left MCA infarct), HTN, HLD, DM presented to the ED complaining of RLQ pain and Abdomen CT showed adnexal mass/septate cyst 6.5 X 4.2 cm per medical notes in chart. No formal read yet. Recommend: 1) Please obtain medical records from oncologist treating her prior adrenal tumor with pathology, imaging, etc 2) Agree with Abdominal and TV US to further characterize cyst and with ovarian tumor markers. 3) Age appropriate cancer screening with her PCP. 4) Thank you for this consultation
[2019-06-26 18:43] VITALS: BMI 28.6
--- NOTE | 2019-06-26 18:43 | CON.NEP ---
Consult Consult Specialty:: nephrology Referred by:: enzo alberts Reason for Consultation:: cale - History of Present Illness Chief Complaint: adnexal mass History of Present Illness: 43 y/o lady with PMH of CVA x2 (last one being this past January with Left MCA infarct), HTN, HLD, DM complaints of RLQ_ pain started the day prior 05/05 at its worst. 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: CVA (as per record x2 last 01/2019, with residual Rt sided Hemiparalysis & aphasia ) Cardio/Vascular: Yes: HTN (for 4 years , since last pregn ), Hyperlipdemia Pulmonary: Yes: Other (not known ) Gastrointestinal: Yes: Other (not known ) Hepatobiliary: Yes: Other (not known ) Renal/: Yes: Other (abnormal renal functions ) ...LMP: 07/27/18 (pt states she had LMP in month of May, has irregular periods 3-4 months ) Infectious Disease: Yes: Other (declines ) Psych: Yes: Other (declines mental health issues ) Endocrine: Yes: Diabetes Mellitus Dermatology: Yes: Cellulitis, Other (Multiple abdominal wall abscess ) - Past Surgical History Past Surgical History: Yes: None, Cataract Removal, (four c/s , last 4 yrs ago ) Additional Surgical History: h/o Rt Toe amputation ? 3 yrs ago. h/o surgery in sub umblical area , pt could not verbalise the type of surgery - Alcohol/Substance Use Hx Alcohol Use: No History of Substance Use: reports: None - Smoking History Smoking history: Never smoked Have you smoked in the past 12 months: No - Social History Occupation: unemployed History of Recent Travel: Yes (From [facility]) Home Medications - Allergies Allergies/Adverse Reactions: Allergies Allergy/AdvReac Type Severity Reaction Status Date / Time Penicillins Allergy Severe Difficulty Verified 06/25/19 23:15 Breathing - Home Medications Home Medications: Ambulatory Orders Insulin Glargine,Hum.rec.anlog [Basaglar Kwikpen U-100] 40 unit SQ HS 08/07/17 metFORMIN HCL [Glucophage -] 1,000 mg PO BID 08/07/17 Aspirin [Aspirin EC] 81 mg PO DAILY 06/09/18 Gabapentin 600 mg PO BID 06/09/18 Glipizide [Glipizide ER] 10 mg PO DAILY 06/09/18 Montelukast Sodium [Singulair] 10 mg PO DAILY 06/09/18 Amlodipine Besylate [Norvasc -] 10 mg PO DAILY 02/19/19 Clopidogrel Bisulfate [Plavix] 75 mg PO DAILY 02/19/19 Insulin Sliding Scale [Novolog Vial Sliding Scale -] 1 vial SQ ACHS units 02/24 Metoprolol Tartrate [Lopressor -] 25 mg PO BID tablet 02/24/19 Rosuvastatin [Crestor -] 20 mg PO HS tablet 02/24/19 Family Disease History - Family Disease History Family Disease History: Diabetes: Mother (lung cancer), Heart Disease: Father ( , [place] at 58), CA: Mother, Other: Brother (healthy and living), Sister ( healthy and living) Nephrology Consult - Height Height: 5 ft 7 in - Weight Weight: 183 lb - BMI Body Mass Index (BMI): 28.6 - Lab Results CBC,BMP: CBC, BMP 06/26/19 00:10 06/26/19 04:53 Anion Gap: Anion Gap Anion Gap 6 MMOL/L (8-16) L 06/26/19 04:53 - Physical Examination Vital Signs: Vital Signs Temperature 98.1 F 06/26/19 09:22 Pulse Rate 72 06/26/19 09:22 Respiratory Rate 16 06/26/19 12:00 Blood Pressure 1555/92 H 06/26/19 09:22 O2 Sat by Pulse Oximetry (%) 96 06/26/19 12:00 Assessment/Plan acute on chronic kidney disease probably fluid related slight improvement in renal function with IVF can continue hydration orally
[2019-06-26] MEDS: INSULIN (LEVEMIR) 100 UNITS/ML UNITS SQ SCH (21:52)
[2019-06-26] MEDS: ROSUVASTATIN CA 20 MG TABLET (FP) PO SCH (21:52)
[2019-06-27] MEDS: HEPARIN NA (PORCINE) 5,000 UNITS/ML 1ML VIAL SQ SCH ×3 (02:52→17:02)
[2019-06-27 04:31] LABS: EPI CELLS 1.4 /HPF (0-5/HPF); HYALINE CASTS 8 /lpf (0-8); URINE APPEARANCE CLOUDY; URINE BACTERIA >9000 /hpf (NEGATIVE); URINE BILIRUBIN NEGATIVE (NEGATIVE); URINE COLOR YELLOW; URINE GLUCOSE (UA) TRACE (NEGATIVE); URINE KETONE NEGATIVE (NEGATIVE); URINE LEUK ESTERASE 1+ (NEGATIVE); URINE NITRITE NEGATIVE (NEGATIVE); URINE PROTEIN 3+ (NEGATIVE); URINE RBC 4 /hpf (0-4); URINE UROBILINOGEN 0.2 mg/dL (0.2-1.0); URINE WBC 35 /hpf (0-5)
[2019-06-27] MEDS: SODIUM CHLORIDE 1,000 ML IV SCH ×2 (06:04→16:30)
[2019-06-27] MEDS: INSULIN SLIDING SCALE (NOVOLOG) 1 VIAL SQ SCH ×4 (06:07→21:33)
[2019-06-27 07:45] LABS: BASO % 0.5 % (0-2.0); EOS % 2.3 % (0-4.5); HEMATOCRIT 26.7 % (32.4-45.2); HEMOGLOBIN 9.3 GM/dL (10.7-15.3); LYMPH % 35.4 % (8-40); MEAN PLT VOLUME 9.4 fl (7.5-11.1); MONO % 7.7 % (3.8-10.2); NEUT % 54.1 % (42.8-82.8); PLATELET COUNT 232 K/MM3 (134-434); RBC 3.22 M/mm3 (3.60-5.2); RDW 13.1 % (11.6-15.6); WHITE BLOOD COUNT 6.4 K/mm3 (4.0-10.0)
[2019-06-27 08:08] LABS: ALBUMIN 2.2 g/dl (3.4-5.0); BILIRUBIN,TOTAL 0.4 mg/dL (0.2-1); BLOOD UREA NITROGEN 22.8 mg/dL (7-18); CALCIUM 8.3 mg/dL (8.5-10.1); CREATININE 1.6 mg/dL (0.55-1.3); MAGNESIUM 1.8 mg/dL (1.8-2.4); PHOSPHOROUS 3.5 mg/dL (2.5-4.9); POTASSIUM 4.2 mmol/L (3.5-5.1); TOT PROT 5.3 g/dl (6.4-8.2)
[2019-06-27] MEDS: ASPIRIN COATED 81 MG TABLET.EC PO SCH (09:15)
[2019-06-27] MEDS: GABAPENTIN 300 MG CAPSULE (FP) PO SCH ×2 (09:15→21:32)
[2019-06-27] MEDS: CLOPIDOGREL BISULFATE 75 MG TABLET (FP) PO SCH (09:15)
[2019-06-27] MEDS: amLODIPine BESYLATE 10 MG TABLET (FP) PO SCH (09:15)
[2019-06-27] MEDS: METOPROLOL TARTRATE 25 MG TABLET (FP) PO SCH ×2 (09:15→21:32)
[2019-06-27] MEDS ORDERED: CEFTRIAXONE 1 GM in DEXTROSE 5%-WATER - 100 ML IVPB SCH (10:00)
[2019-06-27] MEDS ORDERED: AZTREONAM 1 GM VIAL (RESTRICTED TO ID) ONE ×2 (10:14→16:44)
[2019-06-27] MEDS ORDERED: DEXTROSE 5%-WATER - 50 ML IVPB ONE ×2 (10:14→16:44)
[2019-06-27] MEDS: AZTREONAM 1 GM in DEXTROSE 5%-WATER - 50 ML IVPB SCH ×2 (10:17→17:02)
[2019-06-27] MEDS: ACETAMINOPHEN 325 MG TABLET (FP) PO PRN (10:17)
--- NOTE | 2019-06-27 10:33 | PN ---
Progress Note (short form) - Note Progress Note: Financial Representative follow up . pt c/o upper abd pain, above umblical area no vomiting , no nusea, pt is eating & voiding well today she tells me she had c/sx2 & 2 vag deliveries .She also has ho BTL Selected Entries 06/27/19 10:00 Temperature 98.2 F Pulse Rate 69 Blood Pressure 131/71 afebrile , v/s stable p/a soft, obese abdomen no lower abd tenderness upper abdomen above umblicus ? tenderness, no mass palpable pelvic sono report : Rt ovarian cyst 6.5x4.8x5 cm , with thick internal septa Lt ovarian 1.3 cm possible functional cyst Ut normal Ct scan report . 6.5 cm septate cyst rt side calcification, arthrosclerotic changes , intravascular & in coronary artery seen mild atrophy of kidney Laboratory Tests 06/26/19 06/26/19 06/27/19 17:14 21:50 06:01 WBC RBC Hgb Hct MCV MCH MCHC RDW Plt Count MPV Absolute Neuts (auto) Neutrophils % Lymphocytes % Monocytes % Eosinophils % Basophils % Sodium Potassium Chloride Carbon Dioxide Anion Gap BUN Creatinine POC Glucometer 126 187 99 Random Glucose Calcium Phosphorus Magnesium Total Bilirubin AST ALT Alkaline Phosphatase Total Protein Albumin 06/27/19 06/27/19 06:45 06:45 WBC 6.4 RBC 3.22 L Hgb 9.3 L Hct 26.7 L MCV 83.0 MCH 29.0 MCHC 35.0 RDW 13.1 Plt Count 232 MPV 9.4 Absolute Neuts (auto) 3.5 Neutrophils % 54.1 Lymphocytes % 35.4 Monocytes % 7.7 Eosinophils % 2.3 Basophils % 0.5 Sodium 141 Potassium 4.2 Chloride 111 H Carbon Dioxide 25 Anion Gap 4 L BUN 22.8 H Creatinine 1.6 H POC Glucometer Random Glucose 100 Calcium 8.3 L Phosphorus 3.5 Magnesium 1.8 Total Bilirubin 0.4 AST 9 L ALT 15 Alkaline Phosphatase 71 Total Protein 5.3 L Albumin 2.2 L Imp , Rt ovaian septate cyst , torsion unlikely several co morbities , cva with rt hemplegia ,aphasia, Chr Htn, hyperlipidemia, DM , PAD, anemia recommend : pt when medically clear should be referred to tertiary care center for possible bell hole digger surgery for rt adnexal cyst Problem List - Problems (1) Abdominal pain Code(s): R10.9 - UNSPECIFIED ABDOMINAL PAIN Qualifiers: Abdominal location: unspecified location Qualified Code(s): R10.9 - Unspecified abdominal pain (2) Right ovarian cyst Code(s): N83.201 - UNSPECIFIED OVARIAN CYST, RIGHT SIDE
--- NOTE | 2019-06-27 12:11 | PN ---
Physical Exam: SUBJECTIVE: Patient seen and examined, c/o vague fabiana-umbilcal abdominal pain. Expressive aphasia, unable to provide further details, denies any fevers, chills , nausea, vomiting. OBJECTIVE: Vital Signs Period Temp Pulse Resp BP Sys/Cohen Pulse Ox Last 24 Hr 97.7 F-98.2 F 69-84 18-18 131-150/71-85 98-98 Intake & Output 06/24/19 06/25/19 06/26/19 06/27/19 23:59 23:59 23:59 23:59 Intake Total 300 600 Balance 300 600 Weight 180 lb 183 lb GENERAL:sitting in bed in no acute distress Neck: soft, supple CVS:S1S2 regular Chest: CTAb, no rales or wheezing Abdomen: Soft, left supra-umbilical tenderness, no RUQ or RLQ tenderness, neg Monsivais's sign, pos bowel sounds, no voluntary or involuntary guarding or rigidity, no suprapubic or CVA tenderness Extremities: no edema Neuro: AA, expressive aphasia, right hemiplegia, RUE 0/5, RLE 2-3/5 Laboratory Results - last 24 hr 06/26/19 06/26/19 06/27/19 17:14 21:50 03:47 WBC RBC Hgb Hct MCV MCH MCHC RDW Plt Count MPV Absolute Neuts (auto) Neutrophils % Lymphocytes % Monocytes % Eosinophils % Basophils % Nucleated RBC % Sodium Potassium Chloride Carbon Dioxide Anion Gap BUN Creatinine Est GFR (CKD-EPI)AfAm Est GFR (CKD-EPI)NonAf POC Glucometer 126 187 Random Glucose Calcium Phosphorus Magnesium Total Bilirubin AST ALT Alkaline Phosphatase Total Protein Albumin Urine Color Urine Appearance Urine pH Ur Specific [place] Urine Protein Urine Glucose (UA) Urine Ketones Urine Blood Urine Nitrite Urine Bilirubin Urine Urobilinogen Ur Leukocyte Esterase Urine WBC (Auto) Urine RBC (Auto) Urine Casts (Auto) U Epithel Cells (Auto) Urine Bacteria (Auto) Urine Osmolality Ur Random Sodium 88 Ur Random Potassium 12.0 L Ur Random Chloride 89 L 06/27/19 06/27/19 06/27/19 03:48 03:48 06:01 WBC RBC Hgb Hct MCV MCH MCHC RDW Plt Count MPV Absolute Neuts (auto) Neutrophils % Lymphocytes % Monocytes % Eosinophils % Basophils % Nucleated RBC % Sodium Potassium Chloride Carbon Dioxide Anion Gap BUN Creatinine Est GFR (CKD-EPI)AfAm Est GFR (CKD-EPI)NonAf POC Glucometer 99 Random Glucose Calcium Phosphorus Magnesium Total Bilirubin AST ALT Alkaline Phosphatase Total Protein Albumin Urine Color Yellow Urine Appearance Cloudy Urine pH 6.0 Ur Specific [place] 1.010 Urine Protein 3+ H Urine Glucose (UA) Trace Urine Ketones Negative Urine Blood Trace Urine Nitrite Negative Urine Bilirubin Negative Urine Urobilinogen 0.2 Ur Leukocyte Esterase 1+ H Urine WBC (Auto) 35 Urine RBC (Auto) 4 Urine Casts (Auto) 8 U Epithel Cells (Auto) 1.4 Urine Bacteria (Auto) >9000 Urine Osmolality 343 Ur Random Sodium Ur Random Potassium Ur Random Chloride 06/27/19 06/27/19 06/27/19 06:45 06:45 11:27 WBC 6.4 RBC 3.22 L Hgb 9.3 L Hct 26.7 L MCV 83.0 MCH 29.0 MCHC 35.0 RDW 13.1 Plt Count 232 MPV 9.4 Absolute Neuts (auto) 3.5 Neutrophils % 54.1 Lymphocytes % 35.4 Monocytes % 7.7 Eosinophils % 2.3 Basophils % 0.5 Nucleated RBC % 0 Sodium 141 Potassium 4.2 Chloride 111 H Carbon Dioxide 25 Anion Gap 4 L BUN 22.8 H Creatinine 1.6 H Est GFR (CKD-EPI)AfAm 45.59 Est GFR (CKD-EPI)NonAf 39.34 POC Glucometer 230 Random Glucose 100 Calcium 8.3 L Phosphorus 3.5 Magnesium 1.8 Total Bilirubin 0.4 AST 9 L ALT 15 Alkaline Phosphatase 71 Total Protein 5.3 L Albumin 2.2 L Urine Color Urine Appearance Urine pH Ur Specific [place] Urine Protein Urine Glucose (UA) Urine Ketones Urine Blood Urine Nitrite Urine Bilirubin Urine Urobilinogen Ur Leukocyte Esterase Urine WBC (Auto) Urine RBC (Auto) Urine Casts (Auto) U Epithel Cells (Auto) Urine Bacteria (Auto) Urine Osmolality Ur Random Sodium Ur Random Potassium Ur Random Chloride Active Medications Generic Name Dose Route Start Last Admin Trade Name Freq PRN Reason Stop Dose Admin Acetaminophen 650 mg 06/27/19 09:19 06/27/19 10:17 Tylenol - PO 650 mg Q6H PRN Administration PAIN Amlodipine Besylate 10 mg 06/26/19 10:00 06/27/19 09:15 Norvasc - PO 10 mg DAILY ÁLVARO Administration Aspirin 81 mg 06/26/19 10:00 06/27/19 09:15 Ecotrin - PO 81 mg DAILY ÁLVARO Administration Clopidogrel Bisulfate 75 mg 06/26/19 10:00 06/27/19 09:15 Plavix - PO 75 mg DAILY ÁLVARO Administration Gabapentin 600 mg 06/26/19 10:00 06/27/19 09:15 Neurontin - PO 600 mg BID ÁLVARO Administration Heparin Sodium (Porcine) 5,000 unit 06/26/19 10:00 06/27/19 09:15 Heparin - SQ 5,000 unit Q8H-IV ÁLVARO Administration Sodium Chloride 1,000 mls @ 75 mls/hr 06/26/19 06:30 06/27/19 06:04 Normal Saline - IV 75 mls/hr ASDIR ÁLVARO Administration Aztreonam 1 gm/ Dextrose 50 mls @ 100 mls/hr 06/28/19 10:00 IVPB Q8H-IV ÁLVARO Protocol Aztreonam 1 gm/ Dextrose 50 mls @ 100 mls/hr 06/27/19 10:00 06/27/19 10:17 IVPB 06/28/19 10:29 100 mls/hr Q8H-IV ÁLVARO Administration Insulin Aspart 1 vial 06/26/19 07:00 06/27/19 11:28 Novolog Vial Sliding Scale - SQ 4 unit ACHS ÁLVARO Administration Protocol Insulin Detemir 10 units 06/26/19 22:00 06/26/19 21:52 Levemir Vial SQ 10 units HS ÁLVARO Administration Metoprolol Tartrate 25 mg 06/26/19 10:00 06/27/19 09:15 Lopressor - PO 25 mg BID ÁLVARO Administration Rosuvastatin Calcium 20 mg 06/26/19 22:00 06/26/19 21:52 Crestor - PO 20 mg HS ÁLVARO Administration ASSESSMENT/PLAN: 43 yof with PMHx of HTN, HLD, IDDM, PAD s/p left 2nd/3rd toe amputations, LLE bypass, Prior abscesses (axillary, Lower extremity, abdominal wall) , 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 Urinalysis noted. Send urine cultures. h/o allergy to PCN, shortness of breath. Prior Urine cx with levaquin resistant E. Coli. Aztreonam, ID input. Renal function continues to improve. Continue IVF, follow up renal input. Voiding freely. No obstructive concerns on CT A/P. Urine electrolytes noted. Avoid nephrotoxins. Continue ASA/plavix/statin/amlodipine/metoprolol. Hold oral hypoglycemics, continue levemir at 10 units hs, and titrate as needed. ISS, diabetic diet. DVTPPX heparin PT eval Dispo pending clinical improvement. PT eval and CM consult for d/c planning. Visit type - Emergency Visit Emergency Visit: Yes ED Registration Date: 06/26/19 Care time: The patient presented to the Emergency Department on the above date and was hospitalized for further evaluation of their emergent condition. - New Patient This patient is new to me today: No - Critical Care Critical Care patient: No - Discharge Referral [facility]erred to [facility] Med P.C[facility] No
--- NOTE | 2019-06-27 21:30 | PN ---
Progress Note (short form) - Note Progress Note: Problems acute on chronic kidney disease probably fluid related slight improvement in renal function with IVF adnexal mass Active Medications Acetaminophen (Tylenol -) 650 mg PO Q6H PRN PRN Reason: PAIN Last Admin: 06/27/19 10:17 Dose: 650 mg Amlodipine Besylate (Norvasc -) 10 mg PO DAILY [facility] Last Admin: 06/27/19 09:15 Dose: 10 mg Aspirin (Ecotrin -) 81 mg PO DAILY [facility] Last Admin: 06/27/19 09:15 Dose: 81 mg Clopidogrel Bisulfate (Plavix -) 75 mg PO DAILY [facility] Last Admin: 06/27/19 09:15 Dose: 75 mg Gabapentin (Neurontin -) 600 mg PO BID [facility] Last Admin: 06/27/19 09:15 Dose: 600 mg Heparin Sodium (Porcine) (Heparin -) 5,000 unit SQ Q8H-IV [facility] Last Admin: 06/27/19 17:02 Dose: 5,000 unit Sodium Chloride (Normal Saline -) 1,000 mls @ 75 mls/hr IV ASDIR [facility] Last Admin: 06/27/19 16:30 Dose: 75 mls/hr Aztreonam 1 gm/ Dextrose 50 mls @ 100 mls/hr IVPB Q8H-IV [facility]; Protocol Aztreonam 1 gm/ Dextrose 50 mls @ 100 mls/hr IVPB Q8H-IV [facility] Stop: 06/28/19 10:29 Last Admin: 06/27/19 17:02 Dose: 100 mls/hr Insulin Aspart (Novolog Vial Sliding Scale -) 1 vial SQ [facility]; Protocol Last Admin: 06/27/19 16:33 Dose: 2 unit Insulin Detemir (Levemir Vial) 10 units SQ [facility] Last Admin: 06/26/19 21:52 Dose: 10 units Metoprolol Tartrate (Lopressor -) 25 mg PO BID [facility] Last Admin: 06/27/19 09:15 Dose: 25 mg Rosuvastatin Calcium (Crestor -) 20 mg PO HS [facility] Last Admin: 06/26/19 21:52 Dose: 20 mg Last Vital Signs Temp Pulse Resp BP Pulse Ox 98.4 F 73 18 137/82 98 06/27/19 17:14 06/27/19 17:14 06/27/19 17:14 06/27/19 17:14 06/27/19 09:00 lungs clear Heart reg Abd soft nontender Ext no edema CBC, BMP 06/27/19 06:45 06/27/19 06:45 IMP- YOHAN Underlying CKD adnexal mass can continue hydration orally
[2019-06-27] MEDS: ROSUVASTATIN CA 20 MG TABLET (FP) PO SCH (21:32)
[2019-06-27] MEDS: INSULIN (LEVEMIR) 100 UNITS/ML UNITS SQ SCH (21:32)
[2019-06-28] MEDS: HEPARIN NA (PORCINE) 5,000 UNITS/ML 1ML VIAL SQ SCH ×3 (02:04→18:26)
[2019-06-28] MEDS: AZTREONAM 1 GM in DEXTROSE 5%-WATER - 50 ML IVPB SCH ×2 (02:05→10:50)
[2019-06-28] MEDS ORDERED: AZTREONAM 1 GM VIAL (RESTRICTED TO ID) ONE ×2 (03:07→09:39)
[2019-06-28] MEDS ORDERED: DEXTROSE 5%-WATER - 50 ML IVPB ONE ×2 (03:08→09:39)
[2019-06-28] MEDS: INSULIN SLIDING SCALE (NOVOLOG) 1 VIAL SQ SCH ×4 (06:20→21:54)
[2019-06-28] MEDS: SODIUM CHLORIDE 1,000 ML IV SCH ×2 (06:20→21:52)
[2019-06-28 07:54] LABS: BASO % 0.6 % (0-2.0); EOS % 2.8 % (0-4.5); HEMOGLOBIN 9.2 GM/dL (10.7-15.3); LYMPH % 38.5 % (8-40); MCHC 35.4 g/dl (32.0-36.0); MEAN CELL VOLUME 81.8 fl (80-96); MEAN PLT VOLUME 9.4 fl (7.5-11.1); MONO % 8.4 % (3.8-10.2); NEUT % 49.7 % (42.8-82.8); PLATELET COUNT 238 K/MM3 (134-434); RBC 3.18 M/mm3 (3.60-5.2); RDW 12.8 % (11.6-15.6); WHITE BLOOD COUNT 6.1 K/mm3 (4.0-10.0)
[2019-06-28 08:09] LABS: BLOOD UREA NITROGEN 21.4 mg/dL (7-18); CALCIUM 8.5 mg/dL (8.5-10.1); CREATININE 1.4 mg/dL (0.55-1.3); POTASSIUM 4.3 mmol/L (3.5-5.1)
[2019-06-28] MEDS ORDERED: AZTREONAM 1 GM in DEXTROSE 5%-WATER - 50 ML IVPB SCH (10:00)
[2019-06-28] MEDS: ASPIRIN COATED 81 MG TABLET.EC PO SCH (10:50)
[2019-06-28] MEDS: GABAPENTIN 300 MG CAPSULE (FP) PO SCH ×2 (10:50→21:52)
[2019-06-28] MEDS: METOPROLOL TARTRATE 25 MG TABLET (FP) PO SCH ×2 (10:51→21:52)
[2019-06-28] MEDS: amLODIPine BESYLATE 10 MG TABLET (FP) PO SCH (10:51)
[2019-06-28] MEDS: CLOPIDOGREL BISULFATE 75 MG TABLET (FP) PO SCH (10:51)
[2019-06-28] MEDS: ACETAMINOPHEN 325 MG TABLET (FP) PO PRN (11:06)
--- NOTE | 2019-06-28 11:40 | PN ---
Progress Note (short form) - Note Progress Note: Patient seen and examined Complains of some abdominal complaints -RLQ Last Vital Signs Temp Pulse Resp BP Pulse Ox 98 F 68 18 129/75 96 06/28/19 06:24 06/28/19 06:24 06/28/19 06:24 06/28/19 06:24 06/27/19 21:00 Lungs- clear Cor -RSR Abd- soft Ext- negative S/P CVA with right sided weakness CBC, BMP 06/28/19 06:42 06/28/19 06:42 Current Medications Generic Name Dose Route Start Last Admin Trade Name Freq PRN Reason Stop Dose Admin Acetaminophen 650 mg 06/27/19 09:19 06/28/19 11:06 Tylenol - PO 650 mg Q6H PRN Administration PAIN Amlodipine Besylate 10 mg 06/26/19 10:00 06/28/19 10:51 Norvasc - PO 10 mg DAILY ÁLVARO Administration Aspirin 81 mg 06/26/19 10:00 06/28/19 10:50 Ecotrin - PO 81 mg DAILY ÁLVARO Administration Clopidogrel Bisulfate 75 mg 06/26/19 10:00 06/28/19 10:51 Plavix - PO 75 mg DAILY ÁLVARO Administration Gabapentin 600 mg 06/26/19 10:00 06/28/19 10:50 Neurontin - PO 600 mg BID ÁLVARO Administration Heparin Sodium (Porcine) 5,000 unit 06/26/19 10:00 06/28/19 10:50 Heparin - SQ 5,000 unit Q8H-IV ÁLVARO Administration Sodium Chloride 1,000 mls @ 75 mls/hr 06/26/19 06:30 06/28/19 06:20 Normal Saline - IV 75 mls/hr ASDIR Á[facility]O Administration Aztreonam 1 gm/ Dextrose 50 mls @ 100 mls/hr 06/28/19 10:00 IVPB Q8H-IV ÁLVARO Protocol Insulin Aspart 1 vial 06/26/19 07:00 06/28/19 06:20 Novolog Vial Sliding Scale - SQ Not Given ACHS ÁLVARO Protocol Insulin Detemir 10 units 06/26/19 22:00 06/27/19 21:32 Levemir Vial SQ 10 units HS ÁLVARO Administration Metoprolol Tartrate 25 mg 06/26/19 10:00 06/28/19 10:51 Lopressor - PO 25 mg BID ÁLVARO Administration Rosuvastatin Calcium 20 mg 06/26/19 22:00 06/27/19 21:32 Crestor - PO 20 mg HS ÁLVARO Administration Impression Ovarian cyst CKD DM Anemia Splenomegaly Iron deficiency S/P CVA Suggest Consult - 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 TVS CEA Hemogolbin electrophoresis Fe++ therapy
[2019-06-28] MEDS ORDERED: IRON SUCROSE INJECTION 200 MG in SODIUM CHLORIDE 90 ML IVPB ONE (11:46)
[2019-06-28] MEDS ORDERED: INSULIN (NOVOLOG) ASPART 100 UNITS/ML 10ML VIAL ONE (12:29)
--- NOTE | 2019-06-28 12:56 | PN ---
Progress Note (short form) - Note Progress Note: Problems acute on chronic kidney disease probably fluid related slight improvement in renal function with IVF adnexal mass Current Medications Acetaminophen (Tylenol -) 650 mg PO Q6H PRN PRN Reason: PAIN Last Admin: 06/28/19 11:06 Dose: 650 mg Amlodipine Besylate (Norvasc -) 10 mg PO DAILY [facility] Last Admin: 06/28/19 10:51 Dose: 10 mg Aspirin (Ecotrin -) 81 mg PO DAILY [facility] Last Admin: 06/28/19 10:50 Dose: 81 mg Clopidogrel Bisulfate (Plavix -) 75 mg PO DAILY [facility] Last Admin: 06/28/19 10:51 Dose: 75 mg Gabapentin (Neurontin -) 600 mg PO BID [facility] Last Admin: 06/28/19 10:50 Dose: 600 mg Heparin Sodium (Porcine) (Heparin -) 5,000 unit SQ Q8H-IV [facility] Last Admin: 06/28/19 10:50 Dose: 5,000 unit Sodium Chloride (Normal Saline -) 1,000 mls @ 75 mls/hr IV ASDIR [facility] Last Admin: 06/28/19 06:20 Dose: 75 mls/hr Aztreonam 1 gm/ Dextrose 50 mls @ 100 mls/hr IVPB Q8H-IV [facility]; Protocol Insulin Aspart (Novolog Vial Sliding Scale -) 1 vial SQ ACHS [facility]; Protocol Last Admin: 06/28/19 12:30 Dose: 2 unit Insulin Detemir (Levemir Vial) 10 units SQ HS [facility] Last Admin: 06/27/19 21:32 Dose: 10 units Metoprolol Tartrate (Lopressor -) 25 mg PO BID [facility] Last Admin: 06/28/19 10:51 Dose: 25 mg Rosuvastatin Calcium (Crestor -) 20 mg PO HS [facility] Last Admin: 06/27/19 21:32 Dose: 20 mg Last Vital Signs Temp Pulse Resp BP Pulse Ox 98 F 68 18 129/75 96 06/28/19 06:24 06/28/19 06:24 06/28/19 06:24 06/28/19 06:24 06/27/19 21:00 lungs clear Heart reg Abd soft nontender Ext no edema CBC, BMP 06/28/19 06:42 06/28/19 06:42 CBC, BMP 06/27/19 06:45 06/27/19 06:45 IMP- YOHAN Underlying CKD adnexal mass can continue hydration orally
--- NOTE | 2019-06-28 13:05 | PN ---
Physical Exam: SUBJECTIVE: Patient seen and examined at bedside. No acute events. No new complaints. OBJECTIVE: Vital Signs Period Temp Pulse Resp BP Sys/Cohen Pulse Ox Last 24 Hr 98 F-98.7 F 68-74 18-20 129-149/69-93 96 Gen: AAO x 3, NAD, dysarthric/partially aphasic HEENT: NCAT, EOMI Neck: supple, no jvd Cardio: rrr, nomral s1s2, no mrg noted Pulm: cta b/l Abd: soft, nondistended, ttp ruq, caballero's negative Ext: no edema Neuro: R hemiparesis, hemiplegia Laboratory Results - last 24 hr 06/27/19 06/27/19 06/28/19 16:27 21:25 06:18 WBC RBC Hgb Hct MCV MCH MCHC RDW Plt Count MPV Absolute Neuts (auto) Neutrophils % Lymphocytes % Monocytes % Eosinophils % Basophils % Nucleated RBC % Sodium Potassium Chloride Carbon Dioxide Anion Gap BUN Creatinine Est GFR (CKD-EPI)AfAm Est GFR (CKD-EPI)NonAf POC Glucometer 184 194 107 Random Glucose Calcium 06/28/19 06/28/19 06/28/19 06:42 06:42 11:43 WBC 6.1 RBC 3.18 L Hgb 9.2 L Hct 26.0 L MCV 81.8 MCH 29.0 MCHC 35.4 RDW 12.8 Plt Count 238 MPV 9.4 Absolute Neuts (auto) 3.1 Neutrophils % 49.7 Lymphocytes % 38.5 Monocytes % 8.4 Eosinophils % 2.8 Basophils % 0.6 Nucleated RBC % 0 Sodium 140 Potassium 4.3 Chloride 110 H Carbon Dioxide 24 Anion Gap 7 L BUN 21.4 H Creatinine 1.4 H Est GFR (CKD-EPI)AfAm 53.58 Est GFR (CKD-EPI)NonAf 46.23 POC Glucometer 178 Random Glucose 109 H Calcium 8.5 Active Medications Generic Name Dose Route Start Last Admin Trade Name Freq PRN Reason Stop Dose Admin Acetaminophen 650 mg 06/27/19 09:19 06/28/19 11:06 Tylenol - PO 650 mg Q6H PRN Administration PAIN Amlodipine Besylate 10 mg 06/26/19 10:00 06/28/19 10:51 Norvasc - PO 10 mg DAILY ÁLVARO Administration Aspirin 81 mg 06/26/19 10:00 06/28/19 10:50 Ecotrin - PO 81 mg DAILY ÁLVARO Administration Clopidogrel Bisulfate 75 mg 06/26/19 10:00 06/28/19 10:51 Plavix - PO 75 mg DAILY ÁLVARO Administration Gabapentin 600 mg 06/26/19 10:00 06/28/19 10:50 Neurontin - PO 600 mg BID ÁLVARO Administration Heparin Sodium (Porcine) 5,000 unit 06/26/19 10:00 06/28/19 10:50 Heparin - SQ 5,000 unit Q8H-IV ÁLVARO Administration Sodium Chloride 1,000 mls @ 75 mls/hr 06/26/19 06:30 06/28/19 06:20 Normal Saline - IV 75 mls/hr ASDIR Á[facility] Administration Aztreonam 1 gm/ Dextrose 50 mls @ 100 mls/hr 06/28/19 10:00 IVPB Q8H-IV Á[facility] Protocol Insulin Aspart 1 vial 06/26/19 07:00 06/28/19 12:30 Novolog Vial Sliding Scale - SQ 2 unit ACHS ÁLVARO Administration Protocol Insulin Detemir 10 units 06/26/19 22:00 06/27/19 21:32 Levemir Vial SQ 10 units HS ÁLVARO Administration Metoprolol Tartrate 25 mg 06/26/19 10:00 06/28/19 10:51 Lopressor - PO 25 mg BID ÁLVARO Administration Rosuvastatin Calcium 20 mg 06/26/19 22:00 06/27/19 21:32 Crestor - PO 20 mg HS ÁLVARO Administration ASSESSMENT/PLAN: 43 yof with PMHx of HTN, HLD, IDDM, PAD s/p left 2nd/3rd toe amputations, LLE bypass, Prior abscesses (axillary, Lower extremity, abdominal wall) , 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 #Abdominal pain -?from adnexal cyst, vs UTI vs GI etiology -no transaminitis -Medical Front Desk Coordinator recs noted: pt will need outpt f/u for R cyst #Uncomplicated UTI - aztreonam #YOHAN, Resolving -?hypovolemia -resolving with IVF #Hx Large Left MCA CVA -Stable right hemiplegia/expressive aphasia -ASA -plavix #IDDM, poorly controlled -ISS, BGM -will need outpt follow up #HTN -Lopressor #HLD -Rosouvastatin #PAD s/p left 2nd/3rd toe amputations/LLE bypass -on plavix #Prior abscesses (Axillary, lower extremity, abdominal wall) Visit type - Emergency Visit Emergency Visit: Yes ED Registration Date: 06/26/19 Care time: The patient presented to the Emergency Department on the above date and was hospitalized for further evaluation of their emergent condition. - New Patient This patient is new to me today: Yes Date on this admission: 06/28/19 - Critical Care Critical Care patient: No ATTENDING PHYSICIAN STATEMENT I saw and evaluated the patient. I reviewed the resident's note and discussed the case with the resident. I agree with the resident's findings and plan as documented. SUBJECTIVE: OBJECTIVE: ASSESSMENT AND PLAN:
--- NOTE | 2019-06-28 13:10 | PN ---
Progress Note (short form) - Note Progress Note: Life Insurance Salesperson follow up tumor markers still pending . Recommend :contact Life Insurance Salesperson Onco for the hosp Dr Gena calhoun tel # if not contactable , refer the patient [facility] if medically cleared Problem List - Problems (1) Abdominal pain Code(s): R10.9 - UNSPECIFIED ABDOMINAL PAIN Qualifiers: Qualified Code(s): R10.9 - Unspecified abdominal pain (2) Right ovarian cyst Code(s): N83.201 - UNSPECIFIED OVARIAN CYST, RIGHT SIDE
--- NOTE | 2019-06-28 14:47 | PN ---
Teaching Attending Note Name of Resident: Joo Vitale ATTENDING PHYSICIAN STATEMENT I saw and evaluated the patient. I reviewed the resident's note and discussed the case with the resident. I agree with the resident's findings and plan as documented with exceptions below. SUBJECTIVE: Patient seen and examined. denies any complaints. OBJECTIVE: Vital Signs Period Temp Pulse Resp BP Sys/Cohen Pulse Ox Last 24 Hr 98 F-98.4 F 68-73 18-20 129-147/69-82 96 Intake & Output 06/25/19 06/26/19 06/27/19 06/28/19 23:59 23:59 23:59 23:59 Intake Total 300 1500 800 Balance 300 1500 800 Weight 180 lb 183 lb 183 lb GENERAL:sitting in bed in no acute distress Neck: soft, supple CVS:S1S2 regular Chest: CTAb, no rales or wheezing Abdomen: Soft, left supra-umbilical tenderness, no RUQ or RLQ tenderness, neg Monsivais's sign, pos bowel sounds, no voluntary or involuntary guarding or rigidity, no suprapubic or CVA tenderness Extremities: no edema Neuro: AA, expressive aphasia, right hemiplegia, RUE 0/5, RLE 2-3/5 Home Medications Medication Instructions Recorded Insulin Glargine,Hum.rec.anlog 40 unit SQ HS 08/07/17 [Basaglar Kwikpen U-100] metFORMIN HCL [Glucophage -] 1,000 mg PO BID 08/07/17 Aspirin [Aspirin EC] 81 mg PO DAILY 06/09/18 Gabapentin 600 mg PO BID 06/09/18 Glipizide [Glipizide ER] 10 mg PO DAILY 06/09/18 Montelukast Sodium [Singulair] 10 mg PO DAILY 06/09/18 Amlodipine Besylate [Norvasc -] 10 mg PO DAILY 02/19/19 Clopidogrel Bisulfate [Plavix] 75 mg PO DAILY 02/19/19 Insulin Sliding Scale [Novolog 1 vial SQ ACHS units 02/24/19 Vial Sliding Scale -] Metoprolol Tartrate [Lopressor -] 25 mg PO BID tablet 02/24/19 Rosuvastatin [Crestor -] 20 mg PO HS tablet 02/24/19 Active Medications Acetaminophen (Tylenol -) 650 mg PO Q6H PRN PRN Reason: PAIN Last Admin: 06/28/19 11:06 Dose: 650 mg Amlodipine Besylate (Norvasc -) 10 mg PO DAILY [facility] Last Admin: 06/28/19 10:51 Dose: 10 mg Aspirin (Ecotrin -) 81 mg PO DAILY [facility] Last Admin: 06/28/19 10:50 Dose: 81 mg Clopidogrel Bisulfate (Plavix -) 75 mg PO DAILY [facility] Last Admin: 06/28/19 10:51 Dose: 75 mg Gabapentin (Neurontin -) 600 mg PO BID [facility] Last Admin: 06/28/19 10:50 Dose: 600 mg Heparin Sodium (Porcine) (Heparin -) 5,000 unit SQ Q8H-IV [facility] Last Admin: 06/28/19 10:50 Dose: 5,000 unit Sodium Chloride (Normal Saline -) 1,000 mls @ 75 mls/hr IV ASDIR [facility] Last Admin: 06/28/19 06:20 Dose: 75 mls/hr Aztreonam 1 gm/ Dextrose 50 mls @ 100 mls/hr IVPB Q8H-IV [facility]; Protocol Insulin Aspart (Novolog Vial Sliding Scale -) 1 vial SQ [facility]; Protocol Last Admin: 06/28/19 12:30 Dose: 2 unit Insulin Detemir (Levemir Vial) 10 units SQ HS [facility] Last Admin: 06/27/19 21:32 Dose: 10 units Metoprolol Tartrate (Lopressor -) 25 mg PO BID [facility] Last Admin: 06/28/19 10:51 Dose: 25 mg Rosuvastatin Calcium (Crestor -) 20 mg PO HS [facility] Last Admin: 06/27/19 21:32 Dose: 20 mg Laboratory Results - last 24 hr 06/27/19 06/27/19 06/28/19 16:27 21:25 06:18 WBC RBC Hgb Hct MCV MCH MCHC RDW Plt Count MPV Absolute Neuts (auto) Neutrophils % Lymphocytes % Monocytes % Eosinophils % Basophils % Nucleated RBC % Sodium Potassium Chloride Carbon Dioxide Anion Gap BUN Creatinine Est GFR (CKD-EPI)AfAm Est GFR (CKD-EPI)NonAf POC Glucometer 184 194 107 Random Glucose Calcium 06/28/19 06/28/19 06/28/19 06:42 06:42 11:43 WBC 6.1 RBC 3.18 L Hgb 9.2 L Hct 26.0 L MCV 81.8 MCH 29.0 MCHC 35.4 RDW 12.8 Plt Count 238 MPV 9.4 Absolute Neuts (auto) 3.1 Neutrophils % 49.7 Lymphocytes % 38.5 Monocytes % 8.4 Eosinophils % 2.8 Basophils % 0.6 Nucleated RBC % 0 Sodium 140 Potassium 4.3 Chloride 110 H Carbon Dioxide 24 Anion Gap 7 L BUN 21.4 H Creatinine 1.4 H Est GFR (CKD-EPI)AfAm 53.58 Est GFR (CKD-EPI)NonAf 46.23 POC Glucometer 178 Random Glucose 109 H Calcium 8.5 Microbiology 06/27/19 09:00 Urine - Urine Clean Catch Urine Culture - Preliminary Lactose Fermenting Neg Bacilli ASSESSMENT AND PLAN: 43 yof with PMHx of HTN, HLD, IDDM, PAD s/p left 2nd/3rd toe amputations, LLE bypass, Prior abscesses (axillary, Lower extremity, abdominal wall) , 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 -Abdominal pain, ?from adnexal cyst, vs UTI vs GI etiology -Lower uncomplicated UTI -YOHAN, ?hypovolumia, r/o obstruction -Large Left MCA CVA with right hemiplegia/expressive aphasia -IDDM, poorly controlled -HTN -HLD -PAD s/p left 2nd/3rd toe amputations/LLE bypass -Prior abscesses (Axillary, lower extremity, abdominal wall) Plan: dead mail checker input noted. Urinalysis noted. Follow up urine cultures h/o allergy to PCN, shortness of breath. Prior Urine cx with levaquin resistant E. Coli. Aztreonam, ID input. Renal function continues to improve. Continue IVF, follow up renal input. Voiding freely. No obstructive concerns on CT A/P. Urine electrolytes noted. Avoid nephrotoxins. Continue ASA/plavix/statin/amlodipine/metoprolol. Hold oral hypoglycemics, continue levemir at 10 units hs, and titrate as needed. ISS, diabetic diet. Hematology/oncology input noted. Professor Of Legal Studies onc input, follow up outpatient. Will likely need tertiary care center once active medical concerns resolve. Follow up tumor markers. DVTPPX heparin PT eval Dispo pending clinical improvement. PT eval and CM consult for d/c planning.
--- NOTE | 2019-06-28 14:55 | PN ---
Progress Note (short form) - Note Progress Note: ID CONSULT DICTATED UTI ? MAJOR PCN ALLERGY ABDOMINAL PAIN SYNDROME S/P CVA AZOTEMIA- IMPROVED SUBSTITUTE NITROFURANTOIN X 7D
--- NOTE | 2019-06-28 15:35 | CONS ---
INFECTIOUS DISEASE CONSULTATION DATE OF CONSULTATION: DATE OF DICTATION: 06/28/2019 HISTORY: The patient is a 43-year-old female who is evaluated for recurrent urinary tract infection. The patient was admitted to the hospital on June 25, 2019, with abdominal pain. CAT scan of the abdomen and pelvis showed a right adnexal cyst. She was noted to have pyuria and was complaining of urinary frequency and dysuria. Urine culture is now growing a lactose crew person. In the past, she has grown an E. coli resistant to quinolones. She has a history of major PENICILLIN allergy. Patient is aphasia; however, able to answer simple questions. She admits to dysuria and urinary frequency as well as suprapubic discomfort. She denies any flank pain. No fever or chills. PAST MEDICAL HISTORY: Positive for diabetes mellitus, hypertension, hyperlipidemia, stroke, history of recurrent abdominal wall cellulitis and abscesses. ALLERGIES: PENICILLIN (shortness of breath). MEDICATIONS: Include Azactam, Tylenol, Norvasc, Ecotrin, Plavix, Neurontin, Crestor. SOCIAL HISTORY: She lives in the community. She is a nonsmoker, nondrinker. LABORATORY DATA: White count 6.1, hematocrit 26.0, platelet count 238, creatinine 1.4. Urinalysis 35 white cells. PHYSICAL EXAMINATION: General: On exam, she is awake. She is ambulatory with assistance. Vital Signs: Temperature 98, blood pressure 129/75, pulse 68 regular, respirations 18 per minute. HEENT: Sclerae anicteric. Heart: Sounds S1, S2. Lungs: Clear. Abdomen: Soft. Positive suprapubic tenderness. No CVA tenderness. Extremities: Edema 1+. IMPRESSION: 1. Recurrent urinary tract infection. 2. Abdominal pain syndrome. 3. Possible major PENICILLIN allergy. 4. Status post cerebrovascular accident. 5. Azotemia, improved. PLAN: Substitute nitrofurantoin in this patient with possible major PENICILLIN allergy. Complete 7-day course. Thank you for the kind referral. RL CERNA M.D. [id number]
[2019-06-28] MEDS: NITROFURANTOIN MACROCRYSTAL 50 MG CAPSULE (FP) PO SCH (18:26)
[2019-06-28] MEDS: ROSUVASTATIN CA 20 MG TABLET (FP) PO SCH (21:52)
[2019-06-28] MEDS: INSULIN (LEVEMIR) 100 UNITS/ML UNITS SQ SCH (21:53)
[2019-06-29] MEDS: NITROFURANTOIN MACROCRYSTAL 50 MG CAPSULE (FP) PO SCH ×4 (00:46→17:56)
[2019-06-29] MEDS: HEPARIN NA (PORCINE) 5,000 UNITS/ML 1ML VIAL SQ SCH ×3 (01:02→17:59)
[2019-06-29] MEDS: INSULIN SLIDING SCALE (NOVOLOG) 1 VIAL SQ SCH ×4 (06:21→17:59)
[2019-06-29 06:30] LABS: HEMATOCRIT 26.9 % (32.4-45.2); HEMOGLOBIN 9.5 GM/dL (10.7-15.3); MCH 29.1 pg (25.7-33.7); MCHC 35.4 g/dl (32.0-36.0); MEAN CELL VOLUME 82.1 fl (80-96); MEAN PLT VOLUME 9.2 fl (7.5-11.1); PLATELET COUNT 235 K/MM3 (134-434); RBC 3.27 M/mm3 (3.60-5.2); RDW 12.6 % (11.6-15.6); WHITE BLOOD COUNT 7.5 K/mm3 (4.0-10.0)
[2019-06-29 06:56] LABS: BLOOD UREA NITROGEN 20.9 mg/dL (7-18); CALCIUM 8.6 mg/dL (8.5-10.1); CREATININE 1.4 mg/dL (0.55-1.3); POTASSIUM 4.2 mmol/L (3.5-5.1)
[2019-06-29] MEDS: SODIUM CHLORIDE 1,000 ML IV SCH (07:37)
[2019-06-29] MEDS ORDERED: PT OWN MED DRAWER 7, Y5N ONE ×2 (09:00→13:46)
[2019-06-29] MEDS: GABAPENTIN 300 MG CAPSULE (FP) PO SCH (09:03)
[2019-06-29] MEDS: ASPIRIN COATED 81 MG TABLET.EC PO SCH (09:03)
[2019-06-29] MEDS: amLODIPine BESYLATE 10 MG TABLET (FP) PO SCH (09:04)
[2019-06-29] MEDS: METOPROLOL TARTRATE 25 MG TABLET (FP) PO SCH (09:04)
[2019-06-29] MEDS: CLOPIDOGREL BISULFATE 75 MG TABLET (FP) PO SCH (09:04)
[2019-06-29] MEDS: ACETAMINOPHEN 325 MG TABLET (FP) PO PRN (10:40)
--- NOTE | 2019-06-29 13:57 | PN ---
Teaching Attending Note Name of Resident: Joo Vitale ATTENDING PHYSICIAN STATEMENT I saw and evaluated the patient. I reviewed the resident's note and discussed the case with the resident. I agree with the resident's findings and plan as documented with exceptions below. SUBJECTIVE: Patient seen and examined. tolerating diet, vague right sided abdominal pain. OBJECTIVE: Vital Signs Period Temp Pulse Resp BP Sys/Cohen Pulse Ox Last 24 Hr 97.9 F-99.0 F 70-75 17-20 131-153/71-87 98-100 Intake & Output 06/26/19 06/27/19 06/28/19 06/29/19 23:59 23:59 23:59 23:59 Intake Total 300 1500 1000 1250 Balance 300 1500 1000 1250 Weight 183 lb 183 lb GENERAL:sitting in bed in no acute distress Neck: soft, supple CVS:S1S2 regular Chest: CTAb, no rales or wheezing Abdomen: Soft, left supra-umbilical tenderness, no RUQ or RLQ tenderness, neg Monsivais's sign, pos bowel sounds, no voluntary or involuntary guarding or rigidity, no suprapubic or CVA tenderness Extremities: no edema Neuro: AA, expressive aphasia, right hemiplegia, RUE 0/5, RLE 2-3/5 Laboratory Results - last 24 hr 06/26/19 06/28/19 06/28/19 12:00 17:30 21:50 WBC RBC Hgb Hct MCV MCH MCHC RDW Plt Count MPV Sodium Potassium Chloride Carbon Dioxide Anion Gap BUN Creatinine Est GFR (CKD-EPI)AfAm Est GFR (CKD-EPI)NonAf POC Glucometer 130 198 Random Glucose Calcium CA 125 Antigen 14.8 OVA CA Risk,Pre-Menop 6.41 H LAITH Pre-Era Intrp Hi OVA CA Risk,Post-Menop 3.33 H LAITH Post-Penfield Intp Hi HE4 Ovarian Ca Marker 184.0 H 06/29/19 06/29/19 06/29/19 05:29 05:35 05:35 WBC 7.5 RBC 3.27 L Hgb 9.5 L Hct 26.9 L MCV 82.1 MCH 29.1 MCHC 35.4 RDW 12.6 Plt Count 235 MPV 9.2 Sodium 139 Potassium 4.2 Chloride 109 H Carbon Dioxide 24 Anion Gap 6 L BUN 20.9 H Creatinine 1.4 H Est GFR (CKD-EPI)AfAm 53.58 Est GFR (CKD-EPI)NonAf 46.23 POC Glucometer 134 Random Glucose 124 H Calcium 8.6 CA 125 Antigen OVA CA Risk,Pre-Menop LAITH Pre-Penfield Intrp Hi OVA CA Risk,Post-Menop LAITH Post-Era Intp Hi HE4 Ovarian Ca Marker 06/29/19 12:27 WBC RBC Hgb Hct MCV MCH MCHC RDW Plt Count MPV Sodium Potassium Chloride Carbon Dioxide Anion Gap BUN Creatinine Est GFR (CKD-EPI)AfAm Est GFR (CKD-EPI)NonAf POC Glucometer 188 Random Glucose Calcium CA 125 Antigen OVA CA Risk,Pre-Menop LAITH Pre-Penfield Intrp Hi OVA CA Risk,Post-Menop LAITH Post-Penfield Intp Hi HE4 Ovarian Ca Marker Home Medications Medication Instructions Recorded Insulin Glargine,Hum.rec.anlog 40 unit SQ HS 08/07/17 [Basaglar Kwikpen U-100] metFORMIN HCL [Glucophage -] 1,000 mg PO BID 08/07/17 Aspirin [Aspirin EC] 81 mg PO DAILY 06/09/18 Gabapentin 600 mg PO BID 06/09/18 Glipizide [Glipizide ER] 10 mg PO DAILY 06/09/18 Montelukast Sodium [Singulair] 10 mg PO DAILY 06/09/18 Amlodipine Besylate [Norvasc -] 10 mg PO DAILY 02/19/19 Clopidogrel Bisulfate [Plavix] 75 mg PO DAILY 02/19/19 Insulin Sliding Scale [Novolog 1 vial SQ ACHS units 02/24/19 Vial Sliding Scale -] Metoprolol Tartrate [Lopressor -] 25 mg PO BID tablet 02/24/19 Rosuvastatin [Crestor -] 20 mg PO HS tablet 02/24/19 Gabapentin [Neurontin -] 600 mg PO BID #30 capsule 06/29/19 Nitrofurantoin Macrocrystal 100 mg PO BID #14 capsule 06/29/19 [Nitrofurantoin] Microbiology 06/27/19 09:00 Urine - Urine Clean Catch Urine Culture - Final Escherichia Coli ASSESSMENT AND PLAN: 43 yof with PMHx of HTN, HLD, IDDM, PAD s/p left 2nd/3rd toe amputations, LLE bypass, Prior abscesses (axillary, Lower extremity, abdominal wall) , 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 -Abdominal pain, ?from adnexal cyst, vs UTI vs GI etiology -Lower E. coli uncomplicated UTI -YOHAN, ?hypovolumia, r/o obstruction -Large Left MCA CVA with right hemiplegia/expressive aphasia -IDDM, poorly controlled -HTN -HLD -PAD s/p left 2nd/3rd toe amputations/LLE bypass -Prior abscesses (Axillary, lower extremity, abdominal wall) Plan: doing well, tolerating diet. ID input noted, macrobid for 7 days. Discussed with Derrick Worker, outpatient Derrick Worker onc follow up Discussed with Dr. Maldonado, plan per Derrick Worker. CT A/P neg for acute concerns otherwise PT eval noted Hematology input noted. Outpt follow up for CEA and Hb electrophoresis results. D/c home with services with outpatient gynecology teacher follow up. Plan has been discussed with patient and family in detail and stressed on need for outpatient follow up.
--- NOTE | 2019-06-29 15:05 | PN ---
Progress Note, Physician History of Present Illness: Pt seen and examined at bedside. She is awake and appears comfortable. - Current Medication List Current Medications: Active Medications Acetaminophen (Tylenol -) 650 mg PO Q6H PRN PRN Reason: PAIN Last Admin: 06/29/19 10:40 Dose: 650 mg Amlodipine Besylate (Norvasc -) 10 mg PO DAILY [facility] Last Admin: 06/29/19 09:04 Dose: 10 mg Aspirin (Ecotrin -) 81 mg PO DAILY [facility] Last Admin: 06/29/19 09:03 Dose: 81 mg Clopidogrel Bisulfate (Plavix -) 75 mg PO DAILY [facility] Last Admin: 06/29/19 09:04 Dose: 75 mg Gabapentin (Neurontin -) 600 mg PO BID [facility] Last Admin: 06/29/19 09:03 Dose: 600 mg Heparin Sodium (Porcine) (Heparin -) 5,000 unit SQ Q8H-IV [facility] Last Admin: 06/29/19 09:06 Dose: 5,000 unit Sodium Chloride (Normal Saline -) 1,000 mls @ 75 mls/hr IV ASDIR [facility] Last Admin: 06/29/19 07:37 Dose: Not Given Insulin Aspart (Novolog Vial Sliding Scale -) 1 vial SQ [facility]; Protocol Last Admin: 06/29/19 12:40 Dose: 2 unit Insulin Detemir (Levemir Vial) 10 units SQ [facility] Last Admin: 06/28/19 21:53 Dose: 10 units Metoprolol Tartrate (Lopressor -) 25 mg PO BID [facility] Last Admin: 06/29/19 09:04 Dose: 25 mg Nitrofurantoin Macrocrystals (Macrodantin -) 50 mg PO Q6HPO [facility] Last Admin: 06/29/19 13:50 Dose: 50 mg Rosuvastatin Calcium (Crestor -) 20 mg PO HS [facility] Last Admin: 06/28/19 21:52 Dose: 20 mg - Objective Vital Signs: Vital Signs Temperature 98.1 F 06/29/19 14:28 Pulse Rate 71 06/29/19 14:28 Respiratory Rate 20 06/29/19 14:28 Blood Pressure 131/71 06/29/19 14:28 O2 Sat by Pulse Oximetry (%) 98 06/29/19 09:00 Constitutional: Yes: Calm Eyes: Yes: Conjunctiva Clear HENT: Yes: Atraumatic Neck: Yes: Supple Cardiovascular: Yes: S1, S2 Gastrointestinal: Yes: Soft Genitourinary: Yes: WNL Edema: No Integumentary: Yes: Tattoos Neurological: Yes: Facial Droop Labs: CBC, BMP 06/29/19 05:35 06/29/19 05:35 Assessment/Plan Current Medications Generic Name Dose Route Start Last Admin Trade Name Freq PRN Reason Stop Dose Admin Acetaminophen 650 mg 06/27/19 09:19 06/29/19 10:40 Tylenol - PO 650 mg Q6H PRN Administration PAIN Amlodipine Besylate 10 mg 06/26/19 10:00 06/29/19 09:04 Norvasc - PO 10 mg DAILY ÁLVARO Administration Aspirin 81 mg 06/26/19 10:00 06/29/19 09:03 Ecotrin - PO 81 mg DAILY ÁLVARO Administration Clopidogrel Bisulfate 75 mg 06/26/19 10:00 06/29/19 09:04 Plavix - PO 75 mg DAILY ÁLVARO Administration Gabapentin 600 mg 06/26/19 10:00 06/29/19 09:03 Neurontin - PO 600 mg BID ÁLVARO Administration Heparin Sodium (Porcine) 5,000 unit 06/26/19 10:00 06/29/19 09:06 Heparin - SQ 5,000 unit Q8H-IV ÁLVARO Administration Sodium Chloride 1,000 mls @ 75 mls/hr 06/26/19 06:30 06/29/19 07:37 Normal Saline - IV Not Given ASDIR ÁLVARO Insulin Aspart 1 vial 06/26/19 07:00 06/29/19 12:40 Novolog Vial Sliding Scale - SQ 2 unit ACHS ÁLVARO Administration Protocol Insulin Detemir 10 units 06/26/19 22:00 06/28/19 21:53 Levemir Vial SQ 10 units HS ÁLVARO Administration Metoprolol Tartrate 25 mg 06/26/19 10:00 06/29/19 09:04 Lopressor - PO 25 mg BID ÁLVARO Administration Nitrofurantoin Macrocrystals 50 mg 06/28/19 18:00 06/29/19 13:50 Macrodantin - PO 50 mg Q6HPO ÁLVARO Administration Rosuvastatin Calcium 20 mg 06/26/19 22:00 06/28/19 21:52 Crestor - PO 20 mg HS ÁLVARO Administration Impression 1. cale 2. ckd 3. cva 4. adenexal mass 5. hld 6. uti Plan - renal function is improving - decrease rate of fluids - repeat labs tomorrow - rest per primary team
[2019-06-29] MEDS ORDERED: SODIUM CHLORIDE 1,000 ML IV SCH (16:47)
--- NOTE | 2019-06-29 16:57 | DS ---
Physical Exam: SUBJECTIVE: Patient seen and examined at bedside. OBJECTIVE: Vital Signs Period Temp Pulse Resp BP Sys/Cohen Pulse Ox Last 24 Hr 97.9 F-98.4 F 70-74 17-20 131-153/71-87 98-100 PHYSICAL EXAM Gen: AAO x 3, NAD, dysarthric/partially aphasic HEENT: NCAT, EOMI Neck: supple, no jvd Cardio: rrr, nomral s1s2, no mrg noted Pulm: cta b/l Abd: soft, nondistended, ttp ruq, caballero's negative Ext: no edema Neuro: R hemiparesis, hemiplegia LABS Laboratory Results - last 24 hr 06/26/19 06/28/19 06/28/19 12:00 17:30 21:50 WBC RBC Hgb Hct MCV MCH MCHC RDW Plt Count MPV Sodium Potassium Chloride Carbon Dioxide Anion Gap BUN Creatinine Est GFR (CKD-EPI)AfAm Est GFR (CKD-EPI)NonAf POC Glucometer 130 198 Random Glucose Calcium CA 125 Antigen 14.8 OVA CA Risk,Pre-Menop 6.41 H LAITH Pre-Era Intrp Hi OVA CA Risk,Post-Menop 3.33 H LAITH Post-Maiden Intp Hi HE4 Ovarian Ca Marker 184.0 H 06/29/19 06/29/19 06/29/19 05:29 05:35 05:35 WBC 7.5 RBC 3.27 L Hgb 9.5 L Hct 26.9 L MCV 82.1 MCH 29.1 MCHC 35.4 RDW 12.6 Plt Count 235 MPV 9.2 Sodium 139 Potassium 4.2 Chloride 109 H Carbon Dioxide 24 Anion Gap 6 L BUN 20.9 H Creatinine 1.4 H Est GFR (CKD-EPI)AfAm 53.58 Est GFR (CKD-EPI)NonAf 46.23 POC Glucometer 134 Random Glucose 124 H Calcium 8.6 CA 125 Antigen OVA CA Risk,Pre-Menop LAITH Pre-Maiden Intrp Hi OVA CA Risk,Post-Menop LAITH Post-Era Intp Hi HE4 Ovarian Ca Marker 06/29/19 12:27 WBC RBC Hgb Hct MCV MCH MCHC RDW Plt Count MPV Sodium Potassium Chloride Carbon Dioxide Anion Gap BUN Creatinine Est GFR (CKD-EPI)AfAm Est GFR (CKD-EPI)NonAf POC Glucometer 188 Random Glucose Calcium CA 125 Antigen OVA CA Risk,Pre-Menop LAITH Pre-Maiden Intrp Hi OVA CA Risk,Post-Menop LAITH Post-Era Intp Hi HE4 Ovarian Ca Marker HOSPITAL COURSE: Date of Admission:06/26/19 Date of Discharge: 06/29/19 43 yof with PMHx of HTN, HLD, IDDM, PAD s/p left 2nd/3rd toe amputations, LLE bypass, Prior abscesses (axillary, Lower extremity, abdominal wall) , 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 Pt's Abdominal pain is likely 2/2 adnexal cyst. GI was consulted and agreed with assessment of [employer]. [employer] was consulted and felt the pt will need outpt f/u for R cyst. She also had an Uncomplicated UTI, which was treated with aztreonam. Her YOHAN resolved with IVF. Pt had a known large left MCA CVA with stable right hemiplegia/expressive aphasia. It was treated with ASA, and Plavix. IDDM, which was poorly controlled. It was treated with ISS. Her HTN was treated with Lopressor. Her HLD was treated with Rosouvastatin. Her PAD s/p left 2nd/3rd toe amputations/LLE bypass was treated with home plavix. #Prior abscesses (Axillary, lower extremity, abdominal wall) The patient is stable for discharge with strict instructions to follow up with [employer]. She was given contact information of the specialist. Family was notified, as well. Minutes to complete discharge: 30 Discharge Summary Reason For Visit: MASS OF UTERINE ADNEXA,RENAL INSUFFICIENCY, Current Active Problems Abdominal pain (Acute) Renal insufficiency (Acute) Right ovarian cyst (Acute) Condition: Guarded - Instructions Diet, Activity, Other Instructions: You were in the hospital because of abdominal pain. You were found to have several cysts on you ovaries. You MUST follow up with your doctor about this. You need to follow up with the following doctors: Dr aDnisha Avery, [employer] telephone # Primary care doctor Dr. Gomez, P[employer] Dr. Mcnamara, Heme/Onc You need to take the following medications: Nitrofurantoin 100mg twice daily for 7 days Gabapentin 600mg twice daily You can continue taking your prior medications. Some of your blood work has been sent, results are currently pending (CEA, hemoglobin electrophoresis). Please follow up with Dr. Mcnamara about the same. If your symptoms get worse, return to the hospital or call your doctor. Referrals: Maria Dolores Mackay MD [Staff Physician] - Micky Mcnamara MD [Staff Physician] - Disposition: VNS/HOME HEALTH CARE - Home Medications Comprehensive Discharge Medication List: Ambulatory Orders Insulin Glargine,Hum.[email or web address].anlog [Basaglar Kwikpen U-100] 40 unit SQ HS 08/07/17 metFORMIN HCL [Glucophage -] 1,000 mg PO BID 08/07/17 Aspirin [Aspirin EC] 81 mg PO DAILY 06/09/18 Gabapentin 600 mg PO BID 06/09/18 Glipizide [Glipizide ER] 10 mg PO DAILY 06/09/18 Montelukast Sodium [Singulair] 10 mg PO DAILY 06/09/18 Amlodipine Besylate [Norvasc -] 10 mg PO DAILY 02/19/19 Clopidogrel Bisulfate [Plavix] 75 mg PO DAILY 02/19/19 Insulin Sliding Scale [Novolog Vial Sliding Scale -] 1 vial SQ ACHS units 02/24 Metoprolol Tartrate [Lopressor -] 25 mg PO BID tablet 02/24/19 Rosuvastatin [Crestor -] 20 mg PO HS tablet 02/24/19 Gabapentin [Neurontin -] 600 mg PO BID #30 capsule 06/29/19 Nitrofurantoin Macrocrystal [Nitrofurantoin] 100 mg PO BID #14 capsule 06/29/19 This patient is new to me today: No Emergency Visit: No Critical Care patient: No - Discharge Referral Referred to [facility] Med P.C.: No ATTENDING PHYSICIAN STATEMENT I saw and evaluated the patient. I reviewed the resident's note and discussed the case with the resident. I agree with the resident's findings and plan as documented. SUBJECTIVE: OBJECTIVE: ASSESSMENT AND PLAN:
--- NOTE | 2019-06-29 17:47 | PN ---
Progress Note (short form) - Note Progress Note: Patient seen and examined Has not as yet been seen by [facility]. Spoke to family members to ascertain that patient will follow up with [facility]ER as outpatient.
[2019-06-29] MEDS ORDERED: INSULIN (NOVOLOG) ASPART 100 UNITS/ML 10ML VIAL ONE (17:58)
[2019-06-29 18:47] VITALS: BP 135/72; PULSE 73; TEMP 98.8
== END 2019-06-29 18:15 | disposition home health service (06) | DRG 532 ==
LOC: JER 21:23 → JERBED 06-26 05:16 → J7W 06-26 10:09
PROVIDERS: ADMIT Internal Medicine; ATTEND Hospitalist
DX: N83.291 Other ovarian cyst, right side (principal); N17.9 Acute kidney failure, unspecified; E11.51 Type 2 diabetes mellitus with diabetic peripheral angiopathy without gangrene; E11.22 Type 2 diabetes mellitus with diabetic chronic kidney disease; I69.351 Hemiplegia and hemiparesis following cerebral infarction affecting right dominant side; R16.1 Splenomegaly, not elsewhere classified; E88.09 Other disorders of plasma-protein metabolism, not elsewhere classified; E11.65 Type 2 diabetes mellitus with hyperglycemia; Z89.421 Acquired absence of other right toe(s); Z88.0 Allergy status to penicillin; Z79.4 Long term (current) use of insulin; E66.9 Obesity, unspecified; I69.320 Aphasia following cerebral infarction; D64.9 Anemia, unspecified; I12.9 Hypertensive chronic kidney disease with stage 1 through stage 4 chronic kidney disease, or unspecified chronic kidney disease; N18.9 Chronic kidney disease, unspecified; D50.9 Iron deficiency anemia, unspecified; N39.0 Urinary tract infection, site not specified
CPT/HCPCS: 36415; 71045-TC-FY; 74176-TC; 76830-TC; 76856-TC; 80048; 80053; 81003; 81500; 82378; 82436; 82550; 82962; 83021; 83540; 83550; 83690; 83735; 83935; 84100; 84133; 84300; 84484; 84703; 85025; 85027; 85044; 85660; 87086; 87186; 97116-GP; 97162-GP; 99284-25; J1644; J1756; J7030